=== PATIENT | female | born 1955 | race Caucasian/White ===

== ENCOUNTER 2024-09-22 12:35 | Inpatient (IN) | payer OTHER, SELFPAY ==
[2024-09-22] VITALS (44 sets, daily range): BP systolic 67–107; BP diastolic 46–70; BMI 19.7; BMI 19.0
--- NOTE | 2024-09-22 10:20 | ED.GENMED ---
History of Present Illness
<Demetra Robbins PA-C - Last Filed: 09/22/24 15:35>
General
Chief Complaint: Cough
Source: patient
Exam Limitations: none
Time Seen by Provider: 09/22/24 10:10
Nursing documentation reviewed up to this point in time: agreed with
History of Present Illness
History of Present Illness:
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
here from home with
here with 6 days of uri sxs, sore throat, fever, cough, congestion, loss of appetite
a few days ago she stoppe deating
is still drinking some but very weak
isn' really getting out of bed
has felt a little shortn of breath
not having chest pain, diarrhea
took motrin this morning
doesnt usually go to the doctor
Past History
<Demetra Robbins PA-C - Last Filed: 09/22/24 15:35>
Past History
ED Past Medical History: Other (leg abnormality, trouble walking baseline)
Social History
Tobacco: Non-smoker
Review of Systems
<MIRLANDE Haley Last Filed: 09/22/24 15:35>
Review of Systems
Allergies reviewed?: Yes
All Other Systems: Not applicable
Phy Exam
<MIRLANDE Haley Last Filed: 09/22/24 15:35>
Physical Exam
Physical Exam:
GENERAL: Alert , frail, generally weak
EYE: pupils equal and reactive
NECK: Supple
ENT: o/p clr, dry mouth
CARDIAC: Regular rate and rhythm .
LUNGS: Crackles right side anterior and posterior mild tachypnea
ABDOMEN: Soft, without focal tenderness, no r/g, no cvat, normal bowel sounds
NEUROLOGICAL: Alert and oriented, no focal neuro deficits
SKIN: Warm and dry, skin intact.
MUSCULOSKELETAL: No edema, well perfused. neg kiran's sign
PSYCH: Normal and appropriate interaction.
Sepsis
<Demetra Robbins PA-C - Last Filed: 09/22/24 15:35>
Sepsis Screening
Sepsis Assessment: Septic Shock
Sepsis Screening: Lactate >2mmol/L and Hypotension
Sepsis Screen
Sepsis Screen: Septic Shock
Date: 09/22/24
Time: 10:40
<Daron Jones MD - Last Filed: 09/22/24 12:42>
Sepsis Screen
Sepsis Screen: Sepsis
Date: 09/22/24
Time: 12:41
Course
<Demetra Robbins PA-C - Last Filed: 09/22/24 15:35>
Orders/Labs/Results
Orders:
Orders
09/22/24 Breakfast
Regular
At Your Request: Full Participation
09/22/24 10:19
0.9% Sodium Chloride 1000 ml [Nss] 1,000 ml IV BOLUS
09/22/24 10:20
Electrocardiogram (*1) Urgent
Reason for Study: Fatigue / Weakness
09/22/24 10:25
CR Chest Portable - 1 View Urgent
Comment:
Reason For Exam: hypotensive, hypoxic
Reason Study Needs to be Portable: Patient Unstable
09/22/24 10:33
COVID-19 Antigen Urgent
Source: Nasal Swab
Complete Blood Count/With Diff Urgent
Comprehensive Metabolic Panel Urgent
Lactic Acid Urgent
Magnesium Urgent
Manual Differential Urgent
Blood Culture Urgent
SHINE Source: Blood/Venous
Specimen Description:
Influenza A+B Rapid Molecular Urgent
SHINE Source: Nasal Swab
Specimen Description:
09/22/24 10:43
Azithromycin 500 mg/250 ml [Zithromax Infusion] 500 mg in 250 ml IV NOW
CefTRIAXone [Rocephin] 1,000 mg IV NOW STA
09/22/24 11:22
Oseltamivir Phosphate [Tamiflu] 75 mg PO NOW STA
09/22/24 11:43
0.9% Sodium Chloride 500 ml [Nss] 500 ml IV BOLUS
09/22/24 12:21
Admit/Transfer Patient As Directed
Co-Sign Provider:
Level of Care: Inpatient admission
Assign to:: IMU- Intermediate Care
Physician / Group: joanie
Diagnosis: pneumonia
Reason for Hospitalization: Acute hypoxic respiratory failure
2/2 pneumonia/flu
Expected length of stay greater than two midnights?: Yes
ELOS- Estimated Length of Stay in days: 3
I certify the patient meets the requirements for IP care: Yes
09/22/24 12:22
PRN Pain Medication Management As Directed
May give lesser potent ordered pain med per pt: Yes
preference::
Protocol:: Medication orders for pain may be administered in a
manner that supports deferring to patient preference
when the pt is:
- Requesting an ordered lesser potent pain medication.
Least to most potent pain medications are defined
as: acetaminophen < NSAID < tramadol < opioids
(morphine, oxycodone, hydromorphone).
- Requesting a lesser dose of the same medication IF
ORDERED.
- Requesting a less intrusive route of administration
if both routes are prescribed by the provider (PO <
IV).
09/22/24 12:23
Code Status As Directed
Resuscitation Status: Full Code
09/22/24 12:35
Acetaminophen [Tylenol] 650 mg PO NOW STA
09/22/24 12:38
Blood Culture Stat
SHINE Source: Blood/Venous
Specimen Description:
09/22/24 12:45
NORepinephrine 4 MG/250 ML [Levophed] 4 mg in 250 ml IV PER PROTOCOL
Initial dose in mcg/min, then titrate:: 2
Titrate to keep:: SBP > 90 mmHg
Titrate by mcg/min:: 1-2 mcg/min
Frequency of titrations (minutes):: 5
Maximum dose in ICU in mcg/min:: 30
Maximum dose in IMU in mcg/min:: 8
Maximum dose in IVU in mcg/min:: 4
Begin to taper infusion when:: Remained at goal for 4hrs
Taper by mcg/min:: 1-2 mcg/min
Frequency of taper (minutes) if patient maintains goal:: 30
Taper to off?: Yes
If infusion off & no longer maintaining goal:: Contact Provider
09/22/24 14:31
0.9% Sodium Chloride 1000 ml [Nss] 1,000 ml IV 100 mls/hr
Acetaminophen [Tylenol] 650 mg PO Q4HPRN PRN
Guaifenesin [Mucinex] 600 mg PO Q12
09/22/24 14:31
Legionella Urinary Antigen Routine
SHINE Source: Urine
Specimen Description:
Respiratory Culture/Gram Stain Urgent
SHINE Source: Sputum
Specimen Description:
Strep pneumoniae Antigen Routine
SHINE Source: Urine
Specimen Description:
Activity As Directed
Activity Level: Out of Bed-Early Mobility
Intake/ Output As Directed
Frequency: Per unit guidelines
Vital Signs As Directed
Frequency: Per unit guidelines
Weight As Directed
Frequency: Once
Comment: on admission
O2 Therapy [RESP] Routine
Titrate/Wean O2 to maintain O2 sat greater than (%): 95
Special Instructions: Wean as tolerated
Pt Eval And Treat Routine
Activity Level: As Tolerated
DX Deep Vein Thrombosis Video Routine
09/22/24 15:17
Lactic Acid Q4H
09/22/24 18:31
Lactic Acid Q4H
09/22/24 20:00
Doxycycline [Vibramycin] 100 mg PO BID
Heparin 5,000 units SC Q12
09/22/24 22:31
Lactic Acid Q4H
09/23/24 06:00
Comprehensive Metabolic Panel IN AM
09/23/24 08:00
Oseltamivir Phosphate [Tamiflu] 30 mg PO DAILY
09/23/24 10:00
CefTRIAXone [Rocephin] 1,000 mg IV Q24H
09/24/24 06:00
Comprehensive Metabolic Panel IN AM
09/25/24 06:00
Comprehensive Metabolic Panel IN AM
09/26/24 06:00
Comprehensive Metabolic Panel IN AM
Abnormal Lab Results
09/22/24
10:33
WBC 4.2 L 10^3/uL
(4.8-10.8)
MPV 10.6 H fL
(7.4-10.4)
Band Neutrophils 16 H %
(0-3)
Lymphocytes (Manual) 13 L %
(20-51)
Sodium 133 L mmol/L
(135-145)
Chloride 96 L mmol/L
(98-107)
Carbon Dioxide 19 L mmol/L
(22-30)
BUN 95 H mg/dl
(7-17)
Creatinine 2.3 H mg/dL
(0.6-1.0)
Glucose 101 H mg/dl
(70-99)
Lactic Acid 2.8 H mmol/L
(0.7-2.0)
Magnesium 2.6 H mg/dl
(1.6-2.3)
Total Bilirubin 1.5 H mg/dl
(0.2-1.3)
AST 65 H U/L
(14-36)
Albumin 3.3 L g/dl
(3.5-5.0)
09/22/24 10:33
09/22/24 10:33
Vital Signs
Temp: 36.5 C
Initial and Last Documented VS:
Initial Vital Signs
Pulse Resp BP Pulse Ox
107 18 70/51 86
09/22/24 10:07 09/22/24 10:07 09/22/24 10:07 09/22/24 10:07
Last Documented Vital Signs
Temp Pulse Resp BP Pulse Ox
36.5 C 92 27 100/61 96
09/22/24 10:20 09/22/24 14:00 09/22/24 14:00 09/22/24 14:00 09/22/24 14:00
<Daron Jones MD - Last Filed: 09/22/24 12:42>
Orders/Labs/Results
Orders:
Orders
09/22/24 Breakfast
Regular
At Your Request: Full Participation
09/22/24 10:19
0.9% Sodium Chloride 1000 ml [Nss] 1,000 ml IV BOLUS
09/22/24 10:20
Electrocardiogram (*1) Urgent
Reason for Study: Fatigue / Weakness
09/22/24 10:25
CR Chest Portable - 1 View Urgent
Comment:
Reason For Exam: hypotensive, hypoxic
Reason Study Needs to be Portable: Patient Unstable
09/22/24 10:33
COVID-19 Antigen Urgent
Source: Nasal Swab
Complete Blood Count/With Diff Urgent
Comprehensive Metabolic Panel Urgent
Lactic Acid Urgent
Magnesium Urgent
Manual Differential Urgent
Blood Culture Urgent
SHINE Source: Blood/Venous
Specimen Description:
Influenza A+B Rapid Molecular Urgent
SHINE Source: Nasal Swab
Specimen Description:
09/22/24 10:43
Azithromycin 500 mg/250 ml [Zithromax Infusion] 500 mg in 250 ml IV NOW
CefTRIAXone [Rocephin] 1,000 mg IV NOW STA
09/22/24 11:22
Oseltamivir Phosphate [Tamiflu] 75 mg PO NOW STA
09/22/24 11:43
0.9% Sodium Chloride 500 ml [Nss] 500 ml IV BOLUS
09/22/24 12:21
Admit/Transfer Patient As Directed
Co-Sign Provider:
Level of Care: Inpatient admission
Assign to:: IMU- Intermediate Care
Physician / Group: joanie
Diagnosis: pneumonia
Reason for Hospitalization: Acute hypoxic respiratory failure
2/2 pneumonia/flu
Expected length of stay greater than two midnights?: Yes
ELOS- Estimated Length of Stay in days: 3
I certify the patient meets the requirements for IP care: Yes
09/22/24 12:22
PRN Pain Medication Management As Directed
May give lesser potent ordered pain med per pt: Yes
preference::
Protocol:: Medication orders for pain may be administered in a
manner that supports deferring to patient preference
when the pt is:
- Requesting an ordered lesser potent pain medication.
Least to most potent pain medications are defined
as: acetaminophen < NSAID < tramadol < opioids
(morphine, oxycodone, hydromorphone).
- Requesting a lesser dose of the same medication IF
ORDERED.
- Requesting a less intrusive route of administration
if both routes are prescribed by the provider (PO <
IV).
09/22/24 12:23
Code Status As Directed
Resuscitation Status: Full Code
09/22/24 12:35
Acetaminophen [Tylenol] 650 mg PO NOW STA
09/22/24 12:38
Blood Culture Stat
SHINE Source: Blood/Venous
Specimen Description:
09/22/24 12:45
NORepinephrine 4 MG/250 ML [Levophed] 4 mg in 250 ml IV PER PROTOCOL
Initial dose in mcg/min, then titrate:: 2
Titrate to keep:: SBP > 90 mmHg
Titrate by mcg/min:: 1-2 mcg/min
Frequency of titrations (minutes):: 5
Maximum dose in ICU in mcg/min:: 30
Maximum dose in IMU in mcg/min:: 8
Maximum dose in IVU in mcg/min:: 4
Begin to taper infusion when:: Remained at goal for 4hrs
Taper by mcg/min:: 1-2 mcg/min
Frequency of taper (minutes) if patient maintains goal:: 30
Taper to off?: Yes
If infusion off & no longer maintaining goal:: Contact Provider
09/22/24 14:31
0.9% Sodium Chloride 1000 ml [Nss] 1,000 ml IV 100 mls/hr
Acetaminophen [Tylenol] 650 mg PO Q4HPRN PRN
Guaifenesin [Mucinex] 600 mg PO Q12
09/22/24 14:31
Legionella Urinary Antigen Routine
SHINE Source: Urine
Specimen Description:
Respiratory Culture/Gram Stain Urgent
SHINE Source: Sputum
Specimen Description:
Strep pneumoniae Antigen Routine
SHINE Source: Urine
Specimen Description:
Activity As Directed
Activity Level: Out of Bed-Early Mobility
Intake/ Output As Directed
Frequency: Per unit guidelines
Vital Signs As Directed
Frequency: Per unit guidelines
Weight As Directed
Frequency: Once
Comment: on admission
O2 Therapy [RESP] Routine
Titrate/Wean O2 to maintain O2 sat greater than (%): 95
Special Instructions: Wean as tolerated
Pt Eval And Treat Routine
Activity Level: As Tolerated
DX Deep Vein Thrombosis Video Routine
09/22/24 15:17
Lactic Acid Q4H
09/22/24 18:31
Lactic Acid Q4H
09/22/24 20:00
Doxycycline [Vibramycin] 100 mg PO BID
Heparin 5,000 units SC Q12
09/22/24 22:31
Lactic Acid Q4H
09/23/24 06:00
Comprehensive Metabolic Panel IN AM
09/23/24 08:00
Oseltamivir Phosphate [Tamiflu] 30 mg PO DAILY
09/23/24 10:00
CefTRIAXone [Rocephin] 1,000 mg IV Q24H
09/24/24 06:00
Comprehensive Metabolic Panel IN AM
09/25/24 06:00
Comprehensive Metabolic Panel IN AM
09/26/24 06:00
Comprehensive Metabolic Panel IN AM
Abnormal Lab Results
09/22/24
10:33
WBC 4.2 L 10^3/uL
(4.8-10.8)
MPV 10.6 H fL
(7.4-10.4)
Band Neutrophils 16 H %
(0-3)
Lymphocytes (Manual) 13 L %
(20-51)
Sodium 133 L mmol/L
(135-145)
Chloride 96 L mmol/L
(98-107)
Carbon Dioxide 19 L mmol/L
(22-30)
BUN 95 H mg/dl
(7-17)
Creatinine 2.3 H mg/dL
(0.6-1.0)
Glucose 101 H mg/dl
(70-99)
Lactic Acid 2.8 H mmol/L
(0.7-2.0)
Magnesium 2.6 H mg/dl
(1.6-2.3)
Total Bilirubin 1.5 H mg/dl
(0.2-1.3)
AST 65 H U/L
(14-36)
Albumin 3.3 L g/dl
(3.5-5.0)
09/22/24 10:33
09/22/24 10:33
Vital Signs
Initial and Last Documented VS:
Initial Vital Signs
Pulse Resp BP Pulse Ox
107 18 70/51 86
09/22/24 10:07 09/22/24 10:07 09/22/24 10:07 09/22/24 10:07
Last Documented Vital Signs
Temp Pulse Resp BP Pulse Ox
36.5 C 92 27 100/61 96
09/22/24 10:20 09/22/24 14:00 09/22/24 14:00 09/22/24 14:00 09/22/24 14:00
<Demetra Robbins PA-C - Last Filed: 09/22/24 15:35>
MDM/Problems Addressed
Differential Diagnosis Includes:
STETPIC SHOCK, PNEUMONIA, FLU
MDM/Problems Addressed:
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
ICU
69 y/o F flu pneumonia
no chronic problems (doesn't go to doctor); other than R leg deformity congenital
6 days URI sxs, fever, cough, weak, anorexia
hypoxic 80s on RA, 93% on 2L
afebrile
bp 80/50s
cxr multilobar pna
flu A+
LORRAINE
lactate 2.8
bp probably always runs a little low, she's frail
but getting 1st liter now, 30/kg ordered; MAP 74 now
if she still is hypotensive, will start levophed
ICU
<Demetra Robbins PA-C - Last Filed: 09/22/24 15:35>
*Critical Care Note
Total Time (30-74mins, 75-104mins- exclusive of procedures): Not Applicable
ED Attending Note
<Demetra Robbins PA-C - Last Filed: 09/22/24 15:35>
-
Portions of this chart may have been created with voice recognition software.� Occasional wrong word or��sound alike� substitutions may have occurred due to the inherent limitations of voice recognition software.
<Daron Jones MD - Last Filed: 09/22/24 12:42>
ED Attending Note
Patient seen and examined by attending physician: Yes
I performed the substantive portion of visit, reviewed & personally made and approve the management plan that is documented in note by myself or RICARDO.: Yes
ED Attending Note:
69-year-old female complaining of cough congestion shortness of breath loss of appetite. Progressive over 1 week. Patient does not see physicians. She takes no regular medication.
On exam patient is significantly ill. Hypotensive. Hypoxic. Thin and cachectic.
Mild tachypnea. Lungs with some rhonchi in the bases. Poor airflow generally. Heart regular rate and rhythm. Abdomen soft and nontender. She is thin and cachectic. She is grossly nonfocal.
Influenza positive. Significant dehydration and renal insufficiency multilobar pneumonia. Antiviral therapy. Patient is significantly ill. Close monitoring.
Discharge Plan
Departure
Patient Disposition: Admit
Date of Disposition: 09/22/24
Time of Disposition: 11:44
Admit to: ICU
Presentation/result/management discussed w/ accepting MD/DO: Hospitalist
Condition: Critical
Covid-19: Negative COVID-19
Discharge Problem:
Influenza A, Pneumonia, Septic shock
Interventions
Interventions:
*Risk Screen - Suicide Last Done: 09/22/24 10:07
*General Assessment Last Done: 09/22/24 10:07
*Neglect/Abuse Screening Last Done: 09/22/24 10:07
*ED COVID-19 Vaccine History Last Done: 09/22/24 10:07
*Nursing Disposition Last Done: 09/22/24 14:42
ED- Pulmonary Assessment Last Done: 09/22/24 10:58
Discharge Date and Time
Discharge Date/Time: 09/22/24 14:43
[2024-09-22] MEDS: NSS 1000 IV ×2 (10:42→15:00)
[2024-09-22] MEDS: ZITHROMAX INFUSION 250 IV (10:53)
[2024-09-22] MEDS: ROCEPHIN 1000 MG IV (10:53)
[2024-09-22 11:04] LABS: Hematocrit 41.3 % (37.0-47.0); Hemoglobin 14.8 g/dL (12.0-16.0); Mean Corp Hgb Conc. 35.8 g/dL (33.0-37.0); Mean Corpuscular Volume 83.6 fL (81.0-99.0); Mean Platelet Volume 10.6 fL (7.4-10.4); Platelet Count 188 10^3/uL (130-400); Red Blood Cell Count 4.94 10^6/uL (4.20-5.40); Red Cell Dist. Width 12.7 % (11.5-14.5); White Blood Cell Count 4.2 10^3/uL (4.8-10.8)
[2024-09-22 11:07] LABS: Lactic Acid 2.8 mmol/L (0.7-2.0)
[2024-09-22 11:09] LABS: ALT (SGPT) 34 U/L (0-35); AST (SGOT) 65 U/L (14-36); Albumin 3.3 g/dl (3.5-5.0); Alkaline Phosphatase 100 U/L (38-126); Blood Urea Nitrogen 95 mg/dl (7-17); Carbon Dioxide 19 mmol/L (22-30); Chloride 96 mmol/L (98-107); Estimated Creatinine Clearance 19 ml/min; Glucose 101 mg/dl (70-99); Magnesium 2.6 mg/dl (1.6-2.3); Potassium 3.8 mmol/L (3.5-5.1); Sodium 133 mmol/L (135-145); Total Bilirubin 1.5 mg/dl (0.2-1.3); Total Protein 6.6 g/dl (6.3-8.2); eGFR 22.59
[2024-09-22 11:19] LABS: COVID-19 Antigen Negative (Negative)
[2024-09-22] MEDS: TAMIFLU 75 MG PO (11:34)
[2024-09-22] MEDS: NSS 500 IV (11:49)
[2024-09-22 12:02] LABS: Absolute Neutrophils -Man Diff 3.5 10^3/uL (1.4-6.5); Band Neutrophils 16 % (0-3); Lymphocytes 13 % (20-51); Monocytes 3 % (2-9); Normal RBC Morphology No; Platelets Checked Yes; Segmented Neutrophils 68 % (42-75)
[2024-09-22 12:03] LABS: Acanthocytes 1+; Anisocytosis Slight; Ovalocytes Slight; Poikilocytosis Slight; Total Cells Counted 100
--- NOTE | 2024-09-22 12:03 | HPS.HSE ---
Family Physician
-
Family Physician: * NONE
Chief Complaint
-
cough
History of Present Illness
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 patient stated hemoptysis with cough now. she is not eating at all for past six days.
patient complained of sob.denied WELCH, dizzy or syncope.she is complaining of chills. denied fever. stated some right sided ribs pain. denied abdominal pain,n. she had diarrhea yesterday.denied dysuria or hematuria. patient was taking Advil with some
relief in her achiness.
Chest x-ray concern for pneumonia. Patient received azithromycin and ceftriaxone normal saline, Tamiflu in ER. Blood culture sent from ER. Patient also receiving 6 L of oxygen.. Admitting for further management
Medical History
Past Medical History
Past Medical History: Reports None
Past Surgical History: Reports None
Social History
Tobacco: Non-smoker
Alcohol: None
Drug: None
Personal:
Living: With Family
Family History
Family History: Not pertinent
Allergies / Home Medications
Allergies reflects when Allergies were last updated in [facility].
Home Medications with original date entered in [facility]
Allergy/Medication List:
Allergies
Allergy/AdvReac Type Severity Reaction Status Date / Time
No Known Allergies Allergy Verified 07/11/23 19:14
Home Medications
ibuprofen 200 mg tablet (Advil) 200 mg PO BID mild pain 09/22/24
Review of Systems
-
Constitutional: Reports Fatigue and Chills
EENT: Reports No Symptoms
Respiratory: Reports Cough, Hemoptysis and Trouble Breathing
Cardiac: Reports Chest Pain
Abdomen/GI: Reports Diarrhea
: Reports No Symptoms
Musculoskeletal: Reports No Symptoms and Muscle Pain
Skin: Reports No Symptoms
Neurological: Reports Weakness
Endocrine: Reports No Symptoms
Hematologic/Lymphatic: Reports No Symptoms
Psych: Reports No Symptoms
Physical Exam
Vital Signs
Vital Signs
Temp Pulse Resp BP Pulse Ox
97.7 F 90 32 90/59 94
09/22/24 10:20 09/22/24 11:37 09/22/24 10:45 09/22/24 11:36 09/22/24 11:37
Physical Exam
General: Well Developed, Well Nourished and No Apparent Distress
HEENT: NormoCephalic, Moist mucous membranes and Atraumatic
Respiratory: Rhonchi and Crackles
Cardiac: S1/S2 and Regular Rhythm; No Murmur or Rub
GI: Soft, Non Tender, Non Distended and Normal Bowel Sounds; No Organomegaly
Rectal: Deferred by Provider
Musculoskeletal: No Clubbing, No Cyanosis and No Edema
Skin: No Rash
Neuro: AO x 3 and Nonfocal/grossly intact
Psych: Calm
Laboratory Results
-
09/22/24 10:33
09/22/24 10:33
Laboratory Results
Lactic Acid 2.8 mmol/L (0.7-2.0) H 09/22/24 10:33
Total Bilirubin 1.5 mg/dl (0.2-1.3) H 09/22/24 10:33
AST 65 U/L (14-36) H 09/22/24 10:33
ALT 34 U/L (0-35) 09/22/24 10:33
Alkaline Phosphatase 100 U/L (38-126) 09/22/24 10:33
Data Reviewed
-
Lab Data: Labs Reviewed by me
Impression/Plan
-
# Fever cough/generalized weakness likely from flu/pneumonia
# Acute hypoxic respiratory failure
# Sepsis as evident by hypotension, elevated lactate
-Patient is requiring 2 L of oxygen
-Fluids continued
-continue supplemental oxygen to keep sat greater than 95
-Wean as tolerated
-Ceftriaxone and doxy continued
-Tamiflu continued
-Tylenol as needed for fever
-Mucinex as needed for cough
-Blood culture sent from ER
-initiated on Levophed to manage BP
# Hyponatremia/metabolic acidosis /acute kidney injury likely hypovolemic
-Sodium 133, CO2 19, creatinine 2.3
-Fluids continued BMP in a.m.
# DVT prophylaxis
-Heparin subcu
# CODE STATUS
-Full code
--- NOTE | 2024-09-22 12:19 | W.PN.UPDATE ---
Update Note
Progress Note Update
This is an addendum to the H&P written by Saundra Osorio in 09/22/2024. Patient seen and examined independently with DRONE PILOT.
69-year-old female past medical history of chronic gait instability, congenital leg defect presenting with 6 days of sore throat, fever, cough, shortness of breath, congestion and loss of appetite. She has some slight hemoptysis starting today. Had
diarrhea few days ago now resolved.
Patient hypotensive blood pressure 70 systolic. Patient requiring 5 to 6 L of oxygen.
Labs show creatinine of 2.3. Lactic acid 2.8. White cell count of 4.2.
Chest x-ray appears to show right-sided infiltrate.
Patient positive for influenza.
Patient with sepsis secondary to influenza infection/likely postviral bacterial infection involving the right lung.
IV fluids. Check blood cultures. Check sputum culture. Tamiflu started. Ceftriaxone/doxycycline.
[2024-09-22] MEDS: TYLENOL 650 MG PO ×2 (13:34→20:35)
[2024-09-22 15:46] LABS: Lactic Acid 1.5 mmol/L (0.7-2.0)
[2024-09-22] MEDS: MUCINEX 600 MG PO ×2 (17:39→20:27)
[2024-09-22] MEDS: LEVOPHED 250 IV (18:52)
--- NOTE | 2024-09-22 19:21 | PTCARENOTE ---
pt arrived from ED this afternoon. see nursing assessment. o2 currently at 12 liters with sat of 94. levophed started at 1845 for systolic blood pressure of 86. iv fluids infusing.
[2024-09-22] MEDS: VIBRAMYCIN 100 MG PO (20:27)
[2024-09-22] MEDS: HEPARIN 5000 UNITS SC (20:31)
[2024-09-22] MEDS: ZOFRAN 4 MG IV (22:18)
[2024-09-23] VITALS (78 sets, daily range): BP systolic 80–119; BP diastolic 53–86; PULSE 91–95; O2SAT 95–97
[2024-09-23] MEDS: NSS 250 IV (00:13)
[2024-09-23] MEDS: NSS 1000 IV ×3 (01:04→21:23)
--- NOTE | 2024-09-23 01:42 | PTCARENOTE ---
Pt started on levo at beginning of shift for SBP < 90. Titrated up to 8 mcg/min without meeting goal - provider notified and order for saline bolus received. BP goal achieved following bolus - maintained Pt on 8mcg of Levo. To start tapering by
0515 if Pt remains at goal. Pt asymptomatic. Will continue to monitor and assess
[2024-09-23] MEDS: LEVOPHED 250 IV (04:29)
--- NOTE | 2024-09-23 06:23 | W.PN.HOSP.TC ---
Today's Communication/Plan
-
ID eval
cont abx
IVF
PT/OT
wean pressor, O2 as tolerated
low dose midodrine
Assessment / Plan
Assessment / Plan
Physical Exam
General: no acute distress, comfortable at this time
HEENT: NormoCephalic, Moist mucous membranes and Atraumatic
Respiratory: Rhonchi and Crackles, stable respiratory status on 2L
Cardiac: S1/S2 and Regular Rhythm; No Murmur or Rub
GI: Soft, Non Tender, Non Distended and Normal Bowel Sounds; No Organomegaly
Musculoskeletal: No Clubbing, No Cyanosis and No Edema
Skin: No Rash
Neuro: AO x 3
Psych: Calm
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
#Septic Shock
# Fever cough/generalized weakness likely from flu/Strep pneumonia
# Acute hypoxic respiratory failure
# Sepsis as evident by hypotension, elevated lactate
-Patient is requiring 2 L of oxygen
-Fluids continued
-continue supplemental oxygen to keep sat greater than 95
-Wean as tolerated
-Ceftriaxone continued, doxy discontinued
-Tamiflu continued
-Tylenol as needed for fever
-Mucinex as needed for cough
-Blood cultures positive for Strep pneumonia, follow up repeat
-wean Levophed as tolerated
-low dose midodrine with holding parameters
-ID eval
# Hyponatremia/metabolic acidosis /acute kidney injury likely hypovolemic
-cont IVF
# DVT prophylaxis
-Heparin subcu
# CODE STATUS
-Full code
I spent a total of 50 minutes with the patient or on the floor. More than 50% of this time involved counseling and coordination of care.
Anticipated Discharge: Today
Subjective/Interval History
-
Date of Service: September 23, 2024
No acute distress. On 2L NC stable respiratory status. Weaning down on pressor. Overall improvement in symptoms noted
Objective Data
-
Labs:
Laboratory Results
09/23/24
05:29
Sodium Pending
Potassium Pending
Chloride Pending
Carbon Dioxide Pending
BUN Pending
Creatinine Pending
Glucose Pending
Calcium Pending
Total Bilirubin Pending
AST Pending
ALT Pending
Alkaline Phosphatase Pending
Vital Signs:
Vital Signs
Temp Pulse Resp BP Pulse Ox
98.1 F 78 20 97/63 100
09/23/24 04:18 09/23/24 06:00 09/23/24 06:00 09/23/24 06:00 09/23/24 06:00
I&O
09/21/24 09/22/24 09/23/24
06:59 06:59 06:59
Intake Total 1750 / 1750
Output Total 550 / 550
Balance 1200 / 1200
[2024-09-23 06:29] LABS: ALT (SGPT) 23 U/L (0-35); AST (SGOT) 36 U/L (14-36); Albumin 2.2 g/dl (3.5-5.0); Alkaline Phosphatase 84 U/L (38-126); Blood Urea Nitrogen 67 mg/dl (7-17); Calcium 7.8 mg/dl (8.4-10.2); Carbon Dioxide 19 mmol/L (22-30); Chloride 106 mmol/L (98-107); Estimated Creatinine Clearance 36 ml/min; Glucose 97 mg/dl (70-99); Potassium 2.8 mmol/L (3.5-5.1); Sodium 137 mmol/L (135-145); Total Protein 4.8 g/dl (6.3-8.2); eGFR 49.31
[2024-09-23] MEDS: KCL 270 MEQ IV (08:23)
[2024-09-23] MEDS: KCL 40 MEQ PO (08:37)
[2024-09-23] MEDS: TAMIFLU 30 MG PO ×2 (08:38→19:24)
[2024-09-23] MEDS: MUCINEX 600 MG PO ×2 (08:38→19:23)
[2024-09-23] MEDS: HEPARIN 5000 UNITS SC ×2 (08:38→19:24)
[2024-09-23] MEDS: VIBRAMYCIN 100 MG PO (08:38)
[2024-09-23 08:44] LABS: Magnesium 2.2 mg/dl (1.6-2.3); Phosphorus 3.6 mg/dl (2.5-4.5)
[2024-09-23] MEDS: ROCEPHIN 1000 MG IV ×2 (09:50→14:29)
[2024-09-23] MEDS: STERILE WATER FOR INJECTION 10 ML IV ×2 (09:51→14:29)
--- NOTE | 2024-09-23 12:40 | PTCARENOTE ---
Addendum entered by Key Grier RN 09/23/24 12:47:
Currently at 6L midflow; POx 97%.
Original Note:
Assumed care of patient at beginning of this shift from previous RN with levophed infusing at 5mcg/min; cannot verify accuracy of vital signs prior to 0700. Able to wean levophed to current dose of 2mcg/min; patient to start midodrine. K+ 2.9; K+
rider ordered and currently infusing. VAT RN up to place a second IV site. Midflow @10L in use at start of shift; weaned to 8L by RT. Worked with PT and assisted OOB to chair; tolerating well. at bedside. See worklist for full assessment and
vital signs; see MAR for med administration.
[2024-09-23] MEDS: ProAmatine 2.5 MG PO ×2 (13:06→17:36)
--- NOTE | 2024-09-23 13:52 | CON.ID ---
Addendum entered and electronically signed by Nichole Lee MD 09/23/24 15:11:
no recent exposures to chickens, cattle or birds, doesnt drink raw milk.
Original Note:
Consultation
-
Date/Time Consultation Requested: 09/23/24 13:01
Date/Time Consultation Performed: 09/23/24 14:00
Requesting Provider: Dr Randolph
Performing Provider: Dr Lee
Reason for Consultation: Flu severe sepsis strep pna
Chief Complaint / Past History
Chief Complaint
cough
History of Present Illness
Ms Yeboah is a 69 year old female without significant past medical history (but doesnt regularly see an MD) who presented here 09/22 for a 6 day course of fevers, chills, cough, congestion, myalgias and malaise. Took advil at home for myalgias.
She progressed to hemoptysis and shortness of breath, diarrhea which prompted her to present to the ER. Denied: abdominal pain, nausea.
Since arrival here she has been afebrile, bp persistently borderline hypotensive, HR in the 90s, currently on 10L NC down from 15, wbc 4.2, hgb 14.8, plt 188, L shift noted, K on arrival 3.8 today 2.8, cr initially 2.3 now 1.2 - unknown baseline,
lactic acid 2.8 initially then 1.5, t bili 1.0, ast 36, alt 23, alk pohs 84, covid ag negative, CXR: moderate R lung pneumonia, initially blood cultures x2 GPCs in pairs, strep pneumo urine antigen positive, influenza A positive
Past History
Additional Past Medical History:
gait instability, congenital leg defect
Past Surgical History: None
Allergy History:
No Known Allergies Allergy (Verified 07/11/23 19:14)
Medications Reviewed: Yes
Social History
Tobacco: Non-Smoker
Alcohol: None
Drug: None
Family History
Family History: Not Pertinent
Review of Systems
Review of Systems
General: Fever and Chills
All systems: All other systems were reviewed and were negative (except as listed in HPI)
Vital Signs
Temp Pulse Resp BP Pulse Ox
97.7 F 93 33 91/67 97
09/23/24 11:11 09/23/24 13:00 09/23/24 13:00 09/23/24 13:06 09/23/24 13:00
Physical Exam
Physical Exam
Constitutional: No Acute Distress
Cardiovascular: Regular Rate and S1/S2; Negative Murmur or Rub
Pulmonary: Clear, Wheezes, Coarse and Non Labored; Negative Symmetric, Rales or Rhonchi
Gastrointestinal: Soft, Non Tender, Non Distended and Normal Bowel Sounds
Skin: Warm and Dry; Negative Rash or Jaundice
Lab / Diagnostic Study Results
09/22/24 10:33
09/23/24 05:29
Total Counted 100 09/22/24 10:33
Abs Neuts (Manual) 3.5 10^3/uL (1.4-6.5) 09/22/24 10:33
Segmented Neutrophils 68 % (42-75) 09/22/24 10:33
Band Neutrophils 16 % (0-3) H 09/22/24 10:33
Lymphocytes (Manual) 13 % (20-51) L 09/22/24 10:33
Lactic Acid Cancelled 09/22/24 22:31
Microbiology Results
Micro:
09/22/24 12:38 Blood Culture - Preliminary
Blood/Venous Positive culture in progress
Gram Stain - Final
09/22/24 10:33 Blood Culture - Preliminary
Blood/Venous Positive culture in progress
Gram Stain - Preliminary
09/22/24 22:22 Legionella Urinary Antigen - Final
Urine Negative for Legionella pneumophila Serogroup 1 antigen.
A negative result does not rule out the possiblity of
Legionella infection due to other serogroups or species of
Legionella. Clinical correlation is recommended.
Streptococcus pneumoniae Antigen (M - Final
Positive for Strep pneumo Ag
09/22/24 10:33 Influenza Types A & B (EUN) - Final
Nasal Swab Influenza A Positive, NAAT
Assessment / Plan
Influenza A
Strep Pneumoniae Pneumonia
Bacteremia due to GPCs likely Strep Pneumoniae
- repeat blood cultures x2 tomorrow
- follow for ID of the GPCs from 09/23 - expect S Pneumoniae
- increased dose of ceftriaxone to 2 gm IV q24 hours
- stopped doxycycline - cause of pneumonia is known, not an atypical infection
- continue tamiflu - 10 day course given severity of illness, need for hospitalization
- needs to establish care with a PCP moving forward, discussed withe patient.
--- NOTE | 2024-09-23 14:32 | PTOTSP ---
Speech Therapy Evaluation:
Pt demonstrated slow but functional oral phase of swallowing. 1x coughing episode following 3oz swallow screen, however pt attributed this to an isolated incident. Pt's reported pt never takes consecutive sips of water. No s/sx of aspiration
observed with small single sips of liquids, puree, or regular solids. Pt with no predisposing risk factors of dysphagia, though remains at increased risk of aspiration given increased respiratory demand in the setting of flu/pna.
Recommend:
1. Continue regular solids and thin liquids via small single sips
2. Medications as tolerated
3. General aspiration precautions
4. CLOTHES SHAKER to follow to monitor tolerance of currnet diet and determine if instrumental assessment warranted
--- NOTE | 2024-09-23 15:11 | PTCARENOTE ---
BC resulted: gram stain of anaerobic reveals gram positive cocci in pairs. Legionella urine negative; however positive for strep pneumoniae antigen. Dr Joseph notified via TT and he ordered ID consult. Dr Lee in to see patient; she ordered
rocephin which was given.
--- NOTE | 2024-09-23 15:25 | PTCARENOTE ---
Addendum entered and electronically signed by Haris Randolph MD 09/23/24 17:21:
MD aware. Cont monitoring for now
Original Note:
Patient had short burst of ST, lasting approximately 6 secs, while sitting in chair. Asymptomatic. BP 90/66. HR currently 96-97 while getting cleaned up/changed. TT sent to Dr Randolph.
--- NOTE | 2024-09-23 17:13 | CM ---
Addendum entered by Angella Ramirez RN 09/23/24 17:22:
Patient was offered SNF as well as VN and declined both.
Original Note:
Patient with Dx PNA, Influenza A. O2 10L charted this am. PT/OT recommend skilled rehab.
Spoke with patient who resides with her in a 2 story house.
The patient was independent in ADLs and ambulation without using an assistive device.
She shares that she has balance issues and knows she should be using her cane.
Patient denies any falls.
Patient was active and working.
DME - [facility]
No prior VN or SNF.
The patient does not have a PCP - she agrees to receiving the Physician List.
Offered VN and patient declined saying she will be ok with her first floor home setup.
Plan follow patient's mobility and possible home O2 needs.
Plan provide PCP List.
Plan home.
--- NOTE | 2024-09-23 22:35 | PTCARENOTE ---
Pt AAOx3, pleasant and cooperative. Pt reports 'my sons helped me to the bathroom and I had a BM earlier today.' Previously pt had not had BM x5 days. Refused HS dose of senokot. VSS at this time. Will continue to wean O2 as tolerated, currently 96%
on 3L MF cannula. Pt denies concerns at this time. Call hale within reach. Pt able to produce small amount of hunt sputum, sent to lab per MD orders. Care ongoing.
[2024-09-23 22:40] LABS: Potassium 3.4 mmol/L (3.5-5.1)
[2024-09-24] VITALS (27 sets, daily range): BP systolic 89–130; BP diastolic 58–86
[2024-09-24 03:56] LABS: Hematocrit 35.4 % (37.0-47.0); Hemoglobin 12.6 g/dL (12.0-16.0); Mean Corp Hgb Conc. 35.6 g/dL (33.0-37.0); Mean Corpuscular Hgb 29.5 pg (27.0-31.0); Mean Corpuscular Volume 82.9 fL (81.0-99.0); Mean Platelet Volume 10.1 fL (7.4-10.4); Platelet Count 150 10^3/uL (130-400); Red Blood Cell Count 4.27 10^6/uL (4.20-5.40); Red Cell Dist. Width 13.4 % (11.5-14.5); White Blood Cell Count 8.6 10^3/uL (4.8-10.8)
[2024-09-24] MEDS: TYLENOL 650 MG PO ×3 (04:00→20:02)
[2024-09-24 04:17] LABS: Blood Urea Nitrogen 40 mg/dl (7-17); Calcium 8.2 mg/dl (8.4-10.2); Carbon Dioxide 21 mmol/L (22-30); Chloride 111 mmol/L (98-107); Estimated Creatinine Clearance 53 ml/min; Glucose 80 mg/dl (70-99); Magnesium 1.9 mg/dl (1.6-2.3); Phosphorus 2.2 mg/dl (2.5-4.5); Potassium 2.9 mmol/L (3.5-5.1); Sodium 141 mmol/L (135-145); eGFR > 60.00
[2024-09-24] MEDS: KCL 40 MEQ PO (04:47)
[2024-09-24] MEDS: ROCEPHIN 2000 MG IV (05:47)
[2024-09-24] MEDS: STERILE WATER FOR INJECTION 20 ML IV (05:47)
[2024-09-24] MEDS: KCL 270 MEQ IV (05:48)
--- NOTE | 2024-09-24 07:12 | W.PN.HOSP.TC ---
Today's Communication/Plan
-
wean O2 as tolerated
cont abx Tamiflu as per ID
PT/OT
Duoneb R QID and prn
VEST
Replete Potassium
Start scheduled potassium and neutraphos
Assessment / Plan
Assessment / Plan
Physical Exam
General: no acute distress, comfortable at this time
HEENT: NormoCephalic, Moist mucous membranes and Atraumatic
Respiratory: Rhonchi and Crackles, stable respiratory status on 2L
Cardiac: S1/S2 and Regular Rhythm; No Murmur or Rub
GI: Soft, Non Tender, Non Distended and Normal Bowel Sounds; No Organomegaly
Musculoskeletal: No Clubbing, No Cyanosis and No Edema
Skin: No Rash
Neuro: AO x 3
Psych: Calm
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
#Septic Shock elevated (tachycardia, tachypnea) lactate, hypotension initially requiring pressor support
# Fever cough/generalized weakness likely from flu/Strep pneumonia
# Acute hypoxic respiratory failure
-Requiring 3 L of oxygen, wean as tolerated
-IVF completed
-Ceftriaxone continued, doxy discontinued
-Tamiflu continued
-Tylenol as needed for fever
-Mucinex as needed for cough
-Blood cultures positive for Strep pneumonia, follow up repeat blood cx's NGTD
-weaned off Levophed
-low dose midodrine with holding parameters
-ID eval appreciated
-Duoneb R QID and PRN
-VEST therapy, Incentive Spirometry
# Hyponatremia/metabolic acidosis /acute kidney injury likely hypovolemic
-resolved
-IVF completed
#Hypokalemia
#Mild Hypophosphatemia
monitor and replete as necessary
scheduled Potassium 20 MeQ BID
Neutraphos ACHS
# DVT prophylaxis
-Heparin subcu
# CODE STATUS
-Full code
Discussed with patient and patient's [id number] Bertha
I spent a total of 50 minutes with the patient or on the floor. More than 50% of this time involved counseling and coordination of care.
Anticipated Discharge: 24 - 48 hours
Subjective/Interval History
-
Date of Service: September 24, 2024
Seen and examined at bedside in no acute distress sitting up comfortably in bed. Stable respiratory status on 3L. Off pressor. reports overall feeling better.
Objective Data
-
Labs:
Laboratory Results
09/23/24 09/24/24
22:22 03:30
WBC 8.6
Hgb 12.6
Hct 35.4 L
Plt Count 150 D
Sodium 141
Potassium 3.4 L 2.9 L
Chloride 111 H
Carbon Dioxide 21 L
BUN 40 H
Creatinine 0.8
Glucose 80
Calcium 8.2 L
Vital Signs:
Vital Signs
Temp Pulse Resp BP Pulse Ox
98.1 F 86 23 91/60 96
09/24/24 02:58 09/24/24 06:00 09/24/24 06:00 09/24/24 06:00 09/24/24 06:00
I&O
09/23/24 09/24/24 09/25/24
06:59 06:59 06:59
Intake Total 1750 / 1750 1200 / 1200
Output Total 550 / 550 750 / 750
Balance 1200 / 1200 450 / 450
[2024-09-24] MEDS: NSS 1000 IV ×2 (09:19→16:49)
[2024-09-24] MEDS: TAMIFLU 30 MG PO ×2 (09:22→19:55)
[2024-09-24] MEDS: ProAmatine PO ×3 (09:22→16:50)
[2024-09-24] MEDS: MUCINEX 600 MG PO (09:23)
[2024-09-24] MEDS: NEUTRA-PHOS POWDER PACKET 250 MG PO ×4 (09:23→20:04)
[2024-09-24] MEDS: HEPARIN 5000 UNITS SC ×2 (09:24→19:56)
--- NOTE | 2024-09-24 10:29 | W.PN.ID1 ---
Date of Service
Date of Service: September 24, 2024
Today's Communication
- c/w ceftriaxone to 2 gm IV q24 hours
- continue tamiflu - 10 day course given severity of illness, need for hospitalization
Assessment / Plan
Influenza A
Strep Pneumoniae Pneumonia
Bacteremia due to GPCs likely Strep Pneumoniae
- repeat blood cultures 09/23 and 09/24 in progress no growth to date
- 09/23 blood cultures S Pneumoniae
- c/w ceftriaxone to 2 gm IV q24 hours
- continue tamiflu - 10 day course given severity of illness, need for hospitalization
- needs to establish care with a PCP moving forward, discussed withe patient earlier this admission
Chief Complaint
-: Other (Flu A, S pneumo pneumonia)
Subjective / Review of Systems
afebrile
bp stable
now on 3L NC - much improved
had a small BM last night
Vital Signs / Physical Exam
Vital Signs
Vital Signs
Temp Pulse Resp BP Pulse Ox
98.1 F 99 27 108/62 94
09/24/24 07:13 09/24/24 09:22 09/24/24 09:21 09/24/24 09:22 09/24/24 09:21
Physical Exam
Constitutional: No Acute Distress
Cardiovascular: Regular Rate and S1/S2; Negative Murmur or Rub
Pulmonary: Clear, Symmetric and Non Labored; Negative Wheezes or Rales
Gastrointestinal: Soft, Non Tender, Non Distended and Normal Bowel Sounds
Skin: Warm and Dry; Negative Rash or Jaundice
Objective Data
Lab Data
Lab Results
09/24/24 03:30
09/24/24 03:30
Estimated Creat Clear 53 ml/min 09/24/24 03:30
Lactic Acid Cancelled 09/22/24 22:31
Total Bilirubin 1.0 mg/dl (0.2-1.3) 09/23/24 05:29
AST 36 U/L (14-36) 09/23/24 05:29
ALT 23 U/L (0-35) 09/23/24 05:29
Alkaline Phosphatase 84 U/L (38-126) 09/23/24 05:29
Most recent labs reviewed.
Micro Results:
09/22/24 10:33 Blood Culture - Preliminary
Blood/Venous Streptococcus pneumoniae
Gram Stain - Preliminary
09/22/24 12:38 Blood Culture - Preliminary
Blood/Venous Streptococcus pneumoniae
Gram Stain - Final
09/24/24 03:40 Blood Culture - Pending
Blood/Venous
09/24/24 03:30 Blood Culture - Pending
Blood/Venous
09/23/24 22:22 Respiratory Culture - Pending
Sputum Gram Stain - Pending
09/23/24 16:43 Blood Culture - Pending
Blood/Venous
09/23/24 13:35 Blood Culture - Pending
Blood/Venous
09/22/24 22:22 Legionella Urinary Antigen - Final
Urine Negative for Legionella pneumophila Serogroup 1 antigen.
A negative result does not rule out the possiblity of
Legionella infection due to other serogroups or species of
Legionella. Clinical correlation is recommended.
Streptococcus pneumoniae Antigen (M - Final
Positive for Strep pneumo Ag
09/22/24 10:33 Influenza Types A & B (EUN) - Final
Nasal Swab Influenza A Positive, NAAT
[2024-09-24] MEDS: DUONEB 3 ML INH ×3 (11:29→19:02)
--- NOTE | 2024-09-24 13:57 | CM ---
PT recommends SNF when stable for discharge; per , patient still prefers to go home with home health
Offered [facility] if patient is unable to get an appointment with a PCP from the list provided
CM will follow up closer to discharge
--- NOTE | 2024-09-24 14:23 | PTCARENOTE ---
Patient is out of bed to chair with family. This morning patient was tachypneic and had dyspnea with exertion and wheezing. Discussed with De. Randolph. Neb treatments and vest therapy ordered. Patient given Tylenol 650mg for mild rib pain with relief.
Vitals signs are now 99/69, MAP 78, resp rate 28, pulse ox 95% on 3 liters mid flow pulse is 95 Normal Sinus. Patient objectively more comfortable. Poor appetite, family ordered food for patient. Oral intake/ nutrition discussed with patient.
Patient is compliant with plan of care.
[2024-09-24] MEDS: KCL 20 MEQ PO (19:55)
[2024-09-24] MEDS: MUCINEX PO (19:57)
--- NOTE | 2024-09-24 23:51 | PTCARENOTE ---
POC continues. Pt does c/o mild difficulty swallowing with pills. Applesauce provided with pills to assist swallow. Pt tachycardic, tachypneic at times. 93% on 4L. C/o non-productive frequent moist cough. Mucinex refused HS. PW in place for
incontinence. Hygiene care performed. Pt denies additional complaints at this time. Diet encouraged. Pt states she is afraid to eat d/t IBS, afraid she is going to have diarrhea, requesting imodium. Educated pt that imodium is unlikely to be ordered
without current diarrhea and since pt had not had a BM for 5d prior to yesterday. Call hale within reach. Care ongoing.
[2024-09-25] VITALS (25 sets, daily range): BP systolic 94–151; BP diastolic 52–99
[2024-09-25 04:06] LABS: Hemoglobin 11.9 g/dL (12.0-16.0); Mean Corpuscular Hgb 29.2 pg (27.0-31.0); Mean Corpuscular Volume 83.3 fL (81.0-99.0); Mean Platelet Volume 10.2 fL (7.4-10.4); Platelet Count 178 10^3/uL (130-400); Red Blood Cell Count 4.08 10^6/uL (4.20-5.40); Red Cell Dist. Width 13.8 % (11.5-14.5); White Blood Cell Count 13.6 10^3/uL (4.8-10.8)
--- NOTE | 2024-09-25 04:17 | PTCARENOTE ---
Pt with increased tachycardia, tachypnea, elevated BP 151/81, O2 increased to 5L to maintain goal of >91%. Pt c/o anxiety, SOB. LOPEZ Rosales notified via TT, provided order for morphine. This RN will administer once verified by pharmacy. Pt encouraged
to cough and practice deep breathing as able. Pt coughing often, but having difficulty expectorating mucus. Care ongoing.
[2024-09-25 04:35] LABS: Blood Urea Nitrogen 27 mg/dl (7-17); Carbon Dioxide 19 mmol/L (22-30); Chloride 112 mmol/L (98-107); Estimated Creatinine Clearance 71 ml/min; Glucose 71 mg/dl (70-99); Magnesium 1.6 mg/dl (1.6-2.3); Phosphorus 2.8 mg/dl (2.5-4.5); Sodium 140 mmol/L (135-145); eGFR > 60.00
[2024-09-25] MEDS: MORPHINE SULFATE 1 MG IV (04:40)
[2024-09-25] MEDS: ROCEPHIN 2000 MG IV (06:03)
[2024-09-25] MEDS: STERILE WATER FOR INJECTION 20 ML IV (06:03)
[2024-09-25] MEDS: ProAmatine PO ×3 (07:20→17:05)
--- NOTE | 2024-09-25 07:21 | W.PN.HOSP.TC ---
Today's Communication/Plan
-
wean O2 as tolerated
cont abx Tamiflu as per ID
PT/OT
Duoneb R QID and prn switched to Xopenex
IV Lopressor prn persistent HR>120
VEST incentive spirometer
Assessment / Plan
Assessment / Plan
Physical Exam
General: no acute distress, comfortable at this time
HEENT: NormoCephalic, Moist mucous membranes and Atraumatic
Respiratory: Rhonchi and Crackles, stable respiratory status on 2L
Cardiac: S1/S2 and Regular Rhythm; No Murmur or Rub
GI: Soft, Non Tender, Non Distended and Normal Bowel Sounds; No Organomegaly
Musculoskeletal: No Clubbing, No Cyanosis and No Edema
Skin: No Rash
Neuro: AO x 3
Psych: Calm
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
#Septic Shock elevated (tachycardia, tachypnea) lactate, hypotension initially requiring pressor support
# Fever cough/generalized weakness likely from flu/Strep pneumonia
# Acute hypoxic respiratory failure
#Sinus tachycardia likely 2/2 severe sepsis PNA
-Requiring 3 L of oxygen, wean as tolerated
-IVF completed
-Ceftriaxone continued, doxy discontinued
-Tamiflu continued
-Tylenol as needed for fever
-Mucinex as needed for cough
-Blood cultures positive for Strep pneumonia, follow up repeat blood cx's NGTD
-Sputum Cx pos for Gram neg bacili and josy albicans
-weaned off Levophed
-low dose midodrine with holding parameters, eventually no longer required, since discontinued
-Lopressor 5mg Q4HPRN persistent HR>120
-ID eval appreciated ceftriaxone discontinued in favor of Zosyn for coverage GNR in sputum, cont Tamiflu 10 day course, repeat Speech eval requested
-Duoneb R QID and PRN switched to Xopenex d/t tachycardia
-VEST therapy, Incentive Spirometry
EKG noted S1Q3T3 with persistent tachycardia and hypoxia, CT ordered for eval possible PE ruled out
CT chest appreciated multilobar pna severe in RLL underlying mass not excluded (follow up CT after treatment recommended)
# Hyponatremia/metabolic acidosis /acute kidney injury likely hypovolemic
-resolved
-IVF completed
#Hypokalemia
#Mild Hypophosphatemia
monitor and replete as necessary
# DVT prophylaxis
-Heparin subcu
# CODE STATUS
-Full code
Discussed with patient and patient's Quinn
I spent a total of 50 minutes with the patient or on the floor. More than 50% of this time involved counseling and coordination of care.
Anticipated Discharge: 24 - 48 hours
Subjective/Interval History
-
Date of Service: September 25, 2024
No acute distress sitting up comfortably in chair. Remains oxygen dependent 3L. Sinus tachy. Otherwise reports feeling well.
Objective Data
-
Labs:
Laboratory Results
09/25/24
03:55
WBC 13.6 H
Hgb 11.9 L
Hct 34.0 L
Plt Count 178
Sodium 140
Potassium 4.0 D
Chloride 112 H
Carbon Dioxide 19 L
BUN 27 H
Creatinine 0.6
Glucose 71
Calcium 8.0 L
Vital Signs:
Vital Signs
Temp Pulse Resp BP Pulse Ox
98.5 F 111 28 129/70 93
09/25/24 03:00 09/25/24 07:20 09/25/24 07:00 09/25/24 07:20 09/25/24 07:00
I&O
09/24/24 09/25/24 09/26/24
06:59 06:59 06:59
Intake Total 1200 / 1200 1999 / 1999
Output Total 750 / 750 500 / 500
Balance 450 / 450 1500 / 1500
[2024-09-25] MEDS: HEPARIN 5000 UNITS SC ×2 (07:28→19:48)
[2024-09-25] MEDS: KCL 20 MEQ PO (07:28)
[2024-09-25] MEDS: TAMIFLU 30 MG PO (07:28)
[2024-09-25] MEDS: MUCINEX PO ×2 (07:28→20:46)
[2024-09-25] MEDS: MAGNESIUM SULFATE 50 IV (08:08)
[2024-09-25] MEDS: DUONEB 3 ML INH (08:20)
--- NOTE | 2024-09-25 09:13 | PTCARENOTE ---
Dr. Randolph made aware that patients HR was 186 bpm. Patient resting comfortably in bed and asymptomatic. Patient's HR in 110-120's throughout shift. EKG completed per MD order. Care ongoing.
--- NOTE | 2024-09-25 10:28 | W.PN.ID1 ---
Date of Service
Date of Service: September 25, 2024
Today's Communication
- recommend swallow evaluation
- start zosyn for pending sensi on the GNR, stop ceftriaxone
- continue tamiflu - 10 day course given severity of illness, need for hospitalization
Assessment / Plan
Influenza A
Strep Pneumoniae Pneumonia
Bacteremia due to GPCs likely Strep Pneumoniae
- repeat blood cultures 09/23 and 09/24 in progress no growth to date
- 09/23 blood cultures S Pneumoniae
- sputum culture with few GNR - suspect aspiration; binta are normal paresh
- follow up CT chest
- recommend swallow evaluation
- start zosyn for pending sensi on the GNR, stop ceftriaxone
- continue tamiflu - 10 day course given severity of illness, need for hospitalization
- needs to establish care with a PCP moving forward, discussed withe patient earlier this admission
Chief Complaint
-: Pneumonia and Other (Flu A, S pneumo pneumonia)
Subjective / Review of Systems
afebrile
bp stable
sinus tachycardia to the 180s today
frequent cough - nonproductive
Vital Signs / Physical Exam
Vital Signs
Vital Signs
Temp Pulse Resp BP Pulse Ox
99.5 F 108 28 123/64 94
09/25/24 07:40 09/25/24 10:00 09/25/24 10:00 09/25/24 10:00 09/25/24 10:00
Physical Exam
Constitutional: No Acute Distress
Cardiovascular: Regular Rate and S1/S2; Negative Murmur or Rub
Pulmonary: Clear and Symmetric; Negative Wheezes or Rales
Gastrointestinal: Soft, Non Tender, Non Distended and Normal Bowel Sounds
Skin: Warm and Dry; Negative Rash or Jaundice
Objective Data
Lab Data
Lab Results
09/25/24 03:55
09/25/24 03:55
Estimated Creat Clear 71 ml/min 09/25/24 03:55
Lactic Acid Cancelled 09/22/24 22:31
Total Bilirubin 1.0 mg/dl (0.2-1.3) 09/23/24 05:29
AST 36 U/L (14-36) 09/23/24 05:29
ALT 23 U/L (0-35) 09/23/24 05:29
Alkaline Phosphatase 84 U/L (38-126) 09/23/24 05:29
Most recent labs reviewed.
Micro Results:
09/22/24 12:38 Blood Culture - Preliminary
Blood/Venous Streptococcus pneumoniae
Gram Stain - Final
09/22/24 10:33 Blood Culture - Preliminary
Blood/Venous Streptococcus pneumoniae
Gram Stain - Preliminary
09/23/24 22:22 Respiratory Culture - Preliminary
Sputum Gram negative bacilli
Binta albicans
Gram Stain - Preliminary
09/24/24 03:40 Blood Culture - Preliminary
Blood/Venous No Growth in 24 hours- Final report to follow
09/24/24 03:30 Blood Culture - Preliminary
Blood/Venous No Growth in 24 hours- Final report to follow
09/23/24 16:43 Blood Culture - Preliminary
Blood/Venous No Growth in 24 hours- Final report to follow
09/23/24 13:35 Blood Culture - Preliminary
Blood/Venous No Growth in 24 hours- Final report to follow
09/22/24 22:22 Legionella Urinary Antigen - Final
Urine Negative for Legionella pneumophila Serogroup 1 antigen.
A negative result does not rule out the possiblity of
Legionella infection due to other serogroups or species of
Legionella. Clinical correlation is recommended.
Streptococcus pneumoniae Antigen (M - Final
Positive for Strep pneumo Ag
09/22/24 10:33 Influenza Types A & B (EUN) - Final
Nasal Swab Influenza A Positive, NAAT
[2024-09-25] MEDS: LOPRESSOR 5 MG IV (10:35)
[2024-09-25] MEDS: TYLENOL 650 MG PO ×2 (10:35→20:46)
[2024-09-25] MEDS: ZOSYN 100 IV ×2 (11:03→17:16)
[2024-09-25] MEDS: XOPENEX 0.63 MG INHALANT SOLUTION INH ×2 (13:35→19:14)
--- NOTE | 2024-09-25 16:35 | PTCARENOTE ---
Patient AOx3. Weak, occasional, hunt productive cough. Frequent IS and acapella encouragement. Rhonchi and wheezes heard. PAYNE and shallow breathing. Patient on 3L NC during rest and 5L NC during ambulation. Sinus tachy on monitor. PRN lopressor
given for HR >120 bpm. Patients HR in low 100's after PRN lopressor given. Incontinent to bowel and bladder. Patient has poor appetite. Ensure ordered. Assist x2 with RW OOB to chair. Patient has chronic R foot drop. Patient c/o rib pain. PRN
tylenol given per OCT. Patients at bedside throughout shift. Call hale within reach, bed in lowest position, and bed of wheels locked.
[2024-09-25] MEDS: TAMIFLU 75 MG PO (19:47)
[2024-09-25] MEDS: MELATONIN 5 MG PO (20:46)
--- NOTE | 2024-09-25 23:00 | PTCARENOTE ---
Pt received from previous RN. Pt is AAOx3. Expresses tiredness. Pt inc of urine, bed saturated, completed linen change provided. Pt now in use of PW at this time. no redness assessed in [place] area. Pt c/o inability to sleep, POLICY CANCELLATION CLERK made aware of Pt
complaint. order received for melatonin. medication administered. pt on 4l 02. satting 93-95% while resting, pt does desat to 88% with coughing and activity. Pt quickly recovers back to baseline 02 sat of 95%. IS encouraged. Cough is occasionally
productive, pt refused Mucinex HS. HS oral care provided. Assessment as documented. Call light in reach.
[2024-09-26] VITALS (53 sets, daily range): BP systolic 83–133; BP diastolic 56–106
[2024-09-26] MEDS: ZOSYN 100 IV ×5 (00:52→23:18)
[2024-09-26] MEDS: MORPHINE SULFATE 1 MG IV (06:06)
[2024-09-26 06:34] LABS: Hematocrit 30.3 % (37.0-47.0); Hemoglobin 11.2 g/dL (12.0-16.0); Mean Corpuscular Hgb 30.2 pg (27.0-31.0); Mean Corpuscular Volume 81.7 fL (81.0-99.0); Mean Platelet Volume 10.3 fL (7.4-10.4); Platelet Count 197 10^3/uL (130-400); Red Blood Cell Count 3.71 10^6/uL (4.20-5.40); Red Cell Dist. Width 13.6 % (11.5-14.5); White Blood Cell Count 13.6 10^3/uL (4.8-10.8)
[2024-09-26 06:45] LABS: Blood Urea Nitrogen 19 mg/dl (7-17); Calcium 7.5 mg/dl (8.4-10.2); Carbon Dioxide 23 mmol/L (22-30); Chloride 107 mmol/L (98-107); Estimated Creatinine Clearance 71 ml/min; Glucose 72 mg/dl (70-99); Magnesium 1.7 mg/dl (1.6-2.3); Phosphorus 3.4 mg/dl (2.5-4.5); Potassium 3.4 mmol/L (3.5-5.1); Sodium 136 mmol/L (135-145); eGFR > 60.00
[2024-09-26] MEDS: ROBITUSSIN DM 5 ML PO ×2 (06:48→12:20)
[2024-09-26] MEDS: XOPENEX 0.63 MG INHALANT SOLUTION INH ×3 (07:08→19:21)
--- NOTE | 2024-09-26 07:10 | PTCARENOTE ---
Pt having increased coughing spells this am. cough is nonproductive, harsh, and dry. lungs auscultated with increased breath sounds throughout. Pt RR increased at 30-35. pt mouth breathing. encouraged to breath via her nose with slow deep breaths.
pt c/o feeling her heart race, denies chest pain, or dizziness. Pt hr increasing to 130-150s following coughing episodes, not sustaining, then returns to baseline of 100's quickly. [employer] TEAM LEAD, made aware of assessment findings. ordered morphine for SOB,
administered. RT contacted to administer breathing TX. order received for prn robitussin 5ml po. medication administered. RT at bedside.
[2024-09-26] MEDS: LOPRESSOR 5 MG IV (07:43)
[2024-09-26] MEDS: TAMIFLU 75 MG PO ×2 (07:47→20:19)
[2024-09-26] MEDS: HEPARIN 5000 UNITS SC (07:47)
[2024-09-26] MEDS: MUCINEX 600 MG PO ×2 (07:47→19:48)
--- NOTE | 2024-09-26 07:56 | PTCARENOTE ---
Telemetry strip completed this AM showing sinus tachy with HR in the 110's. Monitor alarming with HR in 170's-180's. RN to bedside. Patient asymptomatic. BP initially 94/84. BP reran and BP 110/87. EKG completed. IV lopressor given. Dr. Madrid made
aware. Care ongoing.
--- NOTE | 2024-09-26 09:18 | W.PN.HOSP.TC ---
Addendum entered and electronically signed by Stefan Madrid MD 09/26/24 15:35:
Patient reevaluated and on high flow nasal cannula. Heart rate mildly improved on IV amiodarone howeverr remains tachycardic in 150s from 170s earlier. Able to speak in complete sentences. Not tachypneic. Will continue to monitor oxygenation
status closely.
Low threshold to transfer to ICU which was relayed to the patient and at bedside both verbalized understanding.
Original Note:
Today's Communication/Plan
-
Start amiodarone
Start midodrine
Pressors if needed
IV fluids
Eliquis
Continue with broad-spectrum antibiotics
Wean oxygen as tolerated
Pulmonary eval
Assessment / Plan
Assessment / Plan
Physical Exam
General: no acute distress, chronically ill-appearing
HEENT: NormoCephalic, Moist mucous membranes and Atraumatic
Respiratory: Rhonchi and Crackles, mid flow
Cardiac: S1/S2, irregularly irregular tachycardic
GI: Soft, Non Tender, Non Distended and Normal Bowel Sounds; No Organomegaly
Musculoskeletal: No Clubbing, No Cyanosis and No Edema
Skin: No Rash
Neuro: AO x 3
Psych: Calm
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
#Septic Shock elevated (tachycardia, tachypnea) lactate, hypotension initially requiring pressor support
# Fever cough/generalized weakness likely from flu/polymicrobial pneumonia with strep and Pseudomonas
# Acute hypoxic respiratory failure
#Sinus tachycardia likely 2/2 severe sepsis PNA
-IVF completed
-Tamiflu continued
-Tylenol as needed for fever
-Mucinex as needed for cough
-Blood cultures positive for Strep pneumonia, follow up repeat blood cx's NGTD
-Sputum Cx pos for Pseudomonas and josy albicans-on Zosyn
-ID eval appreciated ceftriaxone discontinued in favor of Zosyn for coverage GNR in sputum, cont Tamiflu 10 day course, repeat Speech eval requested
-Duoneb R QID and PRN switched to Xopenex d/t tachycardia
-VEST therapy, Incentive Spirometry
-Patient with increasing oxygen requirement to 15 L of mid flow with nonrebreather. Can transition to high flow nasal cannula if needed
-CT chest appreciated multilobar pna severe in RLL underlying mass not excluded (follow up CT after treatment recommended relayed to patient and patient spouse)
-Will ask pulm to evaluate
# Atrial fibrillation rapid ventricular response
Started on Cardizem infusion.
Blood pressure soft and thus unable to tolerate Cardizem and thus plan to switch to amiodarone gtt
Anticoagulation with Eliquis
Echocardiogram once heart rate stable
TSH wnl
Cardiology has been consulted
# Mild hypotension likely combination of Cardizem versus severe tachycardia due to A-fib
Start patient on midodrine
Pressors if needed
#Hypokalemia
replete/monitor
# Hyponatremia/metabolic acidosis /acute kidney injury likely hypovolemic
-resolved
-IVF completed
#Hypokalemia
#Mild Hypophosphatemia
monitor and replete as necessary
# DVT prophylaxis
-Heparin subcu
# CODE STATUS
-Full code
Discussed with patient's spouse over the phone in detail about acuity of patient with severe illness with tachycardia, atrial fibrillation, worsening hypoxemia etc
Discussed with cardiology
Anticipated Discharge: > 48 hours
Subjective/Interval History
-
Date of Service: September 26, 2024
Patient went into atrial fibrillation rapid ventricular response
Heart rate elevated to 160s to 180s
Patient states of decreased appetite
States of yellow productive cough
Objective Data
-
Labs:
Laboratory Results
09/26/24
05:37
WBC 13.6 H
Hgb 11.2 L
Hct 30.3 L
Plt Count 197
Sodium 136
Potassium 3.4 L
Chloride 107
Carbon Dioxide 23
BUN 19 H
Creatinine 0.6
Glucose 72
Calcium 7.5 L
Vital Signs:
Vital Signs
Temp Pulse Resp BP Pulse Ox
97.3 F 162 29 109/79 95
09/26/24 07:13 09/26/24 09:00 09/26/24 09:00 09/26/24 09:00 09/26/24 09:00
I&O
09/25/24 09/26/24 09/27/24
06:59 06:59 06:59
Intake Total 1999 / 1999 2119 / 2119
Output Total 500 / 500 300 / 300
Balance 1500 / 1500 1820 / 1820
Data Reviewed
-
Total Time Spent with Patient (in minutes): 65
--- NOTE | 2024-09-26 09:30 | CON.CAR ---
Addendum entered and electronically signed by Rodolfo Moffett MD 09/26/24 12:01:
I saw and examined the patient.
The NAMED ACCOUNT EXECUTIVE's note was reviewed and I agree with the note.
Comment:
69-year-old female with no significant cardiac history who presents with hypoxic respiratory failure found to have influenza A, pneumonia, and strep bacteremia requiring high flow nasal cannula. Cardiology is consulted for atrial fibrillation with
RVR which started early this morning. She was initially started on a diltiazem drip but her heart rates were persistently elevated in the 180s�200s, so she was bolused with IV amiodarone and IV diltiazem was switched to IV amiodarone infusion.
Heart rates remain elevated in the 170s. On exam she appears older than stated age, heart is fast and irregularly irregular with no obvious murmurs, lungs have crackles at the left base and decreased breath sounds on the right, there is no lower
extremity edema. For her atrial fibrillation with RVR, she is on an IV amiodarone infusion. RVR is likely secondary to her respiratory infection with sepsis. We will aim for a heart rate of less than 130. If she is not meeting this goal with IV
amiodarone, we can consider digoxin. Her BPs are borderline so I would not add a BB or CCB at this time. She will get an echocardiogram tomorrow once her rates have improved. She has been started on Eliquis for anticoagulation given her
[id number] 2. We will continue to follow along.
Original Note:
Consultation
Consultation Request
Date/Time Consultation Requested: 09/26/24925
Date/Time Consultation Performed: 09/26/24929
Requesting Provider: Dr. Madrid
Performing Provider: Ciara MARROQUIN for Dr. Moffett
Reason for Consultation: AFIB with RVR
Medical History
-
Chief Complaint: cough, congestion, chills
History of Present Illness:
69 y/o female with hx congenital leg defect with gait instability per chart, but no falls and no other known medical history (does not routinely see medical providers) who is here for evaluation of sore throat, SOB, congestion, and cough, fever and
chills, achiness. She has required O2 by [place]. She is seen to have flu A, PNA, and strep pneumoniae bacteremia. She is on tamiflu and antibiotics. She received fluids and briefly required pressors, but BP has normalized. She had LORRAINE on arrival, but
that has also normalized. We are consulted for AFIB with RVR noted on the monitor this AM. She denies any symptoms from this.
Past Medical History
Past Medical History: None
Social History
Tobacco: Non-Smoker
Alcohol: None
Family History
Family History: Reviewed & Not Pertinent
Allergies / Home Medications
Allergy/AdvReac Type Severity Reaction Status Date / Time
No Known Allergies Allergy Verified 07/11/23 19:14
�Medication �Instructions �Recorded �Confirmed �Type
ibuprofen 200 mg tablet (Advil) 200 mg PO BID mild pain 09/22/24 09/22/24 History
Review of Systems
-
History Source: Patient
All other systems: Negative unless noted
Constitutional: Fever and Chills
Respiratory: Cough and Trouble Breathing
Physical Exam
Vital Signs
Temp Pulse Resp BP Pulse Ox
97.3 F 162 29 109/79 95
09/26/24 07:13 09/26/24 09:00 09/26/24 09:00 09/26/24 09:00 09/26/24 09:00
Lab Results
09/26/24 05:37
09/26/24 05:37
Physical Exam
General: Well Developed
HEENT: Normocephalic and Anicteric
Respiratory: Wheezes, Rhonchi and Other (on O2 by [place])
Cardiac: Irregular Rhythm
Skin: Warm and Dry
Neuro: AO x 3
Psych: Calm
Impression / Plan
-
Flu A:
-on Tamiflu
PNA:
-on abx
Strep Pneumoniae Bacteremia:
-on ABX and ID following
AFIB with RVR:
-in setting of acute illness
-agree with IV diltiazem, which requires intensive monitoring- I will give her a bolus as HR is quite fast, BP stable
-echo once HR better. Added on thyroid test.
-[id number] score is 2 for age and female. Denies bleeding issues or falls. Can start Eliquis for OAC, will consult CM for pricing.
Hypokalemia:
-being replaced
-monitor closely
Data Reviewed
-
EKG: Tracing Personally Visualized and interpreted (AFIB with RVR, non-specific ST/T abnormality 167 BPM)
Radiology: Report Reviewed by me (CXR: Moderate right lung pneumonia)
Labs: Labs Reviewed by me
[2024-09-26] MEDS: CARDIZEM 125 IV (09:44)
[2024-09-26] MEDS: KCL 1010 MEQ IV ×2 (09:55→21:50)
--- NOTE | 2024-09-26 09:57 | W.PN.ID1 ---
Date of Service
Date of Service: September 26, 2024
Today's Communication
- c/w zosyn given new need for high flow
- yeast from sputum is normal paresh
- continue tamiflu - 10 day course given severity of illness, need for hospitalization; 09/22-10/01
Assessment / Plan
Influenza A
Strep Pneumoniae Pneumonia with suspected component of aspiration pneumonia
Bacteremia due to Strep Pneumoniae
- repeat blood cultures 09/23 and 09/24 in progress no growth to date
- 09/23 blood cultures S Pneumoniae - intermediate to levofloxacin; sensitive to penicillin
- sputum culture with few GNR - suspect aspiration; josy are normal paresh
- CT chest no PE, reactive LNs and multilobar pneumonia
- GATEMAN to continue to follow
- c/w zosyn given new need for high flow
- yeast from sputum is normal paresh
- continue tamiflu - 10 day course given severity of illness, need for hospitalization; 09/22-10/01
- needs to establish care with a PCP moving forward, discussed withe patient earlier this admission
- Recommend PCV20 vaccine at local pharmacy when fully recovered
- patient is critcally ill
Chief Complaint
-: Pneumonia and Other (Flu A, S pneumo pneumonia)
Subjective / Review of Systems
afebrile
bp stable
now on high flow nc 60L and 100%
tachycardia ongoing - now afib from sinus tachycardia
GATEMAN following patient
Vital Signs / Physical Exam
Vital Signs
Vital Signs
Temp Pulse Resp BP Pulse Ox
97.3 F 148 36 133/80 92
09/26/24 07:13 09/26/24 09:39 09/26/24 09:39 09/26/24 09:39 09/26/24 09:39
Physical Exam
Constitutional: Non-toxic
Cardiovascular: Regular Rate and S1/S2; Negative Murmur or Rub
Pulmonary: Clear and Symmetric; Negative Wheezes or Rales
Gastrointestinal: Soft, Non Tender, Non Distended and Normal Bowel Sounds
Skin: Warm and Dry; Negative Rash or Jaundice
Objective Data
Lab Data
Lab Results
09/26/24 05:37
09/26/24 05:37
Estimated Creat Clear 71 ml/min 09/26/24 05:37
Lactic Acid Cancelled 09/22/24 22:31
Total Bilirubin 1.0 mg/dl (0.2-1.3) 09/23/24 05:29
AST 36 U/L (14-36) 09/23/24 05:29
ALT 23 U/L (0-35) 09/23/24 05:29
Alkaline Phosphatase 84 U/L (38-126) 09/23/24 05:29
Most recent labs reviewed.
Respiratory Culture Final 09/26/24
Few Pseudomonas aeruginosa
Few Presumptive Josy albicans
Rare Usual Respiratory Paresh
Organism 1 Pseudomonas aeruginosa
1. Pseudomonas aeruginosa
M.I.C. RX
--------- ---
Aztreonam <=4 S
Cefepime <=2 S
Ceftazidime <=1 S
Ciprofloxacin 0.5 S
Meropenem <=1 S
Piperacillin/Tazobactam <=8 S
Tobramycin <=2 S
Organism 1 Streptococcus pneumoniae
1. Streptococcus pneumoniae
M.I.C. RX
--------- ---
Ceftriaxone <=0.25 S
Meningitis:
<=0.5 Susceptible
1 Intermediate
>=2 Resistant
Non-meningitis:
<=1 Susceptible
2 Intermediate
>=4 Resistant
Clindamycin <=0.06 S
Levofloxacin 1 I
Penicillin G <=0.03 S
Meningitis:
<=0.06 Susceptible
>=0.12 Resistant
Non-meningitis:
<=2 Susceptible
4 Intermediate
>=8 Resistant
Tetracycline <=0.5 S
Trimethoprim/Sulfamethoxazole <=.25/4.7 S
[address]comycin 0[address] Scan: Image Reviewed and Report Reviewed
Micro Results:
09/23/24 22:22 Respiratory Culture - Preliminary
Sputum Gram negative bacilli
Josy albicans
Gram Stain - Preliminary
09/24/24 03:40 Blood Culture - Preliminary
Blood/Venous No Growth in 48 hours- Final report to follow
09/24/24 03:30 Blood Culture - Preliminary
Blood/Venous No Growth in 48 hours- Final report to follow
09/23/24 16:43 Blood Culture - Preliminary
Blood/Venous No Growth in 48 hours- Final report to follow
09/23/24 13:35 Blood Culture - Preliminary
Blood/Venous No Growth in 48 hours- Final report to follow
09/22/24 10:33 Blood Culture - Preliminary
Blood/Venous Streptococcus pneumoniae
Gram Stain - Preliminary
09/22/24 12:38 Blood Culture - Final
Blood/Venous Streptococcus pneumoniae
Gram Stain - Final
09/22/24 22:22 Legionella Urinary Antigen - Final
Urine Negative for Legionella pneumophila Serogroup 1 antigen.
A negative result does not rule out the possiblity of
Legionella infection due to other serogroups or species of
Legionella. Clinical correlation is recommended.
Streptococcus pneumoniae Antigen (M - Final
Positive for Strep pneumo Ag
09/22/24 10:33 Influenza Types A & B (EUN) - Final
Nasal Swab Influenza A Positive, NAAT
[2024-09-26] MEDS: CARDIZEM 13 MG IV (10:26)
--- NOTE | 2024-09-26 10:28 | PTCARENOTE ---
Cardizem gtt started at 5 mg/hr per hospitalist order with HR in 170's. Cardiology at bedside and ordered cardizem bolus. Cardizem bolus given and then cardizem gtt resumed at 5 mg/hr. Will continue to follow order. Care ongoing.
[2024-09-26 10:49] LABS: TSH Reflex To Free T4 3.21 uIU/ml (0.47-4.68)
--- NOTE | 2024-09-26 11:20 | CON.PUL ---
Consultation
Consultation Request
Date/Time Consultation Requested: 09/26/2024
Date/Time Consultation Performed: 09/26/2024
Requesting Provider: Dr. Madrid
Performing Provider: Dr. Rik Ramirez
Reason for Consultation: Acute hypoxemic respiratory failure-Viral pneumonia
Medical History
-
History of Present Illness:
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 Mild hemoptysis on presentation. Chest
x-ray was consistent with possible pneumonia. Initially started on antibiotics, patient was positive for influenza A and was started also on Tamiflu.
On admission require 6 L of supplemental oxygen. Patient was found to be in sepsis with increased lactic acid, LORRAINE likely due to dehydration.
Infectious disease was consulted-blood cultures were positive for Streptococcus pneumonia.
Patient became hypotensive requiring low-dose Levophed.
Eventually started on nebulizer therapy for secretion clearance.
Requiring secretion clearance interventions as well.
Sputum culture also grew gram-negative sammy-aspiration was suspected. Antibiotics transition to Zosyn on 09/25/2024. A CT of the chest was ordered.
Developed rapid atrial fibrillation-cardiology evaluated the patient. Has been on Cardizem drip. Has been transition to amiodarone at this morning 09/26/2024.
To my evaluation patient has mild increased work of breathing. Reports dyspnea sensation at rest
Not producing significant amount of sputum
Denies hemoptysis
Denies chest pain
Denies lightheadedness
Past Medical History
Past Medical History: None and Other (See assessment and plan)
Social History
Tobacco: Non-smoker
Alcohol: None
Drug: None
Personal:
Living: With Family
Employment: Employed
Occupational Exposures: Denies
Environmental Exposures: Denies
Family History
Family History: Reviewed & Not Pertinent
Allergies / Home Medications
Allergies
Allergy/AdvReac Type Severity Reaction Status Date / Time
No Known Allergies Allergy Verified 07/11/23 19:14
Home Medications
�Medication �Instructions �Recorded �Confirmed �Last Taken �Type
ibuprofen 200 mg tablet (Advil) 200 mg PO BID mild pain 09/22/24 09/22/24 09/22/24 History
400 mg
Review of Systems
Vitals / Labs / Diagnostic Testing
Vital Signs
Temp Pulse Resp BP Pulse Ox
97.3 F 154 33 98/74 96
09/26/24 07:13 09/26/24 10:40 09/26/24 10:40 09/26/24 10:40 09/26/24 10:40
Lab Data
09/26/24 05:37
09/26/24 05:37
Microbiology
09/23/24 22:22 Sputum Respiratory Culture - Final
Pseudomonas aeruginosa
Binta albicans
09/23/24 22:22 Sputum Gram Stain - Final
09/24/24 03:40 Blood/Venous Blood Culture - Preliminary
No Growth in 48 hours- Final report to follow
09/24/24 03:30 Blood/Venous Blood Culture - Preliminary
No Growth in 48 hours- Final report to follow
09/23/24 16:43 Blood/Venous Blood Culture - Preliminary
No Growth in 48 hours- Final report to follow
09/23/24 13:35 Blood/Venous Blood Culture - Preliminary
No Growth in 48 hours- Final report to follow
09/22/24 10:33 Blood/Venous Blood Culture - Preliminary
Streptococcus pneumoniae
09/22/24 10:33 Blood/Venous Gram Stain - Preliminary
09/22/24 12:38 Blood/Venous Blood Culture - Final
Streptococcus pneumoniae
09/22/24 12:38 Blood/Venous Gram Stain - Final
09/22/24 22:22 Urine Legionella Urinary Antigen - Final
Negative for Legionella pneumophila Serogroup 1 antigen.
A negative result does not rule out the possiblity of
Legionella infection due to other serogroups or species of
Legionella. Clinical correlation is recommended.
09/22/24 22:22 Urine Streptococcus pneumoniae Antigen (M - Final
Positive for Strep pneumo Ag
Diagnostic Testing:
Physical Exam
-
HEENT: Normocephalic
Cardiovascular: Irregular Rhythm and JVD (n)
Respiratory: Rales (bilaterally)
GI: Non Distended
Neurology: Awake, Alert and No Motor Deficits
Skin: Warm and Dry
General: Respiratory Distress (Mild at rest)
Assessment
-
69-year-old woman without significant past medical history admitted to the hospital with flulike symptoms, shortness of breath. Found to be hypoxemic, septic with bilateral infiltrates on x-ray. Requiring up to 6 L supplemental oxygen. Found to
be flu positive, treated With pneumonia bacteremia, Pseudomonas in the sputum with Binta in the sputum. We were consulted on 09/26/2024 due to worsening oxygenation and possible pulmonary mass.
Acute hypoxemic respiratory failure due to bilateral pneumonia-influenza A+/bacterial superinfection-Streptococcus pneumonia bacteremia.
Sputum culture positive with Pseudomonas/Binta's-possibly aspiration.
Positive for Streptococcus pneumonia bacteremia and positive for Streptococcus pneumonia antibody
Influenza A+
Right small parapneumonic effusion
Reactive mediastinal lymph nodes
Septic shock resolved
Acute kidney injury resolved post IV fluid
Hypokalemia
Atrial fibrillation with rapid ventricular response in the setting of acute illness 09/26/2024
Conditions present prior admission:
None
Does not follow-up with primary care
Does not take any medications
Non-smoker
Assessment and plan:
Clinical picture consistent with viral pneumonia due to influenza A with bacterial superinfection and possible aspiration event.
-
Worsening oxygenation last 24 hours currently on a nonrebreather mask with a mid flow oxygen
No increased work of breathing or hypoxemia-I transitioned her to high flow oxygen. Will maintain through keep pulse ox above 90%.
Patient does have increased work of breathing at rest-heart rate in the 180s in atrial fibrillation.
-
Cardiology at the bedside-amiodarone has been started. Cardizem has been discontinued
-
If there is no improvement on heart rate and there is increased work of breathing necessitating noninvasive mechanical ventilation patient will be transferred to critical care unit.
-
Okay to continue with nebulizers to aid with secretion clearance-patient does not have any pulmonary disease.
Levalbuterol 3 times a day
She is a non-smoker
-
Significantly abnormal CAT scan with bilateral infiltrates right greater than left. Small loculated pleural effusion.
Continue antibiotics per infectious disease
Follow-up final sputum culture-Pseudomonas/Binta-sensitivities pending
Follow blood cultures-previously positive with Streptococcus pneumonia.
Currently on Zosyn
Tamiflu
Follow fever curve and leukocytosis.
-
Repeat chest x-ray on as-needed basis in the next 48 hours and on as-needed basis
Pleural effusion will need to be followed.
-
With significantly abnormal CAT scan she will need outpatient pulmonary follow-up. She also will need to establish follow-up with her primary care doctor-she regularly does not see doctors.
There is a right upper lobe rounded opacity that could be inflammatory or malignant. There is mediastinal lymph nodes that could be reactive.
Cannot rule out malignancy but less likely.
-
Anticoagulation started per cardiology for atrial fibrillation- apixaban
-
Will follow
-
High risk situation

Data reviewed:
CT chest 09/25/2024: Reviewed showed no evidence for pulmonary embolism.
No pneumothorax.
There is severe consolidation on the right lower lobe. Moderate consolidation on the right upper lobe. There is also consolidation in the right middle lobe. There is minimal consolidation in the left upper lobe and moderate on the left lower
lobe. Also the lingula is involved.
Small loculated right pleural effusion.
Reactive mediastinal lymph nodes suspected.
Data Reviewed
-
Radiology: Image personally visualized and interpreted
CT Scan: Image personally visualized and interpreted and Report reviewed by me
Labs: Labs reviewed by me
[2024-09-26] MEDS: CORDARONE 103 MG IV ×2 (11:30→23:18)
[2024-09-26] MEDS: CORDARONE 518 MG IV (11:42)
[2024-09-26] MEDS: ProAmatine 5 MG PO ×2 (11:51→18:00)
[2024-09-26] MEDS: ELIQUIS 5 MG PO ×2 (11:51→19:48)
[2024-09-26] MEDS: ProAmatine PO (11:54)
--- NOTE | 2024-09-26 11:58 | PTCARENOTE ---
FRANCESCO >150, Mg 1.7, potassium 3.4. Amiodarone drip cont. as ordered. Requested Magnesium & Potassium replacement via TT with Dr. Madrid. Pt now on [facility]. Awaiting orders. Primary RN notified of the plan of care.
--- NOTE | 2024-09-26 12:00 | PTCARENOTE ---
HR in the 170's and BP 94/69 and then BP reran and was 105/89 on 10 mg/hr of cardizem. Dr. Moffett (Cardiology) and Dr. Madrid (Hospitalist) made aware. Cardizem gtt titrated to 15 mg/hr until amio bolus could be started per Dr. Moffett. Amio
bolus then started and cardizem gtt stopped. Patient's oxygen saturation 86-88% on 15L HF with NRB with increased work of breathing. RT to bedside and placed patient on 55L 100% of HF. Dr. Moffett and Dr. Ramirez (Pulmonary) at bedside. Amio gtt
started after bolus finished. HR in 160's and BP stable.
[2024-09-26] MEDS: MAGNESIUM SULFATE 100 IV (12:18)
--- NOTE | 2024-09-26 12:26 | CM ---
Addendum entered by Angella Ramirez RN 09/26/24 13:36:
Request by Ciara Vasquez for betancourt check Xarelto 20mg daily: informed Ciara morel same betancourt &143.51/month [facility], per [facility] Ambulatory Orders.
Original Note:
Patient with Dx PNA, Influenza A, rapid Afib. High flow O2. Receiving IVF, Amiodarone gtt, IV Abx, Tamiflu. PT/OT recommend skilled rehab.
CM Consult: Eliquis Betancourt check
Per [facility] Ambulatory Orders: cost Eliquis is $145.48 for 30 day supply at [facility], $405.43 for 90 day supply [facility].
Met with patient and .
Patient says cost is too much even with Eliquis Free Month card that was provided. asking how long she will be on Eliquis---> Ciara Vasquez informed.
Plan follow patient's clinical status including O2 needs and mobility.
Plan TBD.
[2024-09-26] MEDS: KCL 20 MEQ PO (12:35)
[2024-09-26] MEDS: TYLENOL 650 MG PO (12:36)
--- NOTE | 2024-09-26 15:37 | W.PN.UPDATE ---
Update Note
Progress Note Update
Regarding Eliquis, CM let me know earlier today that it is unaffordable for patient. Xarelto pricing is similar. We will plan to get her the 30 day free card at d/c, and reassess options as OP. Earlier, I went to discuss with her, but she was
asleep, so our team can review further tomorrow.
--- NOTE | 2024-09-26 16:53 | PTCARENOTE ---
Patient AOx3. Patient can be anxious at times. Patient on HFNC and RT is weaning patient down with SpO2 greater than 92%. A fib on monitor with HR in 150's. Amio gtt running per order. MAP >65. Dry harsh non-productive cough. Purewick in place due
to patient being incontinent. Poor appetite. Assist x2 in bed. IVF running per order. Family at bedside. Call hale within reach, bed in lowest position, and bed of wheels locked.
--- NOTE | 2024-09-26 16:55 | PTCARENOTE ---
Verbal report given to Gisselle Sevilla RN in ICU. Patient transferred via bed and patient belongings transferred with patient.
--- NOTE | 2024-09-26 17:05 | PTCARENOTE ---
1700-Received verbal report from IMU RN.Pt transferred from IMU to room 3362 via bed.Pt is awake and alert.Speech is appropriate.+HENDRICKSON.Denies pain.ST with HR 150.BP 98/67.Amiodarone and IVF infusing.Coarse rhonchi throughout.+ tachypnea.Occasional
cough noted.No sputum noted at this time.IS-500 ml.POX 97% on High Flow O2.Purewick intact.Pt's family at bedside.Plan of care discussed with pt.
--- NOTE | 2024-09-26 18:31 | PTCARENOTE ---
Heart rate 150.ST BP 100/70.POX 97%Pt c/o anxiety,requesting anti anxiety medication for this evening.Dr Aviles made aware of above.
--- NOTE | 2024-09-26 20:00 | PTCARENOTE ---
Rec'd pt resting in bed, oriented, cooperative, R foot drop, present,Aflutter, amiodarone gtt at 0.5mg, + pulses, no edema, skin warm/dry, O2 via hi flow 60 liters/ 60% o2, sat 98, lungs coarse rhonchi, enc to use IS- reaches 100, + cough for hunt
secretions, + PAYNE, + bowel sounds,,no bm, abd soft, purewick in place, voiding michelle urine
--- NOTE | 2024-09-26 21:30 | PTCARENOTE ---
Hi flow decr to 55 liters/ 50 % by resp therapist
[2024-09-26] MEDS: ATIVAN 0.5 MG PO (21:50)
--- NOTE | 2024-09-26 22:00 | PTCARENOTE ---
ativan 0.5 mg po given for anx, Mayra ELECTRONICS RESEARCH ENGINEER notified of HR still in 150's, awaiting orders
--- NOTE | 2024-09-26 22:57 | W.PN.UPDATE ---
Update Note
Progress Note Update
RN reported HR aflutter continuos to be in 150's. BP 100's/70's. Patient asymptomatic. Dr. Soto made aware. Verbal order for Amiodarone 150 mg bolus x 1 over 20 minutes and to keep Amiodarone drip at 1mg per minute at present was given to this
SUPERVISOR PICKING CREW. Addressed to RN. Order in place.
RN reported again HR continuos to be in Aflutter 150's. Advised EKG. mild rales b/l no wheezes, tachypneic 30, asymptomatic BP 115/78 96% high flow.
Hydrotreater Operator made aware. advised to give metoprolol 2.5mg IV x1 with cautions if no wheezes.
orders placed, labs pending, RN made aware.
--- NOTE | 2024-09-26 23:15 | PTCARENOTE ---
Addendum entered by Kelin Chase RN 09/27/24 00:43:
amiodarone 1mg /min (not mg/hr)
Original Note:
amidarone 150mg iv bolus given, amiodarone incr to 1mg/hr per order
[2024-09-27] VITALS (49 sets, daily range): BP systolic 80–134; BP diastolic 55–90; PULSE 114–153; O2SAT 93; BMI 21.0
--- NOTE | 2024-09-27 | PTCARENOTE ---
sys reviewed, changes noted, CHG bath done, linens changed
--- NOTE | 2024-09-27 00:49 | PTCARENOTE ---
Natalie Cho, MAINSPRING BARREL ASSEMBLY CLEANER aware that HR is still 150, pt asymptomatic
--- NOTE | 2024-09-27 04:00 | PTCARENOTE ---
Steve Kennedy, ZIPPER IRONER up to see pt for persistent HR 150's, labs sent, ekg done, ZIPPER IRONER texted Dr Soto about AFlut 150's, lopressor 2.5 mg iv given at 0430 per order
[2024-09-27 04:28] LABS: Blood Urea Nitrogen 19 mg/dl (7-17); Calcium 7.2 mg/dl (8.4-10.2); Carbon Dioxide 24 mmol/L (22-30); Chloride 103 mmol/L (98-107); Estimated Creatinine Clearance 71 ml/min; Glucose 85 mg/dl (70-99); Magnesium 1.7 mg/dl (1.6-2.3); Potassium 3.7 mmol/L (3.5-5.1); Sodium 133 mmol/L (135-145); eGFR > 60.00
[2024-09-27] MEDS: LOPRESSOR 2.5 MG IV (04:31)
[2024-09-27] MEDS: ZOSYN 100 IV ×4 (05:00→23:02)
[2024-09-27] MEDS: CORDARONE 518 MG IV ×2 (05:01→19:33)
--- NOTE | 2024-09-27 05:02 | PTCARENOTE ---
Steve Cho NP aware of no change in HR, no orders rec'd, will cont to monitor
[2024-09-27 05:05] LABS: Hematocrit 30.4 % (37.0-47.0); Hemoglobin 10.9 g/dL (12.0-16.0); Mean Corp Hgb Conc. 35.9 g/dL (33.0-37.0); Mean Corpuscular Hgb 29.7 pg (27.0-31.0); Mean Corpuscular Volume 82.8 fL (81.0-99.0); Mean Platelet Volume 10.3 fL (7.4-10.4); Platelet Count 261 10^3/uL (130-400); Red Blood Cell Count 3.67 10^6/uL (4.20-5.40); Red Cell Dist. Width 13.6 % (11.5-14.5); White Blood Cell Count 16.1 10^3/uL (4.8-10.8)
[2024-09-27] MEDS: ATIVAN 0.5 MG PO ×2 (05:52→16:45)
--- NOTE | 2024-09-27 05:53 | PTCARENOTE ---
ativan 0.5 mg po given for anx
[2024-09-27] MEDS: XOPENEX 0.63 MG INHALANT SOLUTION INH ×3 (07:54→20:09)
--- NOTE | 2024-09-27 08:00 | PTCARENOTE ---
Received pt sleeping.Awakens to voice.Speech is appropriate.+HENDRICKSON.Pt assists with repositioning.Denies pain at this time.A Flutter with rate 153 noted.Amiodarone gtt and IVF infusing.High Flow O2 50l 50%.Coarse rhonchi noted throughout.+
tachypnea,dyspnea at rest noted.Occasional cough.Expectorating moderate amount hunt sputum.POX 95-97%Appetite is poor.Pt refusing to eat anything except drink shawn wendy.Pt encouraged to eat.Incontinent of large soft BM.Incontinent of large amount
michelle urine.Skin integrity as documented.Plan of care discussed with pt.
[2024-09-27] MEDS: TAMIFLU 75 MG PO ×2 (08:03→19:32)
[2024-09-27] MEDS: MUCINEX 600 MG PO ×2 (08:03→19:32)
[2024-09-27] MEDS: ProAmatine 5 MG PO ×3 (08:03→17:55)
[2024-09-27] MEDS: ELIQUIS 5 MG PO ×2 (08:03→19:32)
--- NOTE | 2024-09-27 08:25 | W.PN.CD ---
Today's Communication / Plan
-
-Remains in atrial flutter at 150s, but denies palpitations or any significant dyspnea.
-Continue amiodarone drip.
-Will start digoxin.
-Will hold off on echocardiogram until heart rate improves.
Impression / Plan
-
+Flu A/PNA:
-on Tamiflu and antibiotics
-Continue management and supportive care as per primary team.
Strep Pneumoniae Bacteremia:
-on ABX and ID following
AFIB/Aflutter with RVR:
-Second to underlying infectious processes.
-Remains in atrial flutter at 150s, but denies palpitations or any significant dyspnea.
-Continue amiodarone drip.
-Will start digoxin.
-Will hold off on echocardiogram until heart rate improves.
-[id number] score is 2 for age and female. Denies bleeding issues or falls.
-Continue Eliquis.
Hypokalemia:
-being replaced
-monitor closely
Physical Exam
Vital Signs/Labs
Vital Signs
Temp Pulse Resp BP Pulse Ox
98.9 F 151 22 117/79 92
09/27/24 08:13 09/27/24 08:00 09/27/24 08:00 09/27/24 06:00 09/27/24 08:00
09/26/24 09/27/24 09/28/24
06:59 06:59 06:59
Actual Weight 55.4 kg
09/27/24 03:46
09/27/24 03:46
Magnesium 1.7 mg/dl (1.6-2.3) 09/27/24 03:46
Physical Exam
Constitutional: No acute distress and Comfortable
EENT: Anicteric
Cardiovascular: Rhythm & rate is regular (Tachycardic), Pedal edema present (Trace), Systolic murmur present (Soft 2/6) and S1S2 is normal
Respiratory: Respiratory effort normal, Wheeze Absent and Crackles Present
GI: Soft
Neuro/Psych: AO x 3
Other: Skin (Warm, dry, intact)
Data Reviewed
-
Date of Service: September 27, 2024
EKG: Tracing Personally Visualized and interpreted (Telemetry: Atrial flutter 150s)
Labs: Labs Reviewed by me
Critical Care Time (in minutes): 33
[2024-09-27 09:01] LABS: % Basophils 0.4 % (0-2); % Eosinophils 0.1 % (0-6); % Immature Granulocytes 2.7 % (0-0.5); % Monocytes 6.6 % (1.7-9.3); % Neutrophils 85.2 % (42.2-75.2); Absolute Basophils 0.1 10^3/uL (0-0.2); Absolute Immature Granulocytes 0.4 10^3/uL (0-0.05); Absolute Lymphocytes 0.8 10^3/uL (1.2-3.4); Absolute Monocytes 1.1 10^3/uL (0.1-0.6); Absolute Neutrophils 13.7 10^3/uL (1.4-6.5); Nucleated Red Blood Cells % 0 %
[2024-09-27] MEDS: MAGNESIUM SULFATE 50 IV (09:13)
[2024-09-27] MEDS: LANOXIN 500 MCG IV (09:13)
--- NOTE | 2024-09-27 09:25 | PTCARENOTE ---
Digoxin IV given as ordered.Magnesium rider infusing as ordered.IVF discontinued as ordered.
--- NOTE | 2024-09-27 09:27 | W.PN.PUL3 ---
Today's Communication / Plan
-
Antibiotics per ID
Heart rate control as per cardiology with goal HR <110
Continue amiodarone drip and starting digoxin
Aspiration precautions
High flow nasal cannula while titrating FiO2 to keep SpO2 >90%
Mucolytics
prn Xopenex
Ultimately will need repeat imaging in 4 to 6 weeks to follow-up pneumonia + right-sided pleural effusion to resolution
Pulmonary service will continue to follow along
Assessment
-
69-year-old woman without significant past medical history admitted to the hospital with flulike symptoms, shortness of breath. Found to be hypoxemic, septic with bilateral infiltrates on x-ray. Requiring up to 6 L supplemental oxygen. Found to
be flu positive, treated With pneumonia bacteremia, Pseudomonas in the sputum with Binta in the sputum. We were consulted on 09/26/2024 due to worsening oxygenation and possible pulmonary mass.
Acute hypoxemic respiratory failure due to bilateral pneumonia-influenza A+/bacterial superinfection with Pseudomonas aeruginosa + strep pneumonia c/b Streptococcus pneumonia bacteremia.
Sputum culture positive with Pseudomonas/Binta's-possibly aspiration.
Positive for Streptococcus pneumonia bacteremia and positive for Streptococcus pneumonia antibody
Influenza A+
Right small parapneumonic effusion
Reactive mediastinal lymph nodes
Septic shock resolved
Acute kidney injury resolved post IV fluid
Hypokalemia
Atrial fibrillation/flutter with rapid ventricular response in the setting of acute illness 09/26/2024
Conditions present prior admission:
None
Does not follow-up with primary care
Does not take any medications
Non-smoker
Assessment and plan:
Clinical picture consistent with viral pneumonia due to influenza A with bacterial superinfection and possible aspiration event with rapid A-flutter
-
Now on high flow nasal cannula at 50% FiO2, 50 L/min --> wean down FiO2 as tolerated while keeping SpO2 >90-94%
Continue aspiration precaution
prn xopenex
Mucolytics with mucinex
Chest PT if she develops inability to expectorate - currently she can bring up her phlegm without issue
-
Cardiology on board - continue amiodarone gtt and digoxin being started. Cardizem has been discontinued
-
Significantly abnormal CT Chest with bilateral infiltrates right greater than left. Small rght sided loculated pleural effusion.
Continue antibiotics per infectious disease � currently on Zosyn s/p ceftriaxone x 5 doses + Doxy x 2 doses + Zithromax x 1 dose
Follow up surveillance blood cultures collected 09/24/2024 (shows NGTD) - previously positive with Streptococcus pneumonia.
Continue Tamiflu
Follow fever curve and leukocytosis.
-
Repeat chest x-ray on as-needed basis in the next 48 hours and on as-needed basis
Pleural effusion and PNA will need to be followed to resolution - ultimately will need repeat imaging in 4-6 weeks
-
With significantly abnormal CAT scan she will need outpatient pulmonary follow-up. She also will need to establish follow-up with her primary care doctor-she regularly does not see doctors.
There is a right upper lobe rounded opacity that could be inflammatory or malignant. There is mediastinal lymph nodes that could be reactive.
Cannot rule out malignancy but less likely.
-
Anticoagulation started per cardiology for atrial fibrillation- apixaban
-
Will follow
-

Data reviewed:
CT chest 09/25/2024: Reviewed showed no evidence for pulmonary embolism.
No pneumothorax.
There is severe consolidation on the right lower lobe. Moderate consolidation on the right upper lobe. There is also consolidation in the right middle lobe. There is minimal consolidation in the left upper lobe and moderate on the left lower
lobe. Also the lingula is involved.
Small loculated right pleural effusion.
Reactive mediastinal lymph nodes suspected.
Total time spent today was 53 minutes for this encounter. Time includes reviewing laboratory test/imaging results, reviewing pertinent medical records, obtaining and reviewing medical history, performing an appropriate exam, ordering medications,
tests and procedures. Time also includes documentation of this encounter, coordinating patient care and communicating with other healthcare professionals. Total time does not include separately billed tests performed on this date of service.
Subjective Data
-
Date of Service:
Date of Service: September 27, 2024
Chief Complaint: Pulmonary Follow Up
Subjective:
Patient seen and evaluated today at bedside. Currently on high flow nasal cannula at 50%, 50 L/min. Currently saturating 92% with heart rate 152 and BP 114/79. She feels very anxious. Patient's , Quinn, at bedside and all questions were
answered. She denies chest pain, nausea, fevers or chills.
Review of Systems
General: Other (Negative unless mentioned above)
Objective Data
Data Reviewed
Vital Signs / I&O / Oxygen:
Vital Signs
Temp Pulse Resp BP Pulse Ox
98.9 F 151 22 117/79 92
09/27/24 08:13 09/27/24 08:00 09/27/24 08:00 09/27/24 06:00 09/27/24 08:00
Intake and Output
09/26/24 09/27/24 09/28/24
06:59 06:59 06:59
Intake Total 2120 / 2120 2036.6 / 2036.6
Output Total 300 / 300 900 / 900
Balance 1820 / 1820 1136.6 / 1136.6
SaO2 92
Nasal Cannula flow liters per 55
minute
Physical Exam
General: Respiratory Distress (negative), Comfortable, Chills (negative) and Sweats (negative)
HEENT: Normocephalic and Anicteric
Cardiovascular: Peripheral Edema (negative) and Other (Tachycardic)
Respiratory: Wheeze (negative), Crackles (R >L) and Rhonchi (R >L)
GI: Soft, Non Distended, Non Tender and Normal Bowel Sounds
Neurology: AO x 3 and Tremors (negative)
Skin: Warm, Dry, Cyanosis (negative) and Jaundice (negative)
Labs/Micro/Reports
Lab Data
09/27/24 03:46
09/27/24 03:46
Microbiology
09/24/24 03:40 Blood/Venous Blood Culture - Preliminary
No Growth in 72 hours- Final report to follow
09/24/24 03:30 Blood/Venous Blood Culture - Preliminary
No Growth in 72 hours- Final report to follow
09/23/24 16:43 Blood/Venous Blood Culture - Preliminary
No Growth in 72 hours- Final report to follow
09/23/24 13:35 Blood/Venous Blood Culture - Preliminary
No Growth in 72 hours- Final report to follow
09/23/24 22:22 Sputum Respiratory Culture - Final
Pseudomonas aeruginosa
Binta albicans
09/23/24 22:22 Sputum Gram Stain - Final
09/22/24 10:33 Blood/Venous Blood Culture - Preliminary
Streptococcus pneumoniae
09/22/24 10:33 Blood/Venous Gram Stain - Preliminary
09/22/24 12:38 Blood/Venous Blood Culture - Final
Streptococcus pneumoniae
09/22/24 12:38 Blood/Venous Gram Stain - Final
--- NOTE | 2024-09-27 09:28 | W.PN.ID1 ---
Date of Service
Date of Service: September 27, 2024
Today's Communication
c/w zosyn and tamiflu
Assessment / Plan
Influenza A
Strep Pneumoniae Pneumonia
Secondary health care acquired pneumonia due to Pseudomonas
Bacteremia due to Strep Pneumoniae
- repeat blood cultures 09/23 and 09/24 in progress no growth to date
- 09/23 blood cultures S Pneumoniae - intermediate to levofloxacin; sensitive to penicillin
- sputum culture with few Pseudomonas
- CT chest no PE, reactive LNs and multilobar pneumonia
- c/w zosyn at this time, eventual transition to oral therapy anticipated (levofloxacin and amoxicillin 1 gm TID), plan 14 day course 09/22-10/05
- yeast from sputum is normal paresh
- continue tamiflu - 10 day course given severity of illness, need for hospitalization; 09/22-10/01
- needs to establish care with a PCP moving forward, discussed withe patient earlier this admission
- Recommend PCV20 vaccine at local pharmacy when fully recovered
- patient is critically ill on high flow NC
Chief Complaint
-: Pneumonia and Other (Flu A, S pneumo pneumonia)
Subjective / Review of Systems
afebrile
bp stable on midodrine 5 mg PO TID
remains on high flow NC at 55L and 50% - was transferred to the ICU
management of anxiety and afib overnight
tired today
Vital Signs / Physical Exam
Vital Signs
Vital Signs
Temp Pulse Resp BP Pulse Ox
98.9 F 151 22 117/79 92
09/27/24 08:13 09/27/24 08:00 09/27/24 08:00 09/27/24 06:00 09/27/24 08:00
Physical Exam
Constitutional: Acutely Ill
Cardiovascular: Regular Rate and S1/S2; Negative Murmur or Rub
Pulmonary: Symmetric, Coarse and Non Labored; Negative Wheezes or Rales
Gastrointestinal: Soft, Non Tender, Non Distended and Normal Bowel Sounds
Skin: Warm and Dry; Negative Rash or Jaundice
Objective Data
Lab Data
Lab Results
09/27/24 03:46
09/27/24 03:46
Estimated Creat Clear 71 ml/min 09/27/24 03:46
Lactic Acid Cancelled 09/22/24 22:31
Total Bilirubin 1.0 mg/dl (0.2-1.3) 09/23/24 05:29
AST 36 U/L (14-36) 09/23/24 05:29
ALT 23 U/L (0-35) 09/23/24 05:29
Alkaline Phosphatase 84 U/L (38-126) 09/23/24 05:29
Most recent labs reviewed.
Micro Results:
09/24/24 03:40 Blood Culture - Preliminary
Blood/Venous No Growth in 72 hours- Final report to follow
09/24/24 03:30 Blood Culture - Preliminary
Blood/Venous No Growth in 72 hours- Final report to follow
09/23/24 16:43 Blood Culture - Preliminary
Blood/Venous No Growth in 72 hours- Final report to follow
09/23/24 13:35 Blood Culture - Preliminary
Blood/Venous No Growth in 72 hours- Final report to follow
09/23/24 22:22 Respiratory Culture - Final
Sputum Pseudomonas aeruginosa
Binta albicans
Gram Stain - Final
09/22/24 10:33 Blood Culture - Preliminary
Blood/Venous Streptococcus pneumoniae
Gram Stain - Preliminary
09/22/24 12:38 Blood Culture - Final
Blood/Venous Streptococcus pneumoniae
Gram Stain - Final
09/22/24 22:22 Legionella Urinary Antigen - Final
Urine Negative for Legionella pneumophila Serogroup 1 antigen.
A negative result does not rule out the possiblity of
Legionella infection due to other serogroups or species of
Legionella. Clinical correlation is recommended.
Streptococcus pneumoniae Antigen (M - Final
Positive for Strep pneumo Ag
09/22/24 10:33 Influenza Types A & B (EUN) - Final
Nasal Swab Influenza A Positive, NAAT
--- NOTE | 2024-09-27 12:05 | PTCARENOTE ---
Pt assessed.No change in assessment noted.Right DL PICC inserted as ordered.Pt's at bedside.Plan of care discussed.
[2024-09-27] MEDS: ZOFRAN 4 MG IV (12:10)
--- NOTE | 2024-09-27 12:41 | W.PN.HOSP.TC ---
Today's Communication/Plan
-
Continue with amiodarone and digoxin
Wean oxygen as tolerated
Continue with antibiotics and Tamiflu
Encourage increase p.o. intake
Assessment / Plan
Assessment / Plan
Physical Exam
General: no acute distress, chronically ill-appearing
HEENT: NormoCephalic, Moist mucous membranes and Atraumatic
Respiratory: Rhonchi and Crackles, high flow nasal cannula
Cardiac: S1/S2, irregularly irregular tachycardic
GI: Soft, Non Tender, Non Distended and Normal Bowel Sounds; No Organomegaly
Musculoskeletal: No Clubbing, No Cyanosis and No Edema
Skin: No Rash
Neuro: AO x 3
Psych: Anxious
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
#Septic Shock elevated (tachycardia, tachypnea) lactate, hypotension initially requiring pressor support
# Fever cough/generalized weakness likely from flu/polymicrobial pneumonia with strep and Pseudomonas
# Acute hypoxic respiratory failure
#Sinus tachycardia likely 2/2 severe sepsis PNA
-IVF completed
-Tamiflu continued
-Tylenol as needed for fever
-Mucinex as needed for cough
-Blood cultures positive for Strep pneumonia, follow up repeat blood cx's NGTD
-Sputum Cx pos for Pseudomonas and josy albicans-on Zosyn
-ID eval appreciated ceftriaxone discontinued in favor of Zosyn for coverage GNR in sputum, cont Tamiflu 10 day course, repeat Speech eval requested
-Duoneb R QID and PRN switched to Xopenex d/t tachycardia
-VEST therapy, Incentive Spirometry
-Currently on high flow nasal cannula 50 L at 50% FiO2
-CT chest appreciated multilobar pna severe in RLL underlying mass not excluded (follow up CT after treatment recommended relayed to patient and patient spouse)
-Pulmonary and ID following
# Atrial fibrillation rapid ventricular response
Started on Cardizem infusion.
Blood pressure soft and thus unable to tolerate Cardizem and thus plan to switch to amiodarone gtt
Anticoagulation with Eliquis
Echocardiogram once heart rate stable
TSH wnl
Persistent tachycardia status post repeat amiodarone bolus and now started on digoxin
Cardiology has been consulted
# Mild hypotension likely combination of Cardizem versus severe tachycardia due to A-fib
Start patient on midodrine
Pressors if needed
# Anxiety could be situational
Ativan as needed
#Hypokalemia
replete/monitor
# Hyponatremia/metabolic acidosis /acute kidney injury likely hypovolemic
-resolved
-IVF completed
#Hypokalemia
#Mild Hypophosphatemia
monitor and replete as necessary
# DVT prophylaxis
-Eliquis
# CODE STATUS
-Full code
Anticipated Discharge: > 48 hours
Subjective/Interval History
-
Date of Service: September 27, 2024
Remains on high flow nasal cannula
Decrease in FiO2 requirement
Remains tachycardic
Objective Data
-
Labs:
Laboratory Results
09/27/24
03:46
WBC 16.1 H
Hgb 10.9 L
Hct 30.4 L
Plt Count 261 D
Sodium 133 L
Potassium 3.7
Chloride 103
Carbon Dioxide 24
BUN 19 H
Creatinine 0.5 L
Glucose 85
Calcium 7.2 L
Vital Signs:
Vital Signs
Temp Pulse Resp BP Pulse Ox
98.3 F 151 22 117/79 92
09/27/24 11:30 09/27/24 08:00 09/27/24 08:00 09/27/24 06:00 09/27/24 08:00
I&O
02/24/25 02/25/25 02/26/25
06:59 06:59 06:59
Intake Total 2119 / 2119 2035. / 2035.
Output Total 300 / 300 900 / 900
Balance 1819 / 18196. / 1135.
Data Reviewed
-
Total Time Spent with Patient (in minutes): 55
--- NOTE | 2024-09-27 16:28 | PTCARENOTE ---
Pt assessed.No change in assessment noted.
[2024-09-27] MEDS: TYLENOL 650 MG PO (16:45)
--- NOTE | 2024-09-27 19:00 | PTCARENOTE ---
Dr Patel notified of lower bp, prn fitz ordered
--- NOTE | 2024-09-27 20:00 | PTCARENOTE ---
Rec'd pt resting in bed, denies pain, flat affect, needs a lot of enc to participate in care, huang weakly, aflutter, see flow sheet for bp, + pulses, skin warm/dry, O2 via hi flow 55 liters/ 50% o2, lungs coarse rhonchi, decr in bases, prod cough for
hunt secretions, sat 92, omnly able to reach 100 on IS, tachypneic, PYANE, + bowel sounds, no bm, abd round, soft,nontender, no n/v, no appetite, purewick in place - voiding michelle urine
[2024-09-28] VITALS (36 sets, daily range): BP systolic 80–156; BP diastolic 57–138; BMI 21.2
--- NOTE | 2024-09-28 | PTCARENOTE ---
Sys reviewed, lungs unch, still remains in aflutter, CHG bath done, linens changed
[2024-09-28] MEDS: ATIVAN 0.5 MG PO ×2 (01:44→22:47)
--- NOTE | 2024-09-28 01:44 | PTCARENOTE ---
ativan 0.5 mg pom given for anx
[2024-09-28 03:57] LABS: % Basophils 0.2 % (0-2); % Eosinophils 0.1 % (0-6); % Immature Granulocytes 1.7 % (0-0.5); % Monocytes 8.5 % (1.7-9.3); % Neutrophils 84.5 % (42.2-75.2); Absolute Immature Granulocytes 0.3 10^3/uL (0-0.05); Absolute Lymphocytes 0.9 10^3/uL (1.2-3.4); Absolute Monocytes 1.5 10^3/uL (0.1-0.6); Absolute Neutrophils 14.6 10^3/uL (1.4-6.5); Hematocrit 28.7 % (37.0-47.0); Mean Corp Hgb Conc. 34.8 g/dL (33.0-37.0); Mean Corpuscular Hgb 29.2 pg (27.0-31.0); Mean Corpuscular Volume 83.9 fL (81.0-99.0); Mean Platelet Volume 10.1 fL (7.4-10.4); Nucleated Red Blood Cells % 0 %; Platelet Count 330 10^3/uL (130-400); Red Blood Cell Count 3.42 10^6/uL (4.20-5.40); Red Cell Dist. Width 13.6 % (11.5-14.5); White Blood Cell Count 17.2 10^3/uL (4.8-10.8)
--- NOTE | 2024-09-28 04:00 | PTCARENOTE ---
sys reviewed, changes noted
[2024-09-28 04:18] LABS: Blood Urea Nitrogen 19 mg/dl (7-17); Carbon Dioxide 27 mmol/L (22-30); Chloride 99 mmol/L (98-107); Estimated Creatinine Clearance 77 ml/min; Glucose 94 mg/dl (70-99); Magnesium 1.9 mg/dl (1.6-2.3); Potassium 3.6 mmol/L (3.5-5.1); Sodium 131 mmol/L (135-145); eGFR > 60.00
[2024-09-28] MEDS: ZOSYN 100 IV ×4 (05:13→23:08)
[2024-09-28] MEDS: XOPENEX 0.63 MG INHALANT SOLUTION INH ×2 (07:27→12:39)
[2024-09-28] MEDS: ProAmatine 5 MG PO ×3 (07:49→18:36)
[2024-09-28] MEDS: MUCINEX 600 MG PO (07:50)
[2024-09-28] MEDS: ELIQUIS 5 MG PO ×2 (07:50→20:32)
[2024-09-28] MEDS: TAMIFLU 75 MG PO ×2 (07:51→20:32)
--- NOTE | 2024-09-28 08:17 | PTCARENOTE ---
Assumed care of pt. 0700.
Resting in bed, maintaining own airway, on HHF 55/50. SP02 92-94.
Remains in Aflutter rate 150-160s, MAP>65.
Poor diet, encouraging more PO intake.
Plan of care explained, all questions answered.
--- NOTE | 2024-09-28 08:37 | W.PN.ID1 ---
Date of Service
Date of Service: September 28, 2024
Today's Communication
- c/w zosyn at this time, eventual transition to oral therapy anticipated (levofloxacin and amoxicillin 1 gm TID), plan 14 day course 09/22-10/05
- continue tamiflu - 10 day course given severity of illness, need for hospitalization; 09/22-10/01
Assessment / Plan
Influenza A
Strep Pneumoniae Pneumonia
Secondary health care acquired pneumonia due to Pseudomonas
Bacteremia due to Strep Pneumoniae
- repeat blood cultures 09/23 and 09/24 in progress no growth to date
- 09/23 blood cultures S Pneumoniae - intermediate to levofloxacin; sensitive to penicillin
- sputum culture with few Pseudomonas - yeast from sputum is normal paresh
- trending differentials on CBC not needed from ID perspective
- c/w zosyn at this time, eventual transition to oral therapy anticipated (levofloxacin and amoxicillin 1 gm TID), plan 14 day course 09/22-10/05
- continue tamiflu - 10 day course given severity of illness, need for hospitalization; 09/22-10/01
- needs to establish care with a PCP moving forward, discussed withe patient earlier this admission
- Recommend PCV20 vaccine at local pharmacy when fully recovered
- patient is remains critically ill on high flow NC - overall slow clinical improvement noted
Chief Complaint
-: Pneumonia and Other (Flu A, S pneumo pneumonia, Pseudomonas pneumonia)
Subjective / Review of Systems
afebrile
bp overall stable on midodrine 5 mg TID
remains on high flow NC at 55L and 50%
Vital Signs / Physical Exam
Vital Signs
Vital Signs
Temp Pulse Resp BP Pulse Ox
98.3 F 155 31 102/65 92
09/28/24 04:00 09/28/24 07:49 09/28/24 07:33 09/28/24 07:49 09/28/24 08:22
Physical Exam
Constitutional: No Acute Distress
Cardiovascular: Regular Rate and S1/S2; Negative Murmur or Rub
Pulmonary: Symmetric, Coarse and Non Labored; Negative Wheezes or Rales
Gastrointestinal: Soft, Non Tender, Non Distended and Normal Bowel Sounds
Skin: Warm and Dry; Negative Rash or Jaundice
Objective Data
Lab Data
Lab Results
09/28/24 03:39
09/28/24 03:39
Estimated Creat Clear 77 ml/min 09/28/24 03:39
Lactic Acid Cancelled 09/22/24 22:31
Total Bilirubin 1.0 mg/dl (0.2-1.3) 09/23/24 05:29
AST 36 U/L (14-36) 09/23/24 05:29
ALT 23 U/L (0-35) 09/23/24 05:29
Alkaline Phosphatase 84 U/L (38-126) 09/23/24 05:29
Most recent labs reviewed.
Micro Results:
09/24/24 03:40 Blood Culture - Preliminary
Blood/Venous No Growth in 4 days- Final report to follow
09/24/24 03:30 Blood Culture - Preliminary
Blood/Venous No Growth in 4 days- Final report to follow
09/23/24 16:43 Blood Culture - Preliminary
Blood/Venous No Growth in 4 days- Final report to follow
09/23/24 13:35 Blood Culture - Preliminary
Blood/Venous No Growth in 4 days- Final report to follow
09/23/24 22:22 Respiratory Culture - Final
Sputum Pseudomonas aeruginosa
Binta albicans
Gram Stain - Final
09/22/24 10:33 Blood Culture - Preliminary
Blood/Venous Streptococcus pneumoniae
Gram Stain - Preliminary
09/22/24 12:38 Blood Culture - Final
Blood/Venous Streptococcus pneumoniae
Gram Stain - Final
09/22/24 22:22 Legionella Urinary Antigen - Final
Urine Negative for Legionella pneumophila Serogroup 1 antigen.
A negative result does not rule out the possiblity of
Legionella infection due to other serogroups or species of
Legionella. Clinical correlation is recommended.
Streptococcus pneumoniae Antigen (M - Final
Positive for Strep pneumo Ag
09/22/24 10:33 Influenza Types A & B (EUN) - Final
Nasal Swab Influenza A Positive, NAAT
--- NOTE | 2024-09-28 09:02 | W.PN.CD ---
Today's Communication / Plan
-
continue IV amiodarone, and eliquis
may need MARILEE/DCCV prior to d/c if unable to control HR
Impression / Plan
-
+Flu A/PNA: severe, requiring high flow O2
-on Tamiflu and antibiotics
-Continue management and supportive care as per primary team and ID
Strep Pneumoniae Bacteremia:
-on ABX and ID following
Aflutter with RVR: new
-typical
-Secondary to underlying infectious processes.
-Remains in atrial flutter at 140-150s, but denies palpitations or any significant dyspnea.
-Continue amiodarone drip.
-using for rate control in setting of hypotension
-requires monitoring of tele
-continue digoxin
-Will hold off on echocardiogram until heart rate improves.
-[id number] score is 2 for age and female. Denies bleeding issues or falls.
-Continue Eliquis 5mg bid
-may need MARILEE/DCCV prior to d/c if unable to control HR
Physical Exam
Vital Signs/Labs
Vital Signs
Temp Pulse Resp BP Pulse Ox
98.3 F 155 31 102/65 92
09/28/24 04:00 09/28/24 07:49 09/28/24 07:33 09/28/24 07:49 09/28/24 08:22
09/27/24 09/28/24 09/29/24
06:59 06:59 06:59
Actual Weight 55.4 kg 56.1 kg
09/28/24 03:39
09/28/24 03:39
Magnesium 1.9 mg/dl (1.6-2.3) 09/28/24 03:39
Physical Exam
Constitutional: Other (on high flow O2)
Cardiovascular: Pedal edema is absent, JVD pressure is normal, Systolic murmur absent and Rhythm/rate is irregular
Respiratory: Labored respirations
Neuro/Psych: AO x 3
Data Reviewed
-
Date of Service: September 28, 2024
EKG: Other (Tele: atrial flutter 140s-150s)
Labs: Labs Reviewed by me
--- NOTE | 2024-09-28 09:50 | W.PN.PUL3 ---
Today's Communication / Plan
-
Continue antibiotics
Continue secretion clearance intervention
Continue high flow oxygen, wean as able
Chest x-ray on as-needed basis
Rate control per cardiology. May need MARILEE and cardioversion.
Will follow
Assessment
-
69-year-old woman without significant past medical history admitted to the hospital with flulike symptoms, shortness of breath. Found to be hypoxemic, septic with bilateral infiltrates on x-ray. Requiring up to 6 L supplemental oxygen. Found to
be flu positive, treated With pneumonia bacteremia, Pseudomonas in the sputum with Binta in the sputum. We were consulted on 09/26/2024 due to worsening oxygenation and possible pulmonary mass.
Acute hypoxemic respiratory failure due to bilateral pneumonia-influenza A+/bacterial superinfection with Pseudomonas aeruginosa + strep pneumonia c/b Streptococcus pneumonia bacteremia.
Sputum culture positive with Pseudomonas/Binta's-possibly aspiration.
Positive for Streptococcus pneumonia bacteremia and positive for Streptococcus pneumonia antibody
Influenza A+
Right small parapneumonic effusion
Reactive mediastinal lymph nodes
Septic shock resolved
Acute kidney injury resolved post IV fluid
Hypokalemia
Atrial fibrillation/flutter with rapid ventricular response in the setting of acute illness 09/26/2024
Conditions present prior admission:
None
Does not follow-up with primary care
Does not take any medications
Non-smoker
Assessment and plan:
Clinical picture consistent with viral pneumonia due to influenza A with bacterial superinfection and possible aspiration event with rapid A-flutter
-
Now on high flow nasal cannula at 50% FiO2, 50 L/min --> wean down FiO2 as tolerated while keeping SpO2 >90-94%
Continue aspiration precaution
prn xopenex
Mucolytics with mucinex
Chest PT if she develops inability to expectorate - currently she can bring up her phlegm without issue
-
Cardiology on board - continue amiodarone gtt and digoxin started. Cardizem has been discontinued; okay to use beta-kenzie cautiously, although she does not have any history of primary lung disorder
-
Significantly abnormal CT Chest with bilateral infiltrates right greater than left. Small rght sided loculated pleural effusion.
Continue antibiotics per infectious disease � currently on Zosyn s/p ceftriaxone x 5 doses + Doxy x 2 doses + Zithromax x 1 dose
Follow up surveillance blood cultures collected 09/24/2024 (shows NGTD) - previously positive with Streptococcus pneumonia.
Continue Tamiflu
Follow fever curve and leukocytosis.
-
Repeat chest x-ray on as-needed basis
Pleural effusion and PNA will need to be followed to resolution - ultimately will need repeat imaging in 4-6 weeks
-
With significantly abnormal CAT scan she will need outpatient pulmonary follow-up. She also will need to establish follow-up with her primary care doctor-she regularly does not see doctors.
There is a right upper lobe rounded opacity that could be inflammatory or malignant. There is mediastinal lymph nodes that could be reactive.
Cannot rule out malignancy but less likely.
-
Anticoagulation started per cardiology for atrial fibrillation- apixaban
-
Pulmonary service will continue to follow along
-

Data reviewed:
CT chest 09/25/2024: Reviewed showed no evidence for pulmonary embolism.
No pneumothorax.
There is severe consolidation on the right lower lobe. Moderate consolidation on the right upper lobe. There is also consolidation in the right middle lobe. There is minimal consolidation in the left upper lobe and moderate on the left lower
lobe. Also the lingula is involved.
Small loculated right pleural effusion.
Reactive mediastinal lymph nodes suspected.
Total time spent today was 57 minutes for this encounter. Time includes reviewing laboratory test/imaging results, reviewing pertinent medical records, obtaining and reviewing medical history, performing an appropriate exam, ordering medications,
tests and procedures. Time also includes documentation of this encounter, coordinating patient care and communicating with other healthcare professionals. Total time does not include separately billed tests performed on this date of service.
Subjective Data
-
Date of Service:
Date of Service: September 28, 2024
Chief Complaint: Pulmonary Follow Up
Subjective:
Patient was seen and evaluated today at bedside. She has been having diarrhea. Currently on amiodarone at 1 with heart rate 157, saturating 94% on high flow nasal cannula FiO2 60%, 50 L/min. Patient's , Quinn, at bedside and all questions
were answered. Patient denies chest pain, WELCH, nausea, fevers or chills.
Review of Systems
General: Other (Negative unless mentioned above)
Objective Data
Data Reviewed
Vital Signs / I&O / Oxygen:
Vital Signs
Temp Pulse Resp BP Pulse Ox
98.4 F 155 36 98/69 92
09/28/24 11:20 09/28/24 09:30 09/28/24 09:30 09/28/24 09:30 09/28/24 11:29
Intake and Output
09/27/24 09/28/24 09/29/24
06:59 06:59 06:59
Intake Total 2036.6 / 2149.9 1629.2 / 1662.5 166.5 / 166.5
Output Total 900 / 900 1275 / 1275 170 / 170
Balance 1136.6 / 1249.9 354.2 / 387.5 -3.5 / -3.5
SaO2 92
Nasal Cannula flow liters per 50
minute
Physical Exam
General: Respiratory Distress (negative), Comfortable, Chills (negative) and Sweats (negative)
HEENT: Normocephalic and Anicteric
Cardiovascular: Irregular Rhythm, Peripheral Edema (negative) and Other (Tachycardic)
Respiratory: Wheeze (Cassia upon expiration bilaterally), Crackles (Bilaterally), Rhonchi (R >L) and Accessory Resp Muscle Use (Occasionally during exertion)
GI: Soft, Non Distended, Non Tender and Normal Bowel Sounds
Neurology: AO x 3 and Tremors (negative)
Skin: Warm, Dry, Cyanosis (negative) and Jaundice (negative)
Labs/Micro/Reports
Lab Data
09/28/24 03:39
09/28/24 03:39
Microbiology
09/24/24 03:40 Blood/Venous Blood Culture - Preliminary
No Growth in 4 days- Final report to follow
09/24/24 03:30 Blood/Venous Blood Culture - Preliminary
No Growth in 4 days- Final report to follow
09/23/24 16:43 Blood/Venous Blood Culture - Preliminary
No Growth in 4 days- Final report to follow
09/23/24 13:35 Blood/Venous Blood Culture - Preliminary
No Growth in 4 days- Final report to follow
09/23/24 22:22 Sputum Respiratory Culture - Final
Pseudomonas aeruginosa
Binta albicans
09/23/24 22:22 Sputum Gram Stain - Final
09/22/24 10:33 Blood/Venous Blood Culture - Preliminary
Streptococcus pneumoniae
09/22/24 10:33 Blood/Venous Gram Stain - Preliminary
09/22/24 12:38 Blood/Venous Blood Culture - Final
Streptococcus pneumoniae
09/22/24 12:38 Blood/Venous Gram Stain - Final
[2024-09-28] MEDS: LANOXIN 250 MCG IV (12:25)
--- NOTE | 2024-09-28 12:57 | CM ---
CM following re: discharge planning.
Reviewed pt's chart, met with pt.
Pt requires 50 L HFNC of O2 with FIO2 70%, continue supportive care.
PT and OT have been recommending SNF level of care. Pt is aware and she stated she will never go to a SNF and pt made a strong request she will return back home at discharge with family support and pt agrees to have VN services. CM will confirm
pt's discharge plan closer to discharge. Pt has no home Oxygen.
Pt reports she lives with 2SH, has 3 supportive children and pt stated she has a walker at home.
D/C plan: home with VN services and family support. Pt declined SNF level of care.
CM will follow with discharge plan updates as hospitalization progresses
--- NOTE | 2024-09-28 13:05 | PTCARENOTE ---
Rec'd pt from ICU. remains on HF NC. O2 sat 92%. HR remains 150s. no complaints of pain.
--- NOTE | 2024-09-28 13:44 | W.PN.HOSP.TC ---
Today's Communication/Plan
-
Wean o2 as tolerated
cont IV abx
Cont with IV amiodarone/digoxin
Assessment / Plan
Assessment / Plan
Physical Exam
General: no acute distress, chronically ill-appearing
HEENT: NormoCephalic, Moist mucous membranes and Atraumatic
Respiratory: Rhonchi and Crackles, high flow nasal cannula
Cardiac: S1/S2, irregularly irregular tachycardic
GI: Soft, Non Tender, Non Distended and Normal Bowel Sounds; No Organomegaly
Musculoskeletal: No Clubbing, No Cyanosis and No Edema
Skin: No Rash
Neuro: AO x 3
Psych: Anxious
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
#Septic Shock elevated (tachycardia, tachypnea) lactate, hypotension initially requiring pressor support
# Fever cough/generalized weakness likely from flu/polymicrobial pneumonia with strep and Pseudomonas
# Acute hypoxic respiratory failure
#Sinus tachycardia likely 2/2 severe sepsis PNA
-IVF completed
-Tamiflu continued
-Tylenol as needed for fever
-Mucinex as needed for cough
-Blood cultures positive for Strep pneumonia, follow up repeat blood cx's NGTD
-Sputum Cx pos for Pseudomonas and josy albicans-on Zosyn
-ID eval appreciated ceftriaxone discontinued in favor of Zosyn for coverage GNR in sputum, cont Tamiflu 10 day course, repeat Speech eval requested
-Duoneb R QID and PRN switched to Xopenex d/t tachycardia and cont with PRN for now.
-VEST therapy, Incentive Spirometry
-Currently on high flow nasal cannula 50 L at 70% FiO2
-CT chest appreciated multilobar pna severe in RLL underlying mass not excluded (follow up CT after treatment recommended relayed to patient and patient spouse)
-repeat CXR in am
-Pulmonary and ID following
# Atrial fibrillation/atrial flutter rapid ventricular response
Started on Cardizem infusion.
Blood pressure soft and thus unable to tolerate Cardizem and thus plan to switch to amiodarone gtt
Anticoagulation with Eliquis
Echocardiogram once heart rate stable
TSH wnl
Persistent tachycardia status post repeat amiodarone bolus and now started on digoxin
May require cardioversion if no improvement in heart rate
Cardiology has been consulted
# Mild hypotension likely combination of Cardizem versus severe tachycardia due to A-fib
Start patient on midodrine
Pressors if needed
# Anxiety could be situational
Ativan as needed
#Hypokalemia
replete/monitor
# Hyponatremia/metabolic acidosis /acute kidney injury likely hypovolemic
-resolved
-IVF completed
#Hypokalemia
#Mild Hypophosphatemia
monitor and replete as necessary
# DVT prophylaxis
-Eliquis
# CODE STATUS
-Full code
Anticipated Discharge: > 48 hours
Subjective/Interval History
-
Date of Service: September 28, 2024
Remains on HFNC
Remains tachycardiac
states of cough but decrease in frequency
Objective Data
-
Labs:
Laboratory Results
09/28/24
03:39
WBC 17.2 H
Hgb 10.0 L
Hct 28.7 L
Plt Count 330 D
Sodium 131 L
Potassium 3.6
Chloride 99
Carbon Dioxide 27
BUN 19 H
Creatinine 0.5 L
Glucose 94
Calcium 7.0 L
Vital Signs:
Vital Signs
Temp Pulse Resp BP Pulse Ox
98.4 F 158 36 113/81 96
09/28/24 11:20 09/28/24 12:39 09/28/24 12:39 09/28/24 12:25 09/28/24 12:39
I&O
09/27/24 09/28/24 09/29/24
06:59 06:59 06:59
Intake Total 2036.6 / 2149.9 1629.2 / 1662.5 366.5 / 366.5
Output Total 900 / 900 1275 / 1275 170 / 170
Balance 1136.6 / 1249.9 354.2 / 387.5 196.5 / 196.5
Data Reviewed
-
Total Time Spent with Patient (in minutes): 55
--- NOTE | 2024-09-28 15:50 | W.PN.PUL3 ---
Today's Communication / Plan
-
Continue antibiotics
Continue secretion clearance intervention
Continue high flow oxygen, wean as able
Chest x-ray on as-needed basis
Rate control per cardiology. May need MARILEE and cardioversion.
Will follow
Assessment
-
69-year-old woman without significant past medical history admitted to the hospital with flulike symptoms, shortness of breath. Found to be hypoxemic, septic with bilateral infiltrates on x-ray. Requiring up to 6 L supplemental oxygen. Found to
be flu positive, treated With pneumonia bacteremia, Pseudomonas in the sputum with Binta in the sputum. We were consulted on 09/26/2024 due to worsening oxygenation and possible pulmonary mass.
Acute hypoxemic respiratory failure due to bilateral pneumonia-influenza A+/bacterial superinfection with Pseudomonas aeruginosa + strep pneumonia c/b Streptococcus pneumonia bacteremia.
Sputum culture positive with Pseudomonas/Binta's-possibly aspiration.
Positive for Streptococcus pneumonia bacteremia and positive for Streptococcus pneumonia antibody
Influenza A+
Right small parapneumonic effusion
Reactive mediastinal lymph nodes
Septic shock resolved
Acute kidney injury resolved post IV fluid
Hypokalemia
Atrial fibrillation/flutter with rapid ventricular response in the setting of acute illness 09/26/2024
Conditions present prior admission:
None
Does not follow-up with primary care
Does not take any medications
Non-smoker
Assessment and plan:
Clinical picture consistent with viral pneumonia due to influenza A with bacterial superinfection and possible aspiration event with rapid A-flutter.
-
Respiratory status remained tenuous. 09/28/2024
Now on high flow nasal cannula at70% FiO2, 50 L/min --> wean down FiO2 as tolerated while keeping SpO2 >90-94%
-
prn xopenex
Mucolytics with mucinex
Chest PT if she develops inability to expectorate - currently she can bring up her phlegm without issue
-
Cardiology on board - continue amiodarone gtt and digoxin being started. Cardizem has been discontinued
-
Significantly abnormal CT Chest with bilateral infiltrates right greater than left. Small rght sided loculated pleural effusion.
Chest x-ray 09/27/2024: Multifocal pneumonia with opacification of the right and lower lung and left basilar opacity.
-
Viral pneumonia with bacterial superinfection-strep pneumococcus/Pseudomonas aeruginosa's.
Continue antibiotics per infectious disease � currently on Zosyn s/p ceftriaxone x 5 doses + Doxy x 2 doses + Zithromax x 1 dose
Follow up surveillance blood cultures collected 09/24/2024 (shows NGTD) - previously positive with Streptococcus pneumonia.
Continue Tamiflu X 10 days
Follow fever curve and leukocytosis.
-
Repeat chest x-ray on as-needed basis in the next 48 hours and on as-needed basis
Pleural effusion and PNA will need to be followed to resolution - ultimately will need repeat imaging in 4-6 weeks
-
With significantly abnormal CAT scan she will need outpatient pulmonary follow-up. She also will need to establish follow-up with her primary care doctor-she regularly does not see doctors.
There is a right upper lobe rounded opacity that could be inflammatory or malignant. There is mediastinal lymph nodes that could be reactive.
Cannot rule out malignancy but less likely.
-
Atrial fibrillation with rapid ventricular response: Continue with rate control efforts per cardiology.
Anticoagulation started per cardiology for atrial fibrillation- apixaban
-
Recovery likely will take some time given significantly abnormal chest x-ray.
-
Will follow
-

Data reviewed:
CT chest 09/25/2024: Reviewed showed no evidence for pulmonary embolism.
No pneumothorax.
There is severe consolidation on the right lower lobe. Moderate consolidation on the right upper lobe. There is also consolidation in the right middle lobe. There is minimal consolidation in the left upper lobe and moderate on the left lower
lobe. Also the lingula is involved.
Small loculated right pleural effusion.
Reactive mediastinal lymph nodes suspected.
Subjective Data
-
Date of Service:
Date of Service: September 28, 2024
Chief Complaint: Pulmonary Follow Up (Hypoxemic respiratory failure-influenza/bacterial superinfection)
Subjective:
No new complaints
Denies hemoptysis
Denies any chest pain
Still short of breath with activity next
Review of Systems
Cardiopulmonary: Dyspnea, Dyspnea on Exertion and Cough
Objective Data
Data Reviewed
Vital Signs / I&O / Oxygen:
Vital Signs
Temp Pulse Resp BP Pulse Ox
98.4 F 158 36 113/81 94
09/28/24 11:20 09/28/24 12:39 09/28/24 12:39 09/28/24 12:25 09/28/24 15:16
Intake and Output
09/27/24 09/28/24 09/29/24
06:59 06:59 06:59
Intake Total 2036.6 / 2149.9 1629.2 / 1662.5 366.5 / 366.5
Output Total 900 / 900 1275 / 1275 170 / 170
Balance 1136.6 / 1249.9 354.2 / 387.5 196.5 / 196.5
SaO2 94
Nasal Cannula flow liters per 50
minute
Physical Exam
General: Respiratory Distress (negative), Comfortable, Chills (negative) and Sweats (negative)
HEENT: Normocephalic and Anicteric
Cardiovascular: Peripheral Edema (negative) and Other (Tachycardic)
Respiratory: Wheeze (negative), Crackles (R >L) and Rhonchi (R >L)
GI: Soft, Non Distended, Non Tender and Normal Bowel Sounds
Neurology: AO x 3 and Tremors (negative)
Skin: Warm, Dry, Cyanosis (negative) and Jaundice (negative)
Labs/Micro/Reports
Lab Data
09/28/24 03:39
09/28/24 03:39
Microbiology
09/24/24 03:40 Blood/Venous Blood Culture - Preliminary
No Growth in 4 days- Final report to follow
09/24/24 03:30 Blood/Venous Blood Culture - Preliminary
No Growth in 4 days- Final report to follow
09/23/24 16:43 Blood/Venous Blood Culture - Preliminary
No Growth in 4 days- Final report to follow
09/23/24 13:35 Blood/Venous Blood Culture - Preliminary
No Growth in 4 days- Final report to follow
09/23/24 22:22 Sputum Respiratory Culture - Final
Pseudomonas aeruginosa
Binta albicans
09/23/24 22:22 Sputum Gram Stain - Final
09/22/24 10:33 Blood/Venous Blood Culture - Preliminary
Streptococcus pneumoniae
09/22/24 10:33 Blood/Venous Gram Stain - Preliminary
09/22/24 12:38 Blood/Venous Blood Culture - Final
Streptococcus pneumoniae
09/22/24 12:38 Blood/Venous Gram Stain - Final
[2024-09-28] MEDS: LOPRESSOR 2.5 MG IV ×2 (18:32→23:08)
[2024-09-28] MEDS: ROBITUSSIN DM 5 ML PO (20:32)
[2024-09-28] MEDS: MUCINEX PO (20:32)
[2024-09-28] MEDS: CORDARONE 518 MG IV (22:47)
[2024-09-29] VITALS (28 sets, daily range): BP systolic 90–140; BP diastolic 64–91
--- NOTE | 2024-09-29 01:33 | PTCARENOTE ---
assumed care of patient. pt is AAOx3, anxious at times. able to make needs known. inc of bowel, pending c-diff, a-fib/ST on the monitor rates 130s-140s. no c/o pain. on HFNC 50L 70%, 96%. SOB on exertion. amio gtt infusing through right PICC at
1mcg/min. pt is asymptomatic. q2t, pt did refuse to take PO mucinex tonight, stating it makes her stomach hurt, PRN robitussin given. care ongoing.
[2024-09-29] MEDS: LOPRESSOR 2.5 MG IV ×3 (05:40→23:08)
[2024-09-29] MEDS: ZOSYN 100 IV ×4 (05:40→23:08)
[2024-09-29 06:56] LABS: Hematocrit 29.3 % (37.0-47.0); Hemoglobin 10.3 g/dL (12.0-16.0); Mean Corp Hgb Conc. 35.2 g/dL (33.0-37.0); Mean Corpuscular Hgb 29.9 pg (27.0-31.0); Mean Corpuscular Volume 84.9 fL (81.0-99.0); Platelet Count 469 10^3/uL (130-400); Red Blood Cell Count 3.45 10^6/uL (4.20-5.40); White Blood Cell Count 18.7 10^3/uL (4.8-10.8)
[2024-09-29 07:03] LABS: Blood Urea Nitrogen 12 mg/dl (7-17); Carbon Dioxide 28 mmol/L (22-30); Chloride 95 mmol/L (98-107); Estimated Creatinine Clearance 77 ml/min; Glucose 91 mg/dl (70-99); Magnesium 1.8 mg/dl (1.6-2.3); Potassium 3.5 mmol/L (3.5-5.1); Sodium 130 mmol/L (135-145); eGFR > 60.00
--- NOTE | 2024-09-29 08:24 | W.PN.CD ---
Today's Communication / Plan
-
-Remains in atrial flutter at 140-150s, but denies palpitations or any significant dyspnea.
-Continue amiodarone drip.
-Continue IV digoxin.
-Will obtain echocardiogram today.
-Too high risk for MARILEE/DCCV at this time; continue with current medical management for now.
Impression / Plan
-
+Flu A/PNA: severe, requiring high flow O2
-Treated with Tamiflu and antibiotics
-Continue management and supportive care as per primary team and ID
Strep Pneumoniae Bacteremia:
-on ABX and ID following
Aflutter with RVR: new
-typical
-Secondary to underlying infectious processes.
-Remains in atrial flutter at 140-150s, but denies palpitations or any significant dyspnea.
-Continue amiodarone drip.
-Continue IV digoxin.
-Will obtain echocardiogram today.
-[id number] score is 2 for age and female. Denies bleeding issues or falls.
-Continue Eliquis 5mg bid
-Too high risk for MARILEE/DCCV at this time; continue with current medical management for now.
Physical Exam
Vital Signs/Labs
Vital Signs
Temp Pulse Resp BP Pulse Ox
97.1 F 143 35 104/71 92
09/29/24 07:16 09/29/24 06:00 09/29/24 06:00 09/29/24 06:00 09/29/24 07:52
09/28/24 09/29/24 09/30/24
06:59 06:59 06:59
Actual Weight 56.1 kg
09/29/24 05:47
09/29/24 05:47
Magnesium 1.8 mg/dl (1.6-2.3) 09/29/24 05:47
Physical Exam
Constitutional: No acute distress and Comfortable
EENT: Anicteric
Cardiovascular: Pedal edema is absent, Systolic murmur absent, Rhythm/rate is irregular (Tachycardic) and S1S2 is normal
Respiratory: Respiratory effort normal, Wheeze Absent, Crackles Absent and Other (Decreased bibasilar breath sounds)
GI: Soft
Neuro/Psych: AO x 3
Other: Skin (Warm, dry)
Data Reviewed
-
Date of Service: September 29, 2024
EKG: Tracing Personally Visualized and interpreted (Telemetry: A flutter)
Medical Tests (PFT, Pathology etc): Discussed with Nurse and Discussed with Patient
Labs: Labs Reviewed by me
--- NOTE | 2024-09-29 09:06 | W.PN.ID1 ---
Date of Service
Date of Service: September 29, 2024
Today's Communication
- pneumothorax management per pulmonary
- c/w zosyn at this time, eventual transition to oral therapy anticipated (levofloxacin and amoxicillin 1 gm TID), plan 14 day course 09/22-10/05
- continue tamiflu - 10 day course given severity of illness, need for hospitalization; 09/22-10/01
Assessment / Plan
Influenza A
Strep Pneumoniae Pneumonia
Secondary health care acquired pneumonia due to Pseudomonas
Bacteremia due to Strep Pneumoniae - transient
- repeat blood cultures 09/23 and 09/24 in progress no growth to date
- 09/23 blood cultures S Pneumoniae - intermediate to levofloxacin; sensitive to penicillin
- sputum culture with few Pseudomonas - yeast from sputum is normal paresh
- pneumothorax management per pulmonary
- c/w zosyn at this time, eventual transition to oral therapy anticipated (levofloxacin and amoxicillin 1 gm TID), plan 14 day course 09/22-10/05
- continue tamiflu - 10 day course given severity of illness, need for hospitalization; 09/22-10/01
- needs to establish care with a PCP moving forward, discussed withe patient earlier this admission
- Recommend PCV20 vaccine at local pharmacy when fully recovered
- patient is remains critically ill on high flow NC - overall slow clinical improvement noted
Chief Complaint
-: Pneumonia and Other (Flu A, S pneumo pneumonia, Pseudomonas pneumonia)
Subjective / Review of Systems
afebrile
bp stable on midodrine
remains in a flutter
now at 50L and 70% FiO2
Vital Signs / Physical Exam
Vital Signs
Vital Signs
Temp Pulse Resp BP Pulse Ox
97.1 F 143 35 104/71 92
09/29/24 07:16 09/29/24 06:00 09/29/24 06:00 09/29/24 06:00 09/29/24 07:52
Physical Exam
Constitutional: Non-toxic
Cardiovascular: Regular Rate and S1/S2; Negative Murmur or Rub
Pulmonary: Clear and Symmetric; Negative Wheezes or Rales
Gastrointestinal: Soft, Non Tender, Non Distended, Normal Bowel Sounds and Other (cough ongoing - sounds productive)
Skin: Warm and Dry; Negative Rash or Jaundice
Objective Data
Lab Data
Lab Results
09/29/24 05:47
09/29/24 05:47
Estimated Creat Clear 77 ml/min 09/29/24 05:47
Lactic Acid Cancelled 09/22/24 22:31
Total Bilirubin 1.0 mg/dl (0.2-1.3) 09/23/24 05:29
AST 36 U/L (14-36) 09/23/24 05:29
ALT 23 U/L (0-35) 09/23/24 05:29
Alkaline Phosphatase 84 U/L (38-126) 09/23/24 05:29
Most recent labs reviewed.
Chest X-Ray: Image Reviewed and Report Reviewed (new L sided pneumothorax)
Micro Results:
09/28/24 18:31 C. difficile GDH Antigen & Toxins - Final
Feces/Stool Negative for toxigenic C.difficile
09/24/24 03:40 Blood Culture - Final
Blood/Venous No Growth - Final Report
09/24/24 03:30 Blood Culture - Final
Blood/Venous No Growth - Final Report
09/23/24 16:43 Blood Culture - Final
Blood/Venous No Growth - Final Report
09/23/24 13:35 Blood Culture - Final
Blood/Venous No Growth - Final Report
09/23/24 22:22 Respiratory Culture - Final
Sputum Pseudomonas aeruginosa
Binta albicans
Gram Stain - Final
09/22/24 10:33 Blood Culture - Preliminary
Blood/Venous Streptococcus pneumoniae
Gram Stain - Preliminary
09/22/24 12:38 Blood Culture - Final
Blood/Venous Streptococcus pneumoniae
Gram Stain - Final
09/22/24 22:22 Legionella Urinary Antigen - Final
Urine Negative for Legionella pneumophila Serogroup 1 antigen.
A negative result does not rule out the possiblity of
Legionella infection due to other serogroups or species of
Legionella. Clinical correlation is recommended.
Streptococcus pneumoniae Antigen (M - Final
Positive for Strep pneumo Ag
09/22/24 10:33 Influenza Types A & B (EUN) - Final
Nasal Swab Influenza A Positive, NAAT
[2024-09-29] MEDS: MUCINEX 600 MG PO (09:26)
[2024-09-29] MEDS: ProAmatine 5 MG PO ×3 (09:26→17:10)
[2024-09-29] MEDS: ELIQUIS 5 MG PO ×2 (09:26→20:17)
[2024-09-29] MEDS: TAMIFLU 75 MG PO ×2 (09:27→20:17)
[2024-09-29] MEDS: VISBIOME 2 CAP PO (09:28)
[2024-09-29] MEDS: IMODIUM 2 MG PO (09:28)
--- NOTE | 2024-09-29 09:40 | W.PN.PUL3 ---
Today's Communication / Plan
-
Consult IR for left chest tube placement-Case has been discussed with IR via phone.
Continue antibiotic
Continue high flow oxygen
Continue heart rate control measurements. Cardiology
Respiratory status tenuous
High risk situation
Assessment
-
69-year-old woman without significant past medical history admitted to the hospital with flulike symptoms, shortness of breath. Found to be hypoxemic, septic with bilateral infiltrates on x-ray. Requiring up to 6 L supplemental oxygen. Found to
be flu positive, treated With pneumonia bacteremia, Pseudomonas in the sputum with Binta in the sputum. We were consulted on 09/26/2024 due to worsening oxygenation and possible pulmonary mass.
Acute hypoxemic respiratory failure due to bilateral pneumonia-influenza A+/bacterial superinfection with Pseudomonas aeruginosa + strep pneumonia c/b Streptococcus pneumonia bacteremia.
Sputum culture positive with Pseudomonas/Binta's-possibly aspiration.
Positive for Streptococcus pneumonia bacteremia and positive for Streptococcus pneumonia antibody
Spontaneous left secondary pneumothorax 09/29/2024
Influenza A+
Right small parapneumonic effusion
Reactive mediastinal lymph nodes
Septic shock resolved
Acute kidney injury resolved post IV fluid
Hypokalemia
Atrial fibrillation/flutter with rapid ventricular response in the setting of acute illness 09/26/2024
Conditions present prior admission:
None
Does not follow-up with primary care
Does not take any medications
Non-smoker
Assessment and plan:
Clinical picture consistent with viral pneumonia due to influenza A with bacterial superinfection and possible aspiration event with rapid A-flutter
-
X-ray 09/29/2024: Incidental left sided pneumothorax
Spontaneous secondary to pneumonia.
No procedure being performed
Not hypotensive. Has remained tachycardic due to atrial fibrillation unchanged from yesterday
FiO2 75% which is essentially unchanged from yesterday.
Patient is short of breath unchanged since yesterday.
Interventional radiology was consulted. Chest tube should be placed.
Close monitoring, if there is decompensation will place decompressive needle and emergent chest tube at the bedside.
Discussed with patient, discussed with primary team, discussed with nursing.
-
Continue high flow nasal cannula at 75 hold % FiO2, 50 L/min --> wean down FiO2 as tolerated while keeping SpO2 >90-94%
Continue aspiration precaution
prn xopenex
Mucolytics with mucinex
Hold-Chest PT with new pneumothorax 09/29/2024.
-
Remains tachycardic:
Cardiology on board - continue amiodarone gtt and digoxin started. Cardizem has been discontinued; okay to use beta-kenzie cautiously, although she does not have any history of primary lung disorder
-
Significantly abnormal CT Chest with bilateral infiltrates right greater than left. Small rght sided loculated pleural effusion.
Continue antibiotics per infectious disease � currently on Zosyn s/p ceftriaxone x 5 doses + Doxy x 2 doses + Zithromax x 1 dose
Follow up surveillance blood cultures collected 09/24/2024 (shows NGTD) - previously positive with Streptococcus pneumonia.
Continue Tamiflu
Follow fever curve and leukocytosis.
-
Repeat chest x-ray on as-needed basis
Pleural effusion and PNA will need to be followed to resolution - ultimately will need repeat imaging in 4-6 weeks
-
With significantly abnormal CAT scan she will need outpatient pulmonary follow-up. She also will need to establish follow-up with her primary care doctor-she regularly does not see doctors.
There is a right upper lobe rounded opacity that could be inflammatory or malignant. There is mediastinal lymph nodes that could be reactive.
Cannot rule out malignancy but less likely.
-
Anticoagulation started per cardiology for atrial fibrillation- apixaban
-
Pulmonary service will continue to follow along
-
If there is decompensation may need to transfer back to critical care. I will reevaluate later today.

Data reviewed:
CT chest 09/25/2024: Reviewed showed no evidence for pulmonary embolism.
No pneumothorax.
There is severe consolidation on the right lower lobe. Moderate consolidation on the right upper lobe. There is also consolidation in the right middle lobe. There is minimal consolidation in the left upper lobe and moderate on the left lower
lobe. Also the lingula is involved.
Small loculated right pleural effusion.
Reactive mediastinal lymph nodes suspected.
Total time spent today was 54 minutes for this encounter. Time includes reviewing laboratory test/imaging results, reviewing pertinent medical records, obtaining and reviewing medical history, performing an appropriate exam, ordering medications,
tests and procedures. Time also includes documentation of this encounter, coordinating patient care and communicating with other healthcare professionals. Total time does not include separately billed tests performed on this date of service.
Subjective Data
-
Date of Service:
Date of Service: September 29, 2024
Chief Complaint: Pulmonary Follow Up (Hypoxemic respiratory failure-influenza/bacterial superinfection)
Subjective:
Remained stable overnight on high flow oxygen
Short of breath with any activity
No increased chest pain
Denies increased phlegm production or hemoptysis
Has remained tachycardic
Review of Systems
Cardiopulmonary: Dyspnea, Dyspnea on Exertion and Cough
Objective Data
Data Reviewed
Vital Signs / I&O / Oxygen:
Vital Signs
Temp Pulse Resp BP Pulse Ox
97.1 F 148 35 117/83 92
09/29/24 07:16 09/29/24 09:26 09/29/24 06:00 09/29/24 09:26 09/29/24 07:52
Intake and Output
09/28/24 09/29/24 09/30/24
06:59 06:59 06:59
Intake Total 1629.2 / 1662.5 566.5 / 566.5
Output Total 1275 / 1275 170 / 170
Balance 354.2 / 387.5 396.5 / 396.5
SaO2 92
Nasal Cannula flow liters per 50
minute
Physical Exam
General: Respiratory Distress (negative), Comfortable, Chills (negative) and Sweats (negative)
HEENT: Normocephalic and Anicteric
Cardiovascular: Irregular Rhythm, Peripheral Edema (negative) and Other (Tachycardic)
Respiratory: Wheeze ([place] upon expiration bilaterally), Crackles (Bilaterally), Rhonchi (R >L), Accessory Resp Muscle Use (Occasionally during exertion) and Crepitus (n)
GI: Soft, Non Distended, Non Tender and Normal Bowel Sounds
Neurology: AO x 3 and Tremors (negative)
Skin: Warm, Dry, Cyanosis (negative) and Jaundice (negative)
Labs/Micro/Reports
Lab Data
09/29/24 05:47
09/29/24 05:47
Microbiology
09/28/24 18:31 Feces/Stool C. difficile GDH Antigen & Toxins - Final
Negative for toxigenic C.difficile
09/24/24 03:40 Blood/Venous Blood Culture - Final
No Growth - Final Report
09/24/24 03:30 Blood/Venous Blood Culture - Final
No Growth - Final Report
09/23/24 16:43 Blood/Venous Blood Culture - Final
No Growth - Final Report
09/23/24 13:35 Blood/Venous Blood Culture - Final
No Growth - Final Report
09/23/24 22:22 Sputum Respiratory Culture - Final
Pseudomonas aeruginosa
Binta albicans
09/23/24 22:22 Sputum Gram Stain - Final
--- NOTE | 2024-09-29 09:49 | W.PN.HOSP.TC ---
Today's Communication/Plan
-
s/p chest tube to suction
IV lopressor/amio/digoxin
IV abx
probiotics
imodium if needed
critically ill
Assessment / Plan
Assessment / Plan
Physical Exam
General: no acute distress, chronically ill-appearing
HEENT: NormoCephalic, Moist mucous membranes and Atraumatic
Respiratory: Rhonchi and Crackles, high flow nasal cannula
Cardiac: S1/S2, irregularly irregular tachycardic to 140s
GI: Soft, Non Tender, Non Distended and Normal Bowel Sounds; No Organomegaly
Musculoskeletal: No Clubbing, No Cyanosis and No Edema
Skin: No Rash
Neuro: AO x 3
Psych: Anxious
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
#Septic Shock elevated (tachycardia, tachypnea) lactate, hypotension initially requiring pressor support
# Fever cough/generalized weakness likely from flu/polymicrobial pneumonia with strep and Pseudomonas
# Acute hypoxic respiratory failure
#Sinus tachycardia likely 2/2 severe sepsis PNA
-IVF completed
-Tamiflu continued
-Tylenol as needed for fever
-Mucinex as needed for cough
-Blood cultures positive for Strep pneumonia, follow up repeat blood cx's NGTD
-Sputum Cx pos for Pseudomonas and josy albicans-on Zosyn
-ID eval appreciated ceftriaxone discontinued in favor of Zosyn for coverage GNR in sputum, cont Tamiflu 10 day course, repeat Speech eval requested
-Duoneb R QID and PRN switched to Xopenex d/t tachycardia and cont with PRN for now.
-VEST therapy DC, Incentive Spirometry
-Currently on high flow nasal cannula 50 L at 70% FiO2
-CT chest appreciated multilobar pna severe in RLL underlying mass not excluded (follow up CT after treatment recommended relayed to patient and patient spouse)
-repeat CXR in am
-Pulmonary and ID following
# Left-sided pneumothorax
Noted on chest x-ray on 09/29/2024
Status post emergent chest tube placement by [facility]
Daily chest x-ray
Pulmonary following
# Atrial fibrillation/atrial flutter rapid ventricular response
Started on Cardizem infusion.
Blood pressure soft and thus unable to tolerate Cardizem and thus plan to switch to amiodarone gtt
Anticoagulation with Eliquis
Echocardiogram once heart rate stable
TSH wnl
Persistent tachycardia status post repeat amiodarone bolus and now started on digoxin
Started on IV Lopressor seems to be helping
May require cardioversion if no improvement in heart rate
Cardiology has been consulted
# Mild hypotension likely combination of Cardizem versus severe tachycardia due to A-fib
Start patient on midodrine
Pressors if needed
#Loose bowel movements
Likely due to antibiotic associated
C. difficile negative
Start probiotic
Imodium if needed
# Anxiety could be situational
Ativan as needed
#Hypokalemia
replete/monitor
# Hyponatremia/metabolic acidosis /acute kidney injury likely hypovolemic
-resolved
-IVF completed
#Hypokalemia
#Mild Hypophosphatemia
monitor and replete as necessary
# DVT prophylaxis
-Eliquis
# CODE STATUS
-Full code
Updated patient spouse over the phone in detail
Discussed with pulmonary
Anticipated Discharge: > 48 hours
Subjective/Interval History
-
Date of Service: September 29, 2024
Chest x-ray this morning with pneumothorax
Discussed with radiology and discussed with pulmonary
Patient remains on high flow nasal cannula
Heart rate with mild improvement
Having loose bowel movements
Objective Data
-
Labs:
Laboratory Results
09/29/24
05:47
WBC 18.7 H
Hgb 10.3 L
Hct 29.3 L
Plt Count 469 H D
Sodium 130 L
Potassium 3.5
Chloride 95 L
Carbon Dioxide 28
BUN 12
Creatinine 0.4 L
Glucose 91
Calcium 7.0 L
Vital Signs:
Vital Signs
Temp Pulse Resp BP Pulse Ox
97.1 F 148 35 117/83 92
09/29/24 07:16 09/29/24 09:26 09/29/24 06:00 09/29/24 09:26 09/29/24 07:52
I&O
09/28/24 09/29/24 09/30/24
06:59 06:59 06:59
Intake Total 1629.2 / 1662.5 566.5 / 566.5
Output Total 1275 / 1275 170 / 170
Balance 354.2 / 387.5 396.5 / 396.5
Data Reviewed
-
Total Time Spent with Patient (in minutes): 55
[2024-09-29] MEDS: LOPRESSOR 5 MG IV (11:12)
--- NOTE | 2024-09-29 11:54 | W.PN.UPDATE ---
Update Note
Progress Note Update
- Post fluoro guided anterior left chest tube placement
- 8.5F pigtail catheter placed into the apex.
- Orders placed. Suction to -20.
[2024-09-29] MEDS: LOPRESSOR IV (12:00)
[2024-09-29] MEDS: LANOXIN 250 MCG IV (12:45)
[2024-09-29] MEDS: CORDARONE 518 MG IV (14:03)
--- NOTE | 2024-09-29 14:25 | PN.CDI ---
CDI
- -
CDI:
Physician Documentation Request
Admit Date: 09/22/24 12:35
Dear Doctor Julius,
Patient admitted with sepsis.
Please review the following and provide your response in the progress notes.
Clinical Indicators: 09/22/24
Height: 5 4'
Weight: 110 lb 10 oz
BMI: 19.0
Please provide an associated diagnosis related to the abnormal BMI, such as:
Underweight
Cachectic
Anorexia
BMI is not significant
Other
BMI < or = to 19
Underweight
Weight Loss
Cachectic
Anorexia
Use of terms such as suspected, likely, concern for, or probable (associated with a specific diagnosis that is being evaluated, monitored, or treated as if it exists) are acceptable and can be coded in the inpatient setting, when documented at the
time of discharge.
Thank you,
Hillary ALLISON,RN,CCDS
CDI Specialist
Available via tiger text
Please use your independent medical judgment in providing your response.
[2024-09-29] MEDS: KCL ELIXIR 40 MEQ PO (15:21)
[2024-09-29] MEDS: MAGNESIUM SULFATE 100 IV (15:21)
--- NOTE | 2024-09-29 16:47 | PTCARENOTE ---
Rec'd pt this AM. pt with left pneumothorax present on x ray this AM. left chest tube placed by [facility]. draining yellow draininage, connected to wall suction. tolerating chest tube. remains on HF.
--- NOTE | 2024-09-29 18:20 | CM ---
Patient with Dx PNA, Influenza A, rapid Afib. High flow O2. Chest tube. Receiving Amiodarone gtt, IV Abx, Tamiflu. PT/OT recommend skilled rehab.
As per prior CM notes 09/28, patient declined SNF for rehab and agreed to home with VN services.
Plan watch for home O2 needs.
Plan provide [facility] PCP List.
Plan offer VN services when closer to d/c.
[2024-09-29] MEDS: MUCINEX PO (20:23)
[2024-09-29] MEDS: ZOFRAN 4 MG IV (20:51)
[2024-09-29] MEDS: ATIVAN 0.5 MG PO (23:08)
[2024-09-30] VITALS (29 sets, daily range): BP systolic 82–119; BP diastolic 50–76; PULSE 74; O2SAT 95
[2024-09-30] MEDS: CORDARONE 518 MG IV (03:20)
[2024-09-30] MEDS: ZOSYN 100 IV ×4 (05:12→23:51)
[2024-09-30] MEDS: LOPRESSOR 2.5 MG IV ×2 (05:12→12:34)
--- NOTE | 2024-09-30 05:54 | PTCARENOTE ---
Caring for pt overnight. aaox3, flat affect. Denies pain. SOB noticed at rest & exertion. L CT in place draining straw liquid, tidaling, no crepitus, site CDI. Crackles heard on left side. Amio gtt continues to run at 1mg. Pt was running 130-140bpm
ST and converted to NSR around 0100, strip in chart. Now HR running 80bpm. BP running low overnight (maps all >65) but stabilizing this morning. Continues on HFNC now 60L 70%. Desating on exertion to 85% when turning in bed. Q2T. Incontinent. Ivabx.
Call hale in reach. Will monitor.
[2024-09-30 05:55] LABS: Hematocrit 26.7 % (37.0-47.0); Hemoglobin 8.9 g/dL (12.0-16.0); Mean Corp Hgb Conc. 33.3 g/dL (33.0-37.0); Mean Corpuscular Hgb 29.3 pg (27.0-31.0); Mean Corpuscular Volume 87.8 fL (81.0-99.0); Mean Platelet Volume 9.7 fL (7.4-10.4); Platelet Count 492 10^3/uL (130-400); Red Blood Cell Count 3.04 10^6/uL (4.20-5.40); Red Cell Dist. Width 13.9 % (11.5-14.5); White Blood Cell Count 18.9 10^3/uL (4.8-10.8)
[2024-09-30 06:17] LABS: Blood Urea Nitrogen 11 mg/dl (7-17); Carbon Dioxide 31 mmol/L (22-30); Chloride 96 mmol/L (98-107); Estimated Creatinine Clearance 77 ml/min; Glucose 88 mg/dl (70-99); Magnesium 1.9 mg/dl (1.6-2.3); Sodium 131 mmol/L (135-145); eGFR > 60.00
[2024-09-30] MEDS: XOPENEX 0.63 MG INHALANT SOLUTION INH (08:05)
[2024-09-30] MEDS: ELIQUIS 5 MG PO ×2 (09:26→19:51)
[2024-09-30] MEDS: MUCINEX 600 MG PO (09:26)
[2024-09-30] MEDS: ProAmatine 5 MG PO ×3 (09:26→17:08)
[2024-09-30] MEDS: VISBIOME 2 CAP PO (09:27)
[2024-09-30] MEDS: TAMIFLU 75 MG PO ×2 (09:27→19:52)
--- NOTE | 2024-09-30 09:45 | PTCARENOTE ---
Patient left sided chest tube to suction as per doctors orders. Tidaling and bubbling observed at this time. Notified Dr. Madrid and IR to come evaluate.
--- NOTE | 2024-09-30 10:35 | PTCARENOTE ---
EKG completed at start of shift to confirm patients cardiac rhythm. EKG is Normal Sinus, notified cardiology and Dr Madrid.
--- NOTE | 2024-09-30 10:43 | W.PN.PUL3 ---
Today's Communication / Plan
-
Continue chest tube to suction-May need to upgrade size if persistent pneumothorax. Repeat chest x-ray later.
Daily chest x-ray
Obtain ABG-May need intubation if there is increased work of breathing.
Continue antibiotics
Heart rate control on Lopressor/Amio/digoxin.
Follow hemoglobin
Will consider a course of steroids for anti-inflammatory properties given worsening hypoxemia and ARDS picture.
Assessment
-
69-year-old woman without significant past medical history admitted to the hospital with flulike symptoms, shortness of breath. Found to be hypoxemic, septic with bilateral infiltrates on x-ray. Requiring up to 6 L supplemental oxygen. Found to
be flu positive, treated With pneumonia bacteremia, Pseudomonas in the sputum with Binta in the sputum. We were consulted on 09/26/2024 due to worsening oxygenation and possible pulmonary mass.
Acute hypoxemic respiratory failure due to bilateral pneumonia-influenza A+/bacterial superinfection with Pseudomonas aeruginosa + strep pneumonia c/b Streptococcus pneumonia bacteremia.
Sputum culture positive with Pseudomonas/Binta's-possibly aspiration.
Positive for Streptococcus pneumonia bacteremia and positive for Streptococcus pneumonia antibody
Spontaneous left secondary pneumothorax 09/29/2024
Influenza A+
Right small parapneumonic effusion
Reactive mediastinal lymph nodes
Septic shock resolved
Acute kidney injury resolved post IV fluid
Hypokalemia
Atrial fibrillation/flutter with rapid ventricular response in the setting of acute illness 09/26/2024
Conditions present prior admission:
None
Does not follow-up with primary care
Does not take any medications
Non-smoker
Assessment and plan:
Clinical picture consistent with viral pneumonia due to influenza A with bacterial superinfection and possible aspiration event with rapid A-flutter.
Day 8 of antibiotics
Unfortunately, hypoxemic respiratory failure worsening-now 85% % FiO2. ARDS picture from pneumonia. Easy desaturation with activity.
-
X-ray 09/29/2024: Incidental left sided pneumothorax
Spontaneous secondary to pneumonia.
Status post chest tube placement 09/29/2024.
Chest x-ray 09/30/2024: Reviewed, shows severe bilateral infiltrate-Improved but persistent left pneumothorax.
Continue chest tube to suction air leak present during my visit with respiratory cycle. keep to suction
Repeat chest x-ray later in the afternoon.
Daily chest x-ray
I am wondering whether there is trapped lung physiology/lungs are very stiff due to severe pneumonia.
Repeat chest x-ray later, if there is enlarging pneumothorax will need to discuss with IR - upsizing chest tube.
-
Acute hypoxemic respiratory failure:
Respiratory status remained tenuous: Tachypneic, accessory muscle usage with any activity. Unfortunately not improved for the last 7 days.
Continue high flow nasal cannula at 85 % FiO2, 60 L/min(09/30/2024)--> wean down FiO2 as tolerated while keeping SpO2 >90-94%
Continue aspiration precaution
prn xopenex
Mucolytics with mucinex
Hold-Chest PT with new pneumothorax 09/29/2024.
Obtain ABG now, if hypercapnic will electively intubate.
Discussed with [id number] who is a respiratory therapist here at [facility] on 09/30/2024. She understands. She will communicate with the rest of the family.
Given ongoing hypoxemia, ARDS picture-to start a course of a steroid for anti-inflammatory properties. Reasons 09/30/2024.
-
Remains tachycardic: Atrial fibrillation/atrial flutter. Likely driven by underlying severe pneumonia with ARDS picture.
Cardiology on board - continue amiodarone gtt and digoxin started.
Cardizem has been discontinued; okay to use beta-kenzie cautiously, although she does not have any history of primary lung disorder
-
Pneumonia severe bilateral. Persistent leukocytosis
Afebrile
Significantly abnormal CT Chest with bilateral infiltrates right greater than left. Small rght sided loculated pleural effusion.
Follow up surveillance blood cultures collected 09/24/2024 (shows NGTD) - previously positive with Streptococcus pneumonia.
Sputum with Pseudomonas aeruginosa/Binta 09/23/2024.
Continue antibiotics per infectious disease �on Zosyn,
10-day course of Tamiflu.
Continue Tamiflu.
-
Daily chest x-ray.
Pleural effusion not enlarged to 2024.
Pleural effusion and PNA will need to be followed to resolution - ultimately will need repeat imaging in 4-6 weeks
-
With significantly abnormal CAT scan she will need outpatient pulmonary follow-up. She also will need to establish follow-up with her primary care doctor-she regularly does not see doctors.
There is a right upper lobe rounded opacity that could be inflammatory or malignant. There is mediastinal lymph nodes that could be reactive.
Cannot rule out malignancy but less likely.
-
Anticoagulation started per cardiology for atrial fibrillation- apixaban
Rate control amiodarone/digoxin/metoprolol
-
Nutritional support-tolerating diet.
Aspiration precautions
-
May need to be moved back to critical care if situation decompensates. Low threshold.
-
[id number] updated by Dr. Ramirez 09/30/2024 over the phone.

Data reviewed:
CT chest 09/25/2024: Reviewed showed no evidence for pulmonary embolism.
No pneumothorax.
There is severe consolidation on the right lower lobe. Moderate consolidation on the right upper lobe. There is also consolidation in the right middle lobe. There is minimal consolidation in the left upper lobe and moderate on the left lower
lobe. Also the lingula is involved.
Small loculated right pleural effusion.
Reactive mediastinal lymph nodes suspected.
Critical care statement: A total of 40 minutes of critical care time was provided for this patient today. This includes management of unstable vital signs, evaluation of the patient at bedside, reviewing the patient's pertinent medical records
including ventilator settings, arterial blood gases, radiographs, microbiology, laboratory evaluations and discussion with primary team, critical care nursing, and respiratory therapy.
Subjective Data
-
Date of Service:
Date of Service: September 30, 2024
Chief Complaint: Pulmonary Follow Up (Hypoxemic respiratory failure-influenza/bacterial superinfection)
Subjective:
Continues to have respiratory distress with any activity
Remains tachycardic
Chest tube was placed 09/29/2024
Review of Systems
Cardiopulmonary: Dyspnea, Dyspnea on Exertion, Cough and Chest Pain (n)
GI: Abdominal Pain (n) and Nausea (n)
Neuro: Headache (n)
Objective Data
Data Reviewed
Vital Signs / I&O / Oxygen:
Vital Signs
Temp Pulse Resp BP Pulse Ox
98.3 F 84 28 109/71 94
09/30/24 07:56 09/30/24 09:26 09/30/24 09:00 09/30/24 10:00 09/30/24 10:29
Intake and Output
09/29/24 09/30/24 10/01/24
06:59 06:59 06:59
Intake Total 566.5 / 566.5
Output Total 170 / 170 695 / 695
Balance 396.5 / 396.5 -695 / -695
SaO2 94
Nasal Cannula flow liters per 60
minute
Physical Exam
General: Respiratory Distress (negative), Comfortable, Chills (negative) and Sweats (negative)
HEENT: Normocephalic and Anicteric
Cardiovascular: Irregular Rhythm, Peripheral Edema (negative) and Other (Tachycardic)
Respiratory: Wheeze (Nance upon expiration bilaterally), Crackles (Bilaterally), Rhonchi (R >L), Accessory Resp Muscle Use (Occasionally during exertion), Crepitus (n) and Chest Tube
GI: Soft, Non Distended, Non Tender and Normal Bowel Sounds
Neurology: AO x 3 and Tremors (negative)
Skin: Warm, Dry, Cyanosis (negative) and Jaundice (negative)
Labs/Micro/Reports
Lab Data
09/30/24 05:11
09/30/24 05:11
Microbiology
09/22/24 10:33 Blood/Venous Blood Culture - Final
Streptococcus pneumoniae
09/22/24 10:33 Blood/Venous Gram Stain - Final
09/28/24 18:31 Feces/Stool C. difficile GDH Antigen & Toxins - Final
Negative for toxigenic C.difficile
09/24/24 03:40 Blood/Venous Blood Culture - Final
No Growth - Final Report
09/24/24 03:30 Blood/Venous Blood Culture - Final
No Growth - Final Report
09/23/24 16:43 Blood/Venous Blood Culture - Final
No Growth - Final Report
09/23/24 13:35 Blood/Venous Blood Culture - Final
No Growth - Final Report
--- NOTE | 2024-09-30 10:49 | W.PN.ID1 ---
Date of Service
Date of Service: September 30, 2024
Today's Communication
Continue Zosyn and oseltamivir.
Assessment / Plan
Influenza A
Strep Pneumoniae Pneumonia
Secondary health care acquired pneumonia due to Pseudomonas
Bacteremia due to Strep Pneumoniae - transient
Acute hypoxemic respiratory failure - increase in oxygen requirement
Leukocytosis trending up
- repeat blood cultures 09/23 and 09/24 in progress no growth to date
- 09/23 blood cultures S Pneumoniae - intermediate to levofloxacin; sensitive to penicillin
- sputum culture with few Pseudomonas - yeast from sputum is normal paresh
- pneumothorax; chest tube management per pulmonary
- c/w zosyn at this time, eventual transition to oral therapy anticipated (levofloxacin and amoxicillin 1 gm TID), plan 14 day course 09/22-10/05
- continue tamiflu - 10 day course given severity of illness, need for hospitalization; 09/22-10/01
- needs to establish care with a PCP moving forward
- Recommend PCV20 vaccine at local pharmacy when fully recovered
- patient is remains critically ill. Imminent intubation per Pulm.
Chief Complaint
-: Pneumonia and Other (Flu A, S pneumo pneumonia, Pseudomonas pneumonia)
Subjective / Review of Systems
+SOB
Vital Signs / Physical Exam
Vital Signs
Vital Signs
Temp Pulse Resp BP Pulse Ox
98.3 F 84 28 109/71 94
09/30/24 07:56 09/30/24 09:26 09/30/24 09:00 09/30/24 10:00 09/30/24 10:29
Physical Exam
Constitutional: Acutely Ill
Cardiovascular: Regular Rate and S1/S2; Negative Murmur or Rub
Pulmonary: Rales (crackles right base) and Other (labored breathing. Left base decreased breathe sound; left chest tube in place.)
Gastrointestinal: Soft, Non Tender, Non Distended, Normal Bowel Sounds and Other (cough ongoing - sounds productive)
Genito-Urinary: Negative CVA Tenderness
Extremities: Negative Edema
Neurological: AO x 3
Lines: PICC (RUE: no erythema)
Objective Data
Lab Data
Lab Results
09/30/24 05:11
09/30/24 05:11
Estimated Creat Clear 77 ml/min 09/30/24 05:11
Lactic Acid Cancelled 09/22/24 22:31
Total Bilirubin 1.0 mg/dl (0.2-1.3) 09/23/24 05:29
AST 36 U/L (14-36) 09/23/24 05:29
ALT 23 U/L (0-35) 09/23/24 05:29
Alkaline Phosphatase 84 U/L (38-126) 09/23/24 05:29
Most recent labs reviewed.
Micro Results:
09/22/24 10:33 Blood Culture - Final
Blood/Venous Streptococcus pneumoniae
Gram Stain - Final
09/28/24 18:31 C. difficile GDH Antigen & Toxins - Final
Feces/Stool Negative for toxigenic C.difficile
09/24/24 03:40 Blood Culture - Final
Blood/Venous No Growth - Final Report
09/24/24 03:30 Blood Culture - Final
Blood/Venous No Growth - Final Report
09/23/24 16:43 Blood Culture - Final
Blood/Venous No Growth - Final Report
09/23/24 13:35 Blood Culture - Final
Blood/Venous No Growth - Final Report
09/23/24 22:22 Respiratory Culture - Final
Sputum Pseudomonas aeruginosa
Binta albicans
Gram Stain - Final
09/22/24 12:38 Blood Culture - Final
Blood/Venous Streptococcus pneumoniae
Gram Stain - Final
09/22/24 22:22 Legionella Urinary Antigen - Final
Urine Negative for Legionella pneumophila Serogroup 1 antigen.
A negative result does not rule out the possiblity of
Legionella infection due to other serogroups or species of
Legionella. Clinical correlation is recommended.
Streptococcus pneumoniae Antigen (M - Final
Positive for Strep pneumo Ag
09/22/24 10:33 Influenza Types A & B (EUN) - Final
Nasal Swab Influenza A Positive, NAAT
[2024-09-30 11:36] LABS: B.E. 6.4 mmol/L; HCO3 30.5 mmol/L (21-28); O2 Saturation % 96.9 % (94-98); PCO2 41 mmHg (32-35); PO2 69 mmHg (83-108); pH 7.48 (7.35-7.45)
--- NOTE | 2024-09-30 12:05 | W.PN.CD ---
Today's Communication / Plan
-
Patient is back in normal sinus rhythm
Switch amiodarone to p.o. 400 mg twice daily to finish load
Start metoprolol 25 mg twice daily
Stop digoxin
Impression / Plan
-
+Flu A/PNA: severe, requiring high flow O2
-Treated with Tamiflu and antibiotics
-Continue management and supportive care as per primary team and ID
Strep Pneumoniae Bacteremia:
-on ABX and ID following
Aflutter with RVR: new, now back in NSR
-typical. Converted to NSR 09/30 AM on Amiodarone drip
-Secondary to underlying infectious processes
-Switch Amio to PO 400mg BID to finish load
-Stop digoxin
-Start metoprolol 25mg BID
-[id number] score is 2 for age and female. Denies bleeding issues or falls.
-Continue Eliquis 5mg bid
Subjective: Patient is symptomatically improved. ECG this morning showed normal sinus rhythm. She had a left sided chest tube placed yesterday. Has pneumothorax.
Physical Exam
Vital Signs/Labs
Vital Signs
Temp Pulse Resp BP Pulse Ox
97.5 F 84 28 109/71 94
09/30/24 11:05 09/30/24 09:26 09/30/24 09:00 09/30/24 10:00 09/30/24 10:29
09/30/24 05:11
09/30/24 05:11
Magnesium 1.9 mg/dl (1.6-2.3) 09/30/24 05:11
Physical Exam
Constitutional: No acute distress and Comfortable
Cardiovascular: Rhythm & rate is regular, Pedal edema is absent, S1S2 is normal and Murmur/rub/gallop absent
Respiratory: Rhonchi Present
Data Reviewed
-
Date of Service: September 30, 2024
Medical Decision Making: Reviewed Test Results, Independent Historian Assessment, Test Interpretation and Review of Case with other Provider
EKG: Tracing Personally Visualized and interpreted
Echo: Report Reviewed by me
X-Ray/CT/US/MRI/NUC/PET: Image Personally Visualized and interpreted
[2024-09-30] MEDS: DECADRON 4 MG IV ×2 (12:26→19:50)
[2024-09-30] MEDS: LANOXIN 250 MCG IV (12:41)
--- NOTE | 2024-09-30 14:32 | W.PN.HOSP.TC ---
Today's Communication/Plan
-
Transfer to ICU
Continue Zosyn
IV steroids
P.o. rate control agents
Assessment / Plan
Assessment / Plan
Physical Exam
General: no acute distress, chronically ill-appearing
HEENT: NormoCephalic, Moist mucous membranes and Atraumatic
Respiratory: Rhonchi and Crackles, high flow nasal cannula, tachypnea mild
Cardiac: S1/S2, regularly regular,
GI: Soft, Non Tender, Non Distended and Normal Bowel Sounds; No Organomegaly
Musculoskeletal: No Clubbing, No Cyanosis and No Edema
Skin: No Rash
Neuro: AO x 3
Psych: Anxious
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
# Acute hypoxic respiratory failure likely secondary to severe bilateral pneumonia
-Duoneb R QID and PRN switched to Xopenex d/t tachycardia and cont with PRN for now.
-VEST therapy DC, Incentive Spirometry
-Currently on high flow nasal cannula 50 L at 90% FiO2
-CT chest appreciated multilobar pna severe in RLL underlying mass not excluded (follow up CT after treatment recommended relayed to patient and patient spouse)
-Repeat chest x-ray earlier today with VERY SEVERE BILATERAL PNEUMONIA (greatest in the right middle and lower lobes) which is not definitively changed. Probable intrapulmonary abscesses in the right middle and lower lobes.Small left pneumothorax
involving less than 10% of the lung volume which appears unchanged.
-Will transfer patient to ICU. Area Director Of Home [employer] updated.
-Also started on IV steroids
-Concern for ARDS.
#Septic Shock elevated (tachycardia, tachypnea) lactate, hypotension initially requiring pressor support
# Fever cough/generalized weakness likely from flu/polymicrobial pneumonia with strep and Pseudomonas
#Sinus tachycardia likely 2/2 severe sepsis PNA
-IVF completed
-Tamiflu continued
-Tylenol as needed for fever
-Mucinex as needed for cough
-Blood cultures positive for Strep pneumonia, follow up repeat blood cx's NGTD
-Sputum Cx pos for Pseudomonas and josy albicans-on Zosyn
-ID eval appreciated ceftriaxone discontinued in favor of Zosyn for coverage GNR in sputum, \\
-cont Tamiflu 10 day course,
# Left-sided pneumothorax
Noted on chest x-ray on 09/29/2024
Status post emergent chest tube placement by [facility]
Daily chest x-ray
May need upsizing of chest tube. Will defer to critical care.
# Atrial fibrillation/atrial flutter rapid ventricular response
Started on Cardizem infusion.
Blood pressure soft and thus unable to tolerate Cardizem and thus plan to switch to amiodarone gtt
Anticoagulation with Eliquis
Echocardiogram with EF of 60 to 65%. Mild to moderate mitral regurgitation. Mildly elevated PASP with PASP of 38 mmHg.
TSH wnl
Status post conversion to normal sinus rhythm.
Plan to discontinue amiodarone drip and stop digoxin
Patient is on p.o. amiodarone 400 mg twice daily and Toprol 25 mg twice daily
Cardiology has been consulted
# Mild hypotension likely combination of Cardizem versus severe tachycardia due to A-fib
Start patient on midodrine
Pressors if needed
#Loose bowel movements
Likely due to antibiotic associated
C. difficile negative
Start probiotic
Imodium if needed
Resolved.
# Anxiety could be situational
Ativan as needed
#Hypokalemia
replete/monitor
# Hyponatremia/metabolic acidosis /acute kidney injury likely hypovolemic
-resolved
-IVF completed
#Hypokalemia
#Mild Hypophosphatemia
monitor and replete as necessary
# DVT prophylaxis
-Eliquis
# CODE STATUS
-Full code
Discussed with patient spouse at bedside in detail. Discussed that patient will need to be transferred to ICU and high risk of intubation and mechanical ventilation.
Discussed with accounts administrator
Discussed with infectious disease
Anticipated Discharge: > 48 hours
Subjective/Interval History
-
Date of Service: September 30, 2024
Patient sitting in chair eating lunch
Mild tachypneic
O2 sat 90%
States improvement in loose bowel movements
Converted to normal sinus rhythm
Objective Data
-
Labs:
Laboratory Results
09/30/24 09/30/24
05:11 11:21
WBC 18.9 H
Hgb 8.9 L
Hct 26.7 L
Plt Count 492 H
HCO3 30.5 H
Sodium 131 L
Potassium 4.0
Chloride 96 L
Carbon Dioxide 31 H
BUN 11
Creatinine 0.5 L
Glucose 88
Calcium 7.0 L
Vital Signs:
Vital Signs
Temp Pulse Resp BP Pulse Ox
97.5 F 76 37 119/76 93
09/30/24 11:05 09/30/24 14:00 09/30/24 14:00 09/30/24 14:00 09/30/24 14:00
I&O
09/29/24 09/30/24 10/01/24
06:59 06:59 06:59
Intake Total 566.5 / 566.5
Output Total 170 / 170 695 / 695
Balance 396.5 / 396.5 -695 / -695
Data Reviewed
-
Total Time Spent with Patient (in minutes): 60
--- NOTE | 2024-09-30 17:48 | PTCARENOTE ---
Report given to Gisselle DUNN for transfer to room 3361 ICU due to concern for decline, ARDS.
--- NOTE | 2024-09-30 18:36 | PTCARENOTE ---
Pt received via reclining chair into Rm 3361 at 1825. 100% NRB mask in place at time of arrival w/ POx 95%, RR mid 30's. Per RT in attendance, pt taking a break from [place] at present due to some slight bloody drainage from nares. No respiratory
distress noted. Pt denies SOB. Lt lateral CT in place and 20cm wall suction w/ jese inflated, +2 air leak and tidaling noted. No crepitus palpated. No running IVF, Pt in NSR, HR 70's. Call hale w/in pt reach. Pt's and sons in room. Safe
environment maintained.
[2024-09-30] MEDS: PACERONE 400 MG PO (19:51)
[2024-09-30] MEDS: TOPROL XL 25 MG PO (19:52)
[2024-09-30] MEDS: MUCINEX PO (19:54)
[2024-09-30] MEDS: IMODIUM 2 MG PO (20:33)
[2024-09-30] MEDS: ATIVAN 0.5 MG PO (23:58)
[2024-10-01] VITALS (24 sets, daily range): BP systolic 91–114; BP diastolic 51–78; BMI 21.1
--- NOTE | 2024-10-01 00:25 | PTCARENOTE ---
Patient aao x3 at start of shift, sitting in recliner chair at bedside with NRB mask, 15L 02, sat's high 90's. NSR on the monitor, trace edema to b/l le's. Collaborated care with RT, plan to return to high flow at HS. Patient currently on Hi-flow
50L, 100%. Tachypnea noted since SOC. Patent has left lateral chest tube at 20cm to wall suction w/ jese inflated, +2 air leak and tidaling noted. No crepitus palpated. Bowel sounds active x4, patient has small BM this evening, loose, brown. PRN
Immodium administered. Patient incontinent of bowel and bladder. Patient has right DL PICC, no fluids running continuously, does have IV ABT Zosyn q6hr. Patient currently resting in bed without c/o. Will continue to monitor.
[2024-10-01] MEDS: XOPENEX 0.63 MG INHALANT SOLUTION INH ×2 (01:05→08:57)
[2024-10-01] MEDS: DECADRON 4 MG IV ×3 (03:16→20:20)
[2024-10-01 03:34] LABS: Hematocrit 23.2 % (37.0-47.0); Hemoglobin 7.9 g/dL (12.0-16.0); Mean Corp Hgb Conc. 34.1 g/dL (33.0-37.0); Mean Corpuscular Hgb 29.9 pg (27.0-31.0); Mean Corpuscular Volume 87.9 fL (81.0-99.0); Mean Platelet Volume 9.8 fL (7.4-10.4); Platelet Count 505 10^3/uL (130-400); Red Blood Cell Count 2.64 10^6/uL (4.20-5.40); Red Cell Dist. Width 14.1 % (11.5-14.5); White Blood Cell Count 11.9 10^3/uL (4.8-10.8)
[2024-10-01 03:45] LABS: INR 2.19; PT 24.5 Sec (11.4-14.6)
[2024-10-01 03:50] LABS: APTT 35.3 Sec (23.4-35.0)
[2024-10-01 03:54] LABS: Blood Urea Nitrogen 13 mg/dl (7-17); Calcium 7.2 mg/dl (8.4-10.2); Carbon Dioxide 34 mmol/L (22-30); Chloride 96 mmol/L (98-107); Estimated Creatinine Clearance 77 ml/min; Glucose 133 mg/dl (70-99); Potassium 3.6 mmol/L (3.5-5.1); Sodium 133 mmol/L (135-145); eGFR > 60.00
[2024-10-01] MEDS: ZOSYN 100 IV ×4 (05:18→23:14)
--- NOTE | 2024-10-01 06:20 | PTCARENOTE ---
Patient repositioned for pressure relief and comfort. Denies pain at this time. Pox 96% on high flow 50L, 100%. Cxray completed this am.
--- NOTE | 2024-10-01 08:10 | W.PN.INTV ---
Today's Communication / Plan
Recommendations
Serial CXR to monitor left-sided pneumothorax
Keep chest tube to low continuous wall suction and monitor her airleak
If sudden worsening of chest tube airleak then would need stat CXR as the chest tube would need to be upsized versus place a new chest tube in that situation
Low threshold to intubate
Aspiration precautions
Systemic steroids
Start Xopenex + Atrovent QID with budesonide BID
Continue ICU level care for this critically ill patient
Assessment
-
69-year-old woman without significant past medical history admitted to the hospital with flulike symptoms, shortness of breath. Found to be hypoxemic, septic with bilateral infiltrates on x-ray. Requiring up to 6 L supplemental oxygen. Found to
be flu positive, treated With pneumonia bacteremia, Pseudomonas in the sputum with Binta in the sputum. We were consulted on 09/26/2024 due to worsening oxygenation and possible pulmonary mass.
Acute hypoxemic respiratory failure due to bilateral pneumonia-influenza A+/bacterial superinfection with Pseudomonas aeruginosa + strep pneumonia c/b Streptococcus pneumonia bacteremia.
Sputum culture positive with Pseudomonas/Binta's-possibly aspiration.
Streptococcus pneumonia bacteremia and positive for Streptococcus pneumonia urine antigen
Spontaneous left secondary pneumothorax 09/29/2024 now s/p left sided chest tube
Influenza A+
Right small parapneumonic effusion
Reactive mediastinal lymph nodes
Septic shock - resolved
Acute kidney injury - resolved post IV fluid
Hypokalemia
Atrial fibrillation/flutter with rapid ventricular response in the setting of acute illness 09/26/2024 --> now in NSR
Conditions present prior admission:
None
Does not follow-up with primary care
Does not take any medications
Non-smoker
Assessment and plan:
Clinical picture consistent with viral pneumonia due to influenza A with bacterial superinfection and possible aspiration event with rapid A-flutter.
Unfortunately, hypoxemic respiratory failure worsening-now on 100%% FiO2 on high flow NC. ARDS picture from pneumonia. Easy desaturation with activity.
Patient was transferred to the ICU on 09/30/2024 for closer monitoring
-
X-ray 09/29/2024: Incidental left sided pneumothorax
Spontaneous secondary to pneumonia.
Status post chest tube placement 09/29/2024.
Chest x-ray 09/30/2024: Reviewed, shows severe bilateral infiltrate- her L-sided PTX has improved but was persistent
CXR this AM shows worsening L-sided PTX --> repeat CXR this afternoon to assure it is stable otherwise she will need an upsize
Continue chest tube to suction
Daily chest x-ray
I am wondering whether there is trapped lung physiology/lungs are very stiff due to severe pneumonia.
-
Acute hypoxemic respiratory failure:
Respiratory status remained tenuous: Tachypneic, accessory muscle usage with any activity. Unfortunately not improved for the last 7-8 days.
Continue high flow nasal cannula at 85 % FiO2, 60 L/min(09/30/2024)--> wean down FiO2 as tolerated while keeping SpO2 >90-94%
Continue aspiration precautions
prn xopenex
Mucolytics with mucinex
Hold-Chest PT with new pneumothorax 09/29/2024.
Discussed with [id number] who is a respiratory therapist here at [facility] on 09/30/2024. She understands. She will communicate with the rest of the family.
Given ongoing hypoxemia, ARDS picture- started Decadron 4mg IV q8hr on 09/30/2024 for anti-inflammatory properties
-
Hx of Atrial fibrillation/atrial flutter, now in NSR and HR controlled in mid-70s -arrhythmia was likely driven by underlying severe pneumonia with ARDS picture.
Cardiology on board - continue PO amiodarone s/p drip and s/p digoxin from 09/27-09/30/2024 - now off
Cardizem has been discontinued; okay to use beta-kenzie cautiously, although she does not have any history of primary lung disorder
-
Pneumonia severe bilateral. Persistent leukocytosis although is improved as of 10/01/2024
Afebrile
Significantly abnormal CT Chest with bilateral infiltrates right greater than left. Small right sided loculated pleural effusion.
Follow up surveillance blood cultures collected 09/24/2024 (shows NGTD) - previously positive with Streptococcus pneumonia.
Sputum with Pseudomonas aeruginosa/Binta 09/23/2024.
Continue antibiotics per infectious disease �on Zosyn,
10-day course of Tamiflu.
-
Daily chest x-ray.
Pleural effusion on r-lung is stable
Pleural effusion and PNA will need to be followed to resolution - ultimately will need repeat chest imaging in 4-6 weeks
-
With significantly abnormal CAT scan she will need outpatient pulmonary follow-up. She also will need to establish follow-up with her primary care doctor-she regularly does not see doctors.
There is a right upper lobe rounded opacity that could be inflammatory or malignant. There is mediastinal lymph nodes that could be reactive.
Cannot rule out malignancy but less likely.
-
Anticoagulation started per cardiology for atrial fibrillation- apixaban
Rate control amiodarone/metoprolol
-
Nutritional support-tolerating diet.
Aspiration precautions
-
Low threshold to intubate
-
[id number] updated by Dr. Alfredo on 10/01/2024 over the phone, and I answered all the patient and her 's questions while in the room.

Data reviewed:
CT chest 09/25/2024: Reviewed showed no evidence for pulmonary embolism.
No pneumothorax.
There is severe consolidation on the right lower lobe. Moderate consolidation on the right upper lobe. There is also consolidation in the right middle lobe. There is minimal consolidation in the left upper lobe and moderate on the left lower
lobe. Also the lingula is involved.
Small loculated right pleural effusion.
Reactive mediastinal lymph nodes suspected.
CXR 10/01/2024: Stable tiny left apical pneumothorax with a left chest tube in place.
Pulmonary parenchymal opacities are demonstrated throughout both lungs again most suggestive of severe pneumonia. Small right pleural fluid with adjacent dense right basilar lobar consolidation. Right PICC with the catheter tip at the cavoatrial
junction. The cardiomediastinal silhouette is stable.
Critical care statement: A total of 44 minutes of critical care time was provided for this patient today. This includes management of unstable vital signs, evaluation of the patient at bedside, reviewing the patient's pertinent medical records
including ventilator settings, arterial blood gases, radiographs, microbiology, laboratory evaluations and discussion with primary team, critical care nursing, and respiratory therapy.
Subjective Dataa
Subjective Data
Date of Service:
Date of Service: October 01, 2024
Chief Complaint: [employer] Follow Up
Subjective:
Patient was seen and evaluated today at bedside. Patient's is at bedside and additional family/friend. Patient has a wet sounding cough but it is not bothersome to the patient. She denies chest pain, shoulder pain, back pain currently.
CXR this morning shows a left-sided small pneumothorax. Current heart rate 77, BP 114/63 and saturating 93% on 100% FiO2 via high flow nasal cannula. Left-sided chest tube is in place with a continuous level 1 airleak.
Review of Systems
General: Other (Negative unless mentioned above)
Objective Data
Data Reviewed
Vital Signs / I&O / Oxygen:
Vital Signs
Temp Pulse Resp BP Pulse Ox
98.5 F 70 30 103/55 92
10/01/24 07:36 10/01/24 09:02 10/01/24 09:02 10/01/24 09:00 10/01/24 09:02
Intake and Output
09/30/24 10/01/24 10/02/24
06:59 06:59 06:59
Intake Total 440 / 440
Output Total 695 / 695 410 / 410
Balance -695 / -695 30 / 30
SaO2 92
Nasal Cannula flow liters per 50
minute
Physical Exam
General: Respiratory Distress (negative), Comfortable, Chills (negative), Sweats (negative) and Other (Anxious appearing)
HEENT: Normocephalic and Anicteric
Cardiovascular: S1-S2, Regular Rhythm, Rub (negative) and Peripheral Edema (+2 lower extremity pitting edema (L >R))
Respiratory: Wheeze (negative), Crackles (Bilaterally), Rhonchi (Bilaterally), Accessory Resp Muscle Use (Mild, especially with exertion), Stridor (negative), Chest Tube (Left hemithorax with continuous level 1 airleak) and Other (Grossly diminished
breath sounds bilaterally)
GI: Soft, Non Distended, Non Tender and Normal Bowel Sounds
Neurology: AO x 3 and Tremors (negative)
Skin: Warm, Dry, Cyanosis (negative) and Jaundice (negative)
Labs/Micro/Reports
Lab Data
10/01/24 03:25
10/01/24 03:25
Laboratory Results
09/30/24 10/01/24
11:21 03:25
PT 24.5 H
INR 2.19
APTT 35.3 H
pH 7.48 H
pCO2 41 H
pO2 69 L
HCO3 30.5 H
O2 Delivery Level
Microbiology
09/22/24 10:33 Blood/Venous Blood Culture - Final
Streptococcus pneumoniae
09/22/24 10:33 Blood/Venous Gram Stain - Final
09/28/24 18:31 Feces/Stool C. difficile GDH Antigen & Toxins - Final
Negative for toxigenic C.difficile
09/24/24 03:40 Blood/Venous Blood Culture - Final
No Growth - Final Report
09/24/24 03:30 Blood/Venous Blood Culture - Final
No Growth - Final Report
09/23/24 16:43 Blood/Venous Blood Culture - Final
No Growth - Final Report
09/23/24 13:35 Blood/Venous Blood Culture - Final
No Growth - Final Report
--- NOTE | 2024-10-01 08:18 | W.PN.ID1 ---
Date of Service
Date of Service: October 01, 2024
Today's Communication
Continue antibiotics. Wean O2 as possible.
Assessment / Plan
Influenza A
Strep Pneumoniae Pneumonia
Secondary health care acquired pneumonia due to Pseudomonas
Bacteremia due to Strep Pneumoniae - transient
Acute hypoxemic respiratory failure - increase in oxygen requirement
Leukocytosis-improved today
- repeat blood cultures 09/23 and 09/24 in progress no growth to date
- 09/23 blood cultures S Pneumoniae - intermediate to levofloxacin; sensitive to penicillin
- sputum culture with few Pseudomonas - yeast from sputum is normal paresh
- pneumothorax; chest tube management per pulmonary
- c/w zosyn at this time, with eventual transition to oral therapy anticipated (levofloxacin and amoxicillin 1 gm TID), plan 14 day course 09/22-10/05
- continue tamiflu - 10 day course given severity of illness, need for hospitalization; 09/22-10/01
- Patient will need to establish care with a PCP moving forward
- Recommend PCV20 vaccine at local pharmacy when fully recovered
- patient is remains critically ill with respiratory failure, on high flow O2.
Chief Complaint
-: Pneumonia and Other (Flu A, S pneumo pneumonia, Pseudomonas pneumonia)
Subjective / Review of Systems
Patient seen and examined. Remains on high flow O2 at this time. Reports breathing is comfortable.
Review of Systems: No Fever, Cough and No Sputum Production
Vital Signs / Physical Exam
Vital Signs
Vital Signs
Temp Pulse Resp BP Pulse Ox
98.5 F 67 27 101/63 92
10/01/24 07:36 10/01/24 06:00 10/01/24 06:00 10/01/24 06:00 10/01/24 06:00
Physical Exam
Constitutional: Comfortable, Acutely Ill and Non-toxic
Eyes: Sclera Anicteric
Cardiovascular: Regular Rate and S1/S2; Negative S3/S4
Pulmonary: Rales (crackles right base) and Other (Left base decreased breathe sound; left chest tube in place.)
Gastrointestinal: Soft, Non Tender, Non Distended, Normal Bowel Sounds and Other (cough ongoing - sounds productive)
Genito-Urinary: Negative CVA Tenderness
Extremities: Negative Edema
Neurological: AO x 3
Lines: PICC (RUE: no erythema)
Objective Data
Lab Data
Lab Results
10/01/24 03:25
10/01/24 03:25
PT 24.5 Sec (11.4-14.6) H 10/01/24 03:25
INR 2.19 10/01/24 03:25
APTT 35.3 Sec (23.4-35.0) H 10/01/24 03:25
Estimated Creat Clear 77 ml/min 10/01/24 03:25
Lactic Acid Cancelled 09/22/24 22:31
Total Bilirubin 1.0 mg/dl (0.2-1.3) 09/23/24 05:29
AST 36 U/L (14-36) 09/23/24 05:29
ALT 23 U/L (0-35) 09/23/24 05:29
Alkaline Phosphatase 84 U/L (38-126) 09/23/24 05:29
Most recent labs reviewed.
Micro Results:
09/22/24 10:33 Blood Culture - Final
Blood/Venous Streptococcus pneumoniae
Gram Stain - Final
09/28/24 18:31 C. difficile GDH Antigen & Toxins - Final
Feces/Stool Negative for toxigenic C.difficile
09/24/24 03:40 Blood Culture - Final
Blood/Venous No Growth - Final Report
09/24/24 03:30 Blood Culture - Final
Blood/Venous No Growth - Final Report
09/23/24 16:43 Blood Culture - Final
Blood/Venous No Growth - Final Report
09/23/24 13:35 Blood Culture - Final
Blood/Venous No Growth - Final Report
09/23/24 22:22 Respiratory Culture - Final
Sputum Pseudomonas aeruginosa
Binta albicans
Gram Stain - Final
09/22/24 12:38 Blood Culture - Final
Blood/Venous Streptococcus pneumoniae
Gram Stain - Final
09/22/24 22:22 Legionella Urinary Antigen - Final
Urine Negative for Legionella pneumophila Serogroup 1 antigen.
A negative result does not rule out the possiblity of
Legionella infection due to other serogroups or species of
Legionella. Clinical correlation is recommended.
Streptococcus pneumoniae Antigen (M - Final
Positive for Strep pneumo Ag
09/22/24 10:33 Influenza Types A & B (EUN) - Final
Nasal Swab Influenza A Positive, NAAT
[2024-10-01] MEDS: ELIQUIS 5 MG PO ×2 (08:35→20:20)
[2024-10-01] MEDS: MUCINEX PO ×3 (08:36→20:19)
[2024-10-01] MEDS: PACERONE 400 MG PO ×2 (08:36→20:20)
[2024-10-01] MEDS: ProAmatine 5 MG PO ×3 (08:36→17:40)
[2024-10-01] MEDS: TAMIFLU 75 MG PO ×2 (08:37→20:19)
[2024-10-01] MEDS: VISBIOME 2 CAP PO (08:37)
[2024-10-01] MEDS: TOPROL XL 25 MG PO ×2 (08:37→20:20)
--- NOTE | 2024-10-01 11:14 | W.PN.CD ---
Today's Communication / Plan
-
Lasix 40 mg IV x 1
Continue amiodarone, Eliquis and metoprolol for atrial flutter
Impression / Plan
-
Hypoxic respiratory failure +Flu A/PNA: severe, requiring high flow O2
-Treated with Tamiflu and antibiotics
-Continue management and supportive care as per primary team and ID
-I wonder if she is developing some mild heart failure (lower extremity edema)
-Give 40 mg IV Lasix x 1
Strep Pneumoniae Bacteremia:
-on ABX and ID following
Aflutter with RVR: new, now back in NSR
-typical. Converted to NSR 09/30 AM on Amiodarone drip. Was on digoxin (stopped 09/30/2024).
-Secondary to underlying infectious processes
-Continue p.o. Amio 400mg BID to . Switch to 200 mg daily on Thursday.
-Continue metoprolol 25mg BID
-[id number] score is 2 for age and female. Denies bleeding issues or falls.
-Continue Eliquis 5mg bid
Subjective: Breathing feels stable. No CV complaints. Developing mild lower extremity edema on exam. Telemetry unremarkable.
Physical Exam
Vital Signs/Labs
Vital Signs
Temp Pulse Resp BP Pulse Ox
98.5 F 70 24 107/63 92
10/01/24 07:36 10/01/24 11:00 10/01/24 11:00 10/01/24 11:00 10/01/24 11:00
09/30/24 10/01/24 10/02/24
06:59 06:59 06:59
Actual Weight 55.7 kg
10/01/24 03:25
10/01/24 03:25
PT 24.5 Sec (11.4-14.6) H 10/01/24 03:25
INR 2.19 10/01/24 03:25
APTT 35.3 Sec (23.4-35.0) H 10/01/24 03:25
Magnesium 1.9 mg/dl (1.6-2.3) 09/30/24 05:11
Physical Exam
Constitutional: No acute distress
Cardiovascular: Rhythm & rate is regular, Pedal edema present, S1S2 is normal and Murmur/rub/gallop absent
Respiratory: Rhonchi Present
Neuro/Psych: AO x 3
Data Reviewed
-
Date of Service: October 01, 2024
Medical Decision Making: Reviewed Test Results, Independent Historian Assessment, Test Interpretation and Review of Case with other Provider
EKG: Tracing Personally Visualized and interpreted
Echo: Report Reviewed by me
X-Ray/CT/US/MRI/NUC/PET: Image Personally Visualized and interpreted
Labs: Labs Reviewed by me
--- NOTE | 2024-10-01 11:17 | W.PN.HOSP.TC ---
Today's Communication/Plan
-
IV lasix
IV steroids
IV abx
po amio
anemia panel
wean o2 as tolerated
Assessment / Plan
Assessment / Plan
Physical Exam
General: no acute distress, chronically ill-appearing
HEENT: NormoCephalic, Moist mucous membranes and Atraumatic
Respiratory: Rhonchi and Crackles, high flow nasal cannula,
Cardiac: S1/S2, regularly regular,
GI: Soft, Non Tender, Non Distended and Normal Bowel Sounds; No Organomegaly
Musculoskeletal: No Clubbing, No Cyanosis and No Edema
Skin: No Rash
Neuro: AO x 3
Psych: Anxious
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
# Acute hypoxic respiratory failure likely secondary to severe bilateral pneumonia
-Duoneb R QID and PRN switched to Xopenex d/t tachycardia and cont with PRN for now.
-VEST therapy DC, Incentive Spirometry
-Currently on high flow nasal cannula on 100% FiO2
-CT chest appreciated multilobar pna severe in RLL underlying mass not excluded (follow up CT after treatment recommended relayed to patient and patient spouse)
-Repeat chest x-ray earlier today Stable tiny left apical pneumothorax with a left chest tube in place. Pulmonary parenchymal opacities are demonstrated throughout both lungs again most suggestive of severe pneumonia. Small right pleural fluid with
adjacent dense right basilar lobar consolidation. Right PICC with the catheter tip at the cavoatrial junction. The cardiomediastinal silhouette is stable.
-Also started on IV steroids Decadron 4 mg every 8.
-Concern for ARDS.
-Will try to avoid positive balance and try to keep it on the drier feeder side. Agree with IV Lasix today. Monitor response to diuresis.
#Septic Shock elevated (tachycardia, tachypnea) lactate, hypotension initially requiring pressor support
# Fever cough/generalized weakness likely from flu/polymicrobial pneumonia with strep and Pseudomonas
#Sinus tachycardia likely 2/2 severe sepsis PNA
-IVF completed
-Tamiflu continued
-Tylenol as needed for fever
-Mucinex as needed for cough
-Blood cultures positive for Strep pneumonia, follow up repeat blood cx's NGTD
-Sputum Cx pos for Pseudomonas and josy albicans-on Zosyn
-ID eval appreciated ceftriaxone discontinued in favor of Zosyn for coverage GNR in sputum, \\
-cont Tamiflu 10 day course,
# Left-sided pneumothorax
Noted on chest x-ray on 09/29/2024
Status post emergent chest tube placement by [facility]
Daily chest x-ray
May need upsizing of chest tube. Will defer to critical care.
# Atrial fibrillation/atrial flutter rapid ventricular response
Started on Cardizem infusion.
Blood pressure soft and thus unable to tolerate Cardizem and thus plan to switch to amiodarone gtt
Anticoagulation with Eliquis
Echocardiogram with EF of 60 to 65%. Mild to moderate mitral regurgitation. Mildly elevated PASP with PASP of 38 mmHg.
TSH wnl
Status post conversion to normal sinus rhythm.
Plan to discontinue amiodarone drip and stop digoxin
Patient is on p.o. amiodarone 400 mg twice daily and Toprol 25 mg twice daily
Cardiology has been consulted
# Mild hypotension likely combination of Cardizem versus severe tachycardia due to A-fib
Start patient on midodrine
Pressors if needed
#Anemia
likely of chronic disease
no active luminal bleeding noted
check anemia panel
Hgb at 7.9.
#Loose bowel movements
Likely due to antibiotic associated
C. difficile negative
Start probiotic
Imodium if needed
Resolved.
# Anxiety could be situational
Ativan as needed
#Hypokalemia
replete/monitor
# Hyponatremia/metabolic acidosis /acute kidney injury likely hypovolemic
-resolved
-IVF completed
#Hypokalemia
#Mild Hypophosphatemia
monitor and replete as necessary
# DVT prophylaxis
-Eliquis
# CODE STATUS
-Full code
Discussed with patient spouse at bedside in detail on 09/30
dw with cardiology
Anticipated Discharge: > 48 hours
Subjective/Interval History
-
Date of Service: October 01, 2024
now on 100%fio2 HFNC
less tachypneic
remains in NSR
Objective Data
-
Labs:
Laboratory Results
10/01/24
03:25
WBC 11.9 H
Hgb 7.9 L
Hct 23.2 L
Plt Count 505 H
PT 24.5 H
INR 2.19
APTT 35.3 H
Sodium 133 L
Potassium 3.6
Chloride 96 L
Carbon Dioxide 34 H
BUN 13
Creatinine 0.5 L
Glucose 133 H
Calcium 7.2 L
Vital Signs:
Vital Signs
Temp Pulse Resp BP Pulse Ox
98.5 F 70 24 107/63 92
10/01/24 07:36 10/01/24 11:00 10/01/24 11:00 10/01/24 11:00 10/01/24 11:00
I&O
09/30/24 10/01/24 10/02/24
06:59 06:59 06:59
Intake Total 440 / 440
Output Total 695 / 695 410 / 410
Balance -695 / -695 / 30
Data Reviewed
-
Total Time Spent with Patient (in minutes): 55
--- NOTE | 2024-10-01 12:00 | PTCARENOTE ---
Patient assisted OOB to chair with assist x 2. Complete cares given, CHG cloth bath, perineal care, incontinent of urine. Patient noted with sacral edema during cares. Clean Adult diaper donned. Continues to deny pain. Sats improved when sitting up.
Deep breathing and coughing, trying to use IS but breaths are shallow and tachypneic so poor volume. Refusing to order lunch. Quinn at bedside. Patient encouraged po intake. Took in Ensure Enlive supplement and cheese/snacks provided by
. Tolerating OOB to chair well. Sats excellent OOB to chair at 95%. Noted iron levels and order for IV iron. Discussed with patient and family reasoning for IV iron. Verbalized understanding. BBS and CT assessment essentially unchanged except
aeration slightly improved right lung when sitting up.
[2024-10-01 12:05] LABS: Iron 26 ug/dl (37-170)
[2024-10-01 12:14] LABS: Percent Saturation 13 % (20-50); Total Iron Binding Capacity 189 ug/dl (265-497)
[2024-10-01] MEDS: LASIX 40 MG IV (12:27)
--- NOTE | 2024-10-01 13:06 | PTCARENOTE ---
Addendum entered by Jessica Yoo RN 10/01/24 13:48:
This note intended for 0815 assessment.
Original Note:
Patient received sitting up in bed with eyes closed, lying still, respirations tachypneic but appear non labored. She rouses easily to name called. A&O x3. She is on 50L/100% FiO2 high flow oxygen, sats 85-91%. She tends to mouth breathe. Treatment
requested from respiratory therapist and patient instructed to deep breathe and cough. Sats improved. Left sided CT in place to -20cm wall suction. Positive air leak, no crepitus at site. CT dressing CDI. She has a loose NPC. RUL clear, RML and RLL
very diminished, poor aeration. GLENN with expiratory wheezes and scattered crackles, Left base with audible pleural rub, wheezes and crackles. Bilateral pedal pulses palpable, BLE edema 1-2+. Bilateral hand edema 1+, R>L. Patient is pale and
cachectic in appearance. S1S2 regular, SR on CM with 1st degree AVB. Denies pain when asked. Bed in low and locked position. Call hale within reach.
[2024-10-01 13:24] LABS: Folate 6.5 ng/ml (2.76-20); Vitamin B12 > 1000 pg/ml (239-931)
[2024-10-01] MEDS: FERRLECIT 110 MG IV (13:56)
--- NOTE | 2024-10-01 16:00 | PTCARENOTE ---
Physical assessment is essentially unchanged. Patient is anxious at times, emotional support and encouragement given as needed. Right lung with better aeration, RML and RLL are still diminished but better air movement. RUL with scattered crackles.
Left lung with pleural rub audible t/o,GLENN with crackles and bronchial sounds, Left base with crackles and wheezes. Deep breathing and coughing. VSS. Tolerating being up in the chair. Quinn has been at the bedside.
[2024-10-01] MEDS: IMODIUM 2 MG PO (17:41)
--- NOTE | 2024-10-01 18:00 | PTCARENOTE ---
Patient incontinent of a large amount of urine due to Lasix given previously. Pad and diaper saturated. Assisted back to bed. Skin care provided. Patient has evidence of MASD, 'diaper rash.' Skin cleansed and zinc oxide donned. Purewick placed when
back in bed. Patient unable to keep her oxygen saturation up after transferred back to bed. Sats 85% on 100% FiO2; 100% NRB mask donned. Respiratory contacted for treatment. Dinner ordered.
[2024-10-01] MEDS: ATROVENT NEBULES 0.5 MG INH (18:17)
[2024-10-01] MEDS: XOPENEX 1.25 MG INHALANT SOLUTION INH (18:17)
[2024-10-01] MEDS: PULMICORT 0.5 MG INH (18:17)
--- NOTE | 2024-10-01 18:57 | PTCARENOTE ---
Report given verbally to oncoming shift, Hermila DUNN. Questions answered.
--- NOTE | 2024-10-01 21:04 | PTCARENOTE ---
Assumed care of pt at 1900. Pt is A/O x4, pleasant and cooperative with care. No c/o pain at this time. Pt on HFNC 100%/50LPM with SpO2 in mid 90s at rest, will desat to high 80s on exertion. SR 70s on monitor. Left anterior chest wall chest tube in
place to -20cm suction, no crepitus noted, +1 air leak noted. See nursing shift assessment flowsheet for full physical assessment details. Call hale and personal items within reach.
[2024-10-01] MEDS: ATIVAN 0.5 MG PO (23:14)
[2024-10-02] VITALS (25 sets, daily range): BP systolic 87–123; BP diastolic 52–99; BMI 20.8
--- NOTE | 2024-10-02 00:34 | PTCARENOTE ---
Midnight assessment unchanged. Pt continues on same HFNC settings. Maintaining SpO2 in high 90s. CHG cloth bath done at around 2330, linens and gown changed, new Purewick in place. Pt tolerated well and did not desat. Lorazepam given for anxiety/to
help pt sleep per her request.
[2024-10-02] MEDS: DECADRON 4 MG IV ×3 (03:35→20:20)
[2024-10-02 04:18] LABS: Blood Urea Nitrogen 21 mg/dl (7-17); Calcium 7.6 mg/dl (8.4-10.2); Carbon Dioxide 38 mmol/L (22-30); Chloride 95 mmol/L (98-107); Estimated Creatinine Clearance 77 ml/min; Glucose 116 mg/dl (70-99); Potassium 3.6 mmol/L (3.5-5.1); Sodium 134 mmol/L (135-145); eGFR > 60.00
[2024-10-02 04:32] LABS: Hematocrit 22.6 % (37.0-47.0); Hemoglobin 7.5 g/dL (12.0-16.0); Mean Corp Hgb Conc. 33.2 g/dL (33.0-37.0); Mean Corpuscular Hgb 29.3 pg (27.0-31.0); Mean Corpuscular Volume 88.3 fL (81.0-99.0); Mean Platelet Volume 9.7 fL (7.4-10.4); Platelet Count 617 10^3/uL (130-400); Red Blood Cell Count 2.56 10^6/uL (4.20-5.40); Red Cell Dist. Width 14.2 % (11.5-14.5); White Blood Cell Count 10.7 10^3/uL (4.8-10.8)
[2024-10-02] MEDS: ZOSYN 100 IV ×4 (05:54→23:29)
[2024-10-02] MEDS: TAMIFLU 75 MG PO (07:18)
[2024-10-02] MEDS: PACERONE 400 MG PO ×2 (07:18→20:20)
[2024-10-02] MEDS: MUCINEX PO ×2 (07:18→08:22)
[2024-10-02] MEDS: ProAmatine 5 MG PO ×3 (07:18→18:04)
[2024-10-02] MEDS: TOPROL XL 25 MG PO ×2 (07:18→20:19)
[2024-10-02] MEDS: ELIQUIS 5 MG PO ×2 (07:18→20:20)
[2024-10-02] MEDS: VISBIOME 2 CAP PO (07:19)
[2024-10-02] MEDS: PULMICORT 0.5 MG INH (07:32)
[2024-10-02] MEDS: XOPENEX 1.25 MG INHALANT SOLUTION INH ×4 (07:32→20:23)
[2024-10-02] MEDS: ATROVENT NEBULES 0.5 MG INH ×3 (07:32→15:34)
--- NOTE | 2024-10-02 08:10 | W.PN.INTV ---
Addendum entered and electronically signed by Chris Alfredo MD 10/02/24 16:16:
Check right sided chest ultrasound to assess if it is amenable for a thoracentesis, as I believe that would improve her respiratory mechanics.
Original Note:
Today's Communication / Plan
Recommendations
Serial CXR to monitor left-sided pneumothorax
Keep chest tube to low continuous wall suction and monitor her airleak (currently present only during expiration + coughing)
If sudden worsening of chest tube airleak then would need stat CXR as the chest tube would need to be upsized vs place a new chest tube in that situation
Low threshold to intubate
Aspiration precautions
Systemic steroids
Continue Xopenex + Atrovent QID with budesonide BID
Continue ICU level care for this critically ill patient
Assessment
-
69-year-old woman without significant past medical history admitted to the hospital with flulike symptoms, shortness of breath. Found to be hypoxemic, septic with bilateral infiltrates on x-ray. Requiring up to 6 L supplemental oxygen. Found to
be flu positive, treated With pneumonia bacteremia, Pseudomonas in the sputum with Binta in the sputum. We were consulted on 09/26/2024 due to worsening oxygenation and possible pulmonary mass.
Acute hypoxemic respiratory failure due to bilateral pneumonia-influenza A+/bacterial superinfection with Pseudomonas aeruginosa + strep pneumonia c/b Streptococcus pneumonia bacteremia.
Sputum culture positive with Pseudomonas/Binta's-possibly aspiration.
Streptococcus pneumonia bacteremia and positive for Streptococcus pneumonia urine antigen
Spontaneous left secondary pneumothorax 09/29/2024 now s/p left sided chest tube
Influenza A+
Right sided parapneumonic effusion
Reactive mediastinal lymph nodes
Septic shock - resolved
Acute kidney injury - resolved post IV fluid
Hypokalemia
Atrial fibrillation/flutter with rapid ventricular response in the setting of acute illness 09/26/2024 --> now in NSR
Conditions present prior admission:
None
Does not follow-up with primary care
Does not take any medications
Non-smoker
Assessment and plan:
Clinical picture consistent with viral pneumonia due to influenza A with bacterial superinfection and possible aspiration event with rapid A-flutter.
Unfortunately, hypoxemic respiratory failure worsened and she was transferred to the ICU on 09/30/2024 for closer monitoring due to requiring 100%% FiO2 on high flow NC. Possible ARDS picture from pneumonia (doubtful she has ARDS). Significant
desaturation with minimal activity.
-
X-ray 09/29/2024: Incidental left sided pneumothorax
Spontaneous secondary to pneumonia in setting of high flow nasal cannula
Status post chest tube placement 09/29/2024.
Chest x-ray 09/30/2024: Reviewed, shows severe bilateral infiltrate- her L-sided PTX has improved but was persistent
CXR on AM of 10/01 showed worsening L-sided PTX --> repeat CXR on 10/01 showed stable L-sided PTX
CXR on a.m. of 10/02/2024 shows slight worsening of left-sided pneumothorax, albeit still small as it is <2 cm from cupula
Continue chest tube to suction
Daily chest x-ray
I am wondering whether there is trapped lung physiology/lungs have low compliance due to severe pneumonia
-
Acute hypoxemic respiratory failure:
Respiratory status remained tenuous: Tachypneic, accessory muscle usage with any activity. Unfortunately not improved for >1 week
Continue high flow nasal cannula and keep FiO2 at 100% to help resorb PTX while trying to low flow rate while keeping SpO2 >90-94%
Continue aspiration precautions
Continue Xopenex + Atrovent QID + budesonide (this was all started 10/01/2024 and she feels better on 10/02/2024, either coincidentally or as a result of the nebulizers - she was previously on Xopenex TID from 09/25 - 09/28/2024)
Mucolytics with prn mucinex
Hold chest PT given L-sided pneumothorax 09/29/2024.
Discussed with [id number] who is a respiratory therapist here at [facility] on 09/30/2024 + 10/01/2024. She understands. She will communicate with the rest of the family.
Given severe CAP with ongoing/worsening hypoxemia, started Decadron 4mg IV q8hr on 09/30/2024 for anti-inflammatory properties --> continue this dose for now/no changes
-
Hx of Atrial fibrillation/atrial flutter, now in NSR and HR controlled in mid-70-80s -arrhythmia was likely driven by underlying severe pneumonia/CAP
Cardiology on board - continue PO amiodarone s/p drip and s/p digoxin from 09/27-09/30/2024 - now off dig
Cardizem has been discontinued; okay to use beta-kenzie cautiously, although she does not have any known history of primary lung disorder
-
Pneumonia severe bilateral. Persistent leukocytosis although is improved as of 10/01/2024
Afebrile
Significantly abnormal CT Chest with bilateral infiltrates right greater than left. Small right sided loculated pleural effusion.
Follow up surveillance blood cultures collected 09/24/2024 (shows NGTD) - previously positive with Streptococcus pneumonia on blood cultures x2 drawn 09/22/2024
Sputum with Pseudomonas aeruginosa/Binta 09/23/2024 (Binta likely a contaminant)
Continue antibiotics per infectious disease �on Zosyn
10-day course of Tamiflu (started 09/22/2024 - last day today)
-
Daily chest x-ray
Pleural effusion on r-lung is stable, improved as of 10/02/2024 CXR
Pleural effusion and PNA will need to be followed to resolution - ultimately will need repeat chest imaging in 4-6 weeks
-
With significantly abnormal CAT scan she will need outpatient pulmonary follow-up. She also will need to establish follow-up with her primary care doctor-she regularly does not see doctors.
There is a right upper lobe rounded opacity that could be inflammatory or malignant. There is mediastinal lymph nodes that could be reactive.
Cannot rule out malignancy but less likely.
-
Anticoagulation started per cardiology for atrial fibrillation- apixaban
Rate control amiodarone/metoprolol
-
Nutritional support-tolerating diet.
Aspiration precautions
-
Low threshold to intubate
-
[id number] updated by Dr. Alfredo on 10/01/2024 over the phone, and I answered all the patient and her 's questions while in the room.

Data reviewed:
CT chest 09/25/2024: Reviewed showed no evidence for pulmonary embolism.
No pneumothorax.
There is severe consolidation on the right lower lobe. Moderate consolidation on the right upper lobe. There is also consolidation in the right middle lobe. There is minimal consolidation in the left upper lobe and moderate on the left lower
lobe. Also the lingula is involved.
Small loculated right pleural effusion.
Reactive mediastinal lymph nodes suspected.
CXR 10/01/2024: Stable tiny left apical pneumothorax with a left chest tube in place.
Pulmonary parenchymal opacities are demonstrated throughout both lungs again most suggestive of severe pneumonia. Small right pleural fluid with adjacent dense right basilar lobar consolidation. Right PICC with the catheter tip at the cavoatrial
junction. The cardiomediastinal silhouette is stable.
CXR 10/02/2024:
Mildly enlarged left apical pneumothorax.
Moderate loculated right pleural effusion. Slightly improved.
Bilateral pneumonia. Improved.
Critical care statement: A total of 41 minutes of critical care time was provided for this patient today. This includes management of unstable vital signs, evaluation of the patient at bedside, reviewing the patient's pertinent medical records
including ventilator settings, arterial blood gases, radiographs, microbiology, laboratory evaluations and discussion with primary team, critical care nursing, and respiratory therapy.
Subjective Dataa
Subjective Data
Date of Service:
Date of Service: October 02, 2024
Chief Complaint: Cath Laboratory Technician Follow Up
Subjective:
Patient was seen and evaluated this morning. CXR this morning shows slight worsening of left apical pneumothorax, with improvement in aeration of right lung. She feels better today. Currently saturating 92% on high flow nasal cannula FiO2 90%, 50
L/min. Heart rate 80 and BP 102/83. Multiple family members at bedside including patient's and son-in-law and two additional family members/friends. Level 1 airleak seen in Pleur-evac during expiration only. She currently denies chest
pain, shoulder pain, WELCH, nausea, fevers or chills.
Review of Systems
General: Other (Negative unless mentioned above)
Objective Data
Data Reviewed
Vital Signs / I&O / Oxygen:
Vital Signs
Temp Pulse Resp BP Pulse Ox
97.4 F 72 29 116/64 96
10/02/24 07:25 10/02/24 09:00 10/02/24 09:00 10/02/24 09:00 10/02/24 09:00
Intake and Output
10/01/24 10/02/24 10/03/24
06:59 06:59 06:59
Intake Total 440 / 440 1210 / 1210
Output Total 410 / 410 420 / 420
Balance 30 / 30 790 / 790
SaO2 96
Nasal Cannula flow liters per 50
minute
Physical Exam
General: Respiratory Distress (negative), Comfortable, Chills (negative), Sweats (negative) and Other (Anxious appearing)
HEENT: Normocephalic and Anicteric
Cardiovascular: S1-S2, Regular Rhythm, Rub (negative) and Peripheral Edema (Trace lower extremity edema bilaterally)
Respiratory: Wheeze (negative), Crackles (Bilaterally), Rhonchi (Bilaterally), Accessory Resp Muscle Use (Mild, especially with exertion), Stridor (negative), Chest Tube (Left hemithorax with continuous level 1 airleak seen during expiration) and
Other (Grossly diminished breath sounds mainly on right lung)
GI: Soft, Non Distended, Non Tender and Normal Bowel Sounds
Neurology: AO x 3 and Tremors (negative)
Skin: Warm, Dry, Cyanosis (negative) and Jaundice (negative)
Labs/Micro/Reports
Lab Data
10/02/24 03:35
10/02/24 03:35
Microbiology
09/22/24 10:33 Blood/Venous Blood Culture - Final
Streptococcus pneumoniae
09/22/24 10:33 Blood/Venous Gram Stain - Final
09/28/24 18:31 Feces/Stool C. difficile GDH Antigen & Toxins - Final
Negative for toxigenic C.difficile
--- NOTE | 2024-10-02 08:24 | PTCARENOTE ---
pt received on max high flow with l chest tube to -20cm wall suction with 1+ air leak noted. Pt assisted oob to chair with mod assist of 2, sats as low as 88% but recovered quickly. Otherwise please see worklist
--- NOTE | 2024-10-02 09:16 | PTCARENOTE ---
spoke with Dr Charles regarding droplet precautions, Pt has been on isolation since 09/22 and fever free for more then 24 hours. Finished 14 doses of tamiflu. Droplet Isolation removed.
--- NOTE | 2024-10-02 09:17 | W.PN.ID1 ---
Date of Service
Date of Service: October 02, 2024
Today's Communication
Continue antibiotics
Assessment / Plan
Influenza A
Strep Pneumoniae Pneumonia
Secondary health care acquired pneumonia due to Pseudomonas
Bacteremia due to Strep Pneumoniae - transient
Acute hypoxemic respiratory failure - increase in oxygen requirement
Leukocytosis-improved today
- repeat blood cultures 09/23 and 09/24 - no growth
- 09/23 blood cultures S Pneumoniae - intermediate to levofloxacin; sensitive to penicillin
- sputum culture with few Pseudomonas - yeast from sputum is normal paresh
- pneumothorax; chest tube management per pulmonary
- c/w zosyn at this time, with eventual transition to oral therapy anticipated (levofloxacin and amoxicillin 1 gm TID), plan 14 day course 09/22-10/05
- Patient has completed a 10-day course of Tamiflu
- Patient will need to establish care with a PCP moving forward
- Recommend PCV20 vaccine at local pharmacy when fully recovered
- patient is remains critically ill with respiratory failure, on high flow O2.
Chief Complaint
-: Pneumonia and Other (Flu A, S pneumo pneumonia, Pseudomonas pneumonia)
Subjective / Review of Systems
Review of Systems: No Fever
Vital Signs / Physical Exam
Vital Signs
Vital Signs
Temp Pulse Resp BP Pulse Ox
97.4 F 72 29 116/64 96
10/02/24 07:25 10/02/24 09:00 10/02/24 09:00 10/02/24 09:00 10/02/24 09:00
Physical Exam
Constitutional: Comfortable, Acutely Ill and Non-toxic
Eyes: Sclera Anicteric
Pulmonary: Non Labored and Other (Left base decreased breathe sound; left chest tube in place.)
Gastrointestinal: Soft, Non Tender, Non Distended and Other (cough ongoing - sounds productive)
Extremities: Negative Edema
Neurological: AO x 3
Lines: PICC (RUE: no erythema)
Objective Data
Lab Data
Lab Results
10/02/24 03:35
10/02/24 03:35
PT 24.5 Sec (11.4-14.6) H 10/01/24 03:25
INR 2.19 10/01/24 03:25
APTT 35.3 Sec (23.4-35.0) H 10/01/24 03:25
Estimated Creat Clear 77 ml/min 10/02/24 03:35
Lactic Acid Cancelled 09/22/24 22:31
Total Bilirubin 1.0 mg/dl (0.2-1.3) 09/23/24 05:29
AST 36 U/L (14-36) 09/23/24 05:29
ALT 23 U/L (0-35) 09/23/24 05:29
Alkaline Phosphatase 84 U/L (38-126) 09/23/24 05:29
Most recent labs reviewed.
Micro Results:
09/22/24 10:33 Blood Culture - Final
Blood/Venous Streptococcus pneumoniae
Gram Stain - Final
09/28/24 18:31 C. difficile GDH Antigen & Toxins - Final
Feces/Stool Negative for toxigenic C.difficile
09/24/24 03:40 Blood Culture - Final
Blood/Venous No Growth - Final Report
09/24/24 03:30 Blood Culture - Final
Blood/Venous No Growth - Final Report
09/23/24 16:43 Blood Culture - Final
Blood/Venous No Growth - Final Report
09/23/24 13:35 Blood Culture - Final
Blood/Venous No Growth - Final Report
09/23/24 22:22 Respiratory Culture - Final
Sputum Pseudomonas aeruginosa
Binta albicans
Gram Stain - Final
09/22/24 12:38 Blood Culture - Final
Blood/Venous Streptococcus pneumoniae
Gram Stain - Final
09/22/24 22:22 Legionella Urinary Antigen - Final
Urine Negative for Legionella pneumophila Serogroup 1 antigen.
A negative result does not rule out the possiblity of
Legionella infection due to other serogroups or species of
Legionella. Clinical correlation is recommended.
Streptococcus pneumoniae Antigen (M - Final
Positive for Strep pneumo Ag
09/22/24 10:33 Influenza Types A & B (EUN) - Final
Nasal Swab Influenza A Positive, NAAT
[2024-10-02] MEDS: FLUSH (NSS) 2 FLUSH IV (11:32)
--- NOTE | 2024-10-02 12:13 | W.PN.HOSP.TC ---
Addendum entered and electronically signed by Stefan Madrid MD 10/02/24 13:04:
underweight
Original Note:
Today's Communication/Plan
-
Wean O2 as tolerated
Continue with broad-spectrum antibiotic
Chest ultrasound
Monitor chest tube output
Daily chest x-ray
Assessment / Plan
Assessment / Plan
Physical Exam
General: no acute distress, chronically ill-appearing
HEENT: NormoCephalic, Moist mucous membranes and Atraumatic
Respiratory: Rhonchi and Crackles, high flow nasal cannula,
Cardiac: S1/S2, regularly regular,
GI: Soft, Non Tender, Non Distended and Normal Bowel Sounds; No Organomegaly
Musculoskeletal: No Clubbing, No Cyanosis and No Edema
Skin: No Rash
Neuro: AO x 3
Psych: Anxious
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
# Acute hypoxic respiratory failure likely secondary to severe bilateral pneumonia secondary to Pseudomonas plus strep pneumo
# Spontaneous left-sided pneumothorax
-Duoneb R QID and PRN switched to Xopenex d/t tachycardia and cont with PRN for now.
-VEST therapy DC, Incentive Spirometry
-Currently on high flow nasal cannula on 90% FiO2
-CT chest appreciated multilobar pna severe in RLL underlying mass not excluded (follow up CT after treatment recommended relayed to patient and patient spouse)
-Repeat chest x-ray earlier today Mildly enlarged left apical pneumothorax.
-Also started on IV steroids Decadron 4 mg every 8.
-Concern for ARDS as with persistent severe hypoxemia. Not much improvement in the last 7 to 8 days
-Will try to avoid positive balance and try to keep it on the linter drier operator side.
#Septic Shock elevated (tachycardia, tachypnea) lactate, hypotension initially requiring pressor support
#Fever cough/generalized weakness likely from flu/polymicrobial pneumonia with strep and Pseudomonas
#Sinus tachycardia likely 2/2 severe sepsis PNA
-IVF completed
-Tamiflu continued
-Tylenol as needed for fever
-Mucinex as needed for cough
-Blood cultures positive for Strep pneumonia, follow up repeat blood cx's NGTD
-Sputum Cx pos for Pseudomonas and josy albicans-on Zosyn
-ID eval appreciated ceftriaxone discontinued in favor of Zosyn for coverage GNR in sputum, \\
-cont Tamiflu 10 day course,
# Spontaneous left-sided pneumothorax
Noted on chest x-ray on 09/29/2024
Status post emergent chest tube placement by [facility]
Daily chest x-ray. Discussed with collar turner apical pneumothorax small in size. Will monitor for now.
May need upsizing of chest tube. Will defer to critical care.
# Right-sided loculated pleural effusion
Chest ultrasound to assess. May require drainage.
# Atrial fibrillation/atrial flutter rapid ventricular response
Started on Cardizem infusion.
Blood pressure soft and thus unable to tolerate Cardizem and thus plan to switch to amiodarone gtt
Anticoagulation with Eliquis
Echocardiogram with EF of 60 to 65%. Mild to moderate mitral regurgitation. Mildly elevated PASP with PASP of 38 mmHg.
TSH wnl
Status post conversion to normal sinus rhythm.
Plan to discontinue amiodarone drip and stop digoxin
Patient is on p.o. amiodarone 400 mg twice daily and Toprol 25 mg twice daily
Cardiology has been consulted
# Mild hypotension likely combination of Cardizem versus severe tachycardia due to A-fib
Start patient on midodrine
Pressors if needed
#Anemia
likely of chronic disease
no active luminal bleeding noted
Start patient on IV Venofer. B12 folate normal
Heme test stools
Transfuse for hemoglobin less than 7.
#Loose bowel movements
Likely due to antibiotic associated
C. difficile negative
Start probiotic
Imodium if needed
Resolved.
# Anxiety could be situational
Ativan as needed
#Hypokalemia
replete/monitor
# Hyponatremia/metabolic acidosis /acute kidney injury likely hypovolemic
-resolved
-IVF completed
#Hypokalemia
#Mild Hypophosphatemia
monitor and replete as necessary
# DVT prophylaxis
-Eliquis
# CODE STATUS
-Full code
Discussed with collar turner y
Anticipated Discharge: > 48 hours
Subjective/Interval History
-
Date of Service: October 02, 2024
FiO2 decreased to 90%
No roxi luminal bleeding
Sitting in chair
Objective Data
-
Labs:
Laboratory Results
10/02/24
03:35
WBC 10.7
Hgb 7.5 L
Hct 22.6 L
Plt Count 617 H D
Sodium 134 L
Potassium 3.6
Chloride 95 L
Carbon Dioxide 38 H
BUN 21 H
Creatinine 0.5 L
Glucose 116 H
Calcium 7.6 L
Vital Signs:
Vital Signs
Temp Pulse Resp BP Pulse Ox
97.4 F 68 29 116/64 95
10/02/24 11:51 10/02/24 10:55 10/02/24 10:55 10/02/24 09:00 10/02/24 10:55
I&O
10/01/24 10/02/24 10/03/24
06:59 06:59 06:59
Intake Total 440 / 440 1210 / 1210
Output Total 410 / 410 420 / 420
Balance 30 / 30 790 / 790
Data Reviewed
-
Total Time Spent with Patient (in minutes): 55
--- NOTE | 2024-10-02 12:29 | PTCARENOTE ---
Systems reviewed. No new changes. Pt has been oob since am without complaint.
[2024-10-02] MEDS: FERRLECIT 110 MG IV (14:09)
[2024-10-02] MEDS: TYLENOL 650 MG PO (16:13)
[2024-10-02] MEDS: ATIVAN 0.5 MG PO ×2 (16:19→23:29)
--- NOTE | 2024-10-02 16:38 | PTCARENOTE ---
Systems reviewed. After breathing tx, pt c/o headache/anxiety and 'eyes burning'. Pt given tylenol and ativan with good results. Obtained order for refresh eye drops. Otherwise no changes.
[2024-10-02] MEDS: REFRESH EYE DROPS (PF) 1 DROPS OPHTH (17:00)
--- NOTE | 2024-10-02 17:24 | PTCARENOTE ---
IV team at bedside and removed HD catheter.
--- NOTE | 2024-10-02 18:23 | PTCARENOTE ---
Pt has been oob all day, did not want to get back to bed when offered. Pt encouraged to eat protein t/o day, did not want protein shake because it irritates 'my IBS'. Otherwise no changes.
--- NOTE | 2024-10-02 19:57 | PTCARENOTE ---
Assumed care of pt at 1900. Pt OOB to chair at start of shift, had been OOB for the entirety of dayshift. Myself and dayshift RN assisted pt back to bed, heavy x2 assist. Pt had been incontinent of large amount of liquid stool. Pt cleaned up while
standing up, then continued to go once in bed. Pt cleaned up with bathing cloths and given CHG cloth bath, entire bed changed/gown changed/monitor electrode patches changed. Purewick removed and not replaced due to loose stool. Chest tube dressing
dtb changed, old dressing removed, sutures intact and insertion site is C/D/I with no s/s infection. New dressing applied (see wound care documentation). Physical assessment completed, see nursing shift assessment flowsheet for full details. SR 70s
on monitor, SpO2 95% on HFNC 100% 40LPM. Call hale and personal items within reach.
[2024-10-02] MEDS: ATROVENT NEBULES INH (20:22)
[2024-10-02] MEDS: PULMICORT INH (20:22)
[2024-10-03] VITALS (37 sets, daily range): BP systolic 97–134; BP diastolic 57–89; BMI 21.0
--- NOTE | 2024-10-03 00:02 | PTCARENOTE ---
Assessment unchanged. Pt requesting Purewick to be put back in place--she has not had another loose BM since the beginning of the shift, new Purewick now in place. Lorazepam given per pt request for anxiety/sleep. Remains on same HFNC settings. SpO2
currently 92%, SR 60s on monitor.
[2024-10-03] MEDS: DECADRON 4 MG IV (04:22)
[2024-10-03 04:49] LABS: % Basophils 0.1 % (0-2); % Immature Granulocytes 1.1 % (0-0.5); % Lymphocytes 5.1 % (20.5-51.1); % Monocytes 10.2 % (1.7-9.3); % Neutrophils 83.5 % (42.2-75.2); Absolute Immature Granulocytes 0.1 10^3/uL (0-0.05); Absolute Lymphocytes 0.4 10^3/uL (1.2-3.4); Absolute Monocytes 0.8 10^3/uL (0.1-0.6); Absolute Neutrophils 6.6 10^3/uL (1.4-6.5); Hematocrit 23.3 % (37.0-47.0); Hemoglobin 7.7 g/dL (12.0-16.0); Mean Corpuscular Hgb 29.2 pg (27.0-31.0); Mean Corpuscular Volume 88.3 fL (81.0-99.0); Mean Platelet Volume 9.3 fL (7.4-10.4); Nucleated Red Blood Cells % 0 %; Platelet Count 694 10^3/uL (130-400); Red Blood Cell Count 2.64 10^6/uL (4.20-5.40); Red Cell Dist. Width 14.5 % (11.5-14.5); White Blood Cell Count 7.9 10^3/uL (4.8-10.8)
[2024-10-03 05:09] LABS: Blood Urea Nitrogen 26 mg/dl (7-17); Calcium 7.6 mg/dl (8.4-10.2); Carbon Dioxide 36 mmol/L (22-30); Chloride 96 mmol/L (98-107); Estimated Creatinine Clearance 77 ml/min; Glucose 111 mg/dl (70-99); Potassium 3.3 mmol/L (3.5-5.1); Sodium 136 mmol/L (135-145); eGFR > 60.00
[2024-10-03] MEDS: ZOSYN 100 IV ×3 (06:31→18:09)
[2024-10-03] MEDS: KCL 270 MEQ IV (06:45)
[2024-10-03] MEDS: VISBIOME 2 CAP PO (07:27)
[2024-10-03] MEDS: ELIQUIS 5 MG PO ×2 (07:27→19:57)
[2024-10-03] MEDS: PACERONE 200 MG PO (07:28)
[2024-10-03] MEDS: TOPROL XL 25 MG PO ×2 (07:28→19:57)
[2024-10-03] MEDS: ROBITUSSIN DM 5 ML PO (07:29)
[2024-10-03] MEDS: XOPENEX 1.25 MG INHALANT SOLUTION INH ×4 (07:30→19:22)
[2024-10-03] MEDS: PULMICORT 0.5 MG INH (07:30)
[2024-10-03] MEDS: ATROVENT NEBULES INH ×4 (07:31→19:22)
[2024-10-03] MEDS: ProAmatine 5 MG PO ×3 (07:31→18:10)
--- NOTE | 2024-10-03 07:45 | W.PN.INTV ---
Today's Communication / Plan
Recommendations
- CT with contrast to evaluate for parapneumonic effusion versus empyema. Might need right-sided drainage versus chest tube
-Strict n.p.o. in view of tenuous respiratory status, at risk of needing intubation and mechanical ventilation
-Discontinue steroids considering concomitant influenza A infection
Assessment
-
69-year-old woman without significant past medical history was admitted to the hospital with flulike symptoms, shortness of breath. Found to be hypoxemic, septic with bilateral infiltrates on x-ray. Requiring up to 6 L supplemental oxygen. Found
to be flu positive, complicated by strep pneumo bacteremia, along with Pseudomonas in the sputum with Binta. We were consulted on 09/26/2024 due to worsening oxygenation and possible pulmonary mass.
Patient had positive blood cultures with strep pneumo on 09/22. Bacteremia has since cleared. Patient continues to be on Zosyn. Stay was further complicated by a spontaneous left-sided pneumothorax requiring chest tube placement 09/29.
Unfortunately, hypoxemic respiratory failure worsened and she was transferred to the ICU on 09/30/2024 for closer monitoring due to requiring 100%% FiO2 on high flow NC. Possible ARDS picture from pneumonia (doubtful she has ARDS). Significant
desaturation with minimal activity.
Assessment and plan
#1. Acute hypoxemic respiratory failure due to bilateral pneumonia-influenza A+/bacterial superinfection with Pseudomonas aeruginosa + strep pneumonia c/b Streptococcus pneumonia bacteremia.
-Respiratory status remained tenuous: Tachypneic, accessory muscle usage with any activity. Unfortunately not improved for >1 week
-Currently on high flow nasal cannula with 100% FiO2 and also requiring nonrebreather intermittently in view of hypoxia
-Make her n.p.o. as she is at significant risk of requiring intubation and mechanical ventilation
-Continue aspiration precautions
-Continue Xopenex + Atrovent QID
-Hold off inhaled and systemic steroids in view of influenza A
-Mucolytics with prn mucinex
-Completed Tamiflu
-Discussed with [id number] who is a respiratory therapist here at [facility]. She understands. She will communicate with the rest of the family. Also updated patient's spouse at bedside/
#2. Spontaneous left secondary pneumothorax 09/29/2024 now s/p left sided chest tube
-Airleak noted with expiration overall chest x-ray shows gradual improvement, continue chest tube to suction and 100% FiO2
-Patient might have a component of trapped lung considering concomitant pneumonia
#3. Loculated Right sided parapneumonic effusion, concern for empyema
-Continue IV antibiotics, Zosyn. ID service on case
-Plan for CT chest with contrast to evaluate further as patient might need thoracentesis versus chest tube placement if empyema or complicated parapneumonic effusion suspected
-With her tenuous respiratory status, patient might need intubation and mechanical ventilation for additional interventions
(addendum: CT suggested pyo=pneumothorax. In view of bilateral pneumothorax and tenous respiratory status, emergent bed-side chest tube was placed)
#4. Septic shock - resolved
#5. Acute kidney injury - resolved post IV fluid
#6. Atrial fibrillation/flutter with rapid ventricular response in the setting of acute illness 09/26/2024 --> now in NSR
-Suspect this is in the setting of acute illness, normal sinus rhythm now
-Cardiology service on case, currently on Eliquis 5 mg twice daily and metoprolol
Conditions present prior admission:
None
Does not follow-up with primary care
Does not take any medications
Non-smoker
Nutritional support-hold tube feeding in view of tenuous respiratory status and risk of intubation
Aspiration precautions
-
Low threshold to intubate

Data reviewed:
CT chest 09/25/2024: Reviewed showed no evidence for pulmonary embolism.
No pneumothorax.
There is severe consolidation on the right lower lobe. Moderate consolidation on the right upper lobe. There is also consolidation in the right middle lobe. There is minimal consolidation in the left upper lobe and moderate on the left lower
lobe. Also the lingula is involved.
Small loculated right pleural effusion.
Reactive mediastinal lymph nodes suspected.
CXR 10/01/2024: Stable tiny left apical pneumothorax with a left chest tube in place.
Pulmonary parenchymal opacities are demonstrated throughout both lungs again most suggestive of severe pneumonia. Small right pleural fluid with adjacent dense right basilar lobar consolidation. Right PICC with the catheter tip at the cavoatrial
junction. The cardiomediastinal silhouette is stable.
CXR 10/02/2024:
Mildly enlarged left apical pneumothorax.
Moderate loculated right pleural effusion. Slightly improved.
Bilateral pneumonia. Improved.
Critical care statement: A total of 90 minutes of critical care time was provided for this patient today. This includes management of unstable vital signs, evaluation of the patient at bedside, reviewing the patient's pertinent medical records
including ventilator settings, arterial blood gases, radiographs, microbiology, laboratory evaluations and discussion with primary team, critical care nursing, and respiratory therapy. Time also includes discussion with family about plan of care
and time spent during bedside chest tube placement.
Subjective Dataa
Subjective Data
Date of Service:
Date of Service: October 03, 2024
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
Subjective:
Patient sitting in bed and gets dyspneic with little activity
Objective Data
Data Reviewed
Vital Signs / I&O / Oxygen:
Vital Signs
Temp Pulse Resp BP Pulse Ox
97.4 F 65 24 127/76 93
10/03/24 03:30 10/03/24 07:33 10/03/24 07:33 10/03/24 07:28 10/03/24 07:34
Intake and Output
10/02/24 10/03/24 10/04/24
06:59 06:59 06:59
Intake Total 1210 / 1210 890 / 890
Output Total 420 / 420 295 / 295
Balance 790 / 790 595 / 595
SaO2 93
Nasal Cannula flow liters per 40
minute
Physical Exam
General: Respiratory Distress (Developed distress with minimal activity), Comfortable, Chills (negative), Sweats (negative) and Other (Anxious appearing)
HEENT: Normocephalic and Anicteric
Cardiovascular: S1-S2, Regular Rhythm, Rub (negative) and Peripheral Edema (Trace lower extremity edema bilaterally)
Respiratory: Wheeze (negative), Crackles (Bilaterally), Rhonchi (Bilaterally), Accessory Resp Muscle Use (Mild, especially with exertion), Stridor (negative), Chest Tube (Left hemithorax with continuous level 1 airleak seen during expiration) and
Other (Grossly diminished breath sounds mainly on right lung)
GI: Soft, Non Distended, Non Tender and Normal Bowel Sounds
Neurology: AO x 3 and Tremors (negative)
Skin: Warm, Dry, Cyanosis (negative) and Jaundice (negative)
Labs/Micro/Reports
Lab Data
10/03/24 04:27
10/03/24 04:27
--- NOTE | 2024-10-03 08:18 | PTCARENOTE ---
Patient's pulse ox 83-86% on HFNC 40L 100%. NRB placed on top. Pulse ox down to 86% with exertion. Slow to recover. Currently up to 94%. Patient denies dyspnea. Moist cough present. Non-productive. Robitussin administered. Lung sounds diminished
posteriorly. Coarse/crackles anteriorly. [employer] at bedside for right chest ultrasound. RT at bedside to increase HFNC to 55L. Patient anxious. Emotional support provided. PRN Ativan. NSR on tele. +1 edema in b/l LE. Palpable pulses. +BS.
Appetite poor. NPO per Manager [employer]. Incontinent of stool and urine. Shi care provided; calazime. Protective sacral and b/l heel foams applied.
[2024-10-03] MEDS: ATIVAN 0.5 MG PO ×2 (08:40→23:58)
[2024-10-03] MEDS: IMODIUM 2 MG PO (08:40)
--- NOTE | 2024-10-03 09:20 | PTOTSP ---
Reviewed chart and noted pt transferred to ICU over weekend and PT/OT orders were not continued upon transfer. Will need updated PT/OT orders if stable to participate in PT activity.
[2024-10-03 09:32] LABS: B.E. 11.8 mmol/L; HCO3 34.8 mmol/L (21-28); O2 Saturation % 98.5 % (94-98); PCO2 38 mmHg (32-35); PO2 77 mmHg (83-108); pH 7.57 (7.35-7.45)
--- NOTE | 2024-10-03 10:17 | W.PN.CD ---
Today's Communication / Plan
-
- Hold Amiodarone
- Continue Steroids and Toprol.
Impression / Plan
-
Hypoxic respiratory failure +Flu A/PNA: severe, requiring high flow O2
-Treated with Tamiflu and antibiotics
-Continue management and supportive care as per primary team and ID
-PTX and loculated effusion.
-Challenging respiratory status.
-With tenuous respiratory status, will discontinue Amiodarone with risk of amiodarone toxicity.
-Agree with Steroids.
Strep Pneumoniae Bacteremia:
-on ABX and ID following
Aflutter with RVR: new, now back in NSR
-typical. Converted to NSR 09/30 AM on Amiodarone drip. Was on digoxin (stopped 09/30/2024).
-Secondary to underlying infectious processes
-Loaded with Amiodarone. Holding Amiodarone for now given resp status not improving.
-Continue metoprolol 25mg BID
-[id number] score is 2 for age and female. Denies bleeding issues or falls.
-Continue Eliquis 5mg bid
Subjective: On high flow oxygen and facemask with continued hypoxia. Telemetry unremarkable.
Physical Exam
Vital Signs/Labs
Vital Signs
Temp Pulse Resp BP Pulse Ox
97.3 F 69 29 116/85 96
10/03/24 07:00 10/03/24 10:03 10/03/24 10:03 10/03/24 10:03 10/03/24 10:03
10/02/24 10/03/24 10/04/24
06:59 06:59 06:59
Actual Weight 54.9 kg 55.5 kg
10/03/24 04:27
10/03/24 04:27
PT 24.5 Sec (11.4-14.6) H 10/01/24 03:25
INR 2.19 10/01/24 03:25
APTT 35.3 Sec (23.4-35.0) H 10/01/24 03:25
Magnesium 1.9 mg/dl (1.6-2.3) 09/30/24 05:11
Physical Exam
Constitutional: Comfortable and Distress
EENT: Anicteric and Moist mucous membranes
Cardiovascular: Rhythm & rate is regular and JVD present
Respiratory: Labored respirations
Neuro/Psych: Alert and Oriented
Data Reviewed
-
Date of Service: October 03, 2024
Medical Decision Making: Reviewed Test Results, Test Interpretation and Review of Case with other Provider
EKG: Tracing Personally Visualized and interpreted
Echo: Report Reviewed by me
X-Ray/CT/US/MRI/NUC/PET: Image Personally Visualized and interpreted (chest tube in left and pleural effusion on right. )
Labs: Labs Reviewed by me
Old Records: Reviewed
Critical Care Time (in minutes): 35
--- NOTE | 2024-10-03 10:44 | W.PN.ID1 ---
Date of Service
Date of Service: October 03, 2024
Today's Communication
- await chest imaging
- if drainable collection would send for pH, protein, glucose, LDH, cell count, culture; and peripheral LDH around the same time
- flu A subtyping
- c/w zosyn at this time, with eventual transition to oral therapy anticipated (levofloxacin and amoxicillin 1 gm TID)
- Patient has completed a 10-day course of Tamiflu
- steroids per pulmonary, started 10/01
Assessment / Plan
Influenza A
Strep Pneumoniae Pneumonia
Secondary health care acquired pneumonia due to Pseudomonas
Bacteremia due to Strep Pneumoniae - transient
Acute hypoxemic respiratory failure - increase in oxygen requirement
Hypotension - on midodrine
Leukocytosis-improved today
- repeat blood cultures 09/23 and 09/24 - no growth
- 09/23 blood cultures S Pneumoniae - intermediate to levofloxacin; sensitive to penicillin
- await chest imaging
- if drainable collection would send for pH, protein, glucose, LDH, cell count, culture; and peripheral LDH around the same time
- check subtyping for flu A - acknowledge that it may be negative at this point, if still positive would have concern for developing resistance and would add baloxavir, pleural effusion/empyema also be contributing to hypoxemia
- sputum culture with few Pseudomonas - yeast from sputum is normal paresh
- pneumothorax; chest tube management per pulmonary
- c/w zosyn at this time, with eventual transition to oral therapy anticipated (levofloxacin and amoxicillin 1 gm TID)
- Patient has completed a 10-day course of Tamiflu
- steroids per pulmonary, started 10/01
- Patient will need to establish care with a PCP moving forward
- Recommend PCV20 vaccine at local pharmacy when fully recovered
- patient is remains critically ill with respiratory failure, on high flow O2; prognosis guarded
Chief Complaint
-: Pneumonia and Other (Flu A, S pneumo pneumonia, Pseudomonas pneumonia)
Subjective / Review of Systems
afebrile
BP stable
remains on high flow plus nonrebreather - increased L today to 55L and FiO2 increased to 100%
no new complaints
cough ongoing - no sputum production
Vital Signs / Physical Exam
Vital Signs
Vital Signs
Temp Pulse Resp BP Pulse Ox
97.3 F 69 29 116/85 96
10/03/24 07:00 10/03/24 10:03 10/03/24 10:03 10/03/24 10:03 10/03/24 10:03
Physical Exam
Constitutional: Acutely Ill and Chronically Ill
Cardiovascular: Regular Rate and S1/S2; Negative Murmur or Rub
Pulmonary: Clear, Symmetric and Coarse; Negative Wheezes or Rales
Gastrointestinal: Soft, Non Tender, Non Distended and Normal Bowel Sounds
Skin: Warm and Dry; Negative Rash or Jaundice
Neurological: Awake
Objective Data
Lab Data
Lab Results
10/03/24 04:27
10/03/24 04:27
PT 24.5 Sec (11.4-14.6) H 10/01/24 03:25
INR 2.19 10/01/24 03:25
APTT 35.3 Sec (23.4-35.0) H 10/01/24 03:25
Estimated Creat Clear 77 ml/min 10/03/24 04:27
Lactic Acid Cancelled 09/22/24 22:31
Total Bilirubin 1.0 mg/dl (0.2-1.3) 09/23/24 05:29
AST 36 U/L (14-36) 09/23/24 05:29
ALT 23 U/L (0-35) 09/23/24 05:29
Alkaline Phosphatase 84 U/L (38-126) 09/23/24 05:29
Most recent labs reviewed.
Micro Results:
09/22/24 10:33 Blood Culture - Final
Blood/Venous Streptococcus pneumoniae
Gram Stain - Final
09/28/24 18:31 C. difficile GDH Antigen & Toxins - Final
Feces/Stool Negative for toxigenic C.difficile
09/24/24 03:40 Blood Culture - Final
Blood/Venous No Growth - Final Report
09/24/24 03:30 Blood Culture - Final
Blood/Venous No Growth - Final Report
09/23/24 16:43 Blood Culture - Final
Blood/Venous No Growth - Final Report
09/23/24 13:35 Blood Culture - Final
Blood/Venous No Growth - Final Report
09/23/24 22:22 Respiratory Culture - Final
Sputum Pseudomonas aeruginosa
Binta albicans
Gram Stain - Final
09/22/24 12:38 Blood Culture - Final
Blood/Venous Streptococcus pneumoniae
Gram Stain - Final
09/22/24 22:22 Legionella Urinary Antigen - Final
Urine Negative for Legionella pneumophila Serogroup 1 antigen.
A negative result does not rule out the possiblity of
Legionella infection due to other serogroups or species of
Legionella. Clinical correlation is recommended.
Streptococcus pneumoniae Antigen (M - Final
Positive for Strep pneumo Ag
09/22/24 10:33 Influenza Types A & B (EUN) - Final
Nasal Swab Influenza A Positive, NAAT
--- NOTE | 2024-10-03 11:56 | W.PN.HOSP.TC ---
Today's Communication/Plan
-
monitor o2 status closely
CT chest
drainage vs. CT
IV abx
off steroids
Assessment / Plan
Assessment / Plan
Physical Exam
General: no acute distress, chronically ill-appearing
HEENT: NormoCephalic, Moist mucous membranes and Atraumatic
Respiratory: Rhonchi and Crackles, high flow nasal cannula, +NRB
Cardiac: S1/S2, regularly regular,
GI: Soft, Non Tender, Non Distended and Normal Bowel Sounds; No Organomegaly
Musculoskeletal: No Clubbing, No Cyanosis and No Edema
Skin: No Rash
Neuro: AO x 3
Psych: Anxious
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
# Acute hypoxic respiratory failure likely secondary to severe bilateral pneumonia secondary to Pseudomonas plus strep pneumo
# Spontaneous left-sided pneumothorax
-Duoneb R QID and PRN switched to Xopenex d/t tachycardia and cont with PRN for now.
-VEST therapy DCed, Incentive Spirometry
-Currently on high flow nasal cannula on 100% FiO2 +NRB.
-CT chest appreciated multilobar pna severe in RLL underlying mass not excluded (follow up CT after treatment recommended relayed to patient and patient spouse)
-Repeat chest x-ray earlier today There is decreased size of the left-sided pneumothorax, now trace along the apex. There is a moderate, likely loculated right pleural effusion, similar to prior.
-Also started on IV steroids Decadron 4 mg every 8-DCed on 10/03.
-Concern for ARDS as with persistent severe hypoxemia.
-Will try to avoid positive balance and try to keep it on the skein yarn drier side.
-NPO. seems approaching towards intubation
#Septic Shock elevated (tachycardia, tachypnea) lactate, hypotension initially requiring pressor support
#Fever cough/generalized weakness likely from flu/polymicrobial pneumonia with strep and Pseudomonas
#Sinus tachycardia likely 2/2 severe sepsis PNA
-IVF completed
-Tamiflu continued
-Tylenol as needed for fever
-Mucinex as needed for cough
-Blood cultures positive for Strep pneumonia, follow up repeat blood cx's NGTD
-Sputum Cx pos for Pseudomonas and josy albicans-on Zosyn
-ID eval appreciated ceftriaxone discontinued in favor of Zosyn
-completed Tamiflu 10 day course,
-Bennie flu testing pending
-CT chest to asses R sided effusion. May require drainage vs. CT placement
# Spontaneous left-sided pneumothorax
Noted on chest x-ray on 09/29/2024
Status post emergent chest tube placement by [facility]
Daily chest x-ray. Will monitor for now.
# Right-sided loculated pleural effusion
CT chest ordered per ICU
# Atrial fibrillation/atrial flutter rapid ventricular response
Started on Cardizem infusion.
Blood pressure soft and thus unable to tolerate Cardizem and thus plan to switch to amiodarone gtt
Anticoagulation with Eliquis
Echocardiogram with EF of 60 to 65%. Mild to moderate mitral regurgitation. Mildly elevated PASP with PASP of 38 mmHg.
TSH wnl
Status post conversion to normal sinus rhythm.
Plan to discontinue amiodarone drip and stop digoxin
Patient is on p.o. amiodarone 400 mg twice daily and Toprol 25 mg twice daily
now cardiology recs to stop amiodarone.
Cardiology has been consulted
# Mild hypotension likely combination of Cardizem versus severe tachycardia due to A-fib
Start patient on midodrine
Pressors if needed
#Anemia
likely of chronic disease
no active luminal bleeding noted
Start patient on IV Venofer. B12 folate normal
Heme test stools
Transfuse for hemoglobin less than 7.
#Loose bowel movements
Likely due to antibiotic associated
C. difficile negative
Start probiotic
Imodium if needed
Resolved.
# Anxiety could be situational
Ativan as needed
#Hypokalemia
replete/monitor
# Hyponatremia/metabolic acidosis /acute kidney injury likely hypovolemic
-resolved
-IVF completed
#Hypokalemia
#Mild Hypophosphatemia
monitor and replete as necessary
Underweight
nutrition on board
# DVT prophylaxis
-Eliquis
# CODE STATUS
-Full code
Anticipated Discharge: > 48 hours
Subjective/Interval History
-
Date of Service: October 03, 2024
this am with sob.
desaturation and increased fio2
now on 100%FIO2 and NRB
Objective Data
-
Labs:
Laboratory Results
10/03/24 10/03/24
04:27 09:23
WBC 7.9
Hgb 7.7 L
Hct 23.3 L
Plt Count 694 H
HCO3 34.8 H
Sodium 136
Potassium 3.3 L
Chloride 96 L
Carbon Dioxide 36 H
BUN 26 H
Creatinine 0.5 L
Glucose 111 H
Calcium 7.6 L
Vital Signs:
Vital Signs
Temp Pulse Resp BP Pulse Ox
97.5 F 69 22 115/63 94
10/03/24 11:42 10/03/24 11:34 10/03/24 11:34 10/03/24 11:00 10/03/24 11:34
I&O
10/02/24 10/03/24 10/04/24
06:59 06:59 06:59
Intake Total 1210 / 1210 890 / 890 370 / 370
Output Total 420 / 420 295 / 295
Balance 790 / 790 595 / 595 370 / 370
--- NOTE | 2024-10-03 12:21 | PTCARENOTE ---
Patient reassessed. No major changes. Anxiety improved post Ativan. NSR on tele. Rate in the 60-70's. Requiring HFNC + NRB. Attempted to wean off NRB; pulse ox down to low 80's. Lung sound shallow/diminished throughout. Scattered crackles
anteriorly. Cough productive; hunt. No changes to left chest tube. Remains to wall suction. +1 air leak. Minimal output. Awaiting chest ct. Placed in chair position in bed.
[2024-10-03] MEDS: OCEAN, SALINE MIST 2 SPRAYS NASAL (12:57)
--- NOTE | 2024-10-03 14:03 | PTCARENOTE ---
Chest ct completed. VSS.
[2024-10-03] MEDS: FERRLECIT 110 MG IV (14:14)
--- NOTE | 2024-10-03 14:45 | PTCARENOTE ---
Patient coughing up thick, hunt sputum. Oral suctioning provided.
--- NOTE | 2024-10-03 15:24 | CM ---
CM following re: discharge planning.
Discussed in Rounds, reviewed pt's chart, met with pt and pt's at bedside.
Per Rounds meeting, pt requires 55L HFNC with FIO2 100%, continue supportive care.
D/C plan: uncertain at this time and will de[end on pt's progress.
CM will follow with discharge plan updates as hospitalization progresses
--- NOTE | 2024-10-03 15:45 | PTCARENOTE ---
Patient resting comfortably. No major changes in assessment. Vitals stable. Pulse ox 94-95% on HFNC+ NRB. Chest tube remains to suction. NSR.
--- NOTE | 2024-10-03 16:55 | PTCARENOTE ---
Hand Tube Winder at bedside to place right chest tube.
--- NOTE | 2024-10-03 17:50 | W.IMMPOSTOP ---
Surgical Immed Post Op Note
-
Primary Surgeon: Ray Yuan
Pre-op Diagnosis: Philip-pneumothorax
Post-op Diagnosis: Suspected Pyo-pneumothorax
Procedure Performed: Chest tube placement, 8.0 F
Anesthesia Type: Local
Specimen / Cultures: Pleural fluid sent for cultures and fluid analysis
Estimated Blood Loss: Minimal
Complications: None
Operative Findings: Large volume of air bubbles were noted in the atrium along with sero-sanguinous fluid
After review of CT, bedside POCUS was performed, absence of lung sliding was identified in the posterior right chest. Loculated effusion was also identified. Procedure was explained to patient and her spouse at bedside. Consent was obtained after
discussing risks including bleeding. Patient was placed in the sitting position and area was marked. After cleaning area and sterile drape was placed. Local anesthesia was given with lidocaine. Real time US view was obtained and needle advanced
until air was aspirated. Additional lidocaine was injected in the tract. Small incision was then made on the skin and 8.0 F catheter was adavced under suction. Once air was aspirated, needle was help still and catheter was advanced into the chest
cavity. Suture was placed to secure catheter to the skin. Dressing was then applied and tubing connected to atrium at -20 suction. Air bubbles was immediately observed along with sero-sanguinous output. Small volume was collected and sent for
cultures and other studies. Patient tolerated the procedure well. CXR was subsequenlty ordered to confirm tube location.
--- NOTE | 2024-10-03 17:57 | PTCARENOTE ---
Right chest tube placed by [employer]. Chest tube placed to wall suction. Vitals stable. Patient denies pain. CXR ordered.
[2024-10-03 18:08] LABS: LDH 268 U/L (120-246)
[2024-10-03 19:20] LABS: Body Fluid Glucose < 30 mg/dl; Body Fluid Protein 2.7 g/dl
[2024-10-03 19:47] LABS: Body Fluid WBC 87620 /CUMM
[2024-10-03 19:49] LABS: Body Fluid Mononuclear 22.5 %; Body Fluid Polymorphonuclear 77.5 %
[2024-10-03 19:54] LABS: Body Fluid LDH 9519 U/L
[2024-10-03] MEDS: DILAUDID 0.5 MG IV (19:57)
--- NOTE | 2024-10-03 20:00 | PTCARENOTE ---
rec`d pt at 1900 AAOx3. anxious at times. re leg foot drop. SR on monitor. [id number]. + 1 GLADIS. weak but palpable pulses. high flow 55L/100% w/ nonrebreather. left anterior chest tube-wall suction, -30, straw color output. rt posterior chest tube
-20, wall suction, serosang drainage. poor appetite, did not eat dinner. purwick in place. foams on heels, sacrum and MASD of the groin. rt dual luman PICC flushed and patent. pt given pain meds at change of shift due to right sided chest discomfort
due to tube. family at bedside. call hale in reach, safe environment maintained.
[2024-10-03 20:07] LABS: Body Fluid Second Tech EYM
[2024-10-03] MEDS: TYLENOL 650 MG PO (23:58)
[2024-10-04] VITALS (60 sets, daily range): BP systolic 71–229; BP diastolic 47–198; BMI 21.0
[2024-10-04] MEDS: ZOSYN 100 IV ×4 (00:08→17:25)
[2024-10-04 03:50] LABS: % Basophils 0.2 % (0-2); % Immature Granulocytes 1.5 % (0-0.5); % Lymphocytes 5.8 % (20.5-51.1); % Monocytes 12.1 % (1.7-9.3); % Neutrophils 80.4 % (42.2-75.2); Absolute Immature Granulocytes 0.2 10^3/uL (0-0.05); Absolute Lymphocytes 0.6 10^3/uL (1.2-3.4); Absolute Monocytes 1.3 10^3/uL (0.1-0.6); Absolute Neutrophils 8.5 10^3/uL (1.4-6.5); Hematocrit 24.1 % (37.0-47.0); Hemoglobin 7.8 g/dL (12.0-16.0); Mean Corp Hgb Conc. 32.4 g/dL (33.0-37.0); Mean Corpuscular Hgb 29.5 pg (27.0-31.0); Mean Corpuscular Volume 91.3 fL (81.0-99.0); Mean Platelet Volume 9.3 fL (7.4-10.4); Nucleated Red Blood Cells % 0 %; Platelet Count 738 10^3/uL (130-400); Red Blood Cell Count 2.64 10^6/uL (4.20-5.40); Red Cell Dist. Width 14.9 % (11.5-14.5); White Blood Cell Count 10.5 10^3/uL (4.8-10.8)
[2024-10-04 03:53] LABS: Blood Urea Nitrogen 27 mg/dl (7-17); Carbon Dioxide 35 mmol/L (22-30); Chloride 97 mmol/L (98-107); Estimated Creatinine Clearance 77 ml/min; Glucose 98 mg/dl (70-99); Magnesium 2.1 mg/dl (1.6-2.3); Potassium 3.8 mmol/L (3.5-5.1); Sodium 137 mmol/L (135-145); eGFR > 60.00
--- NOTE | 2024-10-04 04:00 | PTCARENOTE ---
pt reassessed. no changes in pt assessment. POX 100% on high flow 55L/100%.
--- NOTE | 2024-10-04 06:01 | W.PN.UPDATE ---
Update Note
Progress Note Update
We were asked to give an opinion on whether decortication was possible in this case. I independently reviewed her chart and recent CT imaging. She has severe bilateral consolidation of her lungs and parenchymal necrosis with possibly intrapulmonary
abscesses requiring significant amounts of supp oxygen. There is a loculated component to both sides, albeit her right side has both a ptx and hydrothorax. With her current pulmonary status, I do not believe she would benefit from surgical
intervention. I would recommend placement of large bore drains bilaterally with attempted TPA/Dornase on the right side with the intention of allowing her lungs to recover. At the current time, she is not a surgical candidate.
--- NOTE | 2024-10-04 07:28 | W.PN.INTV ---
Today's Communication / Plan
Recommendations
-Start tPA dornase intrapleurally on the right side
-Add Micafungin
-Follow-up chest x-ray in a.m
-Follow up ABG and make Ventilator changes accordingly
-Palliative care consult
Assessment
-
69-year-old woman without significant past medical history was admitted to the hospital with flulike symptoms, shortness of breath. Found to be hypoxemic, septic with bilateral infiltrates on x-ray. Requiring up to 6 L supplemental oxygen. Found
to be flu positive, complicated by strep pneumo bacteremia, along with Pseudomonas in the sputum with Binta. We were consulted on 09/26/2024 due to worsening oxygenation and possible pulmonary mass.
Patient had positive blood cultures with strep pneumo on 09/22. Bacteremia has since cleared. Patient continues to be on Zosyn. Stay was further complicated by a spontaneous left-sided pneumothorax requiring chest tube placement 09/29.
Unfortunately, hypoxemic respiratory failure worsened and she was transferred to the ICU on 09/30/2024 for closer monitoring due to requiring 100%% FiO2 on high flow NC. Worsening right lung opacity noted on CT of the x-rays. 10/03, bedside POCUS
confirmed a loculated pleural effusion. A CT scan was performed which was suggestive of prior pneumothorax. A bedside chest tube on the right side was placed with slight improvement in the loculated effusion and fluid suggestive of empyema with
LDH more than 9000.
10/04. Patient noted to have increasing respiratory distress with gradually declining oxygen saturation despite high flow nasal cannula and nonrebreather. Patient was intubated and placed on mechanical ventilation.
Assessment and plan
#1. Acute hypoxemic respiratory failure due to bilateral pneumonia-influenza A+/bacterial superinfection with Pseudomonas aeruginosa + strep pneumonia c/b Streptococcus pneumonia bacteremia.
-Respiratory status worsened requiring intubation on 10/04
-Currently on volume control, low tidal volume setting low tidal volume setting with tidal volume 300, PEEP of 5, respiratory rate 18 and 100% FiO2
-Continue Xopenex. Reported intolerance to Atrovent
-Hold off inhaled and systemic steroids in view of influenza A
-Mucolytics with prn mucinex
-Completed Tamiflu
-Guarded prognosis
#2. Spontaneous left secondary pneumothorax 09/29/2024 now s/p left sided chest tube.
-Rapid expansion of left-sided pneumothorax postintubation. Emergent placement of second 12 Tamazight chest tube on the left side 10/04. Patient already had an anterior 8 Tamaz[address] chest tube in place but was not draining any air.
-Significant improvement of pneumothorax post chest tube placement
#3. Right-sided prior pneumothorax with loculated effusion/empyema.
-Continue IV antibiotics, Zosyn. Await pleural fluid culture sensitivity
-Chest tube placed 10/03 for pyo-pneumothorax. Pleural fluid LDH more than 9000 highly suggestive of empyema
-Patient appears to have trapped lung with significant pleural adhesions. Will start tPA/dornase total of 6 doses today.
-Severe necrotizing pneumonia with guarded prognosis
-Patient not felt to be a surgical candidate per CT surgery evaluation
#4. Septic shock -
-Postintubation blood pressure further dropped requiring initiation of Levophed
-Continue broad-spectrum antibiotics
-Micafungin added per ID service
#5. Acute kidney injury - resolved post IV fluid
-Daily labs
#6. Atrial fibrillation/flutter with rapid ventricular response in the setting of acute illness 09/26/2024 --> now in NSR
-Suspect this is in the setting of acute illness, normal sinus rhythm now
-Cardiology service on case, currently on Eliquis 5 mg twice daily and metoprolol
Conditions present prior admission:
None
Does not follow-up with primary care
Does not take any medications
Non-smoker

Critical care statement: A total of 70 minutes of critical care time was provided for this patient today. This includes management of unstable vital signs, evaluation of the patient at bedside, reviewing the patient's pertinent medical records
including ventilator settings, arterial blood gases, radiographs, microbiology, laboratory evaluations and discussion with primary team, critical care nursing, and respiratory therapy. Time also includes discussion with family about plan of care
and time spent during bedside chest tube placement.
Subjective Dataa
Subjective Data
Date of Service:
Date of Service: October 04, 2024
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
Subjective:
Patient appeared to be in moderate respiratory distress and was not able to complete full sentence.
Objective Data
Data Reviewed
Vital Signs / I&O / Oxygen:
Vital Signs
Temp Pulse Resp BP Pulse Ox
99 F 77 33 165/88 89
10/04/24 04:00 10/04/24 07:00 10/04/24 07:00 10/04/24 07:00 10/04/24 07:00
Intake and Output
10/03/24 10/04/24 10/05/24
06:59 06:59 06:59
Intake Total 890 / 890 580 / 580
Output Total 295 / 295 490 / 490
Balance 595 / 595 90 / 90
SaO2 89
Nasal Cannula flow liters per 55
minute
Physical Exam
General: Respiratory Distress (Moderate distress on exam), Comfortable, Chills (negative), Sweats (negative) and Other (Anxious appearing)
HEENT: Normocephalic and Anicteric
Cardiovascular: S1-S2, Regular Rhythm, Rub (negative) and Peripheral Edema (Trace lower extremity edema bilaterally)
Respiratory: Wheeze (negative), Crackles (Bilaterally), Rhonchi (Bilaterally), Accessory Resp Muscle Use (Mild, especially with exertion), Stridor (negative), Chest Tube (Left hemithorax with continuous level 1 airleak seen during expiration) and
Other (Grossly diminished breath sounds mainly on right lung)
GI: Soft, Non Distended, Non Tender and Normal Bowel Sounds
Neurology: AO x 3 and Tremors (negative)
Skin: Warm, Dry, Cyanosis (negative) and Jaundice (negative)
Labs/Micro/Reports
Lab Data
10/04/24 03:09
10/04/24 03:09
Laboratory Results
10/03/24
09:23
pH 7.57 H
pCO2 38 H
pO2 77 L
HCO3 34.8 H
O2 Delivery Level
[2024-10-04] MEDS: XOPENEX 1.25 MG INHALANT SOLUTION INH ×4 (07:49→19:36)
[2024-10-04] MEDS: ATROVENT NEBULES INH (07:49)
--- NOTE | 2024-10-04 08:00 | PTCARENOTE ---
Assumed care of patient at 0645. Assessed and documented in shift assessment on worklist.
Patient is pleasant, AAOX4. Anxious at times. Currently SR on monitor. + Pulses. RL DL PICC patent, dressing CDI. Requiring 60L 100% HFNC and 100% NRB, SpO2 88%-90%. Using accessory muscles. R Chest Tube -20, no evidence of water leak. R Lung
coarse, rhonchorous. L Chest Tube -30, no evidence of water leak. L Lung diminished throughout. Rounded abdomen, +BM x 2 this AM, loose and watery. Removed external female catheter due to stool incontinence. Maintaining NPO except medications due to
tenuous respiratory status. MASD to groin, perineum, otherwise skin in tact.
Awaiting decision about intubation status.
[2024-10-04] MEDS: ELIQUIS 5 MG PO (08:02)
[2024-10-04] MEDS: VISBIOME 2 CAP PO (08:02)
[2024-10-04] MEDS: TOPROL XL 25 MG PO (08:03)
[2024-10-04] MEDS: ATIVAN 0.5 MG PO (08:03)
[2024-10-04] MEDS: ProAmatine 5 MG PO (08:03)
[2024-10-04] MEDS: IMODIUM 2 MG PO (08:03)
--- NOTE | 2024-10-04 08:55 | W.PN.ID1 ---
Date of Service
Date of Service: October 04, 2024
Today's Communication
added micafungin
continue zosyn
follow cultures
Assessment / Plan
Influenza A
Strep Pneumoniae Pneumonia - necrotizing
Secondary health care acquired pneumonia due to Pseudomonas
Empyema of the right lung
Bacteremia due to Strep Pneumoniae - transient
Acute hypoxemic respiratory failure
Intermittent Hypotension - remains on midodrine
Leukocytosis - resolved
- 09/23 blood cultures S Pneumoniae - intermediate to levofloxacin; sensitive to penicillin
- 09/23 sputum culture with few Pseudomonas
- check subtyping for flu A - suspect it will be negative at this point
- L pneumothorax 09/29; chest tube management per pulmonary
- R pyopneumothorax 10/03; pigtail placed, evaluated by CT surgery Dr Ny 10/04 - not currently a surgical candidate
- will follow 10/03 body fluid culture
- if intubated would send a tracheal aspirate for culture, given O2 needs doubt she would be able to produce a sputum at this point
- c/w zosyn at this time - anticipate a long course of IV therapy
- given concern for necrotizing process, recent steroids, added micafungin
- recheck QTc previously prolonged we may be able to deescalate to fluconazole pending this reassessment
- Patient has previous completed a 10-day course of Tamiflu 10/02
- agree with stopping steroids - (10/03)
- Patient will need to establish care with a PCP moving forward
- Recommend PCV20 vaccine at local pharmacy when fully recovered
- patient is remains critically ill with respiratory failure, on high flow O2; prognosis guarded
Chief Complaint
-: Pneumonia and Other (Flu A, S pneumo pneumonia, Pseudomonas pneumonia)
Subjective / Review of Systems
remains afebrile
bp stable
high flow NC now on 60L and 100%
R pigtail placed yesterday - larve volume of air bubble along with sero-sanguinous fluid
Vital Signs / Physical Exam
Vital Signs
Vital Signs
Temp Pulse Resp BP Pulse Ox
97.7 F 74 27 131/71 91
10/04/24 08:00 10/04/24 08:03 10/04/24 08:01 10/04/24 08:03 10/04/24 08:01
Physical Exam
Constitutional: No Acute Distress
Cardiovascular: Regular Rate and S1/S2; Negative Murmur or Rub
Pulmonary: Clear and Symmetric; Negative Wheezes or Rales
Gastrointestinal: Soft, Non Tender, Non Distended and Normal Bowel Sounds
Skin: Warm and Dry; Negative Rash or Jaundice
Objective Data
Lab Data
Lab Results
10/04/24 03:09
10/04/24 03:09
PT 24.5 Sec (11.4-14.6) H 10/01/24 03:25
INR 2.19 10/01/24 03:25
APTT 35.3 Sec (23.4-35.0) H 10/01/24 03:25
Estimated Creat Clear 77 ml/min 10/04/24 03:09
Estimated Creat Clear Cancelled 10/04/24 03:09
Lactic Acid Cancelled 09/22/24 22:31
Total Bilirubin 1.0 mg/dl (0.2-1.3) 09/23/24 05:29
AST 36 U/L (14-36) 09/23/24 05:29
ALT 23 U/L (0-35) 09/23/24 05:29
Alkaline Phosphatase 84 U/L (38-126) 09/23/24 05:29
10/03/24
18:33
Fluid WBC 35968
Fluid Mononuclear Cell 22.5
Fl Polymorphonucl Cell 77.5
Fluid Other Cells Not Reportable
Fluid Diff Path Review Not Reportable
Fluid Glucose < 30
Fluid Total Protein 2.7
Fluid LDH 9519
10/03/24
11:13
Influenza Type A Source Pending
Influenza A RNA INAAT Pending
Bennie Influenza H5 Pending
10/03/24
04:27
Serum Lactate Dehydrogenase 268 H
Most recent labs reviewed.
CT Scan: Image Reviewed and Report Reviewed (necrotizing pneumonia. There is bronchiectasis within the right lower lobe... possible developing pulmonary abscesses...Left-sided hydropneumothorax, left-sided chest tube. 3. Loculated gas and fluid
within the right - pyopneumothorax)
Micro Results:
10/03/24 18:33 Body Fluid Culture - Pending
Pleural Fluid Gram Stain - Pending
09/22/24 10:33 Blood Culture - Final
Blood/Venous Streptococcus pneumoniae
Gram Stain - Final
09/28/24 18:31 C. difficile GDH Antigen & Toxins - Final
Feces/Stool Negative for toxigenic C.difficile
09/24/24 03:40 Blood Culture - Final
Blood/Venous No Growth - Final Report
09/24/24 03:30 Blood Culture - Final
Blood/Venous No Growth - Final Report
09/23/24 16:43 Blood Culture - Final
Blood/Venous No Growth - Final Report
09/23/24 13:35 Blood Culture - Final
Blood/Venous No Growth - Final Report
09/23/24 22:22 Respiratory Culture - Final
Sputum Pseudomonas aeruginosa
Binta albicans
Gram Stain - Final
09/22/24 12:38 Blood Culture - Final
Blood/Venous Streptococcus pneumoniae
Gram Stain - Final
09/22/24 22:22 Legionella Urinary Antigen - Final
Urine Negative for Legionella pneumophila Serogroup 1 antigen.
A negative result does not rule out the possiblity of
Legionella infection due to other serogroups or species of
Legionella. Clinical correlation is recommended.
Streptococcus pneumoniae Antigen (M - Final
Positive for Strep pneumo Ag
09/22/24 10:33 Influenza Types A & B (EUN) - Final
Nasal Swab Influenza A Positive, NAAT
--- NOTE | 2024-10-04 10:21 | W.PN.CD ---
Today's Communication / Plan
-
- Supportive cardiac care.
- will continue to follow in this critically sick patient.
Impression / Plan
-
Hypoxic respiratory failure +Flu A/PNA: severe, requiring high flow O2
-Treated with Tamiflu and antibiotics
-Continue management and supportive care as per primary team and ID
-PTX and loculated effusion.
-Challenging respiratory status.
-With tenuous respiratory status, will discontinue Amiodarone with risk of amiodarone toxicity.
-Agree with Steroids.
Strep Pneumoniae Bacteremia:
-secondary infection - Pseudomonas.
-on ABX and ID following
-Considering fungal infection and added Micafungin.
Aflutter with RVR: newly recognized, now back in NSR
-typical. Converted to NSR 09/30 AM on Amiodarone drip. Was on digoxin (stopped 09/30/2024).
-Secondary to underlying infectious processes
-Loaded with Amiodarone. Holding Amiodarone for now given resp status not improving.
-Continue metoprolol 25mg BID
-ECHO 09/29/24: LVEF 60%, Moderate MR, PASP around 40 mmHg.
-[id number] score is 2 for age and female. Denies bleeding issues or falls.
-Continue Eliquis 5mg bid
Subjective: On oxygen with continued hypoxia. Telemetry unremarkable.
Physical Exam
Vital Signs/Labs
Vital Signs
Temp Pulse Resp BP Pulse Ox
97.7 F 79 31 155/102 88
10/04/24 08:00 10/04/24 09:02 10/04/24 09:02 10/04/24 09:02 10/04/24 09:02
10/03/24 10/04/24 10/05/24
06:59 06:59 06:59
Actual Weight 55.5 kg 55.5 kg
10/04/24 03:09
10/04/24 03:09
PT 24.5 Sec (11.4-14.6) H 10/01/24 03:25
INR 2.19 10/01/24 03:25
APTT 35.3 Sec (23.4-35.0) H 10/01/24 03:25
Magnesium 2.1 mg/dl (1.6-2.3) 10/04/24 03:09
Physical Exam
Constitutional: Comfortable and Distress
EENT: Anicteric and Moist mucous membranes
Cardiovascular: Rhythm & rate is regular, Pedal edema is absent and JVD pressure is normal
Respiratory: Crackles Present and Rhonchi Present
GI: Soft, Non tender and Normal bowel sounds
Other: Skin
Data Reviewed
-
Date of Service: October 04, 2024
Medical Decision Making: Reviewed Test Results, Test Interpretation and Review of Case with other Provider
EKG: Tracing Personally Visualized and interpreted
--- NOTE | 2024-10-04 10:32 | PTOTSP ---
Reviewed chart and noted pt transferred to ICU over weekend and PT/OT orders were not continued upon transfer. Noted pt now has bilateral chest tubes and is on highflow O2. Will need updated PT/OT orders if stable to participate in PT activity.
--- NOTE | 2024-10-04 10:36 | W.PN.HOSP.TC ---
Today's Communication/Plan
-
Continue with antibiotic
Antifungal added
Wean oxygen as tolerated
Low threshold for intubation
Assessment / Plan
Assessment / Plan
Physical Exam
General: no acute distress, chronically ill-appearing
HEENT: NormoCephalic, Moist mucous membranes and Atraumatic
Respiratory: Rhonchi and Crackles, high flow nasal cannula, +NRB. b/l chest tube noted.
Cardiac: S1/S2, regularly regular,
GI: Soft, Non Tender, Non Distended and Normal Bowel Sounds; No Organomegaly
Musculoskeletal: No Clubbing, No Cyanosis and No Edema
Skin: No Rash
Neuro: AO x 3
Psych: Anxious
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
# Acute hypoxic respiratory failure likely secondary to severe bilateral pneumonia secondary to Pseudomonas plus strep pneumo
# Spontaneous left-sided pneumothorax
-Duoneb R QID and PRN switched to Xopenex d/t tachycardia and cont with PRN for now.
-VEST therapy DCed, Incentive Spirometry
-Currently on high flow nasal cannula on 100% FiO2 +NRB.
-CT chest appreciated multilobar pna severe in RLL underlying mass not excluded (follow up CT after treatment recommended relayed to patient and patient spouse)
-Repeat chest x-ray earlier today There is decreased size of the left-sided pneumothorax, now trace along the apex. There is a moderate, likely loculated right pleural effusion, similar to prior.
-Also started on IV steroids Decadron 4 mg every 8-DCed on 10/03.
-Concern for ARDS as with persistent severe hypoxemia.
-Will try to avoid positive balance and try to keep it on the sizing machine and drier operator side.
-seems approaching towards intubation.
-Palliative care has been consulted
#Septic Shock elevated (tachycardia, tachypnea) lactate, hypotension initially requiring pressor support
#Fever cough/generalized weakness likely from flu/polymicrobial pneumonia with Necrotizing strep pneumonia and Pseudomonas pneumonia
#Empyema
#Strep bacteremia due to pneumonia
#Sinus tachycardia likely 2/2 severe sepsis PNA
-IVF completed
-Tylenol as needed for fever
-Mucinex as needed for cough
-Blood cultures positive for Strep pneumonia, follow up repeat blood cx's NGTD
-Sputum Cx pos for Pseudomonas and josy albicans-on Zosyn
-ID eval appreciated ceftriaxone discontinued in favor of Zosyn
-completed Tamiflu 10 day course,
-Bennie flu testing pending
-Status post CT chest with necrotizing pneumonia patient also started on antifungal with micafungin
-Follow-up on the body fluid culture from the right-sided chest tube placement
-Patient was evaluated by CT surgery Dr. Ny on 10/04 and patient deemed not a surgical candidate
-In the long run patient will require long course of antibiotics of probably 6 weeks
# Spontaneous left-sided pneumothorax
Noted on chest x-ray on 09/29/2024
Status post emergent chest tube placement by [facility]
Daily chest x-ray. Will monitor for now.
# Right-sided Pyopneumothorax
Status post emergent chest tube placed by typing secretary on 10/03/2024
Fluid cultures and other studies sent
Will follow-up on the results
As mentioned above was evaluated by CT surgery and not deemed to be surgical candidate
# Atrial fibrillation/atrial flutter rapid ventricular response
Started on Cardizem infusion.
Blood pressure soft and thus unable to tolerate Cardizem and thus plan to switch to amiodarone gtt
Anticoagulation with Eliquis
Echocardiogram with EF of 60 to 65%. Mild to moderate mitral regurgitation. Mildly elevated PASP with PASP of 38 mmHg.
TSH wnl
Status post conversion to normal sinus rhythm.
Plan to discontinue amiodarone drip and stop digoxin
Patient is on p.o. amiodarone 400 mg twice daily and Toprol 25 mg twice daily
now cardiology recs to stop amiodarone.
Cardiology has been consulted
# Mild hypotension likely combination of Cardizem versus severe tachycardia due to A-fib
Start patient on midodrine
Pressors if needed
#Anemia
likely of chronic disease
no active luminal bleeding noted
Start patient on IV Venofer. B12 folate normal
Heme test stools
Transfuse for hemoglobin less than 7.
#Loose bowel movements
Likely due to antibiotic associated
C. difficile negative
Start probiotic
Imodium if needed
Resolved.
# Anxiety could be situational
Ativan as needed
#Hypokalemia
replete/monitor
# Hyponatremia/metabolic acidosis /acute kidney injury likely hypovolemic
-resolved
-IVF completed
#Hypokalemia
#Mild Hypophosphatemia
monitor and replete as necessary
Underweight
nutrition on board
# DVT prophylaxis
-Eliquis
# CODE STATUS
-Full code
Discussed with patient spouse Quinn at bedside in detail. Prolonged conversation regards for intubation versus next steps. Also recommended to involve other family members if needed.
Discussed with typing secretary
Prognosis guarded
Anticipated Discharge: > 48 hours
Subjective/Interval History
-
Date of Service: October 04, 2024
remains on 100% FIO2 HFNC/NRB
s/p R sided CT 10/03/24
spouse at bedside
remains with cough
Objective Data
-
Labs:
Laboratory Results
10/04/24 10/04/24 10/04/24
03:09 03:09 03:09
WBC 10.5
Hgb 7.8 L
Hct 24.1 L
Plt Count 738 H
Sodium Cancelled 137
Potassium Cancelled 3.8
Chloride Cancelled
Carbon Dioxide
BUN
Creatinine
Glucose
Calcium
10/04/24 10/04/24 10/04/24
03:09 03:09 03:09
WBC
Hgb
Hct
Plt Count
Sodium
Potassium
Chloride 97 L
Carbon Dioxide Cancelled 35 H
BUN Cancelled 27 H
Creatinine Cancelled
Glucose
Calcium
10/04/24 10/04/24 10/04/24
03:09 03:09 03:09
WBC
Hgb
Hct
Plt Count
Sodium
Potassium
Chloride
Carbon Dioxide
BUN
Creatinine 0.5 L
Glucose Cancelled 98
Calcium Cancelled 8.0 L
Vital Signs:
Vital Signs
Temp Pulse Resp BP Pulse Ox
97.7 F 79 31 155/102 88
10/04/24 08:00 10/04/24 09:02 10/04/24 09:02 10/04/24 09:02 10/04/24 09:02
I&O
10/03/24 10/04/24 10/05/24
06:59 06:59 06:59
Intake Total 890 / 890 580 / 580
Output Total 295 / 295 490 / 490
Balance 595 / 595 90 / 90
Data Reviewed
-
Total Time Spent with Patient (in minutes): 58
[2024-10-04] MEDS: SUBLIMAZE 50 MCG IV ×6 (11:41→21:02)
--- NOTE | 2024-10-04 11:45 | PTCARENOTE ---
Patient intubated by Anesthesia, MD at bedside.
[2024-10-04] MEDS: DIPRIVAN 100 IV ×2 (11:55→19:19)
--- NOTE | 2024-10-04 12:17 | W.CON.PAL ---
Consultation
-
Date/Time Consultation Requested: 10/04
Date/Time Consultation Performed: 10/04
Performing Provider: Negra MARROQUIN
Reason for Consult: Goals of Care Discussion
Reason for Admission
Illness Course/HPI
69 year old F admitted with SOB found to have sepsis 2/2 flu, strep/necrotizing PNA. Worsening respiratory status requiring 100% fi02, 60L, L pneumothorax s/p chest tube placement. Continued with worsening respiratory status, concern for needing
intubation and patient not doing well.
Consult for GOC.
Seen at bedside with no family present. Patient had unfortunately just been intubated for worsening respiratory status.
Objective Data
-
Objective Data:
Vital Signs
Temp Pulse Resp BP Pulse Ox
98.3 F 71 18 165/95 94
10/04/24 12:00 10/04/24 11:42 10/04/24 11:42 10/04/24 10:00 10/04/24 11:42
Laboratory Results
10/04/24 03:09
10/04/24 03:09
PT 24.5 Sec (11.4-14.6) H 10/01/24 03:25
INR 2.19 10/01/24 03:25
APTT 35.3 Sec (23.4-35.0) H 10/01/24 03:25
Total Protein 4.8 g/dl (6.3-8.2) L D 09/23/24 05:29
Albumin 2.2 g/dl (3.5-5.0) L 09/23/24 05:29
Palliative Performance Scale
Palliative Performance Scale:
PPS Level Ambulation Activity & Evidence of Disease Self Care Intake Conscious Level
100% Full Normal Activity & Work; Full Intake Full
No Evidence of Disease
90% Full Normal Activity & Work; Full Normal Full
Some Evidence of Disease
80% Full Normal Activity with Effort Full Normal or Full
Some Evidence of Disease Reduced
70% Reduced Unable Normal Job/Work Full Normal or Full
Significant Disease Reduced
60% Reduced Unable Hobby/Housework Occasional Normal or Full or Confusion
Significant Disease Assistance Reduced
50% Mainly Sit/Lie Unable to do Any Work Considerable Normal or Full or Confusion
Extensive Disease Assistance Req'd Reduced
40% Mainly in Bed Unable to do Most Activity Mainly Assistance Normal or Full or Drowsy;
Extensive Disease Reduced +/- Confusion
30% Totally Bed Unable to do Any Activity Total Care Normal or Full or Drowsy;
Bound Extensive Disease Reduced +/- Confusion
20% Totally Bed Bound Unable to do Any Activity Total Care Minimal to Full or Drowsy;
Extensive Disease Sips +/- Confusion
10% Totally Bed Bound Unable to do Any Activity Total Care Mouth Care Drowsy or Coma;
Extensive Disease Only +/- Confusion
0%
PPS Score Level:
Palliative Performance Score Response
Palliative Performance Score Response: 10%
Physical Exam
-
General: Appears Chronically Ill
HEENT: Normocephalic
Respiratory: Chest Tubes
Cardiac: Regular Rhythm
Peripheral Vascular: No Edema
GI: Soft
Neuro: Sedated
Psych: Other (sedated and intubated )
Assessment / Plan
-
Assessment/Plan:
69 year old F with respiratory failure due to b/l necrotizing PNA, now intubated
- consulted for assistance with GOC for possible need for intubation
- seen this PM and patient already intubated
- discussed with vice president marketing & development - will follow along and monitor patients progress and remain available for GOC discussions
Care Reviewed
Data Reviewed
Radiology procedure: Image Reviewed
Medical Tests: I reviewed
Reviewed with: Patient and Physician
[2024-10-04] MEDS: SUBLIMAZE 100 IV (12:23)
[2024-10-04] MEDS: LEVOPHED 250 IV (13:00)
--- NOTE | 2024-10-04 13:06 | W.IMMPOSTOP ---
Surgical Immed Post Op Note
-
Primary Surgeon: Ray Yuan
Assisting Surgeon:
Pre-op Diagnosis:
Post-op Diagnosis:
Procedure Performed: Left sided 14F Chest tube placement, emergent for expanding pneumothorax post intubation
Anesthesia Type: Local Anesthesia
Specimen / Cultures: None
Estimated Blood Loss: Minimal
Complications: None
Operative Findings: Large volume air noted in the atrium along with serous pleural fluid. Immediate improvement noted in the peak pressure (41 to 27) and Saturation improved form 87 to 94%
Left lateral chest tube placement
Patient required intubation and mechanical ventilation followed by rapid expansion of pneumothorax on the left side. Patient had an 8 [address] chest tube in place which was put on suction with no change in pneumothorax. Patient also noted to have
high peak pressure on ventilator and a decision was made to place an emergent chest tube. Consent was obtained from patient's spouse.
Ultrasound was used and absence of lung sliding was confirmed in the left lateral area in the triangle of safety. Area was cleaned and a sterile drape was placed. Local anesthesia was given on the skin followed by the needle was advanced just
above the rib until air bubbles were aspirated. Additional lidocaine was injected on the way out. A small incision was subsequently made and a large bore needle was introduced and once air aspirated syringe was disconnected and guidewire was
inserted. No resistance was noted. Subsequently needle was removed and a dilator was introduced. After dilation chest tube catheter was introduced and guidewire and introducer were subsequently removed. Chest tube was connected to container and
immediately large volume of air bubbles were noted. This was immediately followed by improvement in peak pressure as well as improving oxygen saturation. Sutures were placed and sterile dressing was placed on the chest tube. -20 suction was
started.
--- NOTE | 2024-10-04 13:18 | W.PN.ANESINT ---
Addendum entered and electronically signed by Amador Edward CRNA 10/04/24 13:22:
time: [id number]
Original Note:
Anesthesia Intubation Note
- Intubation Note
Intubation Note:
Diagnosis: acute respiratory failure, hypoxia
Blade: mac 4
Tube Size: 7.5
Depth: 21cm
Side Taped: right
Drugs Used: propofol 80mg ,succ 100mg
Grade View: 1
EtCO2 Present: yes
Atraumatic: yes
Attempts: 1
Insertion Start and Stop Time:
SaO2 Pre: 85
SaO2 Post: 97
Glidescope Used: yes
Other Airway Adjustments:
Pre-Oxygenated: yes
Portable Chest X-Ray: done
RSI:
Suctioned:
Bilateral Breath Sounds Confirmed: yes
Vent Settings:
Settings per _x__Attending Physician
[2024-10-04 13:44] LABS: B.E. 8.6 mmol/L; O2 Saturation % 99.3 % (94-98); PCO2 64 mmHg (32-35); PO2 132 mmHg (83-108); pH 7.37 (7.35-7.45)
[2024-10-04] MEDS: MYCAMINE 105 MG IV (13:53)
[2024-10-04] MEDS: ProAmatine PO ×2 (13:54→17:55)
--- NOTE | 2024-10-04 14:55 | PTCARENOTE ---
After intubation, patient required several boluses of fentanyl (directed by Dr. Yuan at bedside). Failed attempts at placing DHT X2 by secondary RN. IV Propofol and Fentanyl started per order. MD placed L Lateral Chest Tube at bedside with US
guidance (family consented prior to procedure). SpO2 improved drastically after placement of L Chest Tube with immediate output of serosanguineous drainage and air. IV Levophed started to maintain MAP > 65. León placed for accurate I and O's. CHG
bath completed.
Presently on AC 18 300 5 100%.
--- NOTE | 2024-10-04 15:08 | CM ---
CM following re: discharge planning.
Discussed in Rounds, reviewed pt's chart, met with.
Pt intubated today, continue supportive care.
D/C plan: uncertain at this time and will depend on pt's progress.
CM will follow with discharge plan updates as hospitalization progresses
--- NOTE | 2024-10-04 15:30 | PTOTSP ---
Pt is now intubated. Pt not appropriate for PT activity. Will sign off.
[2024-10-04] MEDS: FERRLECIT 110 MG IV (15:44)
--- NOTE | 2024-10-04 16:00 | PTCARENOTE ---
Assessment unchanged from prior unless noted below:
FiO2 dropped to 60% by RT.
[2024-10-04 17:53] LABS: Glucose - Point of Care 83 mg/dl (70-99)
[2024-10-04 18:49] LABS: Triglycerides 152 mg/dl (10-149)
--- NOTE | 2024-10-04 20:00 | PTCARENOTE ---
rec`d pt at 1900 intubated and sedated. chest tubes in place, assessment as documented. prop, fent, and levo gtt running through rt dual luman picc. carr. restraints. family at bedside. safe environment maintained.
[2024-10-04] MEDS: TOPROL XL PO (20:05)
[2024-10-04] MEDS: ELIQUIS PO (20:05)
[2024-10-04] MEDS: VERSED 2 MG IV ×2 (21:33→23:30)
--- NOTE | 2024-10-04 22:12 | PTCARENOTE ---
peep changed by RT to 0 per MD orders
--- NOTE | 2024-10-04 23:00 | PTCARENOTE ---
pt taken to IR for change of rt chest tube.
[2024-10-05] VITALS (7 sets, daily range): BP systolic 84–105; BP diastolic 50–64; BMI 21.1
--- NOTE | 2024-10-05 00:07 | W.PN.IRAD.PR ---
Procedure Note
-
Contacted re: worsening R pneumothorax. Prelim fluoroscopy showed retraction of indwelling small bore right chest tube. Guidewire was advanced through the indwelling tube which confirmed tip outside pleural space. The small bore catheter was
therefore removed. At same point of access new 16 Fr chest tube was placed with tip R apex. Satisfactory reexpansion R lung at fluoro. Draining dark cloudy yellow fluid w debris in pleurevac. No immediate complications.
[2024-10-05] MEDS: SUBLIMAZE 100 IV ×2 (00:49→13:55)
[2024-10-05] MEDS: SUBLIMAZE 50 MCG IV (00:50)
[2024-10-05] MEDS: DIPRIVAN 100 IV ×3 (01:41→18:36)
--- NOTE | 2024-10-05 02:08 | W.PN.UPDATE ---
Update Note
Progress Note Update
10/04/24
2134- Right upper pneumothorax noted repeat chest xray, confirmed by radiologist Dr. Smith and Dr. Yuan opticianry teacher (patient with 3x chest tubes, right and 2x on the left). Interventional radiologist Dr. White consulted for chest tube
placement. Patient was given versed 2mg IV for ventilator dyssynchrony, with propofol and fentanyl gtts and fentanyl bolus. Peep lowered to zero by respiratory therapist until chest tube can be placed, oxygen saturation 92%. Patient transported
to IR for chest tube placement. Peep increased back to 5, patient oxygen saturation 99%.
10/05/24
0130- Right radial arterial line placement for hemodynamic monitoring and frequent blood gas monitoring.
--- NOTE | 2024-10-05 02:11 | PTCARENOTE ---
pt settled back in ICU. rt radial a line placed. pt tolerated. zeroed and transduced. levo gtt titrated.
--- NOTE | 2024-10-05 02:16 | W.PN.UPDATE ---
Update Note
Progress Note Update
10/05/24
0130-
Operation/Procedure: right radial arterial line placement
Consent for operation or procedure: Emergent need due to patient condition - need for invasive monitoring per protocol
Indications: Hemodynamic monitoring
After properly positioning the patient's wrist in the standard fashion, the site was prepped and draped in a sterile fashion. The radial artery was entered, noting bright red, pulsatile flow. A guidewire was easily inserted, the needle removed,
and the catheter was then placed using the Seldinger technique. The guidewire was removed, with good flow present. The catheter was then connected to the transducer with a good waveform noted. The catheter was secured with an occlusive dressing
was placed after properly cleaning and prepping the site.
Complications: The patient tolerated the procedure well and no complications were noted.
Estimated Blood Loss: minimal
Plan: Arterial line to remain in place for hemodynamic monitoring.
[2024-10-05] MEDS: ZOSYN 100 IV ×4 (02:21→18:13)
[2024-10-05] MEDS: LEVOPHED 250 IV ×2 (03:24→11:17)
[2024-10-05 03:38] LABS: B.E. 11.5 mmol/L; HCO3 37.6 mmol/L (21-28); O2 Saturation % 99.6 % (94-98); PCO2 58 mmHg (32-35); PO2 103 mmHg (83-108); pH 7.42 (7.35-7.45)
[2024-10-05 03:39] LABS: O2 Therapy VENT
[2024-10-05 03:43] LABS: % Basophils 0.3 % (0-2); % Eosinophils 0.8 % (0-6); % Immature Granulocytes 2.1 % (0-0.5); % Lymphocytes 3.7 % (20.5-51.1); % Monocytes 4.5 % (1.7-9.3); % Neutrophils 88.6 % (42.2-75.2); Absolute Basophils 0.1 10^3/uL (0-0.2); Absolute Eosinophils 0.2 10^3/uL (0-0.7); Absolute Immature Granulocytes 0.4 10^3/uL (0-0.05); Absolute Lymphocytes 0.7 10^3/uL (1.2-3.4); Absolute Monocytes 0.9 10^3/uL (0.1-0.6); Absolute Neutrophils 17.2 10^3/uL (1.4-6.5); Hematocrit 27.4 % (37.0-47.0); Hemoglobin 8.8 g/dL (12.0-16.0); Mean Corp Hgb Conc. 32.1 g/dL (33.0-37.0); Mean Corpuscular Hgb 29.5 pg (27.0-31.0); Mean Corpuscular Volume 91.9 fL (81.0-99.0); Mean Platelet Volume 9.2 fL (7.4-10.4); Nucleated Red Blood Cells % 0 %; Platelet Count 728 10^3/uL (130-400); Red Blood Cell Count 2.98 10^6/uL (4.20-5.40); Red Cell Dist. Width 15.5 % (11.5-14.5); White Blood Cell Count 19.4 10^3/uL (4.8-10.8)
[2024-10-05 04:01] LABS: Blood Urea Nitrogen 17 mg/dl (7-17); Calcium 7.7 mg/dl (8.4-10.2); Carbon Dioxide 37 mmol/L (22-30); Chloride 98 mmol/L (98-107); Estimated Creatinine Clearance 77 ml/min; Glucose 82 mg/dl (70-99); Potassium 3.3 mmol/L (3.5-5.1); Sodium 138 mmol/L (135-145); eGFR > 60.00
[2024-10-05] MEDS: KCL 100 IV (05:23)
[2024-10-05 06:16] LABS: Glucose - Point of Care 78 mg/dl (70-99)
[2024-10-05] MEDS: XOPENEX 1.25 MG INHALANT SOLUTION INH ×4 (07:14→19:45)
--- NOTE | 2024-10-05 07:22 | W.PN.INTV ---
Addendum entered and electronically signed by aRy Yuan MD 10/05/24 13:35:
- With bilateral chest tube, I think risk of dislodgment is high with movement so will hold off on CT scan considering there is ongoing active air leak on the left side
-Start tPA dornase on the right side
Original Note:
Today's Communication / Plan
Recommendations
-Remove left upper anterior chest tube
-Place OG tube and initiate feeding
-Broaden antibiotic coverage to Vanco, Zosyn and micafungin
-CT chest without contrast for further evaluation of loculations considering right side lung seem to have expanded well post larger bore chest tube placement
-DC Versed
Assessment
-
69-year-old woman without significant past medical history was admitted to the hospital with flulike symptoms, shortness of breath. Found to be hypoxemic, septic with bilateral infiltrates on x-ray. Requiring up to 6 L supplemental oxygen. Found
to be flu positive, complicated by strep pneumo bacteremia, along with Pseudomonas in the sputum with Binta. We were consulted on 09/26/2024 due to worsening oxygenation and possible pulmonary mass.
Patient had positive blood cultures with strep pneumo on 09/22. Bacteremia has since cleared. Patient continues to be on Zosyn. Stay was further complicated by a spontaneous left-sided pneumothorax requiring chest tube placement 09/29.
Unfortunately, hypoxemic respiratory failure worsened and she was transferred to the ICU on 09/30/2024 for closer monitoring due to requiring 100%% FiO2 on high flow NC. Worsening right lung opacity noted on CT of the x-rays. 10/03, bedside POCUS
confirmed a loculated pleural effusion. A CT scan was performed which was suggestive of prior pneumothorax. A bedside chest tube on the right side was placed with slight improvement in the loculated effusion and fluid suggestive of empyema with
LDH more than 9000.
10/04. Patient noted to have increasing respiratory distress with gradually declining oxygen saturation despite high flow nasal cannula and nonrebreather. Patient was intubated and placed on mechanical ventilation.
10/05, patient had expansion of pneumothorax postintubation and a bedside left sided chest tube was placed. Patient required another chest tube on the right side due to expanding pneumothorax later in the day.
Assessment and plan
#1. Acute hypoxemic respiratory failure due to bilateral pneumonia-influenza A+/bacterial superinfection with Pseudomonas aeruginosa + strep pneumonia c/b Streptococcus pneumonia bacteremia.
-Respiratory status worsened requiring intubation on 10/04
-Currently on volume control, low tidal volume setting low tidal volume setting with tidal volume 300, PEEP of 5, respiratory rate 18 and 100% FiO2
-Continue Xopenex. Reported intolerance to Atrovent
-Hold off inhaled and systemic steroids in view of influenza A
-Mucolytics with prn mucinex
-Completed Tamiflu
-Guarded prognosis
#2. Spontaneous left secondary pneumothorax 09/29/2024 now s/p left sided chest tube.
-Rapid expansion of left-sided pneumothorax postintubation. Emergent placement of second 12 Brazilian chest tube on the left side 10/04. Patient already had an anterior [address] in [address] but was not draining any air.
-Significant improvement of pneumothorax post chest tube placement
-With near continuous air leak, there is concern for alveolar pleural or bronchopleural fistula considering underlying necrotizing pneumonia. Continue suction at -20 cm and daily chest x-ray.
#3. Right-sided prior pneumothorax with loculated effusion/empyema.
-Continue IV antibiotics, Zosyn. Await pleural fluid culture sensitivity
-Chest tube placed 10/03 for pyo-pneumothorax. Pleural fluid LDH more than 9000 highly suggestive of empyema
-Recurrence of pneumothorax despite small bore chest tube on 10/04, s/p placement of larger chest tube with resolution of pneumothorax on 303 overnight. (Suspect related to displacement 8 Brazilian chest tube as patient developed desaturation after
changing position)
-Post chest tube chest x-ray seems to have well-expanded lung, we will proceed with CT chest without contrast to evaluate pleural space further before starting tPA/DNase
-Severe necrotizing pneumonia with guarded prognosis
-Patient not felt to be a surgical candidate per CT surgery evaluation
#4. Septic shock -
-Postintubation blood pressure further dropped requiring initiation of Levophed
-Continue broad-spectrum antibiotics
-Micafungin and vancomycin added per ID service
#5. Acute kidney injury - resolved post IV fluid
-Daily labs
#6. Atrial fibrillation/flutter with rapid ventricular response in the setting of acute illness 09/26/2024 --> now in NSR
-Suspect this is in the setting of acute illness, normal sinus rhythm now
-Cardiology service on case, currently on Eliquis 5 mg twice daily and metoprolol
Conditions present prior admission:
None
Does not follow-up with primary care
Does not take any medications
Non-smoker

Critical care statement: A total of 50 minutes of critical care time was provided for this patient today. This includes management of unstable vital signs, evaluation of the patient at bedside, reviewing the patient's pertinent medical records
including ventilator settings, arterial blood gases, radiographs, microbiology, laboratory evaluations and discussion with primary team, critical care nursing, and respiratory therapy. Time also includes discussion with family about plan of care
and time spent during bedside chest tube placement.
Subjective Dataa
Subjective Data
Date of Service:
Date of Service: October 05, 2024
Chief Complaint: Respiratory Assistant Follow Up
Subjective:
Patient currently mechanically ventilated and sedated
Review of Systems
General: Unobtainable - Sedation
Objective Data
Data Reviewed
Vital Signs / I&O / Oxygen:
Vital Signs
Temp Pulse Resp BP Pulse Ox
99.5 F 70 20 99/59 97
10/05/24 03:19 10/05/24 07:18 10/05/24 07:18 10/05/24 01:30 10/05/24 07:19
Intake and Output
10/04/24 10/05/24 10/06/24
06:59 06:59 06:59
Intake Total 580 / 580 908.0 / 908.0
Output Total 490 / 490 1520 / 1520
Balance 90 / 90 -612.0 / -612.0
SaO2 97
Nasal Cannula flow liters per 60
minute
10/04, patient s/p left-sided chest tube post intubation due to enlarging pneumothorax. Overnight patient developed enlarging pneumothorax on the right side and IR guided chest tube was placed.
Physical Exam
General: Respiratory Distress (Moderate distress on exam), Comfortable, Chills (negative), Sweats (negative) and Other (Anxious appearing)
HEENT: Normocephalic and Anicteric
Cardiovascular: S1-S2, Regular Rhythm, Rub (negative) and Peripheral Edema (Trace lower extremity edema bilaterally)
Respiratory: Wheeze (negative), Crackles (Bilaterally), Rhonchi (Bilaterally), Accessory Resp Muscle Use (Mild, especially with exertion), Stridor (negative), Chest Tube (Left hemithorax with continuous level 1 airleak seen during expiration) and
Other (Grossly diminished breath sounds mainly on right lung)
GI: Soft, Non Distended, Non Tender and Normal Bowel Sounds
Neurology: AO x 3 and Tremors (negative)
Skin: Warm, Dry, Cyanosis (negative) and Jaundice (negative)
Labs/Micro/Reports
Lab Data
10/05/24 03:19
10/05/24 03:19
Laboratory Results
10/04/24 10/05/24
13:23 03:19
pH 7.37 7.42
pCO2 64 H 58 H
pO2 132 H 103
HCO3 37.0 H 37.6 H
O2 Delivery Level Vent
Microbiology
10/04/24 13:23 Tracheal Aspirate Gram Stain - Preliminary
10/03/24 18:33 Pleural Fluid Gram Stain - Preliminary
--- NOTE | 2024-10-05 07:47 | W.PN.CD ---
Today's Communication / Plan
-
- supportive care
- Antibiotics / antifungals / steroids.
- Pressors for BP
- Mechanical ventilation
Impression / Plan
-
Hypoxic respiratory failure +Flu A/PNA: severe, requiring high flow O2
-Intubated on 10/04/24
-Bilateral PTX and effusions s/p chest tubes on both sides.
-Treated with Tamiflu and antibiotics
-Continue management and supportive care as per primary team and ID
-s/p Chest tube replaced on 10/04/24 -PTX and loculated effusion.
-Challenging respiratory status.
-With tenuous respiratory status, will discontinue Amiodarone with risk of amiodarone toxicity.
-Agree with Steroids.
-With intubation, cannot get oral meds. Unable to place Dobhoff tube.
-Feeding tube: NG vs dobhoff to be placed today. Can resume oral meds then
Strep Pneumoniae Bacteremia:
-secondary infection - Pseudomonas.
-on ABX and ID following
-Considering fungal infection and added Micafungin.
-On Levophed with sedation.
Aflutter with RVR: newly recognized, now back in NSR
-typical. Converted to NSR 09/30 AM on Amiodarone drip. Was on digoxin (stopped 09/30/2024).
-Secondary to underlying infectious processes
-Loaded with Amiodarone. Holding Amiodarone for now given resp status not improving.
-Continue metoprolol 25mg BID
-ECHO 09/29/24: LVEF 60%, Moderate MR, PASP around 40 mmHg.
-[id number] score is 2 for age and female. Denies bleeding issues or falls.
-Resume Eliquis 5mg bid once dobhoff is in place. Consider sub Q Heparin in the mean time.
Subjective: Severe hypoxic respiratory failure. Telemetry unremarkable.
Physical Exam
Vital Signs/Labs
Vital Signs
Temp Pulse Resp BP Pulse Ox
99.3 F 70 20 99/59 97
10/05/24 07:42 10/05/24 07:18 10/05/24 07:18 10/05/24 01:30 10/05/24 07:19
10/04/24 10/05/24 10/06/24
06:59 06:59 06:59
Actual Weight 55.5 kg 55.7 kg
10/05/24 03:19
10/05/24 03:19
PT 24.5 Sec (11.4-14.6) H 10/01/24 03:25
INR 2.19 10/01/24 03:25
APTT 35.3 Sec (23.4-35.0) H 10/01/24 03:25
Magnesium 2.0 mg/dl (1.6-2.3) 10/05/24 03:19
Triglycerides Cancelled 10/04/24 13:29
Physical Exam
Constitutional: No acute distress, Comfortable and Other (intubated and sedated. )
EENT: Anicteric and Moist mucous membranes
Cardiovascular: Rhythm & rate is regular, Pedal edema is absent and JVD pressure is normal
Respiratory: Respiratory effort normal, Crackles Present and Rhonchi Present
GI: Soft and Normal bowel sounds
Neuro/Psych: Other (sedated)
Data Reviewed
-
Date of Service: October 05, 2024
Medical Decision Making: Reviewed Test Results, Test Interpretation and Review of Case with other Provider
EKG: Tracing Personally Visualized and interpreted
Echo: Report Reviewed by me
Labs: Labs Reviewed by me
Old Records: Reviewed
--- NOTE | 2024-10-05 09:16 | W.PN.ID1 ---
Date of Service
Date of Service: October 05, 2024
Today's Communication
- c/w zosyn at this time - anticipate a long course of IV therapy
- added vancomycin given progressive decompensation and gram stain from tracheal aspirate with few gpcs
- c/w micafungin
- Patient has previous completed a 10-day course of Tamiflu 10/02
- patient is remains critically ill with respiratory failure; prognosis guarded
Assessment / Plan
Strep Pneumoniae Pneumonia - necrotizing
Secondary health care acquired pneumonia due to Pseudomonas
Influenza A - likely resolved
Empyema of the right lung - resolving
Bacteremia due to Strep Pneumoniae - transient
Acute hypoxemic respiratory failure
Hypotension - now on pressors
Leukocytosis - resolved
- 09/23 blood cultures S Pneumoniae - intermediate to levofloxacin; sensitive to penicillin
- 09/23 sputum culture with few Pseudomonas
- check subtyping for flu A - suspect it will be negative at this point
- L pneumothorax 09/29; chest tube management per pulmonary
- R pyopneumothorax 10/03; pigtail placed, evaluated by CT surgery Dr Ny 10/04 - not currently a surgical candidate
- 10/03 body fluid culture - no growth to date
- 10/04 tracheal aspirate - negative
- c/w zosyn at this time - anticipate a long course of IV therapy
- added vancomycin given progressive decompensation and gram stain from tracheal aspirate with few gpcs
- c/w micafungin
- Patient has previous completed a 10-day course of Tamiflu 2
- patient is remains critically ill with respiratory failure; prognosis guarded
Chief Complaint
-: Pneumonia and Other (Flu A, S pneumo pneumonia, Pseudomonas pneumonia)
Subjective / Review of Systems
afebrile
running hypotensive this am - increasing pressor requirements
intubated overnight
had right chest tube placed yesterday, L chest tube upsized
L chest tube with ongoing air leak
Vital Signs / Physical Exam
Vital Signs
Vital Signs
Temp Pulse Resp BP Pulse Ox
99.3 F 71 22 93/52 95
10/05/24 07:42 10/05/24 08:00 10/05/24 08:00 10/05/24 08:00 10/05/24 08:00
Physical Exam
Constitutional: Acutely Ill and Chronically Ill
Cardiovascular: Regular Rate and S1/S2; Negative Murmur or Rub
Pulmonary: Coarse and Non Labored; Negative Clear, Symmetric, Wheezes or Rales
Gastrointestinal: Soft, Non Tender, Non Distended and Normal Bowel Sounds
Skin: Warm and Dry; Negative Rash or Jaundice
Objective Data
Lab Data
Lab Results
10/05/24 03:19
10/05/24 03:19
PT 24.5 Sec (11.4-14.6) H 10/01/24 03:25
INR 2.19 10/01/24 03:25
APTT 35.3 Sec (23.4-35.0) H 10/01/24 03:25
Estimated Creat Clear 77 ml/min 10/05/24 03:19
Lactic Acid Cancelled 09/22/24 22:31
Total Bilirubin 1.0 mg/dl (0.2-1.3) 09/23/24 05:29
AST 36 U/L (14-36) 09/23/24 05:29
ALT 23 U/L (0-35) 09/23/24 05:29
Alkaline Phosphatase 84 U/L (38-126) 09/23/24 05:29
Most recent labs reviewed.
Chest X-Ray: Image Reviewed and Report Reviewed (Decreased right pneumothorax status post right apical chest tube placement compared to the previous chest radiograph from 10/04/2024.)
Micro Results:
10/04/24 13:23 Respiratory Culture - Pending - no growth
Tracheal Aspirate Gram Stain - Preliminary
10/03/24 18:33 Body Fluid Culture - Pending - no growth at 18-24 hours
Pleural Fluid Gram Stain - Preliminary
09/22/24 10:33 Blood Culture - Final
Blood/Venous Streptococcus pneumoniae
Gram Stain - Final
09/28/24 18:31 C. difficile GDH Antigen & Toxins - Final
Feces/Stool Negative for toxigenic C.difficile
09/24/24 03:40 Blood Culture - Final
Blood/Venous No Growth - Final Report
09/24/24 03:30 Blood Culture - Final
Blood/Venous No Growth - Final Report
09/23/24 16:43 Blood Culture - Final
Blood/Venous No Growth - Final Report
09/23/24 13:35 Blood Culture - Final
Blood/Venous No Growth - Final Report
09/23/24 22:22 Respiratory Culture - Final
Sputum Pseudomonas aeruginosa
Binta albicans
Gram Stain - Final
09/22/24 12:38 Blood Culture - Final
Blood/Venous Streptococcus pneumoniae
Gram Stain - Final
09/22/24 22:22 Legionella Urinary Antigen - Final
Urine Negative for Legionella pneumophila Serogroup 1 antigen.
A negative result does not rule out the possiblity of
Legionella infection due to other serogroups or species of
Legionella. Clinical correlation is recommended.
Streptococcus pneumoniae Antigen (M - Final
Positive for Strep pneumo Ag
09/22/24 10:33 Influenza Types A & B (EUN) - Final
Nasal Swab Influenza A Positive, NAAT
--- NOTE | 2024-10-05 09:26 | PHA.VAN.IN ---
Assessment
- Assessment
Renal Function: Appears similar to baseline
Concomitant Antimicrobials: pipearcillin/tazobactam, micafungin
AUC Dosing Plan
- Dosing Variables
Dosing Weight (kg): 56
Dosing CrCl (ml/min): 77
Vd coefficient (L/kg): 0.7
- Empiric Dosing
Initial / Loading Dose: 1000mg - administration pending
Maintenance Regimen: Vanc 750mg Q12H starting at 1800
Estimated AUC (mcg*h/mL): 579
Estimated Peak (mcg*h/mL): 34.2
Estimated Trough (mcg/ml): 16.1
Estimated Half Life (H): 10.1
Patient with borderline vanc clearance - Vanc 500mg Q12H predicts subtherapeutic AUC 386 vs 750mg Q12H predicts AUC at higher end of therapeutic range
Follow renal function
- Monitoring
No levels ordered at this time: consider levels in next few days
Pharmacokinetics Vancomycin I
- -
Patient Age: 69
Patient Sex: Female
Vancomycin Day #: 1
Indication: Pulmonary/Respiratory
Requesting Provider: Dr. Lee
Pertinent Antimicrobial Allergies:
NKDA
Height / Weight:
Height 5 ft 4 in
Actual Weight 55.7 kg
- Vital Signs / Lab Results
Temp Pulse Resp BP Pulse Ox
99.3 F 71 22 93/52 95
10/05/24 07:42 10/05/24 08:00 10/05/24 08:00 10/05/24 08:00 10/05/24 08:00
Lab Results - Hematology
10/03/24 10/04/24 10/05/24
04:27 03:09 03:19
WBC 7.9 10.5 19.4 H
Lab Results - Chemistry
10/03/24 10/04/24 10/04/24
04:27 03:09 03:09
BUN 26 H Cancelled 27 H
Creatinine 0.5 L Cancelled
Estimated Creat Clear 77
10/04/24 10/04/24 10/05/24
03:09 03:09 03:19
BUN 17
Creatinine 0.5 L 0.4 L
Estimated Creat Clear Cancelled 77 77
Microbiology Results
10/04/24 13:23 Gram Stain - Preliminary
Tracheal Aspirate
10/03/24 18:33 Gram Stain - Preliminary
Pleural Fluid
--- NOTE | 2024-10-05 10:09 | W.PN.HOSP.TC ---
Today's Communication/Plan
-
monitor secretions
intubated/sedated
broad spectrum abx/anti-fungal
prognosis guarded
Assessment / Plan
Assessment / Plan
Physical Exam
General: no acute distress, chronically ill-appearing, sedated
HEENT: NormoCephalic, Moist mucous membranes and Atraumatic
Respiratory: Rhonchi and Crackles, ETT noted . b/l chest tube noted.
Cardiac: S1/S2, regularly regular,
GI: Soft, Non Tender, Non Distended and Normal Bowel Sounds; No Organomegaly
Musculoskeletal: trace BL LE edema
Skin: No Rash
Neuro:sedated
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
# Acute hypoxic respiratory failure likely secondary to severe bilateral pneumonia secondary to Pseudomonas plus strep pneumo
# Spontaneous left-sided pneumothorax
-Duoneb R QID and PRN switched to Xopenex d/t tachycardia and cont with PRN for now.
-VEST therapy DCed, Incentive Spirometry
-Currently on high flow nasal cannula on 100% FiO2 +NRB.
-CT chest appreciated multilobar pna severe in RLL underlying mass not excluded (follow up CT after treatment recommended relayed to patient and patient spouse)
-Repeat chest x-ray earlier today There is decreased size of the left-sided pneumothorax, now trace along the apex. There is a moderate, likely loculated right pleural effusion, similar to prior.
-Also started on IV steroids Decadron 4 mg every 8-DCed on 10/03.
-Concern for ARDS as with persistent severe hypoxemia.
-Will try to avoid positive balance and try to keep it on the edge runner side.
-Status post intubation on 10/04/24 and now on mechanical ventilation. Continue with sedation..
-Currently on 60% FiO2. Monitor PEEP closely with pneumothorax seen on chest tubes
#Septic Shock elevated (tachycardia, tachypnea) lactate, hypotension initially requiring pressor support
#Fever cough/generalized weakness likely from flu/polymicrobial pneumonia with Necrotizing strep pneumonia and Pseudomonas pneumonia
#Empyema
#Strep bacteremia due to pneumonia
#Sinus tachycardia likely 2/2 severe sepsis PNA
-IVF completed
-Blood cultures positive for Strep pneumonia, follow up repeat blood cx's NGTD
-Sputum Cx pos for Pseudomonas and josy albicans
-ID eval appreciated ceftriaxone discontinued in favor of Zosyn
-completed Tamiflu 10 day course,
-Bennie flu testing pending
-Status post CT chest with necrotizing pneumonia patient also started on antifungal with micafungin and vancomycin.
-Follow-up on the body fluid culture from the right-sided chest tube placement
-follow up on tracheal aspirate
-Patient was evaluated by CT surgery Dr. Ny on 10/04 and patient deemed not a surgical candidate
-In the long run patient will require long course of antibiotics of probably 6 weeks
# Spontaneous left-sided pneumothorax
Noted on chest x-ray on 09/29/2024
Status post emergent chest tube placement by [facility]
Status post second 14 Danish chest tube placement by cost estimator post intubation for expanding pneumothorax on 10/04/2024
Daily chest x-ray. Will monitor for now.
# Right-sided Pyopneumothorax
Status post emergent chest tube placed by cost estimator on 10/03/2024
Fluid cultures and other studies sent
Will follow-up on the results
Status post emergent upsizing of right-sided chest tube by [facility] on 10/04/24
As mentioned above was evaluated by CT surgery and not deemed to be surgical candidate
#Hypotension post intubation likely 2/2 sedation
on levophed
wean pressors as tolerated
# Atrial fibrillation/atrial flutter rapid ventricular response
Started on Cardizem infusion.
Blood pressure soft and thus unable to tolerate Cardizem and thus plan to switch to amiodarone gtt
Anticoagulation with Eliquis
Echocardiogram with EF of 60 to 65%. Mild to moderate mitral regurgitation. Mildly elevated PASP with PASP of 38 mmHg.
TSH wnl
Status post conversion to normal sinus rhythm.
Plan to discontinue amiodarone drip and stop digoxin
amiodarone 400 mg twice daily and Toprol 25 mg twice daily on HOLD for now
now cardiology recs to stop amiodarone.
Cardiology has been consulted
#Anemia
likely of chronic disease
no active luminal bleeding noted
Start patient on IV Venofer. B12 folate normal
Heme test stools
Transfuse for hemoglobin less than 7.
#Loose bowel movements
Likely due to antibiotic associated
C. difficile negative
Imodium if needed
Resolved.
# Anxiety could be situational
Ativan as needed
# Hyponatremia/metabolic acidosis /acute kidney injury likely hypovolemic
-resolved
-IVF completed
#Hypokalemia
#Mild Hypophosphatemia
monitor and replete as necessary
Underweight
nutrition on board
# DVT prophylaxis
-Eliquis
# CODE STATUS
-Full code
Anticipated Discharge: > 48 hours
Subjective/Interval History
-
Date of Service: October 05, 2024
intubated and sedated
on levophed
overnight events noted-new upsizing of emergent CT by [facility]
with increased secretions from ETT
Objective Data
-
Labs:
Laboratory Results
10/05/24
03:19
WBC 19.4 H
Hgb 8.8 L
Hct 27.4 L
Plt Count 728 H
HCO3 37.6 H
Sodium 138
Potassium 3.3 L
Chloride 98
Carbon Dioxide 37 H
BUN 17
Creatinine 0.4 L
Glucose 82
Calcium 7.7 L
Vital Signs:
Vital Signs
Temp Pulse Resp BP Pulse Ox
99.3 F 72 20 93/52 96
10/05/24 07:42 10/05/24 09:30 10/05/24 09:30 10/05/24 08:00 10/05/24 09:30
I&O
10/04/24 10/05/24 10/06/24
06:59 06:59 06:59
Intake Total 580 / 580 908.0 / 955.5 142.5 / 142.5
Output Total 490 / 490 1520 / 1520 150 / 150
Balance 90 / 90 -612.0 / -564.5 -7.5 / -7.5
[2024-10-05] MEDS: VISBIOME 2 CAP PO (11:09)
[2024-10-05] MEDS: ProAmatine 5 MG PO ×2 (11:09→14:08)
[2024-10-05] MEDS: ELIQUIS 5 MG PO (11:09)
[2024-10-05] MEDS: MIRALAX 17 GRAMS TUBE (11:09)
[2024-10-05] MEDS: VANCOCIN 200 IV (11:10)
[2024-10-05 11:53] LABS: Glucose - Point of Care 98 mg/dl (70-99)
--- NOTE | 2024-10-05 12:41 | PTCARENOTE ---
Pt sedated on Propofol and Fentanyl. No SBT today. FiO2 weaned to 60%. Right and left lateral chest tubes to wall suction. Left anterior chest tube to water seal. BP labile via right radial a-line. Levophed per protocol. Sinus rhythm. +2
pitting lower extremity edema. OG tube placed. Awaiting RD recs for tube feeds. All other assessments unchanged.
[2024-10-05] MEDS: MYCAMINE 105 MG IV (12:59)
--- NOTE | 2024-10-05 14:18 | CM ---
CM following re: discharge planning.
Discussed in Rounds, reviewed pt's chart, met with.
Per Rounds meeting, pt remains , prognosis guarded, continue supportive care.
D/C plan: uncertain at this time and will depend on pt's progress.
CM will follow with discharge plan updates as hospitalization progresses
[2024-10-05] MEDS: FERRLECIT 110 MG IV (15:15)
--- NOTE | 2024-10-05 16:27 | PTCARENOTE ---
Weaning Levophed as able. Tube feeds started. Left anterior chest tube d/c'd by MD. All other assessments unchanged. Family at bedside.
[2024-10-05] MEDS: VANCOCIN 150 IV (18:13)
[2024-10-05] MEDS: ProAmatine 5 MG TUBE (18:14)
--- NOTE | 2024-10-05 20:00 | PTCARENOTE ---
Rec'd pt intubated/sedated, opens eyes to voice, follows simple commands. Goal RASS 0~-2. Restraints bilateral for safety reasons. Temp 99.3, NSR on monitor. Levo for MAP goal, titrating to clinical endpoint. IV lines flushed/patent. Arterial line
zero'd. #7.5 ett / at lip. Vent settings as ordered. Thick brown secretions requiring lavage. CT maintained to -20CM suction. Tube feeds via OGT. Xray obtained to confirm placement as per policy. Abdomen soft/rounded. Normal bowel sounds. [place]
draining clear yellow urine. Will monitor.
[2024-10-05] MEDS: ELIQUIS 5 MG TUBE (20:36)
[2024-10-06] VITALS: BP 133/72
--- NOTE | 2024-10-06 00:05 | PTCARENOTE ---
In an attempt to wean Propofol, pt became restless, stacking breaths and dyssynchronous with the vent. Chest tubes observed/patent. TRACK MACHINE OPERATOR REPAIRER Magdalene at bedside for eval. Repeat Xray obtained. Propofol increased. Pt calm.
[2024-10-06] MEDS: ZOSYN 100 IV ×5 (00:22→23:36)
[2024-10-06] MEDS: FLEXBUMIN 100 IV (00:29)
[2024-10-06] MEDS: SUBLIMAZE 100 IV ×2 (03:33→16:47)
[2024-10-06] MEDS: LEVOPHED 258 MG IV ×2 (03:34→16:48)
[2024-10-06 03:35] LABS: % Basophils 0.1 % (0-2); % Eosinophils 2.7 % (0-6); % Immature Granulocytes 2.4 % (0-0.5); % Lymphocytes 5.6 % (20.5-51.1); % Neutrophils 82.2 % (42.2-75.2); Absolute Eosinophils 0.4 10^3/uL (0-0.7); Absolute Immature Granulocytes 0.4 10^3/uL (0-0.05); Absolute Lymphocytes 0.8 10^3/uL (1.2-3.4); Absolute Monocytes 1.1 10^3/uL (0.1-0.6); Absolute Neutrophils 12.4 10^3/uL (1.4-6.5); Hematocrit 25.9 % (37.0-47.0); Hemoglobin 8.5 g/dL (12.0-16.0); Mean Corp Hgb Conc. 32.8 g/dL (33.0-37.0); Mean Corpuscular Hgb 30.2 pg (27.0-31.0); Mean Corpuscular Volume 92.2 fL (81.0-99.0); Mean Platelet Volume 9.1 fL (7.4-10.4); Nucleated Red Blood Cells % 0 %; Platelet Count 678 10^3/uL (130-400); Red Blood Cell Count 2.81 10^6/uL (4.20-5.40); Red Cell Dist. Width 15.9 % (11.5-14.5); White Blood Cell Count 15.1 10^3/uL (4.8-10.8)
[2024-10-06 03:37] LABS: B.E. 11.2 mmol/L; HCO3 36.3 mmol/L (21-28); O2 Saturation % 99.1 % (94-98); PCO2 51 mmHg (32-35); PO2 78 mmHg (83-108); pH 7.46 (7.35-7.45)
[2024-10-06 03:38] LABS: O2 Therapy VENT
--- NOTE | 2024-10-06 04:00 | PTCARENOTE ---
No change in previous assessment. Labs sent and pending. AM care completed. Will monitor closely.
[2024-10-06 04:02] LABS: ALT (SGPT) 24 U/L (0-35); AST (SGOT) 30 U/L (14-36); Albumin 2.6 g/dl (3.5-5.0); Alkaline Phosphatase 142 U/L (38-126); Blood Urea Nitrogen 16 mg/dl (7-17); Calcium 7.8 mg/dl (8.4-10.2); Carbon Dioxide 35 mmol/L (22-30); Chloride 95 mmol/L (98-107); Direct Bilirubin 0.2 mg/dl (0.0-0.4); Estimated Creatinine Clearance 77 ml/min; Glucose 116 mg/dl (70-99); Magnesium 1.9 mg/dl (1.6-2.3); Potassium 3.5 mmol/L (3.5-5.1); Sodium 136 mmol/L (135-145); Total Bilirubin 0.7 mg/dl (0.2-1.3); Total Protein 5.4 g/dl (6.3-8.2); eGFR > 60.00
[2024-10-06] MEDS: VANCOCIN 150 IV ×2 (05:14→17:43)
[2024-10-06] MEDS: DIPRIVAN 100 IV ×2 (05:15→16:45)
[2024-10-06 05:28] VITALS: BMI 21.1
[2024-10-06] MEDS: KCL 160 MEQ IV (07:05)
[2024-10-06] MEDS: MAGNESIUM SULFATE 102 GRAMS IV (07:06)
[2024-10-06] MEDS: XOPENEX 1.25 MG INHALANT SOLUTION INH ×4 (07:18→19:42)
--- NOTE | 2024-10-06 07:40 | W.PN.HOSP.TC ---
Today's Communication/Plan
-
add prophylactic Protonix
follow labs
Assessment / Plan
Assessment / Plan
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
# Acute hypoxic respiratory failure likely secondary to severe bilateral pneumonia secondary to Pseudomonas plus strep pneumo
# Spontaneous left-sided pneumothorax
-Duoneb R QID and PRN switched to Xopenex d/t tachycardia and cont with PRN for now.
-VEST therapy DCed, Incentive Spirometry
-Intubated FiO2 40%/AC20/TV300/PEEP5
-CT chest appreciated multilobar pna severe in RLL underlying mass not excluded (follow up CT after treatment recommended relayed to patient and patient spouse)
-Repeat chest x-ray earlier 10/06: 1. No new abnormalities appreciated.
2. Lucency at each lung apex suggestive of small biapical pneumothoraces, unchanged or slightly decreased in size compared to prior chest x-ray.
3. Extensive alveolar and interstitial infiltrates bilaterally, which may represent pneumonia, interstitial pneumonitis, and/or underlying interstitial fibrosis. Neoplasm also remains in the differential diagnosis.
4. Small right pleural effusion is suspected, unchanged.
-Was started on IV steroids Decadron 4 mg every 8-since DCed on 10/03.
-Concern for ARDS as with persistent severe hypoxemia.
-Will try to avoid positive balance and try to keep it on the soap drier operator side.
-Status post intubation on 10/04/24 and now on mechanical ventilation. Continue with sedation..
#Septic Shock elevated (tachycardia, tachypnea) lactate, hypotension requiring pressor support
#Fever cough/generalized weakness likely from flu/polymicrobial pneumonia with Necrotizing strep pneumonia and Pseudomonas pneumonia
#Empyema
#Strep bacteremia due to pneumonia
#Sinus tachycardia likely 2/2 severe sepsis PNA
-NG feed nutritional support
-Blood cultures positive for Strep pneumonia, follow up repeat blood cx's NGTD
-Sputum Cx pos for Pseudomonas and binta albicans
-ID eval appreciated ceftriaxone discontinued in favor of Zosyn
-completed Tamiflu 10 day course,
-Status post CT chest with necrotizing pneumonia patient also started on antifungal with micafungin and vancomycin.
-On 09/22 admission blood cx + Strep Pneumonia
Influenza A +
Legionella Urine At neg
On 09/23 Respiratory Cx +Pseudomonas
+Binta albicans
-Patient was evaluated by CT surgery Dr. Ny on 10/04 and patient deemed not a surgical candidate
-In the long run patient will require long course of antibiotics of probably 6 weeks
# Spontaneous left-sided pneumothorax
Noted on chest x-ray on 09/29/2024
Status post emergent chest tube placement by [facility]
Status post second 14 Hungarian chest tube placement by coin machine service repairer post intubation for expanding pneumothorax on 10/04/2024
Daily chest x-ray. Will monitor for now.
# Right-sided Pyopneumothorax
Status post emergent chest tube placed by coin machine service repairer on 10/03/2024
Fluid cultures and other studies sent
Will follow-up on the results
Status post emergent upsizing of right-sided chest tube by [facility] on 10/04/24
As mentioned above was evaluated by CT surgery and not deemed to be surgical candidate
#Hypotension post intubation
on levophed
wean pressors as tolerated
# Atrial fibrillation/atrial flutter rapid ventricular response
Started on Cardizem infusion.
Blood pressure soft and thus unable to tolerate Cardizem and thus plan to switch to amiodarone gtt
Anticoagulation with Eliquis
Echocardiogram with EF of 60 to 65%. Mild to moderate mitral regurgitation. Mildly elevated PASP with PASP of 38 mmHg.
TSH wnl
Status post conversion to normal sinus rhythm.
Stopped amiodarone due to concern for Amio toxicity. As per cardio
Currently on Eliquis
Mag 1.9
#Anemia
likely of chronic disease
no active luminal bleeding noted
Start patient on IV Venofer. B12 folate normal
Heme test stools
Transfuse for hemoglobin less than 7.
Hgb 8.5
will add prophylactic Protonix
#Loose bowel movements
Likely due to antibiotic associated
C. difficile negative
Imodium if needed
Resolved.
# Anxiety could be situational
Ativan as needed
# Hyponatremia/metabolic acidosis /acute kidney injury likely hypovolemic
-resolved
-IVF completed
#Hypokalemia
3/6 3.5
#Mild Hypophosphatemia
monitor and replete as necessary
Underweight/Cachexic
nutrition on board
# DVT prophylaxis
-Eliquis
# CODE STATUS
-Full code
Total Critical Care Time 60 minutes. I was immediately available to the patient and staff. I personally examined, reviewed labs, diagnostic images/reports, interpretations, treatment plans, discussed patient care with other providers and family
or caregivers (if patient is unable to make decisions), entered orders as appropriate and documented the medical record.
Anticipated Discharge: > 48 hours
Subjective/Interval History
-
Date of Service: October 06, 2024
Remains intubated and on Levophed
Objective Data
-
Labs:
Laboratory Results
10/06/24
03:15
WBC 15.1 H
Hgb 8.5 L
Hct 25.9 L
Plt Count 678 H
HCO3 36.3 H
Sodium 136
Potassium 3.5
Chloride 95 L
Carbon Dioxide 35 H
BUN 16
Creatinine 0.5 L
Glucose 116 H
Calcium 7.8 L
Total Bilirubin 0.7
AST 30
ALT 24
Alkaline Phosphatase 142 H
Vital Signs:
Vital Signs
Temp Pulse Resp BP Pulse Ox
98.9 F 70 20 133/72 93
10/06/24 05:00 10/06/24 07:27 10/06/24 07:27 10/06/24 00:00 10/06/24 07:27
I&O
10/05/24 10/06/24 10/07/24
06:59 06:59 06:59
Intake Total 908.0 / 955.5 2486.9 / 2486.9
Output Total 1520 / 1520 1390 / 1390
Balance -612.0 / -564.5 1096.9 / 1096.9
Review of Systems
-
Unable to obtain full review of systems at this time due to: Patient Intubation
History Source: Coordinated Provider (reviewed with SHAUN Horn)
Constitutional: Denies Fever
Respiratory: Reports Other (intubated)
Abdomen/GI: Reports Other (currently on NG feeds at 30 cc/hr, tolerating at goal)
Physical Exam
-
General: Well Developed, No Apparent Distress, Intubated, Appears Chronically Ill and Cachectic (temporal muscle and supraclavicular muscle wasting noted)
HEENT: Normocephalic, Atraumatic and Other (endotracheal tube)
Respiratory: Rhonchi (diffuse scattered rhonchi) and Chest Tubes (bilateral)
Cardiac: Regular Rhythm and S1/S2
GI: Soft, Nontender, Nondistended and Normal Bowel Sounds
Musculoskeletal: No Clubbing and No Cyanosis; Negative No Edema (trace)
Skin: Warm and Dry
Neuro: Sedated; Negative Awake or Alert
--- NOTE | 2024-10-06 07:43 | W.PN.INTV ---
Today's Communication / Plan
Recommendations
-Chest x-ray and ABG in a.m.
-Start tube feeding
-Decrease PEEP to 3
-Supplement potassium with 40 KCl
-Start Precedex overnight, wean propofol with the goal of SAT SBT in a.m.
Assessment
-
69-year-old woman without significant past medical history was admitted to the hospital with flulike symptoms, shortness of breath. Found to be hypoxemic, septic with bilateral infiltrates on x-ray. Requiring up to 6 L supplemental oxygen. Found
to be flu positive, complicated by strep pneumo bacteremia, along with Pseudomonas in the sputum with Binta. We were consulted on 09/26/2024 due to worsening oxygenation and possible pulmonary mass.
Patient had positive blood cultures with strep pneumo on 09/22. Bacteremia has since cleared. Patient continues to be on Zosyn. Stay was further complicated by a spontaneous left-sided pneumothorax requiring chest tube placement 09/29.
Unfortunately, hypoxemic respiratory failure worsened and she was transferred to the ICU on 09/30/2024 for closer monitoring due to requiring 100%% FiO2 on high flow NC. Worsening right lung opacity noted on CT of the x-rays. 10/03, bedside POCUS
confirmed a loculated pleural effusion. A CT scan was performed which was suggestive of prior pneumothorax. A bedside chest tube on the right side was placed with slight improvement in the loculated effusion and fluid suggestive of empyema with
LDH more than 9000.
10/04. Patient noted to have increasing respiratory distress with gradually declining oxygen saturation despite high flow nasal cannula and nonrebreather. Patient was intubated and placed on mechanical ventilation.
10/05, patient had expansion of pneumothorax postintubation and a bedside left sided chest tube was placed. Patient required another chest tube on the right side due to expanding pneumothorax later in the day.
Assessment and plan
#1. Acute hypoxemic respiratory failure due to bilateral pneumonia-influenza A+/bacterial superinfection with Pseudomonas aeruginosa + strep pneumonia c/b Streptococcus pneumonia bacteremia.
-Respiratory status worsened requiring intubation on 10/04
-Currently on volume control, low tidal volume setting low tidal volume setting with tidal volume 300, PEEP further lower down to 3 in view of persistent air leak on the left side, respiratory rate 18 and 40% FiO2. ABG 7.46, 51, 78
-Sedated with propofol 25 and fentanyl 75
-Continue Xopenex. Reported intolerance to Atrovent
-Hold off inhaled and systemic steroids in view of influenza A
-Completed Tamiflu
-Guarded prognosis
#2. 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
-Rapid expansion of left-sided pneumothorax postintubation. Emergent placement of second 12 English chest tube on the left side 10/04. Patient already had an anterior 8 [address] chest tube in place but was not draining any air.
-Significant improvement of pneumothorax post chest tube placement
-With near continuous air leak, there is concern for alveolar pleural or bronchopleural fistula considering underlying necrotizing pneumonia. Continue suction at -20 cm and daily chest x-ray. Lower PEEP to 3, continue low tidal volume of 300 mL
#3. Right-sided prior pneumothorax with loculated effusion/empyema.
-Continue IV antibiotics, pleural fluid culture negative
-Chest tube placed 10/03 for pyo-pneumothorax. Pleural fluid LDH more than 9000 highly suggestive of empyema
-Recurrence of pneumothorax despite small bore chest tube on 10/04, s/p placement of larger chest tube with resolution of pneumothorax on 0304 overnight. (Suspect related to displacement 8 English chest tube as patient developed desaturation after
changing position)
-Post chest tube chest x-ray seems to have well-expanded lung, holding off tPA/DNase
-Severe necrotizing pneumonia with guarded prognosis
-Patient not felt to be a surgical candidate per CT surgery evaluation
-CT in coming days for follow-up
#4. Septic shock -
-Postintubation blood pressure further dropped requiring initiation of Levophed
-Continue broad-spectrum antibiotics
-Micafungin and vancomycin added per ID service
#5. Acute kidney injury - resolved post IV fluid
-Daily labs
#6. Atrial fibrillation/flutter with rapid ventricular response in the setting of acute illness 09/26/2024 --> now in NSR
-Suspect this is in the setting of acute illness, normal sinus rhythm now
-Cardiology service on case, currently on Eliquis 5 mg twice daily and metoprolol
Conditions present prior admission:
None
Does not follow-up with primary care
Does not take any medications
Non-smoker

Critical care statement: A total of 45 minutes of critical care time was provided for this patient today. This includes management of unstable vital signs, evaluation of the patient at bedside, reviewing the patient's pertinent medical records
including ventilator settings, arterial blood gases, radiographs, microbiology, laboratory evaluations and discussion with primary team, critical care nursing, and respiratory therapy. Time also includes discussion with family about plan of care
and time spent during bedside chest tube placement.
Subjective Dataa
Subjective Data
Date of Service:
Date of Service: October 06, 2024
Chief Complaint: Rehabilitation Therapy Aide Follow Up
Subjective:
Patient sedated, on mechanical ventilation. Significant agitation noted with weaning attempt . copious thick secretions
Review of Systems
General: Unobtainable - Sedation
Objective Data
Data Reviewed
Vital Signs / I&O / Oxygen:
Vital Signs
Temp Pulse Resp BP Pulse Ox
98.9 F 70 20 133/72 93
10/06/24 05:00 10/06/24 07:27 10/06/24 07:27 10/06/24 00:00 10/06/24 07:27
Intake and Output
10/05/24 10/06/24 10/07/24
06:59 06:59 06:59
Intake Total 908.0 / 955.5 2486.9 / 2486.9
Output Total 1520 / 1520 1390 / 1390
Balance -612.0 / -564.5 1096.9 / 1096.9
SaO2 [A/C] 96
SaO2 93
Nasal Cannula flow liters per 60
minute
Physical Exam
General: Respiratory Distress (Moderate distress on exam), Comfortable, Chills (negative), Sweats (negative) and Other (Anxious appearing)
HEENT: Normocephalic and Anicteric
Cardiovascular: S1-S2, Regular Rhythm, Rub (negative) and Peripheral Edema (Trace lower extremity edema bilaterally)
Respiratory: Wheeze (negative), Crackles (Bilaterally), Rhonchi (Bilaterally), Accessory Resp Muscle Use (Mild, especially with exertion), Stridor (negative), Chest Tube (Left hemithorax with continuous level 1 airleak seen during expiration) and
Other (Grossly diminished breath sounds mainly on right lung)
GI: Soft, Non Distended, Non Tender and Normal Bowel Sounds
Neurology: AO x 3 and Tremors (negative)
Skin: Warm, Dry, Cyanosis (negative) and Jaundice (negative)
Labs/Micro/Reports
Lab Data
10/06/24 03:15
10/06/24 03:15
Laboratory Results
10/06/24
03:15
pH 7.46 H
pCO2 51 H
pO2 78 L
HCO3 36.3 H
O2 Delivery Level Vent
Microbiology
10/03/24 18:33 Pleural Fluid Body Fluid Culture - Preliminary
No Growth After 18-24 Hours
10/03/24 18:33 Pleural Fluid Gram Stain - Preliminary
10/04/24 13:23 Tracheal Aspirate Respiratory Culture - Preliminary
NO GROWTH
10/04/24 13:23 Tracheal Aspirate Gram Stain - Preliminary
[2024-10-06] MEDS: VISBIOME 2 CAP TUBE (07:48)
[2024-10-06] MEDS: ELIQUIS 5 MG TUBE ×2 (07:48→20:18)
[2024-10-06] MEDS: ProAmatine 5 MG TUBE ×3 (07:48→17:43)
[2024-10-06] MEDS: MIRALAX 17 GRAMS TUBE (07:48)
[2024-10-06 08:00] VITALS: BP 107/58
--- NOTE | 2024-10-06 09:19 | W.PN.ID1 ---
Date of Service
Date of Service: October 06, 2024
Today's Communication
c/w vancomycin, zosyn, micafungin for present
Assessment / Plan
Strep Pneumoniae Pneumonia - necrotizing
Secondary health care acquired pneumonia due to Pseudomonas
Influenza A - likely resolved
Empyema of the right lung - resolving
Bacteremia due to Strep Pneumoniae - transient
Acute hypoxemic respiratory failure
Hypotension - now on pressors
Leukocytosis - resolved
- 09/23 blood cultures S Pneumoniae - intermediate to levofloxacin; sensitive to penicillin
- 09/23 sputum culture with few Pseudomonas
- check subtyping for flu A - suspect it will be negative at this point
- L pneumothorax 09/29; chest tube management per pulmonary
- R pyopneumothorax 10/03; pigtail placed, evaluated by CT surgery Dr Ny 10/04 - not currently a surgical candidate
- 10/03 body fluid culture - no growth to date
- 10/04 tracheal aspirate - negative
- c/w zosyn at this time - anticipate a long course of IV therapy - day 13. From 09/05 likely for 4-6 weeks
- added vancomycin 10/05, day 2, given progressive decompensation and gram stain from tracheal aspirate with few gpcs
- c/w micafungin day 3,
- Patient has previous completed a 10-day course of Tamiflu 10/02
- patient is remains critically ill with respiratory failure; prognosis guarded despite some interval improvement
Chief Complaint
-: Pneumonia and Other (Flu A, S pneumo pneumonia, Pseudomonas pneumonia)
Subjective / Review of Systems
afebrile
remains on pressors slight decline in overall dose
remains on the vent at 40% FiO2
intubated, sedated
thick brown secretions from the ETT
no events overnight
Vital Signs / Physical Exam
Vital Signs
Vital Signs
Temp Pulse Resp BP Pulse Ox
99.0 F 70 20 133/72 93
10/06/24 08:09 10/06/24 07:27 10/06/24 07:27 10/06/24 00:00 10/06/24 07:27
Physical Exam
Constitutional: Acutely Ill and Chronically Ill
Cardiovascular: Regular Rate and S1/S2; Negative Murmur or Rub
Pulmonary: Coarse and Non Labored; Negative Symmetric, Wheezes or Rales
Gastrointestinal: Soft, Non Tender, Non Distended and Normal Bowel Sounds
Skin: Warm and Dry; Negative Rash or Jaundice
Objective Data
Lab Data
Lab Results
10/06/24 03:15
10/06/24 03:15
PT 24.5 Sec (11.4-14.6) H 10/01/24 03:25
INR 2.19 10/01/24 03:25
APTT 35.3 Sec (23.4-35.0) H 10/01/24 03:25
Estimated Creat Clear 77 ml/min 10/06/24 03:15
Lactic Acid Cancelled 09/22/24 22:31
Total Bilirubin 0.7 mg/dl (0.2-1.3) 10/06/24 03:15
AST 30 U/L (14-36) 10/06/24 03:15
ALT 24 U/L (0-35) 10/06/24 03:15
Alkaline Phosphatase 142 U/L (38-126) H 10/06/24 03:15
Most recent labs reviewed.
Note improved leukocytosis, thrombocytosis and L shift
Chest X-Ray: Image Reviewed and Report Reviewed (extensive persistent pneumonia)
Micro Results:
10/03/24 18:33 Body Fluid Culture - Preliminary
Pleural Fluid No Growth After 18-24 Hours
Gram Stain - Preliminary
10/04/24 13:23 Respiratory Culture - Preliminary
Tracheal Aspirate NO GROWTH
Gram Stain - Preliminary
09/22/24 10:33 Blood Culture - Final
Blood/Venous Streptococcus pneumoniae
Gram Stain - Final
09/28/24 18:31 C. difficile GDH Antigen & Toxins - Final
Feces/Stool Negative for toxigenic C.difficile
09/24/24 03:40 Blood Culture - Final
Blood/Venous No Growth - Final Report
09/24/24 03:30 Blood Culture - Final
Blood/Venous No Growth - Final Report
09/23/24 16:43 Blood Culture - Final
Blood/Venous No Growth - Final Report
09/23/24 13:35 Blood Culture - Final
Blood/Venous No Growth - Final Report
09/23/24 22:22 Respiratory Culture - Final
Sputum Pseudomonas aeruginosa
Binta albicans
Gram Stain - Final
09/22/24 12:38 Blood Culture - Final
Blood/Venous Streptococcus pneumoniae
Gram Stain - Final
09/22/24 22:22 Legionella Urinary Antigen - Final
Urine Negative for Legionella pneumophila Serogroup 1 antigen.
A negative result does not rule out the possiblity of
Legionella infection due to other serogroups or species of
Legionella. Clinical correlation is recommended.
Streptococcus pneumoniae Antigen (M - Final
Positive for Strep pneumo Ag
09/22/24 10:33 Influenza Types A & B (EUN) - Final
Nasal Swab Influenza A Positive, NAAT
--- NOTE | 2024-10-06 09:27 | PHA.VAN.FU ---
Vancomycin Assessment / Plan
- Assessment
Renal Function: Stable
WBC's are: Trending Down
In the past 24 hrs, patient has been: Afebrile
Concomitant Antimicrobials: Micafungin, Pip/Tazo 4.5gm Q6H
- Dosing Plan
Continue: 750mg Q12H
- Monitoring Plan
No level(s) ordered at this time: Consider levels in next few days
- Follow Up
Pharmacy will continue to follow.
Vancomycin Follow UP
- -
Patient Age: 69
Patient Sex: Female
Vancomycin Day #: 2
Indication: Pulmonary/Respiratory
Requesting Provider: Dr. Lee
Pertinent Antimicrobial Allergies:
NKDA
Height / Weight:
Height 5 ft 4 in
Actual Weight 55.6 kg
- Vital Signs / Lab Results
Temp Pulse Resp BP Pulse Ox
99.0 F 65 20 107/58 93
10/06/24 08:09 10/06/24 09:00 10/06/24 09:00 10/06/24 08:00 10/06/24 09:00
Lab Results - Hematology
10/04/24 10/05/24 10/06/24
03:09 03:19 03:15
WBC 10.5 19.4 H 15.1 H
Lab Results - Chemistry
10/04/24 10/04/24 10/04/24
03:09 03:09 03:09
BUN Cancelled 27 H
Creatinine Cancelled 0.5 L
Estimated Creat Clear Cancelled
Albumin
10/04/24 10/05/24 10/06/24
03:09 03:19 03:15
BUN 17 16
Creatinine 0.4 L 0.5 L
Estimated Creat Clear 77 77 77
Albumin 2.6 L
Microbiology Results
10/03/24 18:33 Body Fluid Culture - Preliminary
Pleural Fluid No Growth After 18-24 Hours
Gram Stain - Preliminary
10/04/24 13:23 Respiratory Culture - Preliminary
Tracheal Aspirate NO GROWTH
Gram Stain - Preliminary
[2024-10-06] MEDS: NSS (PRESERVATIVE FREE) 10 ML IV (11:38)
[2024-10-06] MEDS: PROTONIX IV 40 MG IV (11:38)
[2024-10-06] MEDS: KCL ELIXIR 40 MEQ TUBE (11:39)
[2024-10-06] MEDS: PRECEDEX 100 IV ×2 (11:39→22:50)
[2024-10-06] MEDS: MYCAMINE 105 MG IV (12:55)
--- NOTE | 2024-10-06 13:25 | RESPNOTE ---
Patient with increased work of breathing with desaturations to 77% during sedation weaning. Patient Fio2 increased to 100% and suctioned for large amount of thick hunt secretions. Ditto Machine Operator notified.
--- NOTE | 2024-10-06 13:27 | PTCARENOTE ---
Attempted awakening trial by weaning Propofol. Pt coughing. Frequent vent alarms, increased thick hunt secretions. SpO2 decreased to 80%. FiO2 now at 100%. Increased Propofol back to 25 mcg/kg/min. Precedex added. MD notified. CXR ordered.
B/L chest tubes intact. Left CT with intermittent air leak. Dressings changed.
Sinus Rhythm. BP via right radial a-line. Increased Levophed requirements. +2 generalized edema.
Tube feeds at goal. Residual 20ml.
Good urine output via carr. No BM.
All other assessments unchanged. updated at bedside.
--- NOTE | 2024-10-06 14:02 | PTCARENOTE ---
Pt's daughter Bertha [phone] called to have the hospitalist give her a call due to her Father confusing information provided at the bedside. Dr. Caal TT's her information.
--- NOTE | 2024-10-06 15:47 | CM ---
CM following re: discharge planning.
Discussed in Rounds, reviewed pt's chart, met with pt and pt's at bedside.
Per Rounds meeting, pt remains intubated, remains critically ill with respiratory failure, prognosis guarded, continue supportive care.
D/C plan: uncertain at this time and will depend on pt's progress.
CM will follow with discharge plan updates as hospitalization progresses
[2024-10-06 16:00] VITALS: BP 120/69
[2024-10-06 16:54] LABS: Influenza A (H5) Spec Source Resp Swab; Influenza A by NAAT Not Detected (Not Detected); Influenza H5 by NAAT Not Detected (Not Detected)
--- NOTE | 2024-10-06 20:00 | PTCARENOTE ---
Received pt intubated and sedated. On propofol 15mcg, precedex 0.6mcg, fentanyl 75mcg. Will attempt to wean propofol as able in hopes to SBT in AM. See worklist. When awoken, pt opening eyes to command, tracking, nodding head. Resting calmly when
undisturbed. SR on tele, HR 60s-70s. On levophed to maintain MAP>65- see worklist. R Radial A line transduced and zeroed. +1 gen anasarca. Afebrile. #7.5 ETT @23cm. Tolerating A/C 20/300/+3/60%. Spo2 95%. Lungs with rhonchi, exp wheezing and
crackles throughout. Suctioned for mod. amt thick hunt via ETT. Blood tinged suctioned orally/oropharyngeal. L chest tube to -20cm suction. + air leak. Serosang output. No creptitus. R chest tube to -20cm suction. No air leak. Serosang output. No
crepitus. Dressings c/d/i. Hypoactive bowel sounds. OG tube with osmo @30ml/hr, 25ml/hr h20 flush. Temp sensing carr draining yellow urine. R DL PICC with prop, dex, fent, double concentrated levo.
Son at bedside - questions answered
[2024-10-07] VITALS: BP 110/63
--- NOTE | 2024-10-07 00:11 | PTCARENOTE ---
Pt. reassessed. Propofol weaned to off. Precedex at 0.7mcg. Pt. flutters eyes open, follows simple commands at times. Continues with mod-large amt thick, hunt secretions via ETT. Suctioned PRN with lavage. Weaning levo to maintain MAP>65. Turning
q2. [place] + mouth care provided
[2024-10-07] MEDS: SUBLIMAZE 50 MCG IV ×4 (00:38→20:25)
[2024-10-07] MEDS: ATIVAN 0.5 MG TUBE ×2 (01:32→20:27)
--- NOTE | 2024-10-07 01:39 | PTCARENOTE ---
Addendum entered by Bren Julian RN 10/07/24 01:53:
Now, pt. tachypneic RR 30, desatting to high 80s, CPOT 5. PRN IVP fentanyl given. fio2 increased to 70%. Monitoring closely.
Original Note:
Pt. more restless, appears anxious, eyes wide open, trying to motion with her hands and talk. Encouragement given. Precedex increased to 1.1mcg. PRN ativan given. Will monitor.
[2024-10-07] MEDS: TYLENOL ORAL SOLUTION 650 MG TUBE ×2 (02:19→18:20)
[2024-10-07 03:28] LABS: B.E. 9.6 mmol/L; HCO3 34.8 mmol/L (21-28); O2 Saturation % 99.3 % (94-98); PCO2 50 mmHg (32-35); PO2 126 mmHg (83-108); pH 7.45 (7.35-7.45)
[2024-10-07 03:29] LABS: O2 Therapy 40%
--- NOTE | 2024-10-07 03:50 | PTCARENOTE ---
Pt. reassessed. Pt. more relaxed/calm over last 1-2 hours. Edema worsening in LEs from feet to groin, +2-3. Sats >95% on 70%fio2. Bathed with CHG.
[2024-10-07 04:12] LABS: Blood Urea Nitrogen 14 mg/dl (7-17); Calcium 7.4 mg/dl (8.4-10.2); Carbon Dioxide 36 mmol/L (22-30); Chloride 100 mmol/L (98-107); Estimated Creatinine Clearance 77 ml/min; Glucose 94 mg/dl (70-99); Potassium 4.4 mmol/L (3.5-5.1); Sodium 137 mmol/L (135-145); Triglycerides 107 mg/dl (10-149); eGFR > 60.00
[2024-10-07 04:14] LABS: % Basophils 0.2 % (0-2); % Eosinophils 1.6 % (0-6); % Immature Granulocytes 1.8 % (0-0.5); % Lymphocytes 2.7 % (20.5-51.1); % Monocytes 7.1 % (1.7-9.3); % Neutrophils 86.6 % (42.2-75.2); Absolute Eosinophils 0.3 10^3/uL (0-0.7); Absolute Immature Granulocytes 0.3 10^3/uL (0-0.05); Absolute Lymphocytes 0.4 10^3/uL (1.2-3.4); Absolute Monocytes 1.1 10^3/uL (0.1-0.6); Absolute Neutrophils 13.5 10^3/uL (1.4-6.5); Hemoglobin 8.6 g/dL (12.0-16.0); Mean Corp Hgb Conc. 31.9 g/dL (33.0-37.0); Mean Corpuscular Hgb 29.6 pg (27.0-31.0); Mean Corpuscular Volume 92.8 fL (81.0-99.0); Mean Platelet Volume 9.2 fL (7.4-10.4); Nucleated Red Blood Cells % 0 %; Platelet Count 629 10^3/uL (130-400); Red Blood Cell Count 2.91 10^6/uL (4.20-5.40); Red Cell Dist. Width 15.8 % (11.5-14.5); White Blood Cell Count 15.5 10^3/uL (4.8-10.8)
[2024-10-07] MEDS: ZOSYN 100 IV ×4 (05:11→23:46)
[2024-10-07] MEDS: VANCOCIN 150 IV ×2 (05:46→18:04)
[2024-10-07 06:00] VITALS: BMI 21.4
[2024-10-07] MEDS: PRECEDEX 100 IV ×4 (06:05→23:46)
[2024-10-07] MEDS: SUBLIMAZE 100 IV ×2 (07:29→23:18)
[2024-10-07] MEDS: XOPENEX 1.25 MG INHALANT SOLUTION INH ×4 (07:35→21:18)
[2024-10-07 08:00] VITALS: BP 116/65
--- NOTE | 2024-10-07 08:00 | PTCARENOTE ---
Received pt intubated and sedated. Precedex at 1.1 mcg, fentanyl 75mcg, levo 3mcg. See worklist. Pt arousable to voice, pt opening eyes to command, tracking, nodding head. Resting calmly when undisturbed. SR on tele, HR 60s-70s. On levophed to
maintain MAP>65- see worklist. R Radial A line transduced and zeroed. +2 LE edema noted. Afebrile. #7.5 ETT @23cm on the right. Tolerating A/C 20/300/+3/70%. Spo2 95%. Lungs with scat coarse rhonchi throughout. Suctioned for mod. amt thick hunt via
ETT, also mod amount blood tinged hunt secretions orally, weak gag noted. L chest tube to -20cm suction. + air leak in 5 column, MDs aware. Serosang output. No creptitus. R chest tube to -20cm suction. No air leak. Serosang output. No crepitus.
Dressings c/d/i, changed yesterday. Hypoactive bowel sounds. OG tube with Osmo @30ml/hr, 25ml/hr wf. Temp sensing carr draining yellow urine. R DL PICC with dex, fent, double concentrated levo. Safe environment maintained. Son at bedside -questions
answered.
--- NOTE | 2024-10-07 08:47 | W.PN.INTV ---
Today's Communication / Plan
Recommendations
-Start 3% saline twice a day with Xopenex
-Lasix 20 mg IV x 1
-Tentative bronchoscopy with lavage, 10/08
-Chest x-ray and ABG in a.m
-Daily SAT, SBT
Assessment
-
69-year-old woman without significant past medical history was admitted to the hospital with flulike symptoms, shortness of breath. Found to be hypoxemic, septic with bilateral infiltrates on x-ray. Requiring up to 6 L supplemental oxygen. Found
to be flu positive, complicated by strep pneumo bacteremia, along with Pseudomonas in the sputum with Binta. We were consulted on 09/26/2024 due to worsening oxygenation and possible pulmonary mass.
Patient had positive blood cultures with strep pneumo on 09/22. Bacteremia has since cleared. Patient continues to be on Zosyn. Stay was further complicated by a spontaneous left-sided pneumothorax requiring chest tube placement 09/29.
Unfortunately, hypoxemic respiratory failure worsened and she was transferred to the ICU on 09/30/2024 for closer monitoring due to requiring 100%% FiO2 on high flow NC. Worsening right lung opacity noted on CT of the x-rays. 10/03, bedside POCUS
confirmed a loculated pleural effusion. A CT scan was performed which was suggestive of prior pneumothorax. A bedside chest tube on the right side was placed with slight improvement in the loculated effusion and fluid suggestive of empyema with
LDH more than 9000.
10/04. Patient noted to have increasing respiratory distress with gradually declining oxygen saturation despite high flow nasal cannula and nonrebreather. Patient was intubated and placed on mechanical ventilation.
10/05, patient had expansion of pneumothorax postintubation and a bedside left sided chest tube was placed. Patient required another chest tube on the right side due to expanding pneumothorax later in the day.
Assessment and plan
#1. Acute hypoxemic respiratory failure due to bilateral pneumonia-influenza A+/bacterial superinfection with Pseudomonas aeruginosa + strep pneumonia c/b Streptococcus pneumonia bacteremia.
-Respiratory status worsened requiring intubation on 10/04
-Currently on volume control, low tidal volume setting low tidal volume setting with tidal volume 300, PEEP further lower down to 3 in view of persistent air leak on the left side, respiratory rate 18 and 40% FiO2. ABG 7.45, 50, 126.
-Currently on Precedex, weaned off propofol, as needed fentanyl pushes
-Continue Xopenex. Reported intolerance to Atrovent
-Hold off inhaled and systemic steroids in view of influenza A
-Completed Tamiflu
-Guarded prognosis
-Start 3% nebulized twice a day for thick tenacious secretions
-Depending on response to 3%, tentative bronchoscopy with lavage, 10/08
#2. 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
-Rapid expansion of left-sided pneumothorax postintubation. Emergent placement of second 12 Tajik chest tube on the left side 10/04. Patient already had an anterior [address] tube in place but was not draining any air.
-Significant improvement of pneumothorax post chest tube placement
-With near continuous air leak, there is concern for alveolar pleural or bronchopleural fistula considering underlying necrotizing pneumonia. Continue suction at -20 cm and daily chest x-ray. Lowered PEEP to 3, continue low tidal volume of 300 mL
-Daily x-rays
#3. Right-sided prior pneumothorax with loculated effusion/empyema.
-Continue IV antibiotics, pleural fluid culture negative
-Chest tube placed 10/03 for pyo-pneumothorax. Pleural fluid LDH more than 9000 highly suggestive of empyema
-Recurrence of pneumothorax despite small bore chest tube on 10/04, s/p placement of larger chest tube with resolution of pneumothorax on 10/04 overnight. (Suspect related to displacement 8 Tajik chest tube as patient developed desaturation after
changing position)
-Post chest tube chest x-ray seems to have well-expanded lung, holding off tPA/DNase
-Severe necrotizing pneumonia with guarded prognosis
-Patient not felt to be a surgical candidate per CT surgery evaluation
-CT in coming days for follow-up
-Tentative bronchoscopy on 03/08
#4. Septic shock -
-Currently on levo 3 mcg
-Continue broad-spectrum antibiotics
-Micafungin and vancomycin added per ID service
#5. Acute kidney injury - resolved post IV fluid
-Daily labs
-Patient is 1 L positive volume balance with increased pedal edema
-Lasix IV 1 dose today
#6. Atrial fibrillation/flutter with rapid ventricular response in the setting of acute illness 09/26/2024 --> now in NSR
-Suspect this is in the setting of acute illness, normal sinus rhythm now
-Cardiology service on case, currently on Eliquis 5 mg twice daily and metoprolol
Conditions present prior admission:
None
Does not follow-up with primary care
Does not take any medications
Non-smoker

Critical care statement: A total of 35 minutes of critical care time was provided for this patient today. This includes management of unstable vital signs, evaluation of the patient at bedside, reviewing the patient's pertinent medical records
including ventilator settings, arterial blood gases, radiographs, microbiology, laboratory evaluations and discussion with primary team, critical care nursing, and respiratory therapy. Time also includes discussion with family about plan of care
and time spent during bedside chest tube placement.
Subjective Dataa
Subjective Data
Date of Service:
Date of Service: October 07, 2024
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
Subjective:
Patient continues to be intubated and sedated, mechanically ventilated. Patient failed SBT, having copious thick secretions through the ET tube
Review of Systems
General: Unobtainable - Pat Unresp
Objective Data
Data Reviewed
Vital Signs / I&O / Oxygen:
Vital Signs
Temp Pulse Resp BP Pulse Ox
99.7 F 72 20 116/65 93
10/07/24 07:51 10/07/24 08:00 10/07/24 08:00 10/07/24 08:00 10/07/24 08:00
Intake and Output
10/06/24 10/07/24 10/08/24
06:59 06:59 06:59
Intake Total 2486.9 / 2566.8 2826.2 / 2854.6 56.8 / 56.8
Output Total 1560 / 1610 1989 / 2069 160 / 160
Balance 926.9 / 956.8 836.2 / 784.6 -103.2 / -103.2
SaO2 [A/C] 93
SaO2 95
Nasal Cannula flow liters per 60
minute
Exam:
HEENT. Cachectic, bitemporal wasting
Chest, severe rhonchi on the right side, better air entry on the left side
Cardiovascular, S1, S2 normal
Abdomen, soft
Extremities, 1-2+ bilateral pitting edema
Physical Exam
Skin: Other
Labs/Micro/Reports
Lab Data
10/07/24 03:22
10/07/24 03:22
Laboratory Results
10/07/24
03:22
pH 7.45
pCO2 50 H
pO2 126 H
HCO3 34.8 H
O2 Delivery Level 40%
Microbiology
10/03/24 18:33 Pleural Fluid Body Fluid Culture - Preliminary
No Growth After 48 Hours
10/03/24 18:33 Pleural Fluid Gram Stain - Preliminary
10/04/24 13:23 Tracheal Aspirate Respiratory Culture - Final
Binta albicans
10/04/24 13:23 Tracheal Aspirate Gram Stain - Final
--- NOTE | 2024-10-07 08:58 | W.PN.ID1 ---
Date of Service
Date of Service: October 07, 2024
Today's Communication
- note that a fever via the core route is defined as over 101.0 - no roxi fevers recorded
continue current antibiotics
Assessment / Plan
Strep Pneumoniae Pneumonia - necrotizing
Secondary health care acquired pneumonia due to Pseudomonas
Influenza A - likely resolved
Empyema of the right lung - resolving
Bacteremia due to Strep Pneumoniae - transient
Acute hypoxemic respiratory failure
Hypotension - now on pressors
Leukocytosis - resolved
- note that a fever via the core route is defined as over 101.0 - no roxi fevers recorded
- 09/23 blood cultures S Pneumoniae - intermediate to levofloxacin; sensitive to penicillin
- 09/23 sputum culture with few Pseudomonas
- subtyping for flu A - negative
- L pneumothorax 09/29; chest tube management per pulmonary
- R pyopneumothorax 10/03; pigtail placed, evaluated by CT surgery Dr Ny 10/04 - not currently a surgical candidate
- 10/03 body fluid culture - no growth to date
- 10/04 tracheal aspirate - negative
- c/w zosyn day 14 - anticipate a long course of IV therapy- From 09/05 likely for 4-6 weeks
- c/w vancomycin, day 3 - note clinical improvement since starting
- c/w micafungin day 4,
- Patient has previous completed a 10-day course of Tamiflu 10/02
- patient is remains critically ill with respiratory failure
Chief Complaint
-: Pneumonia and Other (S pneumo pneumonia, Pseudomonas pneumonia; empyema)
Subjective / Review of Systems
- note that a fever via the core route is defined as over 101.0 - no roxi fevers recorded
- declining pressor requirements
FiO2 down to 50 and PEEP 3
developing edema noted
moderate-large amount thick, hunt secretions via ETT
Vital Signs / Physical Exam
Vital Signs
Vital Signs
Temp Pulse Resp BP Pulse Ox
99.7 F 72 20 116/65 93
10/07/24 07:51 10/07/24 08:00 10/07/24 08:00 10/07/24 08:00 10/07/24 08:00
Physical Exam
Constitutional: Acutely Ill and Chronically Ill
Cardiovascular: Regular Rate and S1/S2; Negative Murmur or Rub
Pulmonary: Symmetric and Non Labored; Negative Wheezes or Rales
Gastrointestinal: Soft, Non Tender, Non Distended and Normal Bowel Sounds
Skin: Warm and Dry; Negative Rash or Jaundice
Neurological: Negative Awake
Objective Data
Lab Data
Lab Results
10/07/24 03:22
10/07/24 03:22
PT 24.5 Sec (11.4-14.6) H 10/01/24 03:25
INR 2.19 10/01/24 03:25
APTT 35.3 Sec (23.4-35.0) H 10/01/24 03:25
Estimated Creat Clear 77 ml/min 10/07/24 03:22
Lactic Acid Cancelled 09/22/24 22:31
Total Bilirubin 0.7 mg/dl (0.2-1.3) 10/06/24 03:15
AST 30 U/L (14-36) 10/06/24 03:15
ALT 24 U/L (0-35) 10/06/24 03:15
Alkaline Phosphatase 142 U/L (38-126) H 10/06/24 03:15
Most recent labs reviewed.
Chest X-Ray: Image Reviewed and Report Reviewed (chest tubes in place - no interval change)
Micro Results:
10/03/24 18:33 Body Fluid Culture - Preliminary
Pleural Fluid No Growth After 48 Hours
Gram Stain - Preliminary
10/04/24 13:23 Respiratory Culture - Final
Tracheal Aspirate Binta albicans
Gram Stain - Final
09/22/24 10:33 Blood Culture - Final
Blood/Venous Streptococcus pneumoniae
Gram Stain - Final
09/28/24 18:31 C. difficile GDH Antigen & Toxins - Final
Feces/Stool Negative for toxigenic C.difficile
09/24/24 03:40 Blood Culture - Final
Blood/Venous No Growth - Final Report
09/24/24 03:30 Blood Culture - Final
Blood/Venous No Growth - Final Report
09/23/24 16:43 Blood Culture - Final
Blood/Venous No Growth - Final Report
09/23/24 13:35 Blood Culture - Final
Blood/Venous No Growth - Final Report
09/23/24 22:22 Respiratory Culture - Final
Sputum Pseudomonas aeruginosa
Binta albicans
Gram Stain - Final
09/22/24 12:38 Blood Culture - Final
Blood/Venous Streptococcus pneumoniae
Gram Stain - Final
09/22/24 22:22 Legionella Urinary Antigen - Final
Urine Negative for Legionella pneumophila Serogroup 1 antigen.
A negative result does not rule out the possiblity of
Legionella infection due to other serogroups or species of
Legionella. Clinical correlation is recommended.
Streptococcus pneumoniae Antigen (M - Final
Positive for Strep pneumo Ag
09/22/24 10:33 Influenza Types A & B (EUN) - Final
Nasal Swab Influenza A Positive, NAAT
[2024-10-07] MEDS: ELIQUIS 5 MG TUBE ×2 (09:36→21:23)
[2024-10-07] MEDS: PROTONIX IV 40 MG IV (09:37)
[2024-10-07] MEDS: ProAmatine 5 MG TUBE ×3 (09:37→17:23)
[2024-10-07] MEDS: VISBIOME 2 CAP TUBE (09:37)
[2024-10-07] MEDS: NSS (PRESERVATIVE FREE) 10 ML IV (09:37)
[2024-10-07] MEDS: MIRALAX 17 GRAMS TUBE (09:37)
--- NOTE | 2024-10-07 09:47 | W.PN.HOSP.TC ---
Today's Communication/Plan
-
continue IV Protonix
ventilator support
Assessment / Plan
Assessment / Plan
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
# Acute hypoxic respiratory failure likely secondary to influenza, complicated by severe bilateral pneumonia secondary to Pseudomonas plus strep pneumo
# Spontaneous left-sided pneumothorax
-Duoneb R QID and PRN switched to Xopenex d/t tachycardia and cont with PRN for now.
-VEST therapy DCed, Incentive Spirometry
-Intubated FiO2 40%/AC20/TV300/PEEP5
-CT chest appreciated multilobar pna severe in RLL underlying mass not excluded (follow up CT after treatment recommended relayed to patient and patient spouse)
-Repeat chest x-ray earlier 10/06: 1. No new abnormalities appreciated.
2. Lucency at each lung apex suggestive of small biapical pneumothoraces, unchanged or slightly decreased in size compared to prior chest x-ray.
3. Extensive alveolar and interstitial infiltrates bilaterally, which may represent pneumonia, interstitial pneumonitis, and/or underlying interstitial fibrosis. Neoplasm also remains in the differential diagnosis.
4. Small right pleural effusion is suspected, unchanged.
-Was started on IV steroids Decadron 4 mg every 8-since DE'ed on 10/03.
-Concern for ARDS as with persistent severe hypoxemia.
-Will try to avoid positive balance and try to keep it on the air drier machine operator side.
-Status post intubation on 10/04/24 and now on mechanical ventilation. Continue with sedation.
CXR 10/07: Stable tiny bilateral apical pneumothoraces with stable position of bilateral chest tubes.
Bilateral parenchymal opacification suspicious for pneumonia without significant change.
#Septic Shock elevated (tachycardia, tachypnea) lactate, hypotension requiring pressor support
remains on Levophed at 3 mcg.kg/min
#Fever cough/generalized weakness likely from flu/polymicrobial pneumonia with Necrotizing strep pneumonia and Pseudomonas pneumonia
#Empyema
#Strep bacteremia due to pneumonia
#Sinus tachycardia likely 2/2 severe sepsis PNA
-NG feed nutritional support
-Blood cultures positive for Strep pneumonia, follow up repeat blood cx's NGTD
-Sputum Cx pos for Pseudomonas and binta albicans
-ID eval appreciated ceftriaxone discontinued in favor of Zosyn
-completed Tamiflu 10 day course,
-Status post CT chest with necrotizing pneumonia patient also started on antifungal with micafungin and vancomycin.
-On 09/22 admission blood cx + Strep Pneumonia
Influenza A +
Legionella Urine At neg
On 09/23 Respiratory Cx +Pseudomonas
+Binta albicans
-Patient was evaluated by CT surgery Dr. Ny on 10/04 and patient deemed not a surgical candidate
-In the long run patient will require long course of antibiotics of probably 6 weeks
# Spontaneous left-sided pneumothorax
Noted on chest x-ray on 09/29/2024
Status post emergent chest tube placement by [facility]
Status post second 14 Albanian chest tube placement by combine operator post intubation for expanding pneumothorax on 10/04/2024
Daily chest x-ray. Will monitor for now.
# Right-sided Pyopneumothorax
Status post emergent chest tube placed by combine operator on 10/03/2024
Fluid cultures and other studies sent
Will follow-up on the results
Status post emergent upsizing of right-sided chest tube by [facility] on 10/04/24
As mentioned above was evaluated by CT surgery and not deemed to be surgical candidate
#Hypotension post intubation
on levophed
wean pressors as tolerated
# Atrial fibrillation/atrial flutter rapid ventricular response
was started on Cardizem infusion, since stopped
Blood pressure soft and thus unable to tolerate Cardizem and thus plan was to switch to amiodarone gtt, which in turn was stopped due to concern for Amio toxicity. As per cardio
Anticoagulation with Eliquis
Echocardiogram with EF of 60 to 65%. Mild to moderate mitral regurgitation. Mildly elevated PASP with PASP of 38 mmHg.
TSH wnl
Status post conversion to normal sinus rhythm.
Currently on Eliquis
Mag 1.9
#Anemia
likely of chronic disease
no active luminal bleeding noted
Start patient on IV Venofer. B12 folate normal
Heme test stools
Transfuse for hemoglobin less than 7.
Hgb 8.5
will add prophylactic Protonix
#Loose bowel movements
Likely due to antibiotic associated
C. difficile negative
Imodium if needed
Resolved.
# Anxiety could be situational
Ativan as needed
# Hyponatremia/metabolic acidosis /acute kidney injury likely hypovolemic
-resolved
-IVF completed
#Hypokalemia
10/07 4.4 resolved
#Mild Hypophosphatemia
monitor and replete as necessary
Underweight/Cachexic
severe temporal muscle wasting
nutrition on board
now on NG feeding with Osmolite at 30 cc/hr
# DVT prophylaxis
-Eliquis
# CODE STATUS
-Full code
Reviewed extensively with sonJonathan at bedside
complex situation
Total Critical Care Time 60 minutes. I was immediately available to the patient and staff. I personally examined, reviewed labs, diagnostic images/reports, interpretations, treatment plans, discussed patient care with other providers and family
or caregivers (if patient is unable to make decisions), entered orders as appropriate and documented the medical record.
Anticipated Discharge: > 48 hours
Subjective/Interval History
-
Date of Service: October 07, 2024
remains VDRF
Objective Data
-
Labs:
Laboratory Results
10/07/24
03:22
WBC 15.5 H
Hgb 8.6 L
Hct 27.0 L
Plt Count 629 H
HCO3 34.8 H
Sodium 137
Potassium 4.4 D
Chloride 100
Carbon Dioxide 36 H
BUN 14
Creatinine 0.4 L
Glucose 94
Calcium 7.4 L
Vital Signs:
Vital Signs
Temp Pulse Resp BP Pulse Ox
99.7 F 68 20 116/65 97
10/07/24 07:51 10/07/24 09:37 10/07/24 09:30 10/07/24 09:37 10/07/24 09:30
I&O
10/06/24 10/07/24 10/08/24
06:59 06:59 06:59
Intake Total 2486.9 / 2566.8 2826.2 / 2854.6 56.8 / 56.8
Output Total 1560 / 1610 1989 / 2069 160 / 160
Balance 926.9 / 956.8 836.2 / 784.6 -103.2 / -103.2
Review of Systems
-
Unable to obtain full review of systems at this time due to: Patient Intubation
History Source: Family (reviewed with sonJonathan at bedside) and Coordinated Provider (SHAUN Graham)
Constitutional: Reports Fever (100.7)
Physical Exam
-
General: Well Developed, Intubated and Cachectic
HEENT: Normocephalic, Atraumatic and Other (NG tube in place)
Respiratory: Wheezes, Rhonchi and Chest Tubes (bilateral chest tubes)
Cardiac: Regular Rhythm and S1/S2
GI: Soft, Nondistended and Normal Bowel Sounds
Musculoskeletal: No Clubbing, No Cyanosis and No Edema
Neuro: Negative Awake
[2024-10-07 09:55] VITALS: BP 116/70
--- NOTE | 2024-10-07 10:27 | PHA.VAN.FU ---
Vancomycin Assessment / Plan
- Assessment
Renal Function: Stable
WBC's are: Stable
Concomitant Antimicrobials: piperacillin/tazobactam, micafungin
- Dosing Plan
Continue: Vanc 750mg Q12H
- Monitoring Plan
Peak Level: 10/07 21:00
Trough Level: 10/08 05:30
Monitoring Comments: levels to be drawn after 5th maintenance dose
- Follow Up
Pharmacy will continue to follow.
Vancomycin Follow UP
- -
Patient Age: 69
Patient Sex: Female
Vancomycin Day #: 3
Indication: Pulmonary/Respiratory
Requesting Provider: Dr. Lee
Pertinent Antimicrobial Allergies:
NKDA
Height / Weight:
Height 5 ft 4 in
Actual Weight 56.6 kg
- Vital Signs / Lab Results
Temp Pulse Resp BP Pulse Ox
99.7 F 68 20 116/65 97
10/07/24 07:51 10/07/24 09:37 10/07/24 09:30 10/07/24 09:37 10/07/24 09:30
Lab Results - Hematology
10/05/24 10/06/24 10/07/24
03:19 03:15 03:22
WBC 19.4 H 15.1 H 15.5 H
Lab Results - Chemistry
10/05/24 10/06/24 10/07/24
03:19 03:15 03:22
BUN 17 16 14
Creatinine 0.4 L 0.5 L 0.4 L
Estimated Creat Clear 77 77 77
Albumin 2.6 L
Microbiology Results
10/03/24 18:33 Body Fluid Culture - Preliminary
Pleural Fluid No Growth After 48 Hours
Gram Stain - Preliminary
10/04/24 13:23 Respiratory Culture - Final
Tracheal Aspirate Binta albicans
Gram Stain - Final
--- NOTE | 2024-10-07 12:00 | PTCARENOTE ---
Per hospice nurse practitioner, pt not appropriate for SBT today d/t large amount secretions. Will reattempt tomorrow if possible. Levo titrated for MAP of 65, see worklist. Safe environment maintained.
[2024-10-07] MEDS: LASIX 20 MG IV (13:33)
[2024-10-07] MEDS: MYCAMINE 105 MG IV (14:18)
--- NOTE | 2024-10-07 14:52 | CM ---
CM following re: discharge planning.
Discussed in Rounds, reviewed pt's chart, met with pt. Pt's and pt's son at bedside. Another son participated in Rounds meeting.
Per Rounds meeting, pt remains intubated, remains critically ill with respiratory failure, prognosis guarded, continue supportive care.
D/C plan: uncertain at this time and will depend on pt's progress.
CM will follow with discharge plan updates as hospitalization progresses
[2024-10-07 16:00] VITALS: BP 123/70
--- NOTE | 2024-10-07 19:13 | PTCARENOTE ---
Per manager latin, tube feeds to be held Sat 3/8 at 0400 for possible bronch in am. Orders for Vanco peak and trough noted -will pass to on coming shift. Sons and taking turns visiting, questions answered.
--- NOTE | 2024-10-07 20:00 | PTCARENOTE ---
rec`d pt at 1900 intubated and sedated. assessment as documented. follows commands. arousable. titrating levo to maintain MAP> 65. rt and left chest to wall suction. 7.5 ETT. vent settings 20/300/40%/peep of 3. tube feed continued @40hr/25 water
flush through OGT @55 kalie. [address]r. rt dual luman picc with levo, fent and precedex gtts. restraints. safe environment maintained.
[2024-10-07] MEDS: SODIUM CHLORIDE 3% FOR INHALATION 1 VIAL INH (21:18)
[2024-10-07] MEDS: ATIVAN 0.5 MG IV (21:23)
[2024-10-07] MEDS: NSS (PRESERVATIVE FREE) 0.25 ML IV (21:23)
[2024-10-07 21:57] LABS: Vancomycin Peak 15.1 ug/ml (18-26)
--- NOTE | 2024-10-08 01:43 | PTCARENOTE ---
pt bumped to 50% FIo2 after turning. pt was 90%. POX now 93% w/ 50% FIo2.
[2024-10-08] MEDS: SUBLIMAZE 50 MCG IV ×3 (04:07→14:15)
[2024-10-08] MEDS: ATIVAN 0.5 MG IV ×2 (04:32→23:01)
[2024-10-08] MEDS: NSS (PRESERVATIVE FREE) 0.25 ML IV (04:36)
[2024-10-08] MEDS: ZOSYN 100 IV ×4 (04:37→22:42)
[2024-10-08] MEDS: TYLENOL ORAL SOLUTION 650 MG TUBE ×3 (04:44→20:43)
[2024-10-08] MEDS: PRECEDEX 100 IV ×5 (04:49→22:42)
[2024-10-08] MEDS: LEVOPHED 258 MG IV (04:51)
--- NOTE | 2024-10-08 04:56 | PTCARENOTE ---
pt did not tolerate turning well. dipped to 82% POX. pt needed 100% FIo2 on vent several times. FIo2 now at 65% and satting 92%. pt actively moving and seemed to be anxious. prn fent given and a stat ativan IV dose.
[2024-10-08 05:00] VITALS: BMI 20.9
[2024-10-08] MEDS: VANCOCIN 150 IV (05:22)
[2024-10-08 05:41] LABS: HCO3 30.6 mmol/L (21-28); PCO2 44 mmHg (32-35); PO2 81 mmHg (83-108); pH 7.45 (7.35-7.45)
[2024-10-08 05:47] LABS: O2 Therapy 40%
[2024-10-08 06:07] LABS: % Basophils 0.2 % (0-2); % Eosinophils 2.3 % (0-6); % Immature Granulocytes 2.5 % (0-0.5); % Monocytes 10.2 % (1.7-9.3); % Neutrophils 79.8 % (42.2-75.2); Absolute Eosinophils 0.4 10^3/uL (0-0.7); Absolute Immature Granulocytes 0.4 10^3/uL (0-0.05); Absolute Lymphocytes 0.8 10^3/uL (1.2-3.4); Absolute Monocytes 1.6 10^3/uL (0.1-0.6); Absolute Neutrophils 12.7 10^3/uL (1.4-6.5); Hematocrit 26.6 % (37.0-47.0); Hemoglobin 8.8 g/dL (12.0-16.0); Mean Corp Hgb Conc. 33.1 g/dL (33.0-37.0); Mean Corpuscular Volume 90.8 fL (81.0-99.0); Mean Platelet Volume 9.3 fL (7.4-10.4); Nucleated Red Blood Cells % 0 %; Platelet Count 602 10^3/uL (130-400); Red Blood Cell Count 2.93 10^6/uL (4.20-5.40); Red Cell Dist. Width 15.8 % (11.5-14.5)
[2024-10-08 06:09] LABS: Blood Urea Nitrogen 12 mg/dl (7-17); Calcium 7.1 mg/dl (8.4-10.2); Carbon Dioxide 30 mmol/L (22-30); Chloride 100 mmol/L (98-107); Estimated Creatinine Clearance 77 ml/min; Glucose 102 mg/dl (70-99); Sodium 134 mmol/L (135-145); eGFR > 60.00
[2024-10-08] MEDS: CALCIUM GLUCONATE 100 IV (06:40)
--- NOTE | 2024-10-08 07:19 | W.PN.INTV ---
Today's Communication / Plan
Recommendations
-Plan for bronchoscopy and BAL today
-Continue 3% saline along with levalbuterol
-Continue goals of care discussion
Assessment
-
69-year-old woman without significant past medical history was admitted to the hospital with flulike symptoms, shortness of breath. Found to be hypoxemic, septic with bilateral infiltrates on x-ray. Requiring up to 6 L supplemental oxygen. Found
to be flu positive, complicated by strep pneumo bacteremia, along with Pseudomonas in the sputum with Binta. We were consulted on 09/26/2024 due to worsening oxygenation and possible pulmonary mass.
Patient had positive blood cultures with strep pneumo on 09/22. Bacteremia has since cleared. Patient continues to be on Zosyn. Stay was further complicated by a spontaneous left-sided pneumothorax requiring chest tube placement 09/29.
Unfortunately, hypoxemic respiratory failure worsened and she was transferred to the ICU on 09/30/2024 for closer monitoring due to requiring 100%% FiO2 on high flow NC. Worsening right lung opacity noted on CT of the x-rays. 10/03, bedside POCUS
confirmed a loculated pleural effusion. A CT scan was performed which was suggestive of prior pneumothorax. A bedside chest tube on the right side was placed with slight improvement in the loculated effusion and fluid suggestive of empyema with
LDH more than 9000.
10/04. Patient noted to have increasing respiratory distress with gradually declining oxygen saturation despite high flow nasal cannula and nonrebreather. Patient was intubated and placed on mechanical ventilation.
10/05, patient had expansion of pneumothorax postintubation and a bedside left sided chest tube was placed. Patient required another chest tube on the right side due to expanding pneumothorax later in the day.
ast 24 hrs:
Patient reportedly had episodes of agitation and desaturation overnight
Fluid balance, -854 mL
Hemoglobin stable at 8.8, WBC count stable at 16,000 and platelet around 602
Electrolytes, potassium 4 sodium mildly low at 134, creatinine normal at 0.4
Chest x-ray extensive bilateral infiltrate and trace pneumothoraces, stable
ABG today, 7.45, 44, 81 on 65% FiO2 and PEEP of 3, volume AC 300, 20, PEEP of 3 at 65%. Patient had repeated desaturations overnight.
Current drips, levo, fentanyl at 100, Precedex at 1.5
Assessment and plan
#1. Acute hypoxemic respiratory failure due to bilateral pneumonia-influenza A+/bacterial superinfection with Pseudomonas aeruginosa + strep pneumonia c/b Streptococcus pneumonia bacteremia.
-Respiratory status worsened requiring intubation on 10/04
-Currently on volume control, low tidal volume setting low tidal volume setting with tidal volume 300, PEEP further lower down to 3 in view of persistent air leak on the left side
-Currently on Precedex, weaned off propofol, as needed fentanyl pushes
-Continue Xopenex. Reported intolerance to Atrovent
-Hold off inhaled and systemic steroids in view of influenza A
-Completed Tamiflu
-Guarded prognosis
-Started 3% nebulized twice a day for thick tenacious secretions, plan for Bronchoscopy and BAL today
#2. 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
-Rapid expansion of left-sided pneumothorax postintubation. Emergent placement of second 12 Icelandic chest tube on the left side 10/04. Patient already had an anterior 8 [place]ic chest tube in place but was not draining any air.
-Significant improvement of pneumothorax post chest tube placement
-Airleak seems to be improved and intermittent this morning 10/08. With earlier continuous air leak for 4 days there is concern for alveolar pleural or bronchopleural fistula considering underlying necrotizing pneumonia. Continue suction at -20 cm
and daily chest x-ray. Lowered PEEP to 3, continue low tidal volume of 300 mL
-Daily x-rays
#3. Right-sided prior pneumothorax with loculated effusion/empyema.
-Continue IV antibiotics, pleural fluid culture negative
-Chest tube placed 10/03 for pyo-pneumothorax. Pleural fluid LDH more than 9000 highly suggestive of empyema
-Recurrence of pneumothorax despite small bore chest tube on 10/04, s/p placement of larger chest tube with resolution of pneumothorax on 10/04 overnight. (Suspect related to displacement 8 Icelandic chest tube as patient developed desaturation after
changing position)
-Post chest tube chest x-ray seems to have well-expanded lung, holding off tPA/DNase
-Severe necrotizing pneumonia with guarded prognosis
-Patient not felt to be a surgical candidate per CT surgery evaluation
-CT in coming days for follow-up
#4. Septic shock -
-Currently on levo 2 mcg
-Currently on vancomycin, Zosyn and micafungin
#5. Acute kidney injury - resolved post IV fluid
-Daily labs
-Tolerated Lasix 1 dose well on 10/07
#6. Atrial fibrillation/flutter with rapid ventricular response in the setting of acute illness 09/26/2024 --> now in NSR
-Suspect this is in the setting of acute illness, normal sinus rhythm now
-Cardiology service on case, currently on Eliquis 5 mg twice daily
Conditions present prior admission:
None
Does not follow-up with primary care
Does not take any medications
Non-smoker

Critical care statement: A total of 55 minutes of critical care time was provided for this patient today. This includes management of unstable vital signs, evaluation of the patient at bedside, reviewing the patient's pertinent medical records
including ventilator settings, arterial blood gases, radiographs, microbiology, laboratory evaluations and discussion with primary team, critical care nursing, and respiratory therapy. Time also includes discussion with family about plan of care
and time spent during bedside chest tube placement. This included procedure time
Subjective Dataa
Subjective Data
Date of Service:
Date of Service: October 08, 2024
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
Subjective:
Patient intubated and sedated currently on mechanical ventilation
Review of Systems
General: Unobtainable - Sedation
Objective Data
Data Reviewed
Vital Signs / I&O / Oxygen:
Vital Signs
Temp Pulse Resp BP Pulse Ox
100.3 F 63 22 134/53 96
10/08/24 03:05 10/08/24 07:00 10/08/24 07:00 10/07/24 17:23 10/08/24 07:00
Intake and Output
10/07/24 10/08/24 10/09/24
06:59 06:59 07:59
Intake Total 2826.2 / 2854.6 2104.2 / 2104.2
Output Total 1989 3010 / 3010
Balance 836.2 / 784.6 -905.8 / -905.8
SaO2 [A/C] 92
SaO2 96
Nasal Cannula flow liters per 60
minute
Physical Exam
General: Respiratory Distress (Moderate distress on exam), Comfortable, Chills (negative), Sweats (negative) and Other (Anxious appearing)
HEENT: Normocephalic and Anicteric
Cardiovascular: S1-S2, Regular Rhythm, Rub (negative) and Peripheral Edema (Trace lower extremity edema bilaterally)
Respiratory: Wheeze (negative), Crackles (Bilaterally), Rhonchi (Bilaterally), Accessory Resp Muscle Use (Mild, especially with exertion), Stridor (negative), Chest Tube (Left hemithorax with continuous level 1 airleak seen during expiration) and
Other (Grossly diminished breath sounds mainly on right lung)
GI: Soft, Non Distended, Non Tender and Normal Bowel Sounds
Neurology: AO x 3 and Tremors (negative)
Skin: Other
Labs/Micro/Reports
Lab Data
10/08/24 05:32
10/08/24 05:32
Laboratory Results
10/08/24
05:32
pH 7.45
pCO2 44 H
pO2 81 L
HCO3 30.6 H
O2 Delivery Level 40%
Microbiology
10/03/24 18:33 Pleural Fluid Body Fluid Culture - Final
No Growth After 72 Hours
10/03/24 18:33 Pleural Fluid Gram Stain - Final
10/04/24 13:23 Tracheal Aspirate Respiratory Culture - Final
Binta albicans
10/04/24 13:23 Tracheal Aspirate Gram Stain - Final
[2024-10-08] MEDS: XOPENEX 1.25 MG INHALANT SOLUTION INH ×4 (07:31→19:31)
[2024-10-08] MEDS: SODIUM CHLORIDE 3% FOR INHALATION 1 VIAL INH ×2 (07:31→19:31)
--- NOTE | 2024-10-08 08:00 | PTCARENOTE ---
Rec`d pt at 07:15 from previous RN, remains intubated and sedated, Dex/fent/levo infusing via R DL PICC-see flowsheet for titration info. Per report, pt required increase in sedation overnight d/t agitation, air hunger, desaturation and copious
secretions. RASS currently -3. arousable to tactile stim. titrating levo to maintain MAP> 65. Rt and left chest tubes remain to wall suction, no air leak noted at this time. 7.5 ETT at 22 cm kalie on the right side. Pt currently tolerating vent
settings 20/300/65%/3. Sa02 93%. tube feed remains on hold since 399 per orders for bronch today. OGT @55 kalie. Leaking yellow liquid intermittently. Hypo BS noted, nafisa swartz. aware, bowel reg administered. Carr in place for crit I+Os . Pt
unable to tolerate significant turns at this time, will reeval respiratory status after bronch. CHG bath, carr and oral care provided. Right Radial Ludy leveled and zeroed, correlating with non invasive. Restraints in place for safety, safe
environment maintained.
[2024-10-08] MEDS: MIRALAX 17 GRAMS TUBE (08:58)
[2024-10-08] MEDS: ELIQUIS 5 MG TUBE ×2 (08:58→20:11)
[2024-10-08] MEDS: NSS (PRESERVATIVE FREE) 10 ML IV (08:58)
[2024-10-08] MEDS: VISBIOME 2 CAP TUBE (08:58)
[2024-10-08] MEDS: ProAmatine 5 MG TUBE ×3 (08:58→17:19)
[2024-10-08] MEDS: PROTONIX IV 40 MG IV (08:59)
[2024-10-08 09:25] VITALS: BP 95/64
--- NOTE | 2024-10-08 09:46 | PHA.VAN.FU ---
Vancomycin Assessment / Plan
- Assessment
Renal Function: Stable (SCr 0.4)
WBC's are: Trending Up (15.5 -> 16.0)
In the past 24 hrs, patient has been: Febrile (101.2, 100.5)
Concomitant Antimicrobials: Piperacillin/Tazobactam
- Assessment - Therapeutic Drug Monitoring
Extrapolated Cmax (mcg/mL): 15.1
Peak level was drawn: More than 3 hours after previous dose (~3.5hr after end of infusion, admin 10/07/24 1804, drawn 10/07/243)
Trough was not drawn by nurse; will assess dosing regimen using given information
- Dosing Plan
Adjust Regimen to: Vanco 1000mg Q12H Starting 10/08/24 1800
Dosing Comments: Adjust dosing due to low peak drawn ~3.5hr after end of infusion
- Monitoring Plan
Trough Level: Trough level 10/09/24 0530
- Follow Up
Pharmacy will continue to follow.
Vancomycin Follow UP
- -
Patient Age: 69
Patient Sex: Female
Vancomycin Day #: 5
Indication: Pulmonary/Respiratory
Requesting Provider: Dr. Lee
Pertinent Antimicrobial Allergies:
NKDA
Height / Weight:
Height 5 ft 4 in
Actual Weight 55.1 kg
- Vital Signs / Lab Results
Temp Pulse Resp BP Pulse Ox
100.5 F H 75 21 107/50 94
10/08/24 07:00 10/08/24 08:58 10/08/24 07:32 10/08/24 08:58 10/08/24 09:13
Lab Results - Hematology
10/06/24 10/07/24 10/08/24
03:15 03:22 05:32
WBC 15.1 H 15.5 H 16.0 H
Lab Results - Chemistry
10/06/24 10/07/24 10/08/24
03:15 03:22 05:32
BUN 16 14 12
Creatinine 0.5 L 0.4 L 0.4 L
Estimated Creat Clear 77 77 77
Albumin 2.6 L
Microbiology Results
10/03/24 18:33 Body Fluid Culture - Final
Pleural Fluid No Growth After 72 Hours
Gram Stain - Final
10/04/24 13:23 Respiratory Culture - Final
Tracheal Aspirate Binta albicans
Gram Stain - Final
Therapeutic Drug Monitoring
Vancomycin Peak 15.1 ug/ml (18-26) L 10/07/24 21:33
--- NOTE | 2024-10-08 10:02 | PTCARENOTE ---
Levophed titrated up for MAP 60...see flowsheet. Plan discussed with compressed air pile driver operator, son arrived at bedside. Safe envrionment maintained.
--- NOTE | 2024-10-08 10:05 | W.PN.ID1 ---
Date of Service
Date of Service: October 08, 2024
Today's Communication
Check COVID.
Continue current broad spectrum abx's.
Assessment / Plan
Strep Pneumoniae Pneumonia - necrotizing
Secondary health care acquired pneumonia due to Pseudomonas
Influenza A - likely resolved
Empyema of the right lung - resolving
Bacteremia due to Strep Pneumoniae - transient
Acute hypoxemic respiratory failure, VDRF
Bilateral PTX -> chest tubes
Shock - weaning 1 pressor
Elevated core temperature
Leukocytosis
- 09/23 blood cultures S Pneumoniae - intermediate to levofloxacin; sensitive to penicillin
- 09/23 sputum culture with few Pseudomonas
- subtyping for flu A - negative amanda flu
- L pneumothorax 09/29; chest tube management per pulmonary
- R pyopneumothorax 10/03; pigtail placed, evaluated by CT surgery Dr Ny 10/04 - not currently a surgical candidate
- 10/03 body fluid culture - no growth to date
- 10/04 tracheal aspirate - negative
- Repeating blood cx's for elevated temps
- Check COVID
- c/w zosyn day 15 - anticipate a long course of IV therapy- From 09/05 likely for 4-6 weeks
- c/w vancomycin, day 4 - note clinical improvement since starting
- c/w micafungin day 5,
- Patient has previous completed a 10-day course of Tamiflu 10/02
- patient is remains critically ill with respiratory failure. Prognosis guarded
Chief Complaint
-: Pneumonia and Other (S pneumo pneumonia, Pseudomonas pneumonia; empyema)
Subjective / Review of Systems
Critically ill on vent.
Vital Signs / Physical Exam
Vital Signs
Vital Signs
Temp Pulse Resp BP Pulse Ox
100.5 F H 75 21 107/50 94
10/08/24 07:00 10/08/24 08:58 10/08/24 07:32 10/08/24 08:58 10/08/24 09:13
Physical Exam
Constitutional: Acutely Ill
Cardiovascular: Regular Rate and S1/S2
Pulmonary: Coarse and Other (bilateral chest tubes present)
Gastrointestinal: Soft, Non Tender, Non Distended and Normal Bowel Sounds
Genito-Urinary: León and Clear Urine
Extremities: Negative Edema
Objective Data
Lab Data
Lab Results
10/08/24 05:32
10/08/24 05:32
PT 24.5 Sec (11.4-14.6) H 10/01/24 03:25
INR 2.19 10/01/24 03:25
APTT 35.3 Sec (23.4-35.0) H 10/01/24 03:25
Estimated Creat Clear 77 ml/min 10/08/24 05:32
Lactic Acid Cancelled 09/22/24 22:31
Total Bilirubin 0.7 mg/dl (0.2-1.3) 10/06/24 03:15
AST 30 U/L (14-36) 10/06/24 03:15
ALT 24 U/L (0-35) 10/06/24 03:15
Alkaline Phosphatase 142 U/L (38-126) H 10/06/24 03:15
Most recent labs reviewed.
Micro Results:
10/08/24 08:20 Blood Culture - Pending
Blood/Venous
10/03/24 18:33 Body Fluid Culture - Final
Pleural Fluid No Growth After 72 Hours
Gram Stain - Final
10/04/24 13:23 Respiratory Culture - Final
Tracheal Aspirate Binta albicans
Gram Stain - Final
09/22/24 10:33 Blood Culture - Final
Blood/Venous Streptococcus pneumoniae
Gram Stain - Final
09/28/24 18:31 C. difficile GDH Antigen & Toxins - Final
Feces/Stool Negative for toxigenic C.difficile
09/24/24 03:40 Blood Culture - Final
Blood/Venous No Growth - Final Report
09/24/24 03:30 Blood Culture - Final
Blood/Venous No Growth - Final Report
09/23/24 16:43 Blood Culture - Final
Blood/Venous No Growth - Final Report
09/23/24 13:35 Blood Culture - Final
Blood/Venous No Growth - Final Report
09/23/24 22:22 Respiratory Culture - Final
Sputum Pseudomonas aeruginosa
Binta albicans
Gram Stain - Final
09/22/24 12:38 Blood Culture - Final
Blood/Venous Streptococcus pneumoniae
Gram Stain - Final
09/22/24 22:22 Legionella Urinary Antigen - Final
Urine Negative for Legionella pneumophila Serogroup 1 antigen.
A negative result does not rule out the possiblity of
Legionella infection due to other serogroups or species of
Legionella. Clinical correlation is recommended.
Streptococcus pneumoniae Antigen (M - Final
Positive for Strep pneumo Ag
09/22/24 10:33 Influenza Types A & B (EUN) - Final
Nasal Swab Influenza A Positive, NAAT
10/08/24 CXR: The small left-sided pneumothorax has slightly increased in size from prior. Stable appearance of the right-sided hydropneumothorax. Extensive bilateral mid and lower lung predominant opacities which are unchanged from prior and
consistent with known multifocal pneumonia.
Care Review
Plan reviewed with: Nurse (Disa)
[2024-10-08 10:57] LABS: COVID-19 Antigen Negative (Negative)
[2024-10-08] MEDS: MYCAMINE 105 MG IV (13:18)
--- NOTE | 2024-10-08 14:30 | PTCARENOTE ---
Bedside bronch completed by Dr. Yuan, pt tolerated. Stat CXR ordered to confirm tube placement s/p bronch.
--- NOTE | 2024-10-08 14:31 | OR.RPT ---
Operative Report
Operative Report
Bronchoscopy with bronchioloalveolar lavage
Indication: Severe pneumonia, nonresolving despite appropriate antibiotic. Copious thick secretions needing lavage and suctioning
Informed consent was obtained from patient's and son at bedside.
Patient was already sedated and intubated with ET tube in place and mechanically ventilated. Patient was on Precedex as well as fentanyl infusion. Additional 50 mcg of fentanyl was given prior to procedure. Patient was saturating 100% on 100%
FiO2 which was increased prior to the procedure before beginning. After timeout was performed, bronchoscope was advanced through the ET tube copious secretions was noted throughout the ET tube which were suctioned neil was visualized and a thick
adherent secretions were noted at the bifurcation of neil. Some saline flushes were used and thick secretions were aspirated. Subsequently scope was advanced to right mainstem bronchus. Right upper lobe bronchi were visualized they were all
patent and purulent looking secretions were noted which were suctioned. Scope was then advanced in right middle lobe which was patent as well. Subsequently lower lobe was examined which had copious secretions which were all suctioned. Scope was
then advanced to left mainstem bronchus with left upper lobe lingular and left lower segments were all examined and noted to be patent. Significant secretions were noted in the left lower lobe as well however they were not as thick and they were
aspirated.
Patient's oxygen saturation dropped down to 89% gradually at which point scope was withdrawn and time was given for oxygenation to recover. Within a minute or 2 saturation reached back up to 97%. Scope was inserted again through the ET tube and
was advanced back in right mainstem and was wedged in right middle lobe. 20 mL of saline was injected and a 15 mL of serosanguineous effluent was aspirated. Fluid was sent for cultures.
Quick inspection was again performed, no active bleeding was noted, residual secretions were also aspirated. As the scope was withdrawn all the secretions from ET tube were also aspirated. Scope was withdrawn and procedure was concluded.
Patient stayed hemodynamically stable throughout the procedure, oxygen saturation at the conclusion of procedure was 94%.
Complications: none
Blood loss: none
Total time spent: 25 mins
--- NOTE | 2024-10-08 15:02 | W.PN.HOSP.TC ---
Today's Communication/Plan
-
continue Ventilator and Pressor support
Assessment / Plan
Assessment / Plan
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
# Acute hypoxic respiratory failure likely secondary to influenza, complicated by severe bilateral pneumonia secondary to Pseudomonas plus strep pneumo
# Spontaneous left-sided pneumothorax
-Duoneb R QID and PRN switched to Xopenex d/t tachycardia and cont with PRN for now.
-VEST therapy DCed, Incentive Spirometry
-Intubated FiO2 65%/AC20/TV300/PEEP3
-CT chest appreciated multilobar pna severe in RLL underlying mass not excluded (follow up CT after treatment recommended relayed to patient and patient spouse)
-Repeat chest x-ray earlier 10/06: 1. No new abnormalities appreciated.
2. Lucency at each lung apex suggestive of small biapical pneumothoraces, unchanged or slightly decreased in size compared to prior chest x-ray.
3. Extensive alveolar and interstitial infiltrates bilaterally, which may represent pneumonia, interstitial pneumonitis, and/or underlying interstitial fibrosis. Neoplasm also remains in the differential diagnosis.
4. Small right pleural effusion is suspected, unchanged.
-Was started on IV steroids Decadron 4 mg every 8-since VT'ed on 10/03.
-Concern for ARDS as with persistent severe hypoxemia.
-Will try to avoid positive balance and try to keep it on the continuous conveyor screen drier side.
-Status post intubation on 10/04/24 and now on mechanical ventilation. Continue with sedation.
CXR 10/08: Stable appearance of the support lines and tubes.
The small left-sided pneumothorax has slightly increased in size from prior. Stable appearance of the right-sided hydropneumothorax
. Extensive bilateral mid and lower lung predominant opacities which are unchanged from prior and consistent with known multifocal pneumonia.
#Septic Shock elevated (tachycardia, tachypnea) lactate, hypotension requiring pressor support
remains on Levophed at 2 mcg.kg/min
#Fever cough/generalized weakness likely from flu/polymicrobial pneumonia with Necrotizing strep pneumonia and Pseudomonas pneumonia
#Empyema
#Strep bacteremia due to pneumonia
#Sinus tachycardia likely 2/2 severe sepsis PNA
-NG feed nutritional support
-Blood cultures positive for Strep pneumonia, follow up repeat blood cx's NGTD
-Sputum Cx pos for Pseudomonas and binta albicans
-ID eval appreciated ceftriaxone discontinued in favor of Zosyn
-completed Tamiflu 10 day course,
-Status post CT chest with necrotizing pneumonia patient also started on antifungal with micafungin and vancomycin.
-On 09/22 admission blood cx + Strep Pneumonia
Influenza A +
Legionella Urine At neg
On 09/23 Respiratory Cx +Pseudomonas
+Binta albicans
-Patient was evaluated by CT surgery Dr. Ny on 10/04 and patient deemed not a surgical candidate
-In the long run patient will require long course of antibiotics of probably 6 weeks
# Spontaneous left-sided pneumothorax
Noted on chest x-ray on 09/29/2024
Status post emergent chest tube placement by [facility]
Status post second 14 Haitian chest tube placement by forklift picker post intubation for expanding pneumothorax on 10/04/2024
Daily chest x-ray. Will monitor for now.
# Right-sided Pyopneumothorax
Status post emergent chest tube placed by forklift picker on 10/03/2024
Fluid cultures and other studies sent
Will follow-up on the results
Status post emergent upsizing of right-sided chest tube by [facility] on 10/04/24
As mentioned above was evaluated by CT surgery and not deemed to be surgical candidate
#Hypotension post intubation
on levophed
wean pressors as tolerated
# Atrial fibrillation/atrial flutter rapid ventricular response
was started on Cardizem infusion, since stopped
Blood pressure soft and thus unable to tolerate Cardizem and thus plan was to switch to amiodarone gtt, which in turn was stopped due to concern for Amio toxicity. As per cardio
Anticoagulation with Eliquis
Echocardiogram with EF of 60 to 65%. Mild to moderate mitral regurgitation. Mildly elevated PASP with PASP of 38 mmHg.
TSH wnl
Status post conversion to normal sinus rhythm.
Currently on Eliquis
Mag 1.9
#Anemia
likely of chronic disease
no active luminal bleeding noted
Start patient on IV Venofer. B12 folate normal
Heme test stools
Transfuse for hemoglobin less than 7.
Hgb 8.5
will add prophylactic Protonix
#Loose bowel movements
Likely due to antibiotic associated
C. difficile negative
Imodium if needed
Resolved.
# Anxiety could be situational
Ativan as needed
# Hyponatremia/metabolic acidosis /acute kidney injury likely hypovolemic
-resolved
-IVF completed
#Hypokalemia
10/07 4.0 resolved
#Mild Hypophosphatemia
monitor and replete as necessary
Underweight/Cachexic
severe temporal muscle wasting
nutrition on board
now on NG feeding with Osmolite at 30 cc/hr
# DVT prophylaxis
-Eliquis
# CODE STATUS
-Full code
Reviewed extensively with sonJonathan at bedside 10/07
complex situation
Anticipated Discharge: > 48 hours
Subjective/Interval History
-
Date of Service: October 08, 2024
remains VDRF
Objective Data
-
Labs:
Laboratory Results
10/08/24
05:32
WBC 16.0 H
Hgb 8.8 L
Hct 26.6 L
Plt Count 602 H
HCO3 30.6 H
Sodium 134 L
Potassium 4.0
Chloride 100
Carbon Dioxide 30
BUN 12
Creatinine 0.4 L
Glucose 102 H
Calcium 7.1 L
Vital Signs:
Vital Signs
Temp Pulse Resp BP Pulse Ox
101.2 F H 81 24 137/60 100
10/08/24 13:50 10/08/24 12:30 10/08/24 12:30 10/08/24 12:28 10/08/24 13:50
I&O
10/07/24 10/08/24 10/09/24
06:59 06:59 07:59
Intake Total 2826.2 / 2854.6 2104.2 / 2238.9 601.1 / 601.1
Output Total 1989 3010 / 3245 800 / 800
Balance 836.2 / 784.6 -905.8 / -1006.1 -198.9 / -198.9
Review of Systems
-
Unable to obtain full review of systems at this time due to: Patient Intubation
History Source: Coordinated Provider
Constitutional: Reports Fever (101.2)
Physical Exam
-
General: Well Developed, Intubated, Appears Chronically Ill and Cachectic
HEENT: Normocephalic and Atraumatic
Respiratory: Wheezes, Rhonchi and Chest Tubes (bilateral chest tubes)
Cardiac: Regular Rhythm and S1/S2
GI: Soft, Nondistended and Normal Bowel Sounds
Musculoskeletal: No Clubbing, No Cyanosis and No Edema
Neuro: Negative Awake
--- NOTE | 2024-10-08 15:46 | PTCARENOTE ---
tube feeds resumed at 15:45. Pt turned and repositioned, hygiene care provided. Plan discussed with employee benefits administrator Dr. Yuan. CT Chest ordered for am. Family updated at bedside by .
[2024-10-08 16:00] VITALS: BP 117/70
[2024-10-08] MEDS: VANCOCIN 200 IV (17:43)
[2024-10-08 17:45] LABS: B.E. 5.9 mmol/L; HCO3 29.7 mmol/L (21-28); O2 Saturation % 95.9 % (94-98); PCO2 39 mmHg (32-35); PO2 67 mmHg (83-108); pH 7.49 (7.35-7.45)
[2024-10-08 17:48] LABS: O2 Therapy %Oxygen/Room Air 40
--- NOTE | 2024-10-08 20:00 | PTCARENOTE ---
On assessment pt intubated and sedated, FEN, DEX and LEVO gtt infusing per orders through [facility]UE PICC, follows some commands, HENDRICKSON, 7.5 ETT 23 at the lip, vent settings changes see orders, lung sounds Rhonchi/course, RR tachy 20s-30s, no BM, on TFs,
carr in place, family at bedside and call hale in reach. planning on going to CT overnight if pt can tolerate.
[2024-10-08] MEDS: SUBLIMAZE 100 IV (20:08)
[2024-10-09] VITALS: BP 107/66
[2024-10-09 00:24] LABS: Glucose - Point of Care 72 mg/dl (70-99)
[2024-10-09] MEDS: SUBLIMAZE 50 MCG IV ×2 (03:59→20:51)
[2024-10-09] MEDS: PRECEDEX 100 IV ×5 (04:00→22:59)
[2024-10-09 04:35] LABS: B.E. 4.2 mmol/L; HCO3 28.4 mmol/L (21-28); PCO2 40 mmHg (32-35); PO2 75 mmHg (83-108); pH 7.46 (7.35-7.45)
[2024-10-09] MEDS: ATIVAN 0.5 MG IV ×2 (04:39→20:20)
[2024-10-09 05:00] LABS: Hematocrit 27.2 % (37.0-47.0); Hemoglobin 9.1 g/dL (12.0-16.0); Mean Corp Hgb Conc. 33.5 g/dL (33.0-37.0); Mean Corpuscular Hgb 29.9 pg (27.0-31.0); Mean Corpuscular Volume 89.5 fL (81.0-99.0); Mean Platelet Volume 9.3 fL (7.4-10.4); Platelet Count 602 10^3/uL (130-400); Red Blood Cell Count 3.04 10^6/uL (4.20-5.40); Red Cell Dist. Width 15.9 % (11.5-14.5)
[2024-10-09 05:07] VITALS: BMI 21.9
[2024-10-09 05:11] LABS: INR 1.56; PT 18.9 Sec (11.4-14.6)
[2024-10-09] MEDS: ZOSYN 100 IV ×4 (05:20→23:01)
[2024-10-09] MEDS: SUBLIMAZE 100 IV ×3 (05:20→20:07)
[2024-10-09 05:23] LABS: Blood Urea Nitrogen 9 mg/dl (7-17); Calcium 7.4 mg/dl (8.4-10.2); Carbon Dioxide 30 mmol/L (22-30); Chloride 98 mmol/L (98-107); Estimated Creatinine Clearance 77 ml/min; Glucose 77 mg/dl (70-99); Magnesium 1.7 mg/dl (1.6-2.3); Potassium 3.9 mmol/L (3.5-5.1); Sodium 133 mmol/L (135-145); eGFR > 60.00
[2024-10-09 05:28] LABS: Vancomycin Trough 10.2 ug/ml (5-20)
[2024-10-09] MEDS: VANCOCIN 200 IV (05:52)
[2024-10-09 06:15] LABS: Glucose - Point of Care 78 mg/dl (70-99)
--- NOTE | 2024-10-09 07:24 | W.PN.INTV ---
Today's Communication / Plan
Recommendations
-Await BAL culture results
-Continue to wean as tolerated
-Goals of care discussion
Assessment
-
69-year-old woman without significant past medical history was admitted to the hospital with flulike symptoms, shortness of breath. Found to be hypoxemic, septic with bilateral infiltrates on x-ray. Requiring up to 6 L supplemental oxygen. Found
to be flu positive, complicated by strep pneumo bacteremia, along with Pseudomonas in the sputum with Binta. We were consulted on 09/26/2024 due to worsening oxygenation and possible pulmonary mass.
Patient had positive blood cultures with strep pneumo on 09/22. Bacteremia has since cleared. Patient continues to be on Zosyn. Stay was further complicated by a spontaneous left-sided pneumothorax requiring chest tube placement 09/29.
Unfortunately, hypoxemic respiratory failure worsened and she was transferred to the ICU on 09/30/2024 for closer monitoring due to requiring 100%% FiO2 on high flow NC. Worsening right lung opacity noted on CT of the x-rays. 10/03, bedside POCUS
confirmed a loculated pleural effusion. A CT scan was performed which was suggestive of prior pneumothorax. A bedside chest tube on the right side was placed with slight improvement in the loculated effusion and fluid suggestive of empyema with
LDH more than 9000.
10/04. Patient noted to have increasing respiratory distress with gradually declining oxygen saturation despite high flow nasal cannula and nonrebreather. Patient was intubated and placed on mechanical ventilation.
10/05, patient had expansion of pneumothorax postintubation and a bedside left sided chest tube was placed. Patient required another chest tube on the right side due to expanding pneumothorax later in the day.
Last 24 hrs:
Patient continues to spike low-grade temperature, WBC count rising
Patient had bronchoscopy to clear thick secretions as well as BAL right middle lobe on 10/08
Fluid balance, -161 mL
Hemoglobin stable at 9.1, white count went up to 25,000 from 16,000 yesterday
Basic metabolic panel unremarkable, potassium 3.9 magnesium 1.7
Currently on APV mode, tidal volume 300, rate 18, PEEP of 3, using low PEEP low tidal volume setting for persistent air leak
ABG, 7.46, 40, 75 at 65% FiO2
Current drips, levo at 4. Sedation with fentanyl and Precedex
Assessment and plan
#1. Acute hypoxemic respiratory failure due to bilateral Necrotizing pneumonia-influenza A+/bacterial superinfection with Pseudomonas aeruginosa + strep pneumonia c/b Streptococcus pneumonia bacteremia.
-Respiratory status worsened requiring intubation on 10/04
-Currently on ASV, low tidal volume 300, Low PEEP @ 3 in view of persistent air leak on the left side
-Currently on Precedex, Fentanyl
-Continue Xopenex. Reported intolerance to Atrovent
-Holding off inhaled and systemic steroids in view of influenza A
-Completed Tamiflu
-Guarded prognosis
-Continue 3% nebulized twice a day for thick tenacious secretions
-s/p BAL 10/08, await c/s
#2. 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
-Rapid expansion of left-sided pneumothorax postintubation. Emergent placement of second 12 Iraqi chest tube on the left side 10/04. Patient already had an anterior [address] in place but was not draining any air.
-Significant improvement of pneumothorax post chest tube placement
-Airleak seems to be marginally better and intermittent this morning. With persistent air leak @day 5 since most recent chest tube placement, there is concern for alveolar pleural or bronchopleural fistula considering underlying necrotizing
pneumonia. Continue suction at -20 cm and daily chest x-ray.
-Daily x-rays
-CT surgery, Dr. Ny, evaluated patient 10/04, not felt to be a surgical candidate. In view of persistent air leak, might need to reconsider CT surgery consult.
#3. Right-sided prior pneumothorax with loculated effusion/empyema.
-Continue IV antibiotics, pleural fluid culture negative
-Chest tube placed 10/03 for pyo-pneumothorax. Pleural fluid LDH more than 9000 highly suggestive of empyema
-Recurrence of pneumothorax despite small bore chest tube on 10/04, s/p placement of larger chest tube with resolution of pneumothorax on 10/04 overnight. (Suspect related to displacement 8 Iraqi chest tube as patient developed desaturation after
changing position)
-Post chest tube chest x-ray seems to have well-expanded lung, holding off tPA/DNase
-Severe necrotizing pneumonia with guarded prognosis
-Patient not felt to be a surgical candidate per CT surgery evaluation (10/04)
#4. Septic shock -
-Currently on levo
-Currently on vancomycin, Zosyn and micafungin
#5. Acute kidney injury - resolved post IV fluid
-Daily labs
-Tolerated Lasix 1 dose well on 10/07
-Monitor i/o
#6. Atrial fibrillation/flutter with rapid ventricular response in the setting of acute illness 09/26/2024 --> now in NSR
-Suspect this is in the setting of acute illness, normal sinus rhythm now
-Cardiology service on case, currently on Eliquis 5 mg twice daily
ECHO 09/2024: Normal biventricular size and systolic function without regional wall motion
abnormality. Estimated LVEF 60-65%.
Mild/moderate mitral regurgitation.
Mild tricuspid regurgitation. Mildly elevated PASP. Estimated pulmonary artery
pressure of 38 mmHg assuming a right atrial pressure of 3 mmHg.
Conditions present prior admission:
None
Does not follow-up with primary care
Does not take any medications
Non-smoker
DVT prophylaxis: Eliquis
GI Prophylaxis: PPI

Critical care statement: A total of 45 minutes of critical care time was provided for this patient today. This includes management of unstable vital signs, evaluation of the patient at bedside, reviewing the patient's pertinent medical records
including ventilator settings, arterial blood gases, radiographs, microbiology, laboratory evaluations and discussion with primary team, critical care nursing, and respiratory therapy. Time also includes discussion with family about plan of care
and time spent during bedside chest tube placement. This included procedure time
Subjective Dataa
Subjective Data
Date of Service:
Date of Service: October 09, 2024
Chief Complaint: Brake Coupler Dinkey Follow Up
Subjective:
Patient currently intubated, mechanically ventilated and sedated.
Review of Systems
General: Unobtainable - Pat Unresp and Unobtainable - Sedation
Objective Data
Data Reviewed
Vital Signs / I&O / Oxygen:
Vital Signs
Temp Pulse Resp BP Pulse Ox
100.7 F H 68 18 107/66 96
10/09/24 03:33 10/09/24 06:00 10/09/24 06:00 10/09/24 00:00 10/09/24 06:00
Intake and Output
10/08/24 10/09/24 10/10/24
05:59 06:59 06:59
Intake Total
Output Total
Balance
SaO2 [APV] 96
SaO2 [A/C] 97
SaO2 96
Nasal Cannula flow liters per 60
minute
Physical Exam
General: Comfortable, Chills (negative), Sweats (negative) and Other (Anxious appearing)
HEENT: Normocephalic and Anicteric
Cardiovascular: S1-S2, Regular Rhythm and Peripheral Edema (Trace lower extremity edema bilaterally)
Respiratory: Crackles (Bilaterally), Rhonchi (Bilaterally) and Chest Tube (Bilateral chest tube in place, no real airleak on the right side, intermittent air leak on the left side.)
GI: Soft, Non Distended, Non Tender and Normal Bowel Sounds
Skin: Warm
Labs/Micro/Reports
Lab Data
10/09/24 04:15
10/09/24 04:15
Laboratory Results
10/08/24 10/09/24
17:35 04:15
PT 18.9 H
INR 1.56
pH 7.49 H 7.46 H
pCO2 39 H 40 H
pO2 67 L 75 L
HCO3 29.7 H 28.4 H
O2 Delivery Level %oxygen/room air 40
Microbiology
10/03/24 18:33 Pleural Fluid Body Fluid Culture - Final
No Growth After 72 Hours
10/03/24 18:33 Pleural Fluid Gram Stain - Final
10/04/24 13:23 Tracheal Aspirate Respiratory Culture - Final
Binta albicans
10/04/24 13:23 Tracheal Aspirate Gram Stain - Final
[2024-10-09] MEDS: XOPENEX 1.25 MG INHALANT SOLUTION INH ×4 (07:32→20:01)
[2024-10-09] MEDS: SODIUM CHLORIDE 3% FOR INHALATION 1 VIAL INH ×2 (07:33→20:01)
--- NOTE | 2024-10-09 07:35 | PHA.VAN.FU ---
Vancomycin Assessment / Plan
- Assessment
Renal Function: Stable (SCr 0.4)
WBC's are: Trending Up (16 -> 25)
In the past 24 hrs, patient has been: Febrile (102.1)
Concomitant Antimicrobials: Piperacillin/Tazobactam
- Assessment - Trough Based Monitoring
Trough Value: 10.4
Level Today was: Subtherapeutic (Drawn ~1.5hr before 0600 dose)
- Dosing Plan
Adjust Regimen to: Vanco 1250mg Q12H Starting 10/09/24 1800
New Regimen Predicts: Trough
Patient Renal Function stable at SCr 0.4, CrCl 77, and was on 750mg Q12H which had a subtherapeutic peak on 3/7 PM and no trough 3/8AM, increased to 1000mg Q12H 10/08 1800, 3/9 AM trough level was 10.4 but was drawn ~1.5hr prior to 0600 dose. Increase
to 1250mg Q12H starting 10/09 1799 with a trough 10/10 0530 to assess dose adjustment.
- Monitoring Plan
Trough Level: Level 10/10/24 0530
- Follow Up
Pharmacy will continue to follow.
Vancomycin Follow UP
- -
Patient Age: 69
Patient Sex: Female
Vancomycin Day #: 6
Indication: Pulmonary/Respiratory
Requesting Provider: Dr. Lee
Pertinent Antimicrobial Allergies:
NKDA
Height / Weight:
Height 5 ft 4 in
Actual Weight 57.9 kg
- Vital Signs / Lab Results
Temp Pulse Resp BP Pulse Ox
100.6 F H 68 26 107/66 93
10/09/24 07:00 10/09/24 07:30 10/09/24 07:30 10/09/24 00:00 10/09/24 07:30
Lab Results - Hematology
10/07/24 10/08/24 10/09/24
03: 05:32 04:15
WBC 15.5 H 16.0 H 25.0 H
Lab Results - Chemistry
10/07/24 10/08/24 10/09/24
: 05:32 04:15
BUN 14 12 9
Creatinine 0.4 L 0.4 L 0.4 L
Estimated Creat Clear 77 77 77
Microbiology Results
10/03/24 18:33 Body Fluid Culture - Final
Pleural Fluid No Growth After 72 Hours
Gram Stain - Final
Therapeutic Drug Monitoring
Vancomycin Peak 15.1 ug/ml (18-26) L 10/07/24 21:33
Vancomycin Trough 10.2 ug/ml (5-20) 10/09/24 04:15
[2024-10-09 08:00] VITALS: BP 95/60
--- NOTE | 2024-10-09 08:00 | PTCARENOTE ---
Pt rec'd from night RN intubated and sedated; fent, dex and levo gtts infusing per orders via [facility]UE PICC, pt follows some commands, 7.5 ETT 23 at the lip, vent settings as documented, sat 88-90%, RT adjusting Fi02, lung sounds very coarse with scatt
rhonchi, RR tachy 20s-30s, no BM, hypo BS, TFs running at goal, leakage noted in connection as prior. León in place for critical I+Os. Plate Grainer Apprentice reviewed imaging from CT scan and discussing plan of care with family.
[2024-10-09 08:10] LABS: % Basophils 0.3 % (0-2); % Eosinophils 2.2 % (0-6); % Immature Granulocytes 2.6 % (0-0.5); % Lymphocytes 4.2 % (20.5-51.1); % Monocytes 8.1 % (1.7-9.3); % Neutrophils 82.6 % (42.2-75.2); Absolute Basophils 0.1 10^3/uL (0-0.2); Absolute Eosinophils 0.6 10^3/uL (0-0.7); Absolute Immature Granulocytes 0.7 10^3/uL (0-0.05); Absolute Lymphocytes 1.1 10^3/uL (1.2-3.4); Absolute Neutrophils 20.7 10^3/uL (1.4-6.5); Nucleated Red Blood Cells % 0 %
[2024-10-09] MEDS: MAGNESIUM SULFATE 102 GRAMS IV (08:44)
[2024-10-09] MEDS: ELIQUIS 5 MG TUBE ×2 (08:45→19:12)
[2024-10-09] MEDS: MIRALAX 17 GRAMS TUBE (08:45)
[2024-10-09] MEDS: PROTONIX IV 40 MG IV (08:45)
[2024-10-09] MEDS: VISBIOME 2 CAP TUBE (08:45)
[2024-10-09] MEDS: NSS (PRESERVATIVE FREE) 10 ML IV (08:45)
[2024-10-09] MEDS: ProAmatine 5 MG TUBE ×3 (08:54→18:01)
[2024-10-09 09:14] VITALS: BP 85/55
--- NOTE | 2024-10-09 10:44 | W.PN.ID1 ---
Date of Service
Date of Service: October 09, 2024
Today's Communication
Continue broad spectrum antibiotics.
Assessment / Plan
Strep Pneumoniae Pneumonia - necrotizing
Secondary health care acquired pneumonia due to Pseudomonas
Influenza A - likely resolved
Empyema of the right lung - resolving
Bacteremia due to Strep Pneumoniae - transient
Acute hypoxemic respiratory failure, VDRF
Bilateral PTX -> chest tubes
Shock - remains on 1 pressor
Elevated core temperature
Leukocytosis - trending up
- 09/23 blood cultures S Pneumoniae - intermediate to levofloxacin; sensitive to penicillin
- 09/23 sputum culture with few Pseudomonas
- subtyping for flu A - negative amanda flu
- L pneumothorax 09/29; chest tube management per pulmonary
- R pyopneumothorax 10/03; pigtail placed, evaluated by CT surgery Dr Ny 10/04 - not currently a surgical candidate
- 10/03 body fluid culture - no growth to date
- 10/04 tracheal aspirate - negative
Elevated core temps and rising wbc
- Repeat blood cx's neg to date
- Repeat COIVD negative
- 10/08 Pulm s/p bronch/lavage copious secretions. Sputum cx pending
- Elevated core temps probably due to Precedex - initiated 10/06 with rise in temps since 10/07
- Follow wbc
- c/w zosyn day 16 - anticipate a long course of IV therapy- From 09/05 likely for 4-6 weeks
- c/w vancomycin, day 5- note clinical improvement since starting
- c/w micafungin day 6
- Patient has previous completed a 10-day course of Tamiflu 10/02
- patient is remains critically ill with respiratory failure. Prognosis guarded.
Chief Complaint
-: Pneumonia and Other (S pneumo pneumonia, Pseudomonas pneumonia; empyema)
Subjective / Review of Systems
Remains critically ill on vent.
Vital Signs / Physical Exam
Vital Signs
Vital Signs
Temp Pulse Resp BP Pulse Ox
100.6 F H 78 22 99/47 90
10/09/24 07:00 10/09/24 08:54 10/09/24 07:35 10/09/24 08:54 10/09/24 08:00
Physical Exam
Constitutional: Acutely Ill
Eyes: Sclera Anicteric
Cardiovascular: Regular Rate and S1/S2
Pulmonary: Coarse and Other (bilateral chest tubes in place)
Gastrointestinal: Soft, Non Tender and Non Distended
Genito-Urinary: León and Clear Urine
Extremities: Edema
Objective Data
Lab Data
Lab Results
10/09/24 04:15
10/09/24 04:15
PT 18.9 Sec (11.4-14.6) H 10/09/24 04:15
INR 1.56 10/09/24 04:15
APTT 35.3 Sec (23.4-35.0) H 10/01/24 03:25
Estimated Creat Clear 77 ml/min 10/09/24 04:15
Lactic Acid Cancelled 09/22/24 22:31
Total Bilirubin 0.7 mg/dl (0.2-1.3) 10/06/24 03:15
AST 30 U/L (14-36) 10/06/24 03:15
ALT 24 U/L (0-35) 10/06/24 03:15
Alkaline Phosphatase 142 U/L (38-126) H 10/06/24 03:15
Most recent labs reviewed.
Micro Results:
10/08/24 08:20 Blood Culture - Preliminary
Blood/Venous No Growth in 24 hours- Final report to follow
10/08/24 17:29 Respiratory Culture - Pending
Bronch Right Middle Lobe Gram Stain - Pending
10/03/24 18:33 Body Fluid Culture - Final
Pleural Fluid No Growth After 72 Hours
Gram Stain - Final
10/04/24 13:23 Respiratory Culture - Final
Tracheal Aspirate Binta albicans
Gram Stain - Final
09/22/24 10:33 Blood Culture - Final
Blood/Venous Streptococcus pneumoniae
Gram Stain - Final
09/28/24 18:31 C. difficile GDH Antigen & Toxins - Final
Feces/Stool Negative for toxigenic C.difficile
09/24/24 03:40 Blood Culture - Final
Blood/Venous No Growth - Final Report
09/24/24 03:30 Blood Culture - Final
Blood/Venous No Growth - Final Report
09/23/24 16:43 Blood Culture - Final
Blood/Venous No Growth - Final Report
09/23/24 13:35 Blood Culture - Final
Blood/Venous No Growth - Final Report
09/23/24 22:22 Respiratory Culture - Final
Sputum Pseudomonas aeruginosa
Binta albicans
Gram Stain - Final
09/22/24 12:38 Blood Culture - Final
Blood/Venous Streptococcus pneumoniae
Gram Stain - Final
09/22/24 22:22 Legionella Urinary Antigen - Final
Urine Negative for Legionella pneumophila Serogroup 1 antigen.
A negative result does not rule out the possiblity of
Legionella infection due to other serogroups or species of
Legionella. Clinical correlation is recommended.
Streptococcus pneumoniae Antigen (M - Final
Positive for Strep pneumo Ag
09/22/24 10:33 Influenza Types A & B (EUN) - Final
Nasal Swab Influenza A Positive, NAAT
10/08/24 CXR: The small left-sided pneumothorax has slightly increased in size from prior. Stable appearance of the right-sided hydropneumothorax. Extensive bilateral mid and lower lung predominant opacities which are unchanged from prior and
consistent with known multifocal pneumonia.
--- NOTE | 2024-10-09 11:37 | W.PN.HOSP.TC ---
Today's Communication/Plan
-
continue ventilator support
Assessment / Plan
Assessment / Plan
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
# Acute hypoxic respiratory failure likely secondary to influenza, complicated by severe bilateral pneumonia secondary to Pseudomonas plus strep pneumo
# Spontaneous left-sided pneumothorax
-Duoneb R QID and PRN switched to Xopenex d/t tachycardia and cont with PRN for now.
-VEST therapy DCed, Incentive Spirometry
-Intubated FiO2 65%/AC20/TV300/PEEP3
-CT chest appreciated multilobar pna severe in RLL underlying mass not excluded (follow up CT after treatment recommended relayed to patient and patient spouse)
-Repeat chest x-ray earlier 10/06: 1. No new abnormalities appreciated.
2. Lucency at each lung apex suggestive of small biapical pneumothoraces, unchanged or slightly decreased in size compared to prior chest x-ray.
3. Extensive alveolar and interstitial infiltrates bilaterally, which may represent pneumonia, interstitial pneumonitis, and/or underlying interstitial fibrosis. Neoplasm also remains in the differential diagnosis.
4. Small right pleural effusion is suspected, unchanged.
-Was started on IV steroids Decadron 4 mg every 8-since NY'ed on 10/03.
-Concern for ARDS as with persistent severe hypoxemia.
-Will try to avoid positive balance and try to keep it on the stock drier tender side.
-Status post intubation on 10/04/24 and now on mechanical ventilation. Continue with sedation.
CXR 10/08: Stable appearance of the support lines and tubes.
The small left-sided pneumothorax has slightly increased in size from prior. Stable appearance of the right-sided hydropneumothorax
. Extensive bilateral mid and lower lung predominant opacities which are unchanged from prior and consistent with known multifocal pneumonia.
#Septic Shock elevated (tachycardia, tachypnea) lactate, hypotension requiring pressor support
remains on Levophed now at 5 mcg.kg/min
#Fever cough/generalized weakness likely from flu/polymicrobial pneumonia with Necrotizing strep pneumonia and Pseudomonas pneumonia
#Empyema
#Strep bacteremia due to pneumonia
#Sinus tachycardia likely 2/2 severe sepsis PNA
-NG feed nutritional support
-Blood cultures positive for Strep pneumonia, follow up repeat blood cx's NGTD
-Sputum Cx pos for Pseudomonas and binta albicans
-ID eval appreciated ceftriaxone discontinued in favor of Zosyn
-completed Tamiflu 10 day course,
-Status post CT chest with necrotizing pneumonia patient also started on antifungal with micafungin and vancomycin.
-On 09/22 admission blood cx + Strep Pneumonia
Influenza A +
Legionella Urine At neg
On 09/23 Respiratory Cx +Pseudomonas
+Binta albicans
-Patient was evaluated by CT surgery Dr. Ny on 10/04 and patient deemed not a surgical candidate
-In the long run patient will require long course of antibiotics of probably 6 weeks
# Spontaneous left-sided pneumothorax
Noted on chest x-ray on 09/29/2024
Status post emergent chest tube placement by [facility]
Status post second 14 Macanese chest tube placement by skip tracer post intubation for expanding pneumothorax on 10/04/2024
Daily chest x-ray. Will monitor for now.
# Right-sided Pyopneumothorax
Status post emergent chest tube placed by skip tracer on 10/03/2024
Fluid cultures and other studies sent
Will follow-up on the results
Status post emergent upsizing of right-sided chest tube by [facility] on 10/04/24
As mentioned above was evaluated by CT surgery and not deemed to be surgical candidate
#Hypotension post intubation
on levophed
wean pressors as tolerated
# Atrial fibrillation/atrial flutter rapid ventricular response
was started on Cardizem infusion, since stopped
Blood pressure soft and thus unable to tolerate Cardizem and thus plan was to switch to amiodarone gtt, which in turn was stopped due to concern for Amio toxicity. As per cardio
Anticoagulation with Eliquis
Echocardiogram with EF of 60 to 65%. Mild to moderate mitral regurgitation. Mildly elevated PASP with PASP of 38 mmHg.
TSH wnl
Status post conversion to normal sinus rhythm.
Currently on Eliquis
Mag 1.9
#Anemia
likely of chronic disease
no active luminal bleeding noted
Start patient on IV Venofer. B12 folate normal
Heme test stools
Transfuse for hemoglobin less than 7.
Hgb 9.1
will add prophylactic Protonix
#Loose bowel movements
Likely due to antibiotic associated
C. difficile negative
Imodium if needed
Resolved.
# Anxiety could be situational
Ativan as needed
# Hyponatremia/metabolic acidosis /acute kidney injury likely hypovolemic
-resolved
-IVF completed
#Hypokalemia
10/09 3.9 resolved
#Mild Hypophosphatemia
monitor and replete as necessary
Underweight/Cachexic
severe temporal muscle wasting
nutrition on board
now on NG feeding with Osmolite at 30 cc/hr
constipation
MOM ordered, may need enema
# DVT prophylaxis
-Eliquis
# CODE STATUS
-Full code
Reviewed extensively with son, Jonathan and pt brother Sung at bedside 10/09
complex situation
Anticipated Discharge: > 48 hours
Subjective/Interval History
-
Date of Service: October 09, 2024
Remains VDRF
Objective Data
-
Labs:
Laboratory Results
10/09/24
04:15
WBC 25.0 H
Hgb 9.1 L
Hct 27.2 L
Plt Count 602 H
PT 18.9 H
INR 1.56
HCO3 28.4 H
Sodium 133 L
Potassium 3.9
Chloride 98
Carbon Dioxide 30
BUN 9
Creatinine 0.4 L
Glucose 77
Calcium 7.4 L
Vital Signs:
Vital Signs
Temp Pulse Resp BP Pulse Ox
100.6 F H 72 20 85/55 91
10/09/24 07:00 10/09/24 11:08 10/09/24 11:08 10/09/24 09:14 10/09/24 11:18
I&O
10/08/24 10/09/24 10/10/24
05:59 06:59 06:59
Intake Total 312.2 / 312.2
Output Total 325 / 325
Balance -12.8 / -12.8
Review of Systems
-
Unable to obtain full review of systems at this time due to: Patient Intubation
History Source: Family (reviewed with brother Sung and son Jonathan) and Coordinated Provider
Constitutional: Reports Fever (100.6-->102.1)
Abdomen/GI: Reports Constipated (reviewed with nurse to give MOM to start if no BM)
Physical Exam
-
General: Well Developed, Intubated, Appears Chronically Ill and Cachectic
HEENT: Normocephalic and Atraumatic
Respiratory: Wheezes, Rhonchi and Chest Tubes (bilateral chest tubes)
Cardiac: Regular Rhythm and S1/S2
GI: Soft, Nondistended and Normal Bowel Sounds
Musculoskeletal: No Clubbing, No Cyanosis and No Edema
Neuro: Negative Awake
[2024-10-09] MEDS: MYCAMINE 105 MG IV (11:57)
[2024-10-09] MEDS: MILK OF MAGNESIA 30 ML PO (11:58)
[2024-10-09] MEDS: TYLENOL ORAL SOLUTION 650 MG TUBE ×2 (11:58→19:11)
[2024-10-09] MEDS: LEVOPHED 258 MG IV (12:06)
[2024-10-09 13:34] VITALS: BP_SYST 51
[2024-10-09 16:00] VITALS: BP 109/67
--- NOTE | 2024-10-09 16:40 | PTCARENOTE ---
Pt reassessed, see documentation. Right radial Ludy leveled and zeroed at beginning of shift, Following arterial MAPs and titrating levo per orders -over this shift, pt is requiring increased pressor support, see flowsheet. Continues with RASS -1,
able to gesture appropriately and follows commands. Q2T maintained as pt tolerates, CHG and carr care, Q4 oral care provided. Linens changed. Family discussing GOC with junior art director, will think overnight and review with care team tomorrow to assist
in decision making. Emotional support provided.
--- NOTE | 2024-10-09 16:53 | PTCARENOTE ---
Milk of Mag was given this afternoon for no BM, continuing with bowel regimen PRN meds as ordered. See MAR.
[2024-10-09] MEDS: VANCOCIN 275 MG IV (18:33)
[2024-10-09] MEDS: COLACE LIQUID 100 MG TUBE (19:12)
[2024-10-09] MEDS: SENNA SYRUP 8.8 MG TUBE (19:12)
[2024-10-09] MEDS: NSS (PRESERVATIVE FREE) 0.25 ML IV (20:21)
--- NOTE | 2024-10-09 20:32 | PTCARENOTE ---
Received pt intubated and sedated. On precedex 1.5mcg, fentanyl 125mcg. Arousable to verbal. When awoken, pt opening eyes to command, tracking, nodding head at times but not consistently. Required PRN ativan after repositioning in bed and
retaping/moving ETT. SR on tele, HR 70s-80s. On levophed to maintain MAP>65- see worklist. R Radial A line transduced and zeroed. +1 LE edema. Febrile 101.3 -tylenol given. #7.5 ETT @21cm- moved to the right. Tolerating APV 18/300/+3/45%. Spo2 95%.
Lungs with rhonchi, exp wheezing and crackles throughout. L chest tube to -20cm suction. + air leak. Straw output. No creptitus. R chest tube to -20cm suction. No air leak. Straw output. No crepitus. Macular rash noted on back and wrapping around
B/L flanks. FAMILY HEALTH NURSE PRACTITIONER aware and assessed at bedside. Aquaphor ordered. Will monitor closely. Dressings c/d/i. Hypoactive bowel sounds. OG tube with osmo @40ml/hr, 25ml/hr h20 flush. No BM in multiple days - senna and colace given. Temp sensing carr
draining yellow urine. R DL PICC with dex, fent, double concentrated levo. Turning q2. Mouth care provided.
--- NOTE | 2024-10-09 23:28 | PTCARENOTE ---
Pt. reassessed. Required fio2 to be increased to 55% due to sats in mid 80s. Now 92-95%. Otherwise, no changes.
[2024-10-10] VITALS (7 sets, daily range): BP systolic 80–107; BP diastolic 49–72; BMI 21.4
[2024-10-10] MEDS: SUBLIMAZE 50 MCG IV ×3 (01:43→08:57)
[2024-10-10] MEDS: HYDROPHOR 1 APPLIC TOPICAL (01:43)
[2024-10-10] MEDS: PRECEDEX 100 IV ×3 (03:06→13:33)
[2024-10-10] MEDS: MILK OF MAGNESIA 30 ML PO (03:06)
[2024-10-10 03:27] LABS: B.E. 4.3 mmol/L; HCO3 29.2 mmol/L (21-28); O2 Saturation % 96.8 % (94-98); PCO2 44 mmHg (32-35); PO2 71 mmHg (83-108); pH 7.43 (7.35-7.45)
[2024-10-10 03:42] LABS: ALT (SGPT) 25 U/L (0-35); AST (SGOT) 26 U/L (14-36); Albumin 1.9 g/dl (3.5-5.0); Alkaline Phosphatase 195 U/L (38-126); Blood Urea Nitrogen 10 mg/dl (7-17); Calcium 7.2 mg/dl (8.4-10.2); Carbon Dioxide 29 mmol/L (22-30); Chloride 101 mmol/L (98-107); Estimated Creatinine Clearance 77 ml/min; Glucose 100 mg/dl (70-99); Hematocrit 26.9 % (37.0-47.0); Hemoglobin 8.8 g/dL (12.0-16.0); Mean Corp Hgb Conc. 32.7 g/dL (33.0-37.0); Mean Corpuscular Hgb 29.5 pg (27.0-31.0); Mean Corpuscular Volume 90.3 fL (81.0-99.0); Mean Platelet Volume 9.1 fL (7.4-10.4); Platelet Count 528 10^3/uL (130-400); Red Blood Cell Count 2.98 10^6/uL (4.20-5.40); Red Cell Dist. Width 15.9 % (11.5-14.5); Sodium 134 mmol/L (135-145); Total Bilirubin 0.4 mg/dl (0.2-1.3); Total Protein 4.9 g/dl (6.3-8.2); Triglycerides 115 mg/dl (10-149); White Blood Cell Count 25.8 10^3/uL (4.8-10.8); eGFR > 60.00
[2024-10-10] MEDS: TYLENOL ORAL SOLUTION 650 MG TUBE (03:58)
[2024-10-10] MEDS: SUBLIMAZE 100 IV ×3 (03:59→19:58)
--- NOTE | 2024-10-10 04:02 | PTCARENOTE ---
Temp 101.6 again. Tylenol given.
L chest tube pleurevac full - changed, connected to -20cm suction.
Attempting to wean levophed - currently at 5mcg.
[2024-10-10] MEDS: ZOSYN 100 IV ×2 (05:34→12:20)
[2024-10-10] MEDS: NSS (PRESERVATIVE FREE) 0.25 ML IV (05:35)
[2024-10-10] MEDS: ATIVAN 0.5 MG IV (05:35)
[2024-10-10 06:33] LABS: Vancomycin Trough 11.2 ug/ml (5-20)
[2024-10-10] MEDS: VANCOCIN 275 MG IV ×2 (06:37→17:52)
[2024-10-10] MEDS: SODIUM CHLORIDE 3% FOR INHALATION 1 VIAL INH ×2 (07:24→19:46)
[2024-10-10] MEDS: XOPENEX 1.25 MG INHALANT SOLUTION INH ×4 (07:24→19:46)
[2024-10-10 07:28] LABS: % Basophils 0.2 % (0-2); % Eosinophils 2.2 % (0-6); % Lymphocytes 3.3 % (20.5-51.1); % Monocytes 8.3 % (1.7-9.3); Absolute Basophils 0.1 10^3/uL (0-0.2); Absolute Eosinophils 0.6 10^3/uL (0-0.7); Absolute Immature Granulocytes 0.5 10^3/uL (0-0.05); Absolute Lymphocytes 0.9 10^3/uL (1.2-3.4); Absolute Monocytes 2.1 10^3/uL (0.1-0.6); Absolute Neutrophils 21.7 10^3/uL (1.4-6.5); Nucleated Red Blood Cells % 0 %
[2024-10-10] MEDS: NSS (PRESERVATIVE FREE) 10 ML IV (07:28)
[2024-10-10] MEDS: ProAmatine 5 MG TUBE ×3 (07:28→17:53)
[2024-10-10] MEDS: MIRALAX 17 GRAMS TUBE ×2 (07:28→20:37)
[2024-10-10] MEDS: PROTONIX IV 40 MG IV (07:28)
[2024-10-10] MEDS: VISBIOME 2 CAP TUBE (07:29)
[2024-10-10] MEDS: ELIQUIS 5 MG TUBE ×2 (07:29→20:37)
--- NOTE | 2024-10-10 08:00 | PTCARENOTE ---
Received pt @ change of shift intubated/sedated w b/l soft limb/4rail restraints in place- see flow sheet. Pt. drowsy, awakens to verbal stim; anx/restless when awake; int follows commands. CPOT-4, medicated w prn fent bolus- see MAR. HENDRICKSON;
generalized weakness. SR on monitor. +2 anasarca. SpO2 92% on vent settings APV18/300/.55/+3. Suctioned for small amt of thick/hunt secretion from ett; mod-lg amt of oral secretion; mouth care provided. Auscultated coarse/scatted rhonchi throughout
lung chan.#7.5 ett @ 21 lip, moved to left side. Noted tachypnea at time w rates into 30's. L chest tube to -20cm suction; + air leak; Straw output; No creptitus. R chest tube to -20cm suction; no air leak; ser/sang output; no crepitus.
Hypoactive bowel sounds. OG tube with osmo @40ml/hr, 25ml/hr h20 flush; 200mL residual. No BM in multiple days. Gastric content leakage from valve; resolved w trouble shooting. Temp sensing carr draining yellow urine. R DL PICC with dex, fent,
double concentrated levo- see flow sheets. Repositioned per protocol. Safe environment maintained.
--- NOTE | 2024-10-10 08:16 | W.PN.INTV ---
Today's Communication / Plan
Recommendations
Mechanical ventilation with low PEEP strategy and high FiO2 given bilateral pneumothoraces
Bilateral chest tubes on -20 cmH2O suction
Daily CXR
Start vasopressin
Abx per ID
Try to wean down on Precedex given suspected drug fever � starting Seroquel today; trend QTc
Follow-up bronchoscopy BAL culture (shows NGTD so far)
Maintain MAP >65
Guarded prognosis
Assessment
-
69-year-old woman without significant past medical history was admitted to the hospital with flulike symptoms, shortness of breath. Found to be hypoxemic, septic with bilateral infiltrates on x-ray. Requiring up to 6 L supplemental oxygen. Found
to be flu positive, complicated by strep pneumo bacteremia, along with Pseudomonas in the sputum with Binta. We were consulted on 09/26/2024 due to worsening oxygenation and possible pulmonary mass.
Patient had positive blood cultures with strep pneumo on 09/22. Bacteremia has since cleared. Patient continues to be on Zosyn. Stay was further complicated by a spontaneous left-sided pneumothorax requiring chest tube placement 09/29.
Unfortunately, hypoxemic respiratory failure worsened and she was transferred to the ICU on 09/30/2024 for closer monitoring due to requiring 100%% FiO2 on high flow NC. Worsening right lung opacity noted on CT of the x-rays. 10/03, bedside POCUS
confirmed a loculated pleural effusion. A CT scan was performed which was suggestive of pyopneumothorax. A bedside chest tube on the right side was placed with slight improvement in the loculated effusion and fluid suggestive of empyema with LDH
more than 9000.
Interval Hx:
10/04. Patient noted to have increasing respiratory distress with gradually declining oxygen saturation despite high flow nasal cannula and nonrebreather. Patient was intubated and placed on mechanical ventilation.
10/05, patient had expansion of pneumothorax postintubation and a bedside left sided chest tube was placed. Patient required another chest tube on the right side due to expanding pneumothorax later in the day.
Assessment and plan
#1. Acute hypoxemic respiratory failure due to bilateral Necrotizing pneumonia-influenza A+/bacterial superinfection with Pseudomonas aeruginosa + strep pneumonia c/b Streptococcus pneumonia bacteremia.
-Respiratory status worsened requiring intubation on 10/04
-Continue low PEEP, low tidal volume strategy due to help avoid worsening pneumothoraces bilaterally
-Maintain plateau pressure <30
-In the setting of bilateral pneumothoraces, keep FiO2 at 100% to help adsorb the PTX
-Lightly sedate with goal RASS 0 to -2
-Continue Xopenex. Reported intolerance to Atrovent
-Patient previously was on Decadron until 10/03/2024 --> in the setting of severe CAP, start solucortef 50mg IV q6hr
-Completed Tamiflu: 09/22 - 10/02/2024
-Continue 3% nebulized twice a day for previous thick tenacious secretions --> ETT secretions have no improved
-s/p BAL 10/08 --> Cx shows NGTD
#2. 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
-Rapid expansion of left-sided pneumothorax postintubation. Emergent placement of second 14 Moroccan chest tube on the left side 10/04. Patient already had an anterior 8 [place]oc[place] chest tube in place but was not draining any air.
-Significant improvement of pneumothorax post chest tube placement
- Continue bilateral chest tubes and keep to negative suction at -[id number]; monitor air leak severities --> with persistent air leak past day 5 since most recent chest tube placement, there is concern for alveolar pleural or bronchopleural fistula
considering underlying necrotizing pneumonia. Continue daily chest x-ray.
-CT surgery, Dr. Ny, evaluated patient 10/04, not felt to be a surgical candidate. In view of persistent air leak, might need to reconsider CT surgery consult if she improves
#3. Right-sided prior pneumothorax with loculated effusion/empyema.
-Continue IV antibiotics, pleural fluid culture negative
-Right-sided 8 Fr chest tube placed 10/03 for pyo-pneumothorax. Pleural fluid LDH more than 9000 highly suggestive of empyema
-Recurrence of pneumothorax despite small bore chest tube on 10/04, s/p placement of 16 Fr chest tube by IR with resolution of pneumothorax on 10/04 overnight. (Suspect related to displacement 8 Moroccan chest tube as patient developed desaturation
after changing position)
-Post chest tube chest x-ray seems to have well-expanded lung --> hence lytics were not given
-Severe necrotizing pneumonia with guarded prognosis
-Patient not felt to be a surgical candidate per CT surgery evaluation (10/04)
#4. Septic shock -
-Currently on levo; add vasopressin
-Currently on vancomycin, Zosyn and micafungin per ID
#5. Acute kidney injury - resolved post IV fluid
-Daily labs
-Tolerated Lasix 1 dose well on 10/07
-Monitor strict I/O
#6. Atrial fibrillation/flutter with rapid ventricular response in the setting of acute illness 09/26/2024 --> now in NSR
-Suspect this is in the setting of acute illness, normal sinus rhythm now
-Cardiology service on case, currently on Eliquis 5 mg twice daily
ECHO 09/29/2024: Normal biventricular size and systolic function without regional wall motion abnormality. Estimated LVEF 60-65%. Mild/moderate mitral regurgitation. Mild tricuspid regurgitation. Mildly elevated PASP. Estimated pulmonary artery
pressure of 38 mmHg assuming a right atrial pressure of 3 mmHg.
#7. Fevers
-Suspect to be related to precedex
-Will start seroquel in an attempt to wean down on precedex
-Monitor QTc
Nutrition: Tube feeds now on hold as of 10/10 given bilious output from NGT this AM; NGT now on LIWS
Conditions present prior admission:
None
Does not follow-up with primary care
Does not take any medications
Non-smoker
DVT prophylaxis: Eliquis
GI Prophylaxis: PPI
I had a conversation with the patient's and son today at bedside. They are conflicted as the patient has been getting weaker prior to this admission, and they are afraid that the patient's quality of life will be poor if they pursue a
tracheostomy. They are not ready yet to transition to comfort care measures. All questions were answered.

Critical care statement: A total of 43 minutes of critical care time was provided for this patient today. This includes management of unstable vital signs, evaluation of the patient at bedside, reviewing the patient's pertinent medical records
including radiographs, microbiology, laboratory evaluations, and discussion with primary team, consultants, pharmacy, nutrition, physical therapy, case management, charge nurse, critical care nursing, and respiratory therapy.
Subjective Dataa
Subjective Data
Date of Service:
Date of Service: October 10, 2024
Chief Complaint: [place] Follow Up
Subjective:
Patient seen and evaluated this morning. Remains intubated on AC/CMV at 18/300/100%/3 with PIP 11 cmH2O, VTe 332mL and breathing at 23 breaths/min. Left-sided chest tube with intermittent level 1 airleak, no airleak on right side chest tube. CXR
this morning shows stable bilateral pneumothoraces. Currently sedated on fentanyl drip at 150 mcg/hr, Precedex at 1.5 mcg/kg/hr. Bilious output seen this AM from NGT. Minimal ETT secretions. Remains febrile with temperature this AM 101.9 �F. Had
a loose, brown BM this AM. Currently on Levophed at 8mcg/min. BP via A line 104/49, and SpO2 100%, HR 77. This AM she was restless and desaturated while on FiO2 55% up until that point, and FiO2 was raised to 100%.
Review of Systems
General: Unobtainable - Sedation (Intubated)
Objective Data
Data Reviewed
Vital Signs / I&O / Oxygen:
Vital Signs
Temp Pulse Resp BP Pulse Ox
101 F H 70 19 102/63 92
10/10/24 07:37 10/10/24 07:30 10/10/24 07:30 10/10/24 00:00 10/10/24 08:41
Intake and Output
10/09/24 10/10/24 10/11/24
06:59 06:59 06:59
Intake Total 2492.2 / 2601.9 219.4 / 219.4
Output Total 1820 / 1920 200 / 200
Balance 672.2 / 681.9 19.4 / 19.4
SaO2 [APV] 92
SaO2 [A/C] 97
SaO2 92
Nasal Cannula flow liters per 60
minute
Physical Exam
General: Respiratory Distress (n), Comfortable, Chills (negative), Sweats (negative) and Other (Intubated/sedated)
HEENT: Normocephalic, Anicteric and Other (ETT in place)
Cardiovascular: S1-S2 and Peripheral Edema (Trace lower extremity edema bilaterally)
Respiratory: Wheeze (negative), Crackles (Bilaterally), Rhonchi (Bilaterally), ET Tube (Mechanical breath sounds heard bilaterally) and Chest Tube (Bilateral chest tube in place, intermittent level 1 airleak on the right side, no air leak on the
left side.)
GI: Soft, Non Distended, Non Tender and Normal Bowel Sounds
Neurology: Tremors (negative) and Other (Sedated)
Skin: Warm, Dry, Cyanosis (negative) and Jaundice (negative)
Labs/Micro/Reports
Lab Data
10/10/24 03:11
10/10/24 03:11
Laboratory Results
10/10/24
03:11
pH 7.43
pCO2 44 H
pO2 71 L
HCO3 29.2 H
O2 Delivery Level
Microbiology
10/08/24 08:20 Blood/Venous Blood Culture - Preliminary
No Growth in 48 hours- Final report to follow
10/08/24 17:29 Bronch Right Middle Lobe Gram Stain - Preliminary
10/03/24 18:33 Pleural Fluid Body Fluid Culture - Final
No Growth After 72 Hours
10/03/24 18:33 Pleural Fluid Gram Stain - Final
--- NOTE | 2024-10-10 08:32 | PHA.VAN.FU ---
Vancomycin Assessment / Plan
- Assessment
Renal Function: Stable
WBC's are: Stable
In the past 24 hrs, patient has been: Febrile
Concomitant Antimicrobials: piperacillin/tazobactam, micafungin
- Assessment - Trough Based Monitoring
Trough Value: 11.2
Level Comments: drawn ~11H after 1st dose of 1250mg
- Dosing Plan
Continue: Vanc 1250mg Q12H
- Monitoring Plan
Peak Level: 10/10 21:30
Trough Level: 10/11 05:30
Monitoring Comments: levels to be drawn after 3rd dose of new regimen
- Follow Up
Pharmacy will continue to follow.
Vancomycin Follow UP
- -
Patient Age: 69
Patient Sex: Female
Vancomycin Day #: 7
Indication: Pulmonary/Respiratory
Requesting Provider: Dr. Lee
Pertinent Antimicrobial Allergies:
NKDA
Height / Weight:
Height 5 ft 4 in
Actual Weight 56.5 kg
- Vital Signs / Lab Results
Temp Pulse Resp BP Pulse Ox
101 F H 70 19 102/63 97
10/10/24 07:37 10/10/24 07:30 10/10/24 07:30 10/10/24 00:00 10/10/24 07:30
Lab Results - Hematology
10/08/24 10/09/24 10/10/24
05:32 04:15 03:11
WBC 16.0 H 25.0 H 25.8 H
Lab Results - Chemistry
10/08/24 10/09/24 10/10/24
05:32 04:15 03:11
BUN 12 9 10
Creatinine 0.4 L 0.4 L 0.4 L
Estimated Creat Clear 77 77 77
Albumin 1.9 L
Microbiology Results
10/08/24 08:20 Blood Culture - Preliminary
Blood/Venous No Growth in 48 hours- Final report to follow
10/08/24 17:29 Gram Stain - Preliminary
Bronch Right Middle Lobe
Therapeutic Drug Monitoring
Vancomycin Peak 15.1 ug/ml (18-26) L 10/07/24 21:33
Vancomycin Trough 11.2 ug/ml (5-20) 10/10/24 05:32
--- NOTE | 2024-10-10 09:03 | W.PN.ID1 ---
Date of Service
Date of Service: October 10, 2024
Today's Communication
- given rash transitioned zosyn to meropenem - day 17 of therapy - anticipate a long course of IV therapy- From 3 likely for 4-6 weeks
- c/w vancomycin, day 6- note clinical improvement since starting
- c/w micafungin day 7
- Patient has previous completed a 10-day course of Tamiflu 10/02
- patient is remains critically ill with respiratory failure. Prognosis guarded with interval progression
Assessment / Plan
Strep Pneumoniae Pneumonia - necrotizing
Secondary health care acquired pneumonia due to Pseudomonas
Influenza A - likely resolved
Empyema of the right lung - resolving
Bacteremia due to Strep Pneumoniae - transient
Acute hypoxemic respiratory failure, VDRF
Bilateral PTX -> chest tubes
Shock - remains on 1 pressor
Elevated core temperature
Leukocytosis - trending up
- 09/23 blood cultures S Pneumoniae
- 09/23 sputum culture with few Pseudomonas
- 10/04 sputum c albicans
- subtyping for flu A - negative amanda flu
- L pneumothorax 09/29; chest tube management per pulmonary
- R pyopneumothorax 10/03; pigtail placed, evaluated by CT surgery Dr Ny 10/04 - not a surgical candidate
- 10/03 body fluid culture -finalized negative
Elevated core temps and rising wbc
- Repeat blood cx's neg to date
- Repeat COIVD negative
- 10/08 Pulm s/p bronch/lavage copious secretions. Sputum cx ususal resp paresh
- Elevated core temps probably due to Precedex - initiated 10/06 with rise in temps since 10/07
- Follow wbc
- given rash transitioned zosyn to meropenem - day 17 of therapy - anticipate a long course of IV therapy- From 23 likely for 4-6 weeks
- c/w vancomycin, day 6- note clinical improvement since starting
- c/w micafungin day 7
- Patient has previous completed a 10-day course of Tamiflu /
- patient is remains critically ill with respiratory failure. Prognosis guarded.
Chief Complaint
-: Pneumonia and Other (S pneumo pneumonia, Pseudomonas pneumonia; empyema)
Subjective / Review of Systems
now with fevers tmax 102.1 via core route
increased pressors requirements now on 8 mcg/min of norepi
increased FiO2 requirements overnight now on 55%
L chest airleak persists
macular rash on the back and flanks
Vital Signs / Physical Exam
Vital Signs
Vital Signs
Temp Pulse Resp BP Pulse Ox
101 F H 82 35 93/54 94
10/10/24 07:37 10/10/24 09:00 10/10/24 09:00 10/10/24 08:00 10/10/24 09:00
Physical Exam
Constitutional: Acutely Ill
Cardiovascular: Regular Rate and S1/S2; Negative Murmur or Rub
Pulmonary: Clear and Symmetric; Negative Wheezes or Rales
Gastrointestinal: Soft, Non Tender, Non Distended and Normal Bowel Sounds
Skin: Warm, Dry and Rash (macular blanching rash on the back and flank); Negative Jaundice
Neurological: Negative Awake
Objective Data
Lab Data
Lab Results
10/10/24 03:11
10/10/24 03:11
PT 18.9 Sec (11.4-14.6) H 10/09/24 04:15
INR 1.56 10/09/24 04:15
APTT 35.3 Sec (23.4-35.0) H 10/01/24 03:25
Estimated Creat Clear 77 ml/min 10/10/24 03:11
Lactic Acid Cancelled 09/22/24 22:31
Total Bilirubin 0.4 mg/dl (0.2-1.3) 10/10/24 03:11
AST 26 U/L (14-36) 10/10/24 03:11
ALT 25 U/L (0-35) 10/10/24 03:11
Alkaline Phosphatase 195 U/L (38-126) H 10/10/24 03:11
Most recent labs reviewed.
Chest X-Ray: Image Reviewed and Report Reviewed
Micro Results:
10/08/24 08:20 Blood Culture - Preliminary
Blood/Venous No Growth in 48 hours- Final report to follow
10/08/24 17:29 Respiratory Culture - Pending
Bronch Right Middle Lobe Gram Stain - Preliminary
10/03/24 18:33 Body Fluid Culture - Final
Pleural Fluid No Growth After 72 Hours
Gram Stain - Final
10/04/24 13:23 Respiratory Culture - Final
Tracheal Aspirate Binta albicans
Gram Stain - Final
09/22/24 10:33 Blood Culture - Final
Blood/Venous Streptococcus pneumoniae
Gram Stain - Final
09/28/24 18:31 C. difficile GDH Antigen & Toxins - Final
Feces/Stool Negative for toxigenic C.difficile
09/24/24 03:40 Blood Culture - Final
Blood/Venous No Growth - Final Report
09/24/24 03:30 Blood Culture - Final
Blood/Venous No Growth - Final Report
09/23/24 16:43 Blood Culture - Final
Blood/Venous No Growth - Final Report
09/23/24 13:35 Blood Culture - Final
Blood/Venous No Growth - Final Report
09/23/24 22:22 Respiratory Culture - Final
Sputum Pseudomonas aeruginosa
Binta albicans
Gram Stain - Final
09/22/24 12:38 Blood Culture - Final
Blood/Venous Streptococcus pneumoniae
Gram Stain - Final
09/22/24 22:22 Legionella Urinary Antigen - Final
Urine Negative for Legionella pneumophila Serogroup 1 antigen.
A negative result does not rule out the possiblity of
Legionella infection due to other serogroups or species of
Legionella. Clinical correlation is recommended.
Streptococcus pneumoniae Antigen (M - Final
Positive for Strep pneumo Ag
09/22/24 10:33 Influenza Types A & B (EUN) - Final
Nasal Swab Influenza A Positive, NAAT
10/08/24 CXR: The small left-sided pneumothorax has slightly increased in size from prior. Stable appearance of the right-sided hydropneumothorax. Extensive bilateral mid and lower lung predominant opacities which are unchanged from prior and
consistent with known multifocal pneumonia.
[2024-10-10] MEDS: VERSED 2 MG IV (09:31)
[2024-10-10] MEDS: LEVOPHED 258 MG IV ×2 (10:14→17:53)
[2024-10-10] MEDS: SEROQUEL 50 MG TUBE (10:49)
[2024-10-10] MEDS: OFIRMEV 100 IV (10:49)
--- NOTE | 2024-10-10 11:00 | PTCARENOTE ---
Increased restlessness/agitation/vent desynchrony despite mx fent bolus' and gtt increase- see flow sheet. Pt. not due for prn anti-anxiety. Dr. Apple made aware and further orders received for 1x IV versed- see MAR. Agitation/vent desynchrony
improved s/p Versed. Gastric content leaking lg amts of green bile from valve attached to OG tube again. Dr apple to beside aware, further orders received to place OG tube to LIS. OG put out approx 600mL of initial green gastric content; TF off
@ this time, remains on LIS. Complete hygiene provided and pt. repositioned per protocol.
--- NOTE | 2024-10-10 12:31 | W.PN.PAL2 ---
Today's Communication
-
Palliative care follow up note. Patient remains in ICU, intubated, sedated, on pressors. critically ill. Intubated 3/
Family not present at time of visit. call placed.
Objective Data
-
Objective Data:
Vital Signs
Temp Pulse Resp BP Pulse Ox
101.6 F H 81 22 105/47 100
10/10/24 11:30 10/10/24 12:20 10/10/24 11:19 10/10/24 12:20 10/10/24 11:19
Laboratory Results
10/10/24 03:11
10/10/24 03:11
PT 18.9 Sec (11.4-14.6) H 10/09/24 04:15
INR 1.56 10/09/24 04:15
APTT 35.3 Sec (23.4-35.0) H 10/01/24 03:25
Total Protein 4.9 g/dl (6.3-8.2) L 10/10/24 03:11
Albumin 1.9 g/dl (3.5-5.0) L 10/10/24 03:11
Palliative Performance Scale
Palliative Performance Scale:
PPS Level Ambulation Activity & Evidence of Disease Self Care Intake Conscious Level
100% Full Normal Activity & Work; Full Intake Full
No Evidence of Disease
90% Full Normal Activity & Work; Full Normal Full
Some Evidence of Disease
80% Full Normal Activity with Effort Full Normal or Full
Some Evidence of Disease Reduced
70% Reduced Unable Normal Job/Work Full Normal or Full
Significant Disease Reduced
60% Reduced Unable Hobby/Housework Occasional Normal or Full or Confusion
Significant Disease Assistance Reduced
50% Mainly Sit/Lie Unable to do Any Work Considerable Normal or Full or Confusion
Extensive Disease Assistance Req'd Reduced
40% Mainly in Bed Unable to do Most Activity Mainly Assistance Normal or Full or Drowsy;
Extensive Disease Reduced +/- Confusion
30% Totally Bed Unable to do Any Activity Total Care Normal or Full or Drowsy;
Bound Extensive Disease Reduced +/- Confusion
20% Totally Bed Bound Unable to do Any Activity Total Care Minimal to Full or Drowsy;
Extensive Disease Sips +/- Confusion
10% Totally Bed Bound Unable to do Any Activity Total Care Mouth Care Drowsy or Coma;
Extensive Disease Only +/- Confusion
0%
PPS Score Level:
[2024-10-10] MEDS: MYCAMINE 105 MG IV (13:23)
--- NOTE | 2024-10-10 13:38 | W.PN.HOSP.TC ---
Addendum entered and electronically signed by Stefan Madrid MD 10/10/24 14:19:
General: no acute distress, chronically ill-appearing, sedated
HEENT: NormoCephalic, Moist mucous membranes and Atraumatic
Respiratory: Rhonchi and Crackles, ETT noted . b/l chest tube noted.
Cardiac: S1/S2, regularly regular,
GI: Soft, Non Tender, Non Distended and Normal Bowel Sounds;
Musculoskeletal: trace BL LE edema
Skin: No Rash
Neuro:sedated
Original Note:
Today's Communication/Plan
-
Continue with broad-spectrum antibiotics and antifungal
Plan to wean down Precedex
Trend labs
Monitor chest tube output
Prognosis remains guarded
Assessment / Plan
Assessment / Plan
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
# Acute hypoxic respiratory failure likely secondary to influenza, complicated by severe bilateral pneumonia secondary to Pseudomonas plus strep pneumo
# Spontaneous left-sided pneumothorax
-Currently on Xopenex and sodium chloride nebulizing
-CT chest appreciated multilobar pna severe in RLL underlying mass not excluded (follow up CT after treatment recommended relayed to patient and patient spouse)
-Was started on IV steroids Decadron 4 mg every 8-since AL'ed on 10/03.
-Concern for ARDS as with persistent severe hypoxemia.
-Will try to avoid positive balance and try to keep it on the drier tender naphthalene side.
-Status post intubation on 10/04/24 and now on mechanical ventilation. Continue with sedation. Currently on 100% FiO2.
#Septic Shock elevated (tachycardia, tachypnea) lactate, hypotension requiring pressor support
#Fever cough/generalized weakness likely from Influenza A /polymicrobial pneumonia with Necrotizing strep pneumonia and Pseudomonas pneumonia
#Empyema
#Strep bacteremia due to pneumonia
#Sinus tachycardia likely 2/2 severe sepsis PNA
-Blood cultures positive for Strep pneumonia, follow up repeat blood cx's NGTD
-Sputum Cx pos for Pseudomonas and binta albicans
-completed Tamiflu 10 day course,
-Status post CT chest with necrotizing pneumonia patient also started on antifungal with micafungin and vancomycin.
-Zosyn was transitioned to meropenem
Legionella Urine At neg
Respiratory Cx +Pseudomonas +Binta albicans
-Patient was evaluated by CT surgery Dr. Ny on 10/04 and patient deemed not a surgical candidate
-In the long run patient will require long course of antibiotics of probably 6 weeks
-Infectious disease following
# Spontaneous left-sided pneumothorax
Noted on chest x-ray on 09/29/2024
Status post emergent chest tube placement by [facility]
Status post second 14 Czech chest tube placement by director of physiotherapy services post intubation for expanding pneumothorax on 10/04/2024
Daily chest x-ray. Will monitor for now.
# Right-sided Pyopneumothorax
Status post emergent chest tube placed by director of physiotherapy services on 10/03/2024
Fluid cultures and other studies sent
Status post emergent upsizing of right-sided chest tube by [facility] on 10/04/24
As mentioned above was evaluated by CT surgery and not deemed to be surgical candidate
#Hypotension post intubation
on levophed
wean pressors as tolerated
# Atrial fibrillation/atrial flutter rapid ventricular response
was started on Cardizem infusion, since stopped
Blood pressure soft and thus unable to tolerate Cardizem and thus plan was to switch to amiodarone gtt, which in turn was stopped due to concern for Amio toxicity. As per cardio
Anticoagulation with Eliquis
Echocardiogram with EF of 60 to 65%. Mild to moderate mitral regurgitation. Mildly elevated PASP with PASP of 38 mmHg.
TSH wnl
Status post conversion to normal sinus rhythm.
Currently on Eliquis
#Anemia
likely of chronic disease
no active luminal bleeding noted
Start patient on IV Venofer. B12 folate normal
Heme test stools
Transfuse for hemoglobin less than 7.
Hgb 8.8
will add prophylactic Protonix
#Loose bowel movements
Likely due to antibiotic associated
C. difficile negative
Imodium if needed
Resolved.
# Anxiety could be situational
Ativan as needed
# Hyponatremia/metabolic acidosis /acute kidney injury likely hypovolemic
-resolved
-IVF completed
#Hypokalemia
3 3.9 resolved
#Mild Hypophosphatemia
monitor and replete as necessary
Underweight/Cachexic
severe temporal muscle wasting
nutrition on board
now on NG feeding with Osmolite at 30 cc/hr
constipation
MOM ordered, may need enema
# DVT prophylaxis
-Eliquis
# CODE STATUS
-Full code
GI prophylaxis PPI
Anticipated Discharge: > 48 hours
Subjective/Interval History
-
Date of Service: October 10, 2024
spiked fever earlier today
remains sedated/intubated
now increase FIO2 requirement to 100%
Objective Data
-
Labs:
Laboratory Results
10/10/24
03:11
WBC 25.8 H
Hgb 8.8 L
Hct 26.9 L
Plt Count 528 H
HCO3 29.2 H
Sodium 134 L
Potassium 4.0
Chloride 101
Carbon Dioxide 29
BUN 10
Creatinine 0.4 L
Glucose 100 H
Calcium 7.2 L
Total Bilirubin 0.4
AST 26
ALT 25
Alkaline Phosphatase 195 H
Vital Signs:
Vital Signs
Temp Pulse Resp BP Pulse Ox
101.6 F H 81 32 105/47 100
10/10/24 11:30 10/10/24 13:13 10/10/24 13:13 10/10/24 12:20 10/10/24 13:13
I&O
10/09/24 10/10/24 10/11/24
06:59 06:59 06:59
Intake Total 2492.2 / 2601.9 554.1 / 554.1
Output Total 1820 / 1920 730 / 730
Balance 672.2 / 681.9 -175.9 / -175.9
Data Reviewed
-
Total Time Spent with Patient (in minutes): 55
[2024-10-10] MEDS: PITRESSIN 100 IV (14:04)
--- NOTE | 2024-10-10 14:52 | PTCARENOTE ---
Pt. w increased pressor needs over shift thus far; vaso gtt initiated; levo gtt remains on and titrated to keep MAP >65- see flow sheet. Family @ bedside; updated by MD and RN. GOC discussions w ongoing; continue w current plan of care. Safe
environment maintained.
--- NOTE | 2024-10-10 15:34 | CM ---
CM following re: discharge planning.
Discussed in Rounds, reviewed pt's chart, met with pt. Pt's and pt's son at bedside.
Per Rounds meeting, pt remains intubated, remains critically ill with respiratory failure, prognosis remains guarded, continue supportive care.
D/C plan: uncertain at this time and will depend on pt's progress.
CM will follow with discharge plan updates as hospitalization progresses
[2024-10-10] MEDS: STERILE WATER FOR INJECTION 10 ML IV ×2 (17:53→23:30)
[2024-10-10] MEDS: MERREM 500 MG IV ×2 (17:53→23:29)
[2024-10-10] MEDS: DIPRIVAN 100 IV (20:00)
[2024-10-10] MEDS: COLACE LIQUID 100 MG TUBE (20:37)
[2024-10-10] MEDS: SENNA SYRUP 8.8 MG TUBE (20:37)
[2024-10-10 21:27] LABS: Triglycerides 136 mg/dl (10-149)
[2024-10-10 21:43] LABS: Vancomycin Peak 25.1 ug/ml (18-26)
[2024-10-10] MEDS: SEROQUEL 25 MG TUBE (23:29)
[2024-10-11] MEDS: LEVOPHED 258 MG IV ×4 (00:02→22:22)
[2024-10-11] MEDS: PITRESSIN 100 IV ×3 (00:05→22:22)
[2024-10-11] MEDS: VERSED 2 MG IV (00:08)
--- NOTE | 2024-10-11 00:52 | PTCARENOTE ---
Pt received at 19:00, initial assessment as documented. Precedex titrated off, propofol started as ordered. Opens eyes, tracks intermittently. Episode of agitation, PRN versed given. Tolerating vent settings 18/300/100%/+3. Pulse ox 100%, RR 18-22.
Breath sounds coarse w/ scattered rhonchi t/o. SR with PVCs, continues on levophed and vasopressin. No BM noted at this time, bowel reg continues. OGT to LIWS d/t increased residuals. León in place with clear yellow urine. Safe environment
maintained.
[2024-10-11] MEDS: SUBLIMAZE 100 IV ×3 (01:59→22:21)
--- NOTE | 2024-10-11 02:57 | PTCARENOTE ---
Pt with large loose/liquid brown BM, rectal trumpet now in place and draining liquid brown stool.
[2024-10-11 04:01] LABS: B.E. 3.6 mmol/L; HCO3 30.7 mmol/L (21-28); O2 Saturation % 99.6 % (94-98); PCO2 61 mmHg (32-35); PO2 138 mmHg (83-108); pH 7.31 (7.35-7.45)
[2024-10-11 04:03] LABS: Hemoglobin 7.8 g/dL (12.0-16.0); Mean Corp Hgb Conc. 31.2 g/dL (33.0-37.0); Mean Corpuscular Hgb 29.3 pg (27.0-31.0); Mean Platelet Volume 9.1 fL (7.4-10.4); Platelet Count 449 10^3/uL (130-400); Red Blood Cell Count 2.66 10^6/uL (4.20-5.40)
[2024-10-11 04:27] LABS: ALT (SGPT) 23 U/L (0-35); AST (SGOT) 26 U/L (14-36); Albumin 1.9 g/dl (3.5-5.0); Alkaline Phosphatase 177 U/L (38-126); Blood Urea Nitrogen 13 mg/dl (7-17); Calcium 7.5 mg/dl (8.4-10.2); Carbon Dioxide 31 mmol/L (22-30); Chloride 102 mmol/L (98-107); Estimated Creatinine Clearance 77 ml/min; Glucose 74 mg/dl (70-99); Magnesium 2.1 mg/dl (1.6-2.3); Phosphorus 3.6 mg/dl (2.5-4.5); Potassium 3.9 mmol/L (3.5-5.1); Sodium 137 mmol/L (135-145); Total Bilirubin 0.4 mg/dl (0.2-1.3); eGFR > 60.00
[2024-10-11 05:18] VITALS: BP 132/68
[2024-10-11 05:29] VITALS: BMI 20.9
[2024-10-11] MEDS: MERREM 500 MG IV ×3 (05:36→17:37)
[2024-10-11] MEDS: STERILE WATER FOR INJECTION 10 ML IV ×3 (05:36→17:37)
[2024-10-11 06:20] LABS: Vancomycin Trough 12.5 ug/ml (5-20)
[2024-10-11] MEDS: VANCOCIN 275 MG IV ×2 (06:34→17:36)
[2024-10-11] MEDS: XOPENEX 1.25 MG INHALANT SOLUTION INH ×3 (07:30→19:30)
[2024-10-11] MEDS: SODIUM CHLORIDE 3% FOR INHALATION 1 VIAL INH (07:30)
[2024-10-11] MEDS: VISBIOME 2 CAP TUBE (07:55)
[2024-10-11] MEDS: SEROQUEL 50 MG TUBE (07:55)
[2024-10-11] MEDS: ELIQUIS 5 MG TUBE ×2 (07:55→21:02)
[2024-10-11] MEDS: SENNA SYRUP TUBE (07:56)
[2024-10-11] MEDS: PROTONIX IV 40 MG IV (07:56)
[2024-10-11] MEDS: MIRALAX TUBE (07:56)
[2024-10-11] MEDS: COLACE LIQUID TUBE (07:56)
[2024-10-11] MEDS: ProAmatine 5 MG TUBE ×3 (07:56→17:37)
[2024-10-11] MEDS: NSS (PRESERVATIVE FREE) 10 ML IV (07:56)
[2024-10-11 08:00] VITALS: BP 105/59
--- NOTE | 2024-10-11 08:20 | W.PN.INTV ---
Today's Communication / Plan
Recommendations
Mechanical ventilation with low PEEP strategy and high FiO2 given bilateral pneumothoraces
Bilateral chest tubes --> lower suction to -10 cmH2O suction bilaterally
Daily CXR
Continue vasopressin + levophed
Continue hydrocortisone (started 10/10) due to severe CAP
Abx per ID
Try to wean down on fentanyl gtt; started Seroquel on 10/10 + trend QTc
Start oxycodone q6hr in an attempt to wean down on fentanyl gtt
Follow-up bronchoscopy BAL culture (grew Binta albicans - she is already on micafungin per ID)
Maintain MAP >65
Guarded prognosis
Assessment
-
69-year-old woman without significant past medical history was admitted to the hospital with flulike symptoms, shortness of breath. Found to be hypoxemic, septic with bilateral infiltrates on x-ray. Requiring up to 6 L supplemental oxygen. Found
to be flu positive, complicated by strep pneumo bacteremia, along with Pseudomonas in the sputum with Binta. We were consulted on 09/26/2024 due to worsening oxygenation and possible pulmonary mass.
Patient had positive blood cultures with strep pneumo on 09/22. Bacteremia has since cleared. Patient continues to be on Zosyn. Stay was further complicated by a spontaneous left-sided pneumothorax requiring chest tube placement 09/29.
Unfortunately, hypoxemic respiratory failure worsened and she was transferred to the ICU on 09/30/2024 for closer monitoring due to requiring 100%% FiO2 on high flow NC. Worsening right lung opacity noted on CT of the x-rays. 10/03, bedside POCUS
confirmed a loculated pleural effusion. A CT scan was performed which was suggestive of pyopneumothorax. A bedside chest tube on the right side was placed with slight improvement in the loculated effusion and fluid suggestive of empyema with LDH
more than 9000.
Brief interval Hx:
10/04. Patient noted to have increasing respiratory distress with gradually declining oxygen saturation despite high flow nasal cannula and nonrebreather. Patient was intubated and placed on mechanical ventilation.
10/05, patient had expansion of pneumothorax postintubation and a bedside left sided chest tube was placed. Patient required another chest tube on the right side due to expanding pneumothorax later in the day.
Assessment and plan
#1. Acute hypoxemic respiratory failure due to bilateral Necrotizing pneumonia-influenza A+/bacterial superinfection with Pseudomonas aeruginosa + Strep pneumonia c/b Streptococcus pneumonia bacteremia; Binta albicans seen on multiple cultures
including sputum culture, tracheal aspirate as well as BAL from RML
-Respiratory status worsened requiring intubation on 10/04
-Continue low PEEP, low tidal volume strategy due to help avoid worsening pneumothoraces bilaterally
-Maintain plateau pressure <30
-In the setting of bilateral pneumothoraces, keep FiO2 at 100% to help adsorb the PTX
-Lightly sedate with goal RASS 0 to -2 --> wean down on fentanyl gtt --> add q6hr oxycodone to assist with this
-Continue Xopenex. Reported intolerance to Atrovent
-Patient previously was on Decadron until 10/03/2024 --> in the setting of severe CAP, started solucortef 50mg IV q6hr on 10/10
-Completed Tamiflu: 09/22 - 10/02/2024
-Given little ETT secretions, will stop nebulized 3% NS
-s/p BAL 10/08 --> Cx shows NGTD
#2. 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
-Rapid expansion of left-sided pneumothorax postintubation. Emergent placement of second 14 Persian chest tube on the left side 10/04. Patient already had an anterior [address] chest tube in place but was not draining any air.
-Significant improvement of pneumothorax post chest tube placement
- Continue bilateral chest tubes and lower suction to -[id number]; monitor air leak severities (present on both chest tubes with level 1, more persistent on left-side) --> with persistent air leak past day 5 since most recent chest tube placement,
there is concern for alveolar-pleural fistula, possibly bronchopleural fistula considering underlying necrotizing pneumonia. Continue daily chest x-ray.
-CT surgery, Dr. Ny, evaluated patient 10/04, not felt to be a surgical candidate. In view of persistent air leak, might need to reconsider CT surgery consult if she improves
#3. Right-sided prior pneumothorax with loculated effusion/empyema.
-Continue IV antibiotics, pleural fluid culture negative
-Right-sided 8 Fr chest tube placed 10/03 for pyo-pneumothorax. Pleural fluid LDH more than 9000 highly suggestive of empyema
-Recurrence of pneumothorax despite small bore chest tube on 10/04, s/p placement of 16 Fr chest tube by IR with resolution of pneumothorax on 10/04 overnight. (Suspect related to displacement 8 Persian chest tube as patient developed desaturation
after changing position)
-Post chest tube chest x-ray seems to have well-expanded lung --> hence lytics were not given
-Severe necrotizing pneumonia with guarded prognosis
-Patient not felt to be a surgical candidate per CT surgery evaluation (10/04)
#4. Septic shock -
-Currently on levo + vasopressin
-Currently on vancomycin, meropenem s/p Zosyn and micafungin per ID
#5. Acute kidney injury - resolved post IV fluid
-Daily labs
-Tolerated Lasix 1 dose well on 10/07
-Monitor strict I/O
#6. Atrial fibrillation/flutter with rapid ventricular response in the setting of acute illness 09/26/2024 --> now in NSR
-Suspect this is in the setting of acute illness, normal sinus rhythm now
-Cardiology service on case, currently on Eliquis 5 mg BID
ECHO 09/29/2024: Normal biventricular size and systolic function without regional wall motion abnormality. Estimated LVEF 60-65%. Mild/moderate mitral regurgitation. Mild tricuspid regurgitation. Mildly elevated PASP. Estimated pulmonary artery
pressure of 38 mmHg assuming a right atrial pressure of 3 mmHg.
#7. Fevers
-Suspect to be related to precedex --> now resolved as of the afternoon of 10/10 after Precedex was weaned down
-Continue Seroquel and monitor QTc
Nutrition: Clamping trial today on the OGT and if she tolerates this, then resume tube feeds at 20 cc/hr
Conditions present prior admission:
None
Does not follow-up with primary care
Does not take any medications
Non-smoker
DVT prophylaxis: Eliquis
GI Prophylaxis: PPI
[facility] discussion with Dr. Alfredo on 10/10/2024: I had a conversation with the patient's and son as well as several other family members - I showed them all her multiple CT Chest imaging studies that she has had, and explained it in layman's
terms. They are conflicted as the patient has been getting weaker and more frail prior to this admission, and they are afraid that the patient's quality of life will be poor if they pursue a tracheostomy. They are not ready yet to transition to
comfort care measures. They at least 1 to give her the rest of this week to make a decision on her management. On 10/10, they did make her DNR but okay to continue with mechanical ventilation. All questions were answered.

Critical care statement: A total of 38 minutes of critical care time was provided for this patient today. This includes management of unstable vital signs, evaluation of the patient at bedside, reviewing the patient's pertinent medical records
including radiographs, microbiology, laboratory evaluations, and discussion with primary team, consultants, pharmacy, nutrition, physical therapy, case management, charge nurse, critical care nursing, and respiratory therapy.
Subjective Dataa
Subjective Data
Date of Service:
Date of Service: October 11, 2024
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
Subjective:
Patient was seen this morning. 600 cc output from OGT overnight as well as 600 cc from rectal trumpet. Fentanyl at 150mcg/hr this morning and propofol at 15mcg/kg/min. Also BP supported with Levophed at 28mcg/min + vasopressin at 0.03 units/min.
Heart rate this morning is 97, BP via A-line: 132/51, BP via NIBP: 115/59 and saturating 100% on AC/CMV at 18/300/3/100%. PIP is 32 cmH2O, VTe 327 cc and breathing at 19 breaths/min. She awakens when interacted with but not following commands,
likely due to sedation. Spoke with the , Quinn, at bedside and answered all of his questions. Right-sided chest tube has occasional level 1 airleak, and left-sided chest tube has a more persistent level 1 airleak, worsens during breath
delivery on the vent.
Review of Systems
General: Unobtainable - Sedation (Intubated)
Objective Data
Data Reviewed
Vital Signs / I&O / Oxygen:
Vital Signs
Temp Pulse Resp BP Pulse Ox
99.0 F 88 19 102/63 100
10/11/24 07:37 10/11/24 07:31 10/11/24 07:31 10/10/24 16:00 10/11/24 07:31
Intake and Output
10/10/24 10/11/24 10/12/24
06:59 06:59 06:59
Intake Total 2492.2 / 2601.9 1982.9 / 2049.5 408.2 / 408.2
Output Total 1820 / 1920 3639 / 3639 500 / 500
Balance 672.2 / 681.9 -1656.1 / -1589.5 -91.8 / -91.8
SaO2 [APV] 100
SaO2 [A/C] 97
SaO2 100
Nasal Cannula flow liters per 60
minute
Physical Exam
General: Respiratory Distress (n), Comfortable, Chills (negative), Sweats (negative) and Other (Intubated/sedated)
HEENT: Normocephalic, Anicteric and Other (ETT in place)
Cardiovascular: S1-S2 and Peripheral Edema (negative)
Respiratory: Wheeze (Bilaterally upon expiration), Crackles (Bilaterally), Rhonchi (Bilaterally), Accessory Resp Muscle Use (negative), ET Tube (Mechanical breath sounds heard bilaterally) and Chest Tube (Bilateral chest tube in place, intermittent
level 1 airleak on the right side, no air leak on the left side.)
GI: Soft, Non Distended, Non Tender and Normal Bowel Sounds
Neurology: Tremors (negative) and Other (Sedated - awakens to verbal stimuli but not following commands)
Skin: Warm, Dry, Cyanosis (negative) and Jaundice (negative)
Labs/Micro/Reports
Lab Data
10/11/24 03:53
10/11/24 03:53
Laboratory Results
10/11/24
03:53
pH 7.31 L
pCO2 61 H
pO2 138 H
HCO3 30.7 H
O2 Delivery Level
Microbiology
10/08/24 17:29 Bronch Right Middle Lobe Respiratory Culture - Preliminary
Usual Respiratory Laura
10/08/24 17:29 Bronch Right Middle Lobe Gram Stain - Preliminary
10/08/24 08:20 Blood/Venous Blood Culture - Preliminary
No Growth in 48 hours- Final report to follow
--- NOTE | 2024-10-11 09:11 | PHA.VAN.FU ---
Vancomycin Assessment / Plan
- Assessment
Renal Function: Stable
WBC's are: Trending Up
Concomitant Antimicrobials: meropenem, micafungin
- Assessment - Therapeutic Drug Monitoring
Extrapolated Cmax (mcg/mL): 28.8
Peak level was drawn: Appropriately (drawn ~1.7H after end of previous infusion)
Extrapolated Cmin (mcg/mL): 12.2
Trough Drawn: Appropriately
Levels were drawn: At steady state (levels drawn after 3rd dose of new regimen)
Calculated AUC (mcg*h/mL): 467
Calculated ke: 0.0815
Calculated half life (H): 8.5
Calculated Vd (L): 65.6 (~1.2 L/kg)
Calculated Vanc CL (ml/min): 89
- Dosing Plan
Continue: Vanc 1250mg Q12H
- Monitoring Plan
Level(s) appropriate: Recheck trough at minimum of weekly intervals, Repeat sooner for changes in renal function or clinical status
Next Level Due (Date): ~10/18
- Follow Up
Pharmacy will continue to follow.
Vancomycin Follow UP
- -
Patient Age: 69
Patient Sex: Female
Vancomycin Day #: 8
Indication: Pulmonary/Respiratory
Requesting Provider: Dr. Lee
Pertinent Antimicrobial Allergies:
NKDA
Height / Weight:
Height 5 ft 4 in
Actual Weight 55.2 kg
- Vital Signs / Lab Results
Temp Pulse Resp BP Pulse Ox
99.0 F 88 19 102/63 100
10/11/24 07:37 10/11/24 07:31 10/11/24 07:31 10/10/24 16:00 10/11/24 07:31
Lab Results - Hematology
10/09/24 10/10/24 10/11/24
04:15 03:11 03:53
WBC 25.0 H 25.8 H 29.0 H
Lab Results - Chemistry
10/09/24 10/10/24 10/11/24
04:15 03:11 03:53
BUN 9 10 13
Creatinine 0.4 L 0.4 L 0.4 L
Estimated Creat Clear 77 77 77
Albumin 1.9 L 1.9 L
Microbiology Results
10/08/24 08:20 Blood Culture - Preliminary
Blood/Venous No Growth in 72 hours- Final report to follow
10/08/24 17:29 Respiratory Culture - Preliminary
Bronch Right Middle Lobe Usual Respiratory Laura
Gram Stain - Preliminary
Therapeutic Drug Monitoring
Vancomycin Peak 25.1 ug/ml (18-26) 10/10/24 21:02
Vancomycin Trough 12.5 ug/ml (5-20) 10/11/24 05:35
--- NOTE | 2024-10-11 09:15 | W.PN.ID1 ---
Date of Service
Date of Service: October 11, 2024
Today's Communication
- c/w meropenem - day 18 of therapy - anticipate a long course of IV therapy- From 2/3 likely for 4-6 weeks
- c/w vancomycin, day 7
- c/w micafungin day 8
- patient is remains critically ill with respiratory failure. Prognosis guarded - there is interval worsening
Assessment / Plan
Strep Pneumoniae Pneumonia - necrotizing
Secondary health care acquired pneumonia due to Pseudomonas
Influenza A - resolved
completed a 10-day course of Tamiflu 10/02
Empyema of the right lung - resolving
Bacteremia due to Strep Pneumoniae - transient
Acute hypoxemic respiratory failure, VDRF
Bilateral PTX -> chest tubes
Shock - remains on 1 pressor
Elevated core temperature
Leukocytosis - trending up
- started on bowel regimen - now with liquid stool as expected
- c/w meropenem - day 18 of therapy - anticipate a long course of IV therapy- From 2/3 likely for 4-6 weeks
- c/w vancomycin, day 7
- c/w micafungin day 8
- patient is remains critically ill with respiratory failure. Prognosis guarded - there is interval worsening
Chief Complaint
-: Pneumonia and Other (S pneumo pneumonia, Pseudomonas pneumonia; empyema)
Subjective / Review of Systems
fever curve may be improving
markedly increased pressor requirements
started on bowel regimen - now with liquid stool as expected
bilious output from NGT ongoing yesterday
Vital Signs / Physical Exam
Vital Signs
Vital Signs
Temp Pulse Resp BP Pulse Ox
99.0 F 88 19 102/63 100
10/11/24 07:37 10/11/24 07:31 10/11/24 07:31 10/10/24 16:00 10/11/24 07:31
Physical Exam
Constitutional: Acutely Ill and Chronically Ill
Cardiovascular: Regular Rate and S1/S2; Negative Murmur or Rub
Pulmonary: Clear and Symmetric; Negative Wheezes or Rales
Gastrointestinal: Soft, Non Tender, Non Distended and Normal Bowel Sounds
Skin: Warm and Dry; Negative Rash or Jaundice
Objective Data
Lab Data
Lab Results
10/11/24 03:53
10/11/24 03:53
PT 18.9 Sec (11.4-14.6) H 10/09/24 04:15
INR 1.56 10/09/24 04:15
APTT 35.3 Sec (23.4-35.0) H 10/01/24 03:25
Estimated Creat Clear 77 ml/min 10/11/24 03:53
Lactic Acid Cancelled 09/22/24 22:31
Total Bilirubin 0.4 mg/dl (0.2-1.3) 10/11/24 03:53
AST 26 U/L (14-36) 10/11/24 03:53
ALT 23 U/L (0-35) 10/11/24 03:53
Alkaline Phosphatase 177 U/L (38-126) H 10/11/24 03:53
Most recent labs reviewed.
Micro Results:
10/08/24 08:20 Blood Culture - Preliminary
Blood/Venous No Growth in 72 hours- Final report to follow
10/08/24 17:29 Respiratory Culture - Preliminary
Bronch Right Middle Lobe Usual Respiratory Laura
Gram Stain - Preliminary
10/03/24 18:33 Body Fluid Culture - Final
Pleural Fluid No Growth After 72 Hours
Gram Stain - Final
10/04/24 13:23 Respiratory Culture - Final
Tracheal Aspirate Binta albicans
Gram Stain - Final
09/22/24 10:33 Blood Culture - Final
Blood/Venous Streptococcus pneumoniae
Gram Stain - Final
09/28/24 18:31 C. difficile GDH Antigen & Toxins - Final
Feces/Stool Negative for toxigenic C.difficile
09/24/24 03:40 Blood Culture - Final
Blood/Venous No Growth - Final Report
09/24/24 03:30 Blood Culture - Final
Blood/Venous No Growth - Final Report
09/23/24 16:43 Blood Culture - Final
Blood/Venous No Growth - Final Report
09/23/24 13:35 Blood Culture - Final
Blood/Venous No Growth - Final Report
09/23/24 22:22 Respiratory Culture - Final
Sputum Pseudomonas aeruginosa
Binta albicans
Gram Stain - Final
09/22/24 12:38 Blood Culture - Final
Blood/Venous Streptococcus pneumoniae
Gram Stain - Final
09/22/24 22:22 Legionella Urinary Antigen - Final
Urine Negative for Legionella pneumophila Serogroup 1 antigen.
A negative result does not rule out the possiblity of
Legionella infection due to other serogroups or species of
Legionella. Clinical correlation is recommended.
Streptococcus pneumoniae Antigen (M - Final
Positive for Strep pneumo Ag
09/22/24 10:33 Influenza Types A & B (EUN) - Final
Nasal Swab Influenza A Positive, NAAT
10/08/24 CXR: The small left-sided pneumothorax has slightly increased in size from prior. Stable appearance of the right-sided hydropneumothorax. Extensive bilateral mid and lower lung predominant opacities which are unchanged from prior and
consistent with known multifocal pneumonia.
--- NOTE | 2024-10-11 09:48 | W.PN.PAL2 ---
Today's Communication
-
Palliative Care Note
Patient remains critically ill in the ICU, intubated, sedated, on pressors.
Case reviewed with ICU attending. Code status was changed to limited DNR yesterday evening
Spoke with spouse over the phone. He is aware of patient's condition, at this time will see how she does over the next few days, not ready to consider hospice transition.
Total floor time 25 mins
Objective Data
-
Objective Data:
Vital Signs
Temp Pulse Resp BP Pulse Ox
99.0 F 88 19 102/63 100
10/11/24 07:37 10/11/24 07:31 10/11/24 07:31 10/10/24 16:00 10/11/24 07:31
Laboratory Results
10/11/24 03:53
10/11/24 03:53
PT 18.9 Sec (11.4-14.6) H 10/09/24 04:15
INR 1.56 10/09/24 04:15
APTT 35.3 Sec (23.4-35.0) H 10/01/24 03:25
Total Protein 5.0 g/dl (6.3-8.2) L 10/11/24 03:53
Albumin 1.9 g/dl (3.5-5.0) L 10/11/24 03:53
Palliative Performance Scale
Palliative Performance Scale:
PPS Level Ambulation Activity & Evidence of Disease Self Care Intake Conscious Level
100% Full Normal Activity & Work; Full Intake Full
No Evidence of Disease
90% Full Normal Activity & Work; Full Normal Full
Some Evidence of Disease
80% Full Normal Activity with Effort Full Normal or Full
Some Evidence of Disease Reduced
70% Reduced Unable Normal Job/Work Full Normal or Full
Significant Disease Reduced
60% Reduced Unable Hobby/Housework Occasional Normal or Full or Confusion
Significant Disease Assistance Reduced
50% Mainly Sit/Lie Unable to do Any Work Considerable Normal or Full or Confusion
Extensive Disease Assistance Req'd Reduced
40% Mainly in Bed Unable to do Most Activity Mainly Assistance Normal or Full or Drowsy;
Extensive Disease Reduced +/- Confusion
30% Totally Bed Unable to do Any Activity Total Care Normal or Full or Drowsy;
Bound Extensive Disease Reduced +/- Confusion
20% Totally Bed Bound Unable to do Any Activity Total Care Minimal to Full or Drowsy;
Extensive Disease Sips +/- Confusion
10% Totally Bed Bound Unable to do Any Activity Total Care Mouth Care Drowsy or Coma;
Extensive Disease Only +/- Confusion
0%
PPS Score Level:
[2024-10-11] MEDS: DIPRIVAN 100 IV (10:40)
--- NOTE | 2024-10-11 11:41 | W.PN.HOSP.TC ---
Today's Communication/Plan
-
Cont with tube feeding
bronch culture showing binta
IV abx and IV antifungal
pain control
Assessment / Plan
Assessment / Plan
General: no acute distress, chronically ill-appearing, sedated
HEENT: NormoCephalic, Moist mucous membranes and Atraumatic
Respiratory: Rhonchi and Crackles, ETT noted. b/l chest tube noted.
Cardiac: S1/S2, regularly regular,
GI: Soft, Non Tender, Non Distended and Normal Bowel Sounds;
Musculoskeletal: trace BL LE edema
Skin: No Rash
Neuro:sedated
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
# Acute hypoxic respiratory failure likely secondary to influenza, complicated by severe bilateral pneumonia secondary to Pseudomonas plus strep pneumo
# Spontaneous left-sided pneumothorax
-Currently on Xopenex and sodium chloride nebulizer
-CT chest appreciated multilobar pna severe in RLL underlying mass not excluded (follow up CT after treatment recommended relayed to patient and patient spouse)
-Was started on IV steroids Decadron 4 mg every 8-since ID'ed on 10/03.
-Concern for ARDS as with persistent severe hypoxemia.
-Will try to avoid positive balance and try to keep it on the supervisor correspondence section side.
-Status post intubation on 10/04/24 and now on mechanical ventilation. Continue with sedation. Currently on 100% FiO2.
#Septic Shock elevated (tachycardia, tachypnea) lactate, hypotension requiring pressor support
#Fever cough/generalized weakness likely from Influenza A /polymicrobial pneumonia with Necrotizing strep pneumonia and Pseudomonas pneumonia
#Empyema
#Strep bacteremia due to pneumonia
#Sinus tachycardia likely 2/2 severe sepsis PNA
-Blood cultures positive for Strep pneumonia, follow up repeat blood cx's NGTD
-Sputum Cx pos for Pseudomonas and binta albicans
-completed Tamiflu 10 day course,
-Status post CT chest with necrotizing pneumonia patient also started on antifungal with micafungin and vancomycin.
-Zosyn was transitioned to meropenem
Legionella Urine At neg
-Respiratory Cx +Pseudomonas +Binta albicans
-Patient was evaluated by CT surgery Dr. Ny on 10/04 and patient deemed not a surgical candidate
-In the long run patient will require long course of antibiotics of probably 6 weeks
-Infectious disease following
# Spontaneous left-sided pneumothorax
Noted on chest x-ray on 09/29/2024
Status post emergent chest tube placement by [facility]
Status post second 14 Latvian chest tube placement by special forces officer post intubation for expanding pneumothorax on 10/04/2024
Daily chest x-ray. Will monitor for now.
# Right-sided Pyopneumothorax
Status post emergent chest tube placed by special forces officer on 10/03/2024
Fluid cultures and other studies sent
Status post emergent upsizing of right-sided chest tube by [facility] on 10/04/24
As mentioned above was evaluated by CT surgery and not deemed to be surgical candidate
Pain control as with b/i chest tube.
#Hypotension post intubation
on levophed
wean pressors as tolerated
# Atrial fibrillation/atrial flutter rapid ventricular response
was started on Cardizem infusion, since stopped
Blood pressure soft and thus unable to tolerate Cardizem and thus plan was to switch to amiodarone gtt, which in turn was stopped due to concern for Amio toxicity. As per cardio
Anticoagulation with Eliquis
Echocardiogram with EF of 60 to 65%. Mild to moderate mitral regurgitation. Mildly elevated PASP with PASP of 38 mmHg.
TSH wnl
Status post conversion to normal sinus rhythm.
Currently on Eliquis
#Anemia
likely of chronic disease
no active luminal bleeding noted
Start patient on IV Venofer. B12 folate normal
Heme test stools
Transfuse for hemoglobin less than 7.
Hgb 8.8
will add prophylactic Protonix
#Loose bowel movements
Likely due to antibiotic associated
C. difficile negative
Imodium if needed
Resolved.
# Anxiety could be situational
Ativan as needed
# Hyponatremia/metabolic acidosis /acute kidney injury likely hypovolemic
-resolved
-IVF completed
#Hypokalemia
#Mild Hypophosphatemia
monitor and replete as necessary
Underweight/Cachexic
severe temporal muscle wasting
nutrition on board
cont w/ Tube feeding. Goal rate of 40cc/hr with 1 pack prosource
# DVT prophylaxis -Eliquis
# CODE STATUS-limited DNR
GI prophylaxis PPI
d/w with special forces officer
Anticipated Discharge: > 48 hours
Subjective/Interval History
-
Date of Service: October 11, 2024
Remains intubated and sedated
Remains on tube feeding
Afebrile
Objective Data
-
Labs:
Laboratory Results
10/11/24
03:53
WBC 29.0 H
Hgb 7.8 L
Hct 25.0 L
Plt Count 449 H
HCO3 30.7 H
Sodium 137
Potassium 3.9
Chloride 102
Carbon Dioxide 31 H
BUN 13
Creatinine 0.4 L
Glucose 74
Calcium 7.5 L
Total Bilirubin 0.4
AST 26
ALT 23
Alkaline Phosphatase 177 H
Vital Signs:
Vital Signs
Temp Pulse Resp BP Pulse Ox
99.9 F 88 19 102/63 100
10/11/24 11:40 10/11/24 07:31 10/11/24 07:31 10/10/24 16:00 10/11/24 07:31
I&O
10/10/24 10/11/24 10/12/24
06:59 06:59 06:59
Intake Total 2492.2 / 2601.9 1982.9 / 2049.5 598.0 / 598.0
Output Total 1820 / 1920 3639 / 3639 800 / 800
Balance 672.2 / 681.9 -1656.1 / -1589.5 -202.0 / -202.0
Data Reviewed
-
Total Time Spent with Patient (in minutes): 55
--- NOTE | 2024-10-11 12:00 | PTCARENOTE ---
Weaning Fentanyl. Remains on Propofol, Levophed and Vasopressin. BP via A-line. B/L chest tubes to wall suction: left -10cm H2O, right -20cm H2O. Scant white secretions via ETT. OG clamped. No residual after 4hr. Will restart tube feed when
arrive from dietary. Clear yellow urine via carr. All other assessments unchanged.
[2024-10-11] MEDS: ROXICODONE ORAL SOLUTION 5 MG TUBE ×2 (12:05→17:37)
[2024-10-11] MEDS: MYCAMINE 105 MG IV (12:06)
[2024-10-11 16:00] VITALS: BP 101/54
--- NOTE | 2024-10-11 16:00 | PTCARENOTE ---
Weaning sedation. Tubes restarted. All other assessments unchanged.
[2024-10-11] MEDS: FLEXBUMIN 100 IV ×2 (17:38→19:28)
[2024-10-11] MEDS: SEROQUEL 25 MG TUBE (21:02)
[2024-10-11] MEDS: SUBLIMAZE 50 MCG IV (21:10)
--- NOTE | 2024-10-11 21:59 | PTCARENOTE ---
Pt received at 19:00, family at bedside. Pt remains intubated and sedated on fentanyl and propofol. Opens eyes, not following commands. Increased restlessness, CPOT = 5, and vent dyssynchrony approximately 21:00, PRN fentanyl bolus given and gtt
titrated as ordered. # 7.5 ETT, 21 @ the lip, repositioned from L to C. 18/300/100%/+5. Pulse ox 100%, RR 18-22, peak pressures 24-30. B/L CT, -10 suction. Breath sounds coarse, scattered rhonchi t/o. OGT in place, TF infusing, tolerating-residual =
50ml thin hunt. León in place, yellow/michelle urine. Safe environment maintained, repositioned.
[2024-10-12] VITALS: BP 112/61
[2024-10-12] MEDS: ROXICODONE ORAL SOLUTION 5 MG TUBE ×2 (00:22→05:32)
[2024-10-12] MEDS: MERREM 500 MG IV ×4 (00:22→17:47)
[2024-10-12] MEDS: STERILE WATER FOR INJECTION 10 ML IV ×4 (00:22→17:47)
[2024-10-12] MEDS: SUBLIMAZE 50 MCG IV ×2 (00:43→11:36)
--- NOTE | 2024-10-12 01:09 | PTCARENOTE ---
150ml hunt thin residual, reinstilled. Episode of agitation and ventilator dyssynchrony, fentanyl bolus given and effective. Otherwise assessment unchanged.
[2024-10-12 04:50] LABS: B.E. 2.7 mmol/L; HCO3 29.8 mmol/L (21-28); O2 Saturation % 99.5 % (94-98); PCO2 62 mmHg (32-35); PO2 166 mmHg (83-108); pH 7.29 (7.35-7.45)
[2024-10-12] MEDS: DIPRIVAN 100 IV (04:54)
[2024-10-12 04:58] LABS: O2 Therapy 100%
[2024-10-12 05:09] LABS: Hematocrit 22.1 % (37.0-47.0); Hemoglobin 6.7 g/dL (12.0-16.0); Mean Corp Hgb Conc. 30.3 g/dL (33.0-37.0); Mean Corpuscular Hgb 29.5 pg (27.0-31.0); Mean Corpuscular Volume 97.4 fL (81.0-99.0); Mean Platelet Volume 9.2 fL (7.4-10.4); Platelet Count 421 10^3/uL (130-400); Red Blood Cell Count 2.27 10^6/uL (4.20-5.40); Red Cell Dist. Width 15.9 % (11.5-14.5); White Blood Cell Count 20.9 10^3/uL (4.8-10.8)
[2024-10-12] MEDS: VERSED 2 MG IV (05:11)
--- NOTE | 2024-10-12 05:27 | W.PN.UPDATE ---
Update Note
Progress Note Update
Patient lab results, hemaglobin 6.7, will repeat H&H but also obtain type and screen. Consent obtained from patient's Rashaun Yeboah, over the telephone, witnessed by RN. All questions answered and risk/benefits explained.
[2024-10-12 05:29] LABS: ALT (SGPT) 19 U/L (0-35); AST (SGOT) 24 U/L (14-36); Albumin 2.6 g/dl (3.5-5.0); Alkaline Phosphatase 254 U/L (38-126); Blood Urea Nitrogen 18 mg/dl (7-17); Carbon Dioxide 30 mmol/L (22-30); Chloride 101 mmol/L (98-107); Estimated Creatinine Clearance 77 ml/min; Glucose 103 mg/dl (70-99); Magnesium 2.2 mg/dl (1.6-2.3); Phosphorus 2.9 mg/dl (2.5-4.5); Potassium 3.5 mmol/L (3.5-5.1); Sodium 138 mmol/L (135-145); Total Bilirubin 0.8 mg/dl (0.2-1.3); Total Protein 5.8 g/dl (6.3-8.2); eGFR > 60.00
[2024-10-12 05:31] LABS: NT-proBNP 2770 pg/ml
[2024-10-12] MEDS: VANCOCIN 275 MG IV ×2 (05:32→17:47)
[2024-10-12 05:39] LABS: Hematocrit 20.5 % (37.0-47.0); Hemoglobin 6.5 g/dL (12.0-16.0)
[2024-10-12 06:00] VITALS: BMI 21.5
[2024-10-12] MEDS: LEVOPHED 258 MG IV (07:34)
[2024-10-12 08:02] VITALS: BP 130/56
[2024-10-12] MEDS: XOPENEX 1.25 MG INHALANT SOLUTION INH ×3 (08:02→19:09)
[2024-10-12] MEDS: ELIQUIS 5 MG TUBE ×2 (08:12→20:39)
[2024-10-12] MEDS: NSS (PRESERVATIVE FREE) 10 ML IV (08:13)
[2024-10-12] MEDS: VISBIOME 2 CAP TUBE (08:13)
[2024-10-12] MEDS: ProAmatine 5 MG TUBE ×2 (08:13→17:47)
[2024-10-12] MEDS: PROTONIX IV 40 MG IV (08:13)
[2024-10-12] MEDS: REFRESH EYE DROPS (PF) 1 DROPS OPHTH (08:13)
[2024-10-12] MEDS: SEROQUEL 50 MG TUBE (08:14)
--- NOTE | 2024-10-12 08:17 | W.PN.INTV ---
Today's Communication / Plan
Recommendations
Mechanical ventilation with low PEEP strategy and high FiO2 given bilateral pneumothoraces
Bilateral chest tubes --> changed to continuous waterseal today and recheck CXR later this afternoon to assure that the pneumothoraces are stable
Daily CXR
Continue vasopressin + levophed --> wean to off if possible; continue midodrine
Continue hydrocortisone (started 10/10) due to severe CAP
Abx per ID
Try to wean down on fentanyl gtt; started Seroquel on 10/10 + trend QTc
Rasie oxycodone from 5mg to 10mg q6hr in an attempt to wean down on fentanyl gtt; once off fentanyl drip then would wean off propofol drip
Follow-up bronchoscopy BAL culture (grew Binta albicans - she is already on micafungin per ID)
Maintain MAP >65
Guarded prognosis --> family is thinking about withdrawing care this Thursday unless she makes any significant improvement by then; palliative care following and assistance appreciated
Assessment
-
69-year-old woman without significant past medical history was admitted to the hospital with flulike symptoms, shortness of breath. Found to be hypoxemic, septic with bilateral infiltrates on x-ray. Requiring up to 6 L supplemental oxygen. Found
to be flu positive, complicated by strep pneumo bacteremia, along with Pseudomonas in the sputum with Binta. We were consulted on 09/26/2024 due to worsening oxygenation and possible pulmonary mass.
Patient had positive blood cultures with strep pneumo on 09/22. Bacteremia has since cleared. Patient continues to be on Zosyn. Stay was further complicated by a spontaneous left-sided pneumothorax requiring chest tube placement 09/29.
Unfortunately, hypoxemic respiratory failure worsened and she was transferred to the ICU on 09/30/2024 for closer monitoring due to requiring 100%% FiO2 on high flow NC. Worsening right lung opacity noted on CT of the x-rays. 10/03, bedside POCUS
confirmed a loculated pleural effusion. A CT scan was performed which was suggestive of pyopneumothorax. A bedside chest tube on the right side was placed with slight improvement in the loculated effusion and fluid suggestive of empyema with LDH
more than 9000.
Brief interval Hx:
10/04. Patient noted to have increasing respiratory distress with gradually declining oxygen saturation despite high flow nasal cannula and nonrebreather. Patient was intubated and placed on mechanical ventilation.
10/05, patient had expansion of pneumothorax postintubation and a bedside left sided chest tube was placed. Patient required another chest tube on the right side due to expanding pneumothorax later in the day.
Assessment and plan
#1. Acute hypoxemic respiratory failure due to bilateral Necrotizing pneumonia-influenza A+/bacterial superinfection with Pseudomonas aeruginosa + Strep pneumonia c/b Streptococcus pneumonia bacteremia; Binta albicans seen on multiple cultures
including sputum culture, tracheal aspirate as well as BAL from RML
-Respiratory status worsened requiring intubation on 10/04
-Continue low PEEP, low tidal volume strategy due to help avoid worsening pneumothoraces bilaterally
-Maintain plateau pressure <30
-In the setting of bilateral pneumothoraces, keep FiO2 at 100% to help adsorb the PTX
-Lightly sedate with goal RASS 0 to -2 --> wean down on fentanyl gtt --> on 10/11 I added q6hr oxycodone to assist with this --> raise dose today to 10mg as it is helping reduce fent dose
-Continue Xopenex. Reported intolerance to Atrovent
-Patient previously was on Decadron until 10/03/2024 --> in the setting of severe CAP, started solucortef 50mg IV q6hr on 10/10
-Completed Tamiflu: 09/22 - 10/02/2024
-Given little ETT secretions, stopped nebulized 3% NS on 10/11
-s/p BAL 10/08 --> Cx shows Binta albicans --> she is already on micafungin
#2. 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
-Rapid expansion of left-sided pneumothorax postintubation. Emergent placement of second 14 British chest tube on the left side 10/04. Patient already had an anterior [address] in place but was not draining any air.
-Significant improvement of pneumothorax post chest tube placement
- Continue bilateral chest tubes and change to water seal today (10/12) --> we did lower suction to -[id number] on 10/11; monitor air leak severities (present on left sided chest tube but only at end of breath delivery on the vent); with persistent air
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 Continue daily chest x-ray.
-CT surgery, Dr. Ny, evaluated patient 10/04, not felt to be a surgical candidate. In view of persistent air leak, might need to reconsider CT surgery consult if she improves
#3. Right-sided prior pneumothorax with loculated effusion/empyema.
-Continue IV antibiotics, pleural fluid culture negative
-Right-sided 8 Fr chest tube placed 10/03 for pyo-pneumothorax. Pleural fluid LDH more than 9000 highly suggestive of empyema
-Recurrence of pneumothorax despite small bore chest tube on 10/04, s/p placement of 16 Fr chest tube by IR with resolution of pneumothorax on 10/04 overnight. (Suspect related to displacement 8 British chest tube as patient developed desaturation
after changing position)
-Post chest tube chest x-ray seems to have well-expanded lung --> hence lytics were not given
-Severe necrotizing pneumonia with guarded prognosis
-Patient not felt to be a surgical candidate per CT surgery evaluation (10/04)
#4. Septic shock -
-Currently on levo + vasopressin
-Currently on vancomycin, meropenem s/p Zosyn and micafungin per ID
#5. Acute kidney injury - resolved post IV fluid
-Daily labs
-Tolerated Lasix 1 dose well on 10/07
-Monitor strict I/O
#6. Atrial fibrillation/flutter with rapid ventricular response in the setting of acute illness 09/26/2024 --> now in NSR
-Suspect this is in the setting of acute illness, normal sinus rhythm now
-Cardiology service on case, currently on Eliquis 5 mg BID
ECHO 09/29/2024: Normal biventricular size and systolic function without regional wall motion abnormality. Estimated LVEF 60-65%. Mild/moderate mitral regurgitation. Mild tricuspid regurgitation. Mildly elevated PASP. Estimated pulmonary artery
pressure of 38 mmHg assuming a right atrial pressure of 3 mmHg.
#7. Fevers
-Suspect to be related to precedex --> now resolved as of the afternoon of 10/10 after Precedex was weaned down
-Continue Seroquel and monitor QTc
#8. Suspected pulmonary edema
-In the setting of bilateral rales and lower extremity +2 edema, I will start her on Lasix 40 mg IV daily
-Check/trend BNP
-Echo last performed on 09/29/2024 showing normal biventricular systolic function with mild�moderate MR and mild pulmonary hypertension with PASP 38 mmHg
Nutrition: Clamping trial performed on 10/11 and she did well --> tube feeds resumed on 10/11 at 20cc/hr and tolerated this well; ok to raise to goal today
Conditions present prior admission:
None
Does not follow-up with primary care
Does not take any medications
Non-smoker
DVT prophylaxis: Eliquis
GI Prophylaxis: PPI
[facility] discussion with Dr. Alfredo on 10/10/2024: I had a conversation with the patient's and son as well as several other family members - I showed them all her multiple CT Chest imaging studies that she has had, and explained it in layman's
terms. They are conflicted as the patient has been getting weaker and more frail prior to this admission, and they are afraid that the patient's quality of life will be poor if they pursue a tracheostomy. They are not ready yet to transition to
comfort care measures. They at least 1 to give her the rest of this week to make a decision on her management. On 10/10, they did make her DNR but okay to continue with mechanical ventilation. All questions were answered.
-I had a another goals of care discussion with the , Rashaun, today. He has spoken to his kids multiple times. He is thinking about withdrawing care this Thursday if patient does not show any significant improvement by then. He is not
interested in pursuing tracheostomy at this time as him and his family do not think that Briana would have wanted that.
Code status: DNR, but ok to continue mechanical ventilation
Continue ICU level care for this critically ill patient

Critical care statement: A total of 41 minutes of critical care time was provided for this patient today. This includes management of unstable vital signs, evaluation of the patient at bedside, reviewing the patient's pertinent medical records
including radiographs, microbiology, laboratory evaluations, and discussion with primary team, consultants, pharmacy, nutrition, physical therapy, case management, charge nurse, critical care nursing, and respiratory therapy.
Subjective Dataa
Subjective Data
Date of Service:
Date of Service: October 12, 2024
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
Subjective:
Patient seen and evaluated this morning. Current heart rate 81, BP 160/63 (NIBP), on Levophed at 10mcg/min, A-line reading 119/52 and saturating 99% on AC/CMV at 18/300/3/100% with PIP [id number], VTe 397cc and breathing at 18 breaths/minute. FMS
shows loose brown stool in bag. She has scanty ETT secretions. Right-sided chest tube with no airleak this morning and left-sided chest tube with occasional level 1 airleak mainly during the end of inspiration. I spoke with her , Quinn,
present at bedside and answered all of his questions.
Review of Systems
General: Unobtainable - Sedation (Intubated)
Objective Data
Data Reviewed
Vital Signs / I&O / Oxygen:
Vital Signs
Temp Pulse Resp BP Pulse Ox
98.9 F 86 18 139/58 100
10/12/24 08:20 10/12/24 09:00 10/12/24 09:00 10/12/24 08:20 10/12/24 09:00
Intake and Output
10/11/24 10/12/24 10/13/24
06:59 06:59 06:59
Intake Total 1982.9 / 2049.5 3144.4 / 3235.6 178.6 / 178.6
Output Total 3639 / 3639 2320 / 2365 85 / 85
Balance -1656.1 / -1589.5 824.4 / 870.6 93.6 / 93.6
SaO2 [APV] 100
SaO2 [A/C] 97
SaO2 100
Nasal Cannula flow liters per 60
minute
Physical Exam
General: Respiratory Distress (n), Comfortable, Chills (negative), Sweats (negative) and Other (Intubated/sedated)
HEENT: Normocephalic, Anicteric and Other (ETT in place)
Cardiovascular: S1-S2 and Peripheral Edema (+2 lower extremity pitting edema bilaterally)
Respiratory: Wheeze (negative), Crackles (Bilaterally), Rhonchi (Bilaterally), Accessory Resp Muscle Use (negative), ET Tube (Mechanical breath sounds heard bilaterally) and Chest Tube (Bilateral chest tube in place, intermittent level 1 airleak on
the right side, no air leak on the left side.)
GI: Soft, Non Distended, Non Tender and Normal Bowel Sounds
Neurology: Tremors (negative) and Other (Sedated - awakens to verbal stimuli but not following commands)
Skin: Warm, Dry, Cyanosis (negative) and Jaundice (negative)
Labs/Micro/Reports
Lab Data
10/12/24 05:21
10/12/24 04:42
Laboratory Results
10/12/24
04:42
pH 7.29 L
pCO2 62 H
pO2 166 H
HCO3 29.8 H
O2 Delivery Level 100%
Microbiology
10/08/24 08:20 Blood/Venous Blood Culture - Preliminary
No Growth in 4 days- Final report to follow
10/08/24 17:29 Bronch Right Middle Lobe Respiratory Culture - Final
Binta albicans
10/08/24 17:29 Bronch Right Middle Lobe Gram Stain - Final
[2024-10-12 08:20] VITALS: BP 139/58
--- NOTE | 2024-10-12 08:30 | PTCARENOTE ---
Rec'd care of patient at 0700. Patient intubated/sedated. Pupils equal and reactive; +2mm. Does not follow commands. Trace movement in b/l hands. NSR on tele. +2 anasarca. Palpable pulses. #7.5 ett, 22cm @ the lip. Vent settings: APV 18/300/3/100%.
Pulse ox 100%. Lung sounds scattered rhonchi/coarse throughout. Crackles throughout right lung. Left lateral and right posterior chest tubes to suction. +BS. OGT with TFs running @ 20 mL/hr. Rectal trumpet in place for liquid stool. Mau for
critical I/O. Yellow/cloudy. Fent/Prop/Levo/Vaso infusing through RDL PICC. Weaning Levo for MAP>65. Right radial kevin leveled and zeroed. 1 unit PRBCs transfusing for Hgb 6.5, Hct 20.5. No s/s bleeding. See worklist for full assessment and care.
--- NOTE | 2024-10-12 09:06 | PHA.VAN.FU ---
Vancomycin Assessment / Plan
- Assessment
Renal Function: Stable
WBC's are: Trending Down
In the past 24 hrs, patient has been: Afebrile
Concomitant Antimicrobials: meropenem, micafungin
- Dosing Plan
Continue: Vanc 1250mg Q12H
- Monitoring Plan
Level(s) appropriate: Recheck trough at minimum of weekly intervals, Repeat sooner for changes in renal function or clinical status
Next Level Due (Date): ~10/18
- Follow Up
Pharmacy will continue to follow.
Vancomycin Follow UP
- -
Patient Age: 69
Patient Sex: Female
Vancomycin Day #: 9
Indication: Pulmonary/Respiratory
Requesting Provider: Dr. Lee
Pertinent Antimicrobial Allergies:
NKDA
Height / Weight:
Height 5 ft 4 in
Actual Weight 56.7 kg
- Vital Signs / Lab Results
Temp Pulse Resp BP Pulse Ox
98.9 F 86 18 139/58 100
10/12/24 08:20 10/12/24 09:00 10/12/24 09:00 10/12/24 08:20 10/12/24 09:00
Lab Results - Hematology
10/10/24 10/11/24 10/12/24
03:11 03:53 04:42
WBC 25.8 H 29.0 H 20.9 H
Lab Results - Chemistry
10/10/24 10/11/24 10/12/24
03:11 03:53 04:42
BUN 10 13 18 H
Creatinine 0.4 L 0.4 L 0.4 L
Estimated Creat Clear 77 77 77
Albumin 1.9 L 1.9 L 2.6 L
Microbiology Results
10/08/24 08:20 Blood Culture - Preliminary
Blood/Venous No Growth in 4 days- Final report to follow
10/08/24 17:29 Respiratory Culture - Final
Bronch Right Middle Lobe Binta albicans
Gram Stain - Final
Therapeutic Drug Monitoring
Vancomycin Peak 25.1 ug/ml (18-26) 10/10/24 21:02
Vancomycin Trough 12.5 ug/ml (5-20) 10/11/24 05:35
--- NOTE | 2024-10-12 09:19 | W.PN.ID1 ---
Date of Service
Date of Service: October 12, 2024
Today's Communication
- c/w meropenem - day 19 of therapy - anticipate a long course of IV therapy- From 2/3 likely for 4-6 weeks
- c/w vancomycin, day 8
- c/w micafungin day 9
- patient is remains critically ill with respiratory failure. Prognosis guarded
Assessment / Plan
Strep Pneumoniae Pneumonia - necrotizing
Secondary health care acquired pneumonia due to Pseudomonas
Influenza A - resolved
completed a 10-day course of Tamiflu 10/02
Empyema of the right lung - resolving
Bacteremia due to Strep Pneumoniae - transient
Acute hypoxemic respiratory failure, VDRF
Bilateral PTX -> chest tubes
Shock - remains on 1 pressor
Elevated core temperature
Leukocytosis - trending up
- c/w meropenem - day 19 of therapy - anticipate a long course of IV therapy- From 2/3 likely for 4-6 weeks
- c/w vancomycin, day 8
- c/w micafungin day 9
- patient is remains critically ill with respiratory failure. Prognosis guarded
Chief Complaint
-: Pneumonia and Other (S pneumo pneumonia, Pseudomonas pneumonia; empyema)
Subjective / Review of Systems
fever has resolved
remains on significant pressors though at a lower level than previous
note code status of limited DNR
Vital Signs / Physical Exam
Vital Signs
Vital Signs
Temp Pulse Resp BP Pulse Ox
98.9 F 86 18 139/58 100
10/12/24 08:20 10/12/24 09:00 10/12/24 09:00 10/12/24 08:20 10/12/24 09:00
Physical Exam
Constitutional: Acutely Ill and Chronically Ill
Cardiovascular: Regular Rate and S1/S2; Negative Murmur or Rub
Pulmonary: Clear and Symmetric; Negative Wheezes or Rales
Gastrointestinal: Soft, Non Tender, Non Distended and Normal Bowel Sounds
Skin: Warm and Dry; Negative Rash or Jaundice
Objective Data
Lab Data
Lab Results
10/12/24 05:21
10/12/24 04:42
PT 18.9 Sec (11.4-14.6) H 10/09/24 04:15
INR 1.56 10/09/24 04:15
APTT 35.3 Sec (23.4-35.0) H 10/01/24 03:25
Estimated Creat Clear 77 ml/min 10/12/24 04:42
Lactic Acid Cancelled 09/22/24 22:31
Total Bilirubin 0.8 mg/dl (0.2-1.3) 10/12/24 04:42
AST 24 U/L (14-36) 10/12/24 04:42
ALT 19 U/L (0-35) 10/12/24 04:42
Alkaline Phosphatase 254 U/L (38-126) H 10/12/24 04:42
Most recent labs reviewed.
Micro Results:
10/08/24 08:20 Blood Culture - Preliminary
Blood/Venous No Growth in 4 days- Final report to follow
10/08/24 17:29 Respiratory Culture - Final
Bronch Right Middle Lobe Binta albicans
Gram Stain - Final
10/03/24 18:33 Body Fluid Culture - Final
Pleural Fluid No Growth After 72 Hours
Gram Stain - Final
10/04/24 13:23 Respiratory Culture - Final
Tracheal Aspirate Binta albicans
Gram Stain - Final
09/22/24 10:33 Blood Culture - Final
Blood/Venous Streptococcus pneumoniae
Gram Stain - Final
09/28/24 18:31 C. difficile GDH Antigen & Toxins - Final
Feces/Stool Negative for toxigenic C.difficile
09/24/24 03:40 Blood Culture - Final
Blood/Venous No Growth - Final Report
09/24/24 03:30 Blood Culture - Final
Blood/Venous No Growth - Final Report
09/23/24 16:43 Blood Culture - Final
Blood/Venous No Growth - Final Report
09/23/24 13:35 Blood Culture - Final
Blood/Venous No Growth - Final Report
09/23/24 22:22 Respiratory Culture - Final
Sputum Pseudomonas aeruginosa
Binta albicans
Gram Stain - Final
09/22/24 12:38 Blood Culture - Final
Blood/Venous Streptococcus pneumoniae
Gram Stain - Final
09/22/24 22:22 Legionella Urinary Antigen - Final
Urine Negative for Legionella pneumophila Serogroup 1 antigen.
A negative result does not rule out the possiblity of
Legionella infection due to other serogroups or species of
Legionella. Clinical correlation is recommended.
Streptococcus pneumoniae Antigen (M - Final
Positive for Strep pneumo Ag
09/22/24 10:33 Influenza Types A & B (EUN) - Final
Nasal Swab Influenza A Positive, NAAT
10/08/24 CXR: The small left-sided pneumothorax has slightly increased in size from prior. Stable appearance of the right-sided hydropneumothorax. Extensive bilateral mid and lower lung predominant opacities which are unchanged from prior and
consistent with known multifocal pneumonia.
Care Review
Plan reviewed with: Physician (Dr Alfredo - history)
[2024-10-12] MEDS: PITRESSIN 100 IV (09:44)
[2024-10-12] MEDS: KCL ELIXIR 40 MEQ TUBE (10:45)
[2024-10-12 10:47] VITALS: BP 128/54
--- NOTE | 2024-10-12 11:22 | W.PN.HOSP.TC ---
Today's Communication/Plan
-
Wean oxygen as tolerated
On 2 pressors wean as tolerated
Receiving PRBC
Continue with broad-spectrum antibiotics and antifungal
Prognosis remains guarded
Critically ill
Assessment / Plan
Assessment / Plan
General: no acute distress, chronically ill-appearing, sedated
HEENT: NormoCephalic, Moist mucous membranes and Atraumatic
Respiratory: Rhonchi and Crackles, ETT noted. b/l chest tube noted.
Cardiac: S1/S2, regularly regular,
GI: Soft, Non Tender, Non Distended and Normal Bowel Sounds;
Musculoskeletal: trace BL LE edema
Skin: No Rash
Neuro:sedated
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
# Acute hypoxic respiratory failure Due to bilateral necrotizing pneumonia likely secondary to influenza, complicated by severe bilateral pneumonia secondary to Pseudomonas plus strep pneumo, Binta albicans
# Spontaneous left-sided pneumothorax
-Currently on Xopenex and sodium chloride nebulizer
-CT chest appreciated multilobar pna severe in RLL underlying mass not excluded (follow up CT after treatment recommended relayed to patient and patient spouse)
-Was started on IV steroids Decadron 4 mg every 8-since GA'ed on 10/03.
-Possible ARDS as with persistent severe hypoxemia.
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
-Status post intubation on 10/04/24 and now on mechanical ventilation. Continue with sedation. Currently on 100% FiO2.
#Septic Shock elevated (tachycardia, tachypnea) lactate, hypotension requiring pressor support
#Fever cough/generalized weakness likely from Influenza A /polymicrobial pneumonia with Necrotizing strep pneumonia and Pseudomonas pneumonia
#Empyema
#Strep bacteremia due to pneumonia
#Sinus tachycardia likely 2/2 severe sepsis PNA
-Blood cultures positive for Strep pneumonia, follow up repeat blood cx's NGTD
-Sputum Cx pos for Pseudomonas and binta albicans
-completed Tamiflu 10 day course,
-Status post CT chest with necrotizing pneumonia patient also started on antifungal with micafungin and vancomycin.
-Zosyn was transitioned to meropenem
Legionella Urine At neg
-Respiratory Cx +Pseudomonas +Binta albicans
-Patient was evaluated by CT surgery Dr. Ny on 10/04 and patient deemed not a surgical candidate
-In the long run patient will require long course of antibiotics of probably 6 weeks
-on levophed and vasopressin. wean pressors as tolerated
-Infectious disease following
# Spontaneous left-sided pneumothorax
Noted on chest x-ray on 09/29/2024
Status post emergent chest tube placement by [facility]
Status post second 14 [place] chest tube placement by financial coordinator post intubation for expanding pneumothorax on 10/04/2024
Daily chest x-ray. Will monitor for now.
# Right-sided Pyopneumothorax with loculated effusion/empyema
Status post emergent chest tube placed by financial coordinator on 10/03/2024
Fluid cultures and other studies sent
Status post emergent upsizing of right-sided chest tube by [facility] on 10/04/24
As mentioned above was evaluated by CT surgery and not deemed to be surgical candidate
Pain control as with b/i chest tube.
# Atrial fibrillation/atrial flutter rapid ventricular response
was started on Cardizem infusion, since stopped
Blood pressure soft and thus unable to tolerate Cardizem and thus plan was to switch to amiodarone gtt, which in turn was stopped due to concern for Amio toxicity. As per cardio
Anticoagulation with Eliquis
Echocardiogram with EF of 60 to 65%. Mild to moderate mitral regurgitation. Mildly elevated PASP with PASP of 38 mmHg.
TSH wnl
Status post conversion to normal sinus rhythm.
Currently on Eliquis
# Fevers likely secondary to Precedex
Resolved after discontinuation of medication.
#Anemia
likely of chronic disease
no active luminal bleeding noted
Start patient on IV Venofer. B12 folate normal
Heme test stools
Hemoglobin down trended 6.5. Receiving 1 unit of PRBC.
#Loose bowel movements
Likely due to antibiotic associated
C. difficile negative
Imodium if needed
Resolved.
# Anxiety could be situational
Ativan as needed
# Hyponatremia/metabolic acidosis /acute kidney injury likely hypovolemic
-resolved
-IVF completed
#Hypokalemia
#Mild Hypophosphatemia
monitor and replete as necessary
Underweight/Cachexic
severe temporal muscle wasting
nutrition on board
cont w/ Tube feeding. Goal rate of 40cc/hr with 1 pack prosource
# DVT prophylaxis -Eliquis
# CODE STATUS-limited DNR
GI prophylaxis PPI
Anticipated Discharge: > 48 hours
Subjective/Interval History
-
Date of Service: October 12, 2024
Remains intubated and sedated
On tube feeding
Remains on 2 pressors
Receiving blood transfusion
Objective Data
-
Labs:
Laboratory Results
10/12/24 10/12/24 10/12/24
04:42 05:21 12:30
WBC 20.9 H Pending
Hgb 6.7 L* 6.5 L* Pending
Hct 22.1 L 20.5 L* Pending
Plt Count 421 H Pending
HCO3 29.8 H
Sodium 138
Potassium 3.5
Chloride 101
Carbon Dioxide 30
BUN 18 H
Creatinine 0.4 L
Glucose 103 H
Calcium 8.0 L
Total Bilirubin 0.8
AST 24
ALT 19
Alkaline Phosphatase 254 H
Vital Signs:
Vital Signs
Temp Pulse Resp BP Pulse Ox
99.0 F 81 19 128/54 100
10/12/24 10:47 10/12/24 10:47 10/12/24 10:47 10/12/24 10:47 10/12/24 10:47
I&O
10/11/24 10/12/24 10/13/24
06:59 06:59 06:59
Intake Total 1982.9 / 2049.5 3144.4 / 3235.6 671.0 / 671.0
Output Total 3639 / 3639 2320 / 2365 150 / 150
Balance -1656.1 / -1589.5 824.4 / 870.6 521.0 / 521.0
Data Reviewed
-
Total Time Spent with Patient (in minutes): 55
[2024-10-12] MEDS: ROXICODONE ORAL SOLUTION 10 MG TUBE ×2 (11:54→17:46)
[2024-10-12] MEDS: MYCAMINE 105 MG IV (11:55)
--- NOTE | 2024-10-12 13:00 | PTCARENOTE ---
No major changes in assessment. Fentanyl and Propofol gtts weaned for SAT. Weaning Levophed per protocol. VSS. Consumer Experience Consultant at bedside to place b/l chest tubes to water seal. Repeat cxr ordered for 1600.
[2024-10-12 13:11] LABS: Hematocrit 25.4 % (37.0-47.0); Hemoglobin 8.1 g/dL (12.0-16.0); Mean Corp Hgb Conc. 31.9 g/dL (33.0-37.0); Mean Corpuscular Volume 94.1 fL (81.0-99.0); Mean Platelet Volume 9.3 fL (7.4-10.4); Platelet Count 413 10^3/uL (130-400); Red Cell Dist. Width 15.9 % (11.5-14.5); Reticulocyte Count 3.1 % (0.4-2.8); White Blood Cell Count 22.4 10^3/uL (4.8-10.8)
[2024-10-12] MEDS: ProAmatine TUBE (13:30)
--- NOTE | 2024-10-12 13:51 | CM ---
CM following re: discharge planning.
Discussed in Rounds, reviewed pt's chart, met with pt. Pt's at bedside.
Per Rounds meeting, pt remains intubated, remains critically ill with respiratory failure, prognosis remains guarded, continue supportive care.
D/C plan: uncertain at this time and will depend on pt's progress.
CM will follow with discharge plan updates as hospitalization progresses
[2024-10-12] MEDS: LASIX 40 MG IV (14:13)
--- NOTE | 2024-10-12 14:30 | PTCARENOTE ---
Levophed titrated to off at 1324. Vaso off at 1400. Vitals stable. 1300 dose of Midodrine held for elevated bp. Proprofol gtt off at 1415.
[2024-10-12 16:00] VITALS: BP 125/61
--- NOTE | 2024-10-12 16:45 | PTCARENOTE ---
Mentation slightly improved off Propofol. Patient opening eyes and making eye contact with staff. Still does not follow commands. Lung sounds coarse/rhonchi throughout. Urine output improved s/p administration of 40mg IV Lasix. Music Autographer at
bedside to read CXR. Right chest tube placed back to wall suction, -20. Repeat CXR ordered for 2100. No other changes.
[2024-10-12] MEDS: SEROQUEL 25 MG TUBE (20:39)
[2024-10-13] VITALS: BP 117/67
[2024-10-13] MEDS: TYLENOL ORAL SOLUTION 650 MG TUBE (00:07)
[2024-10-13] MEDS: STERILE WATER FOR INJECTION 10 ML IV ×4 (00:07→17:42)
[2024-10-13] MEDS: MERREM 500 MG IV ×4 (00:07→17:42)
[2024-10-13] MEDS: ROXICODONE ORAL SOLUTION 10 MG TUBE ×4 (00:08→17:42)
--- NOTE | 2024-10-13 01:36 | PTCARENOTE ---
Pt received at 19:00, intubtated, sedation off. Pt lethargic, opens eyes, appears to track, does not follow commands. #7.5 ETT, 21cm at the lip. Repositioned ETT from L to C, suctions for small amount of thick hunt secretions via ETT & moderate
amount of clear oral secretions. Breath sounds coarse/scattered rhonchi t/o. R CT to suction -20, L CT to waterseal. SR-Sinus tach 80s-low 100s. Palpable pulses, +2 genearlized edema. OGT in place, TF now at goal. Residuals 125-275mls. RT in place,
small amount of liquid stool noted, no leaking at this time. León in place, cloudy yellow/michelle urine. Safe environment maintained, pt repositioned.
[2024-10-13] MEDS: VERSED 1 MG IV (03:28)
[2024-10-13 04:28] LABS: B.E. 8.8 mmol/L; HCO3 35.3 mmol/L (21-28); PCO2 61 mmHg (32-35); PO2 162 mmHg (83-108); pH 7.37 (7.35-7.45)
[2024-10-13 04:30] LABS: O2 Therapy VENT
[2024-10-13 04:49] LABS: Hematocrit 25.2 % (37.0-47.0); Hemoglobin 7.8 g/dL (12.0-16.0); Mean Corpuscular Hgb 29.4 pg (27.0-31.0); Mean Corpuscular Volume 95.1 fL (81.0-99.0); Mean Platelet Volume 9.1 fL (7.4-10.4); Platelet Count 377 10^3/uL (130-400); Red Blood Cell Count 2.65 10^6/uL (4.20-5.40); Red Cell Dist. Width 15.9 % (11.5-14.5); White Blood Cell Count 26.2 10^3/uL (4.8-10.8)
[2024-10-13 04:59] LABS: Blood Urea Nitrogen 17 mg/dl (7-17); Carbon Dioxide 37 mmol/L (22-30); Chloride 97 mmol/L (98-107); Estimated Creatinine Clearance 77 ml/min; Glucose 133 mg/dl (70-99); Magnesium 2.1 mg/dl (1.6-2.3); Potassium 3.7 mmol/L (3.5-5.1); Sodium 136 mmol/L (135-145); Triglycerides 125 mg/dl (10-149); eGFR > 60.00
[2024-10-13 06:00] VITALS: BMI 21.7
[2024-10-13] MEDS: VANCOCIN 275 MG IV ×2 (07:17→17:42)
--- NOTE | 2024-10-13 07:43 | PTCARENOTE ---
Pt with episode of restlessnes, ,moving legs off pillow, fighting vent. At this time, pt nodding head yes and no appropropriately. No further episode of agitation and intermittently tracking, no further nodding appropriately, not following commands.
Pt given PRN versed once, effective, pt remained alert, but calm following dose.
[2024-10-13] MEDS: XOPENEX 1.25 MG INHALANT SOLUTION INH ×4 (07:46→19:37)
--- NOTE | 2024-10-13 08:10 | W.PN.INTV ---
Today's Communication / Plan
Recommendations
Mechanical ventilation with low PEEP strategy and high FiO2 given bilateral pneumothoraces
Bilateral chest tubes --> changed to continuous waterseal on 10/12, however placed back onto suction today due to worsening size of bilateral pneumothoraces
Daily CXR
Continue midodrine
Continue hydrocortisone (started 10/13) due to severe CAP
Abx per ID
Started Seroquel on 10/10 + trend QTc; minimize sedating drips if possible; was off all sedating drips as of this morning (10/13)
Follow-up bronchoscopy BAL culture (grew Binta albicans - she is already on micafungin per ID)
Maintain MAP >65
Guarded prognosis --> family is thinking about withdrawing care tomorrow or Thursday unless she makes any significant improvement by then; palliative care following and assistance appreciated
Assessment
-
69-year-old woman without significant past medical history was admitted to the hospital with flulike symptoms, shortness of breath. Found to be hypoxemic, septic with bilateral infiltrates on x-ray. Requiring up to 6 L supplemental oxygen. Found
to be flu positive, complicated by strep pneumo bacteremia, along with Pseudomonas in the sputum with Binta. We were consulted on 09/26/2024 due to worsening oxygenation and possible pulmonary mass.
Patient had positive blood cultures with strep pneumo on 09/22. Bacteremia has since cleared. Patient continues to be on Zosyn. Stay was further complicated by a spontaneous left-sided pneumothorax requiring chest tube placement 09/29.
Unfortunately, hypoxemic respiratory failure worsened and she was transferred to the ICU on 09/30/2024 for closer monitoring due to requiring 100%% FiO2 on high flow NC. Worsening right lung opacity noted on CT of the x-rays. 10/03, bedside POCUS
confirmed a loculated pleural effusion. A CT scan was performed which was suggestive of pyopneumothorax. A bedside chest tube on the right side was placed with slight improvement in the loculated effusion and fluid suggestive of empyema with LDH
more than 9000.
Brief interval Hx:
10/04. Patient noted to have increasing respiratory distress with gradually declining oxygen saturation despite high flow nasal cannula and nonrebreather. Patient was intubated and placed on mechanical ventilation.
10/05, patient had expansion of pneumothorax postintubation and a bedside left sided chest tube was placed. Patient required another chest tube on the right side due to expanding pneumothorax later in the day.
Assessment and plan
#1. Acute hypoxemic respiratory failure due to bilateral Necrotizing pneumonia-influenza A+/bacterial superinfection with Pseudomonas aeruginosa + Strep pneumonia c/b Streptococcus pneumonia bacteremia; Binta albicans seen on multiple cultures
including sputum culture, tracheal aspirate as well as BAL from L
-Respiratory status worsened requiring intubation on 10/04
-Continue low PEEP, low tidal volume strategy due to help avoid worsening pneumothoraces bilaterally
-Maintain plateau pressure <30
-In the setting of bilateral pneumothoraces, keep FiO2 at 100% to help adsorb the PTX and keep PEEP low at 3
-Lightly sedate with goal RASS 0 to -2 --> weaned off all sedation as of 10/12 --> continue with scheduled oxy and seroquel with prn fentanyl
-Continue Xopenex. Reported intolerance to Atrovent
-Patient previously was on Decadron until 10/03/2024 --> in the setting of severe CAP, started solucortef 50mg IV q6hr on 10/13
-Completed Tamiflu: 09/22 - 10/02/2024
-Given little ETT secretions, stopped nebulized 3% NS on 10/11
-s/p BAL 10/08 --> Cx shows Binta albicans --> she is already on micafungin
#2. 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
-Rapid expansion of left-sided pneumothorax postintubation. Emergent placement of second 14 [place] chest tube on the left side 10/04. Patient already had an anterior 8 [place] chest tube in place but was not draining any air.
-Significant improvement of pneumothorax post chest tube placement
-Continue bilateral chest tubes and changed to water seal today (10/12) --> unfortunately today, chest tubes need to be placed back onto suction given worsening pneumothoraces bilaterally; monitor air leak severities; with persistent air leak past
day 5 since most recent chest tube placement, there is concern for alveolar-pleural fistula, possibly bronchopleural fistula considering underlying necrotizing pneumonia. Continue daily chest x-ray.
-CT surgery, Dr. Ny, evaluated patient 10/04, not felt to be a surgical candidate. In view of persistent air leak, might need to reconsider CT surgery consult if she improves
#3. Right-sided prior pneumothorax with loculated effusion/empyema.
-Continue IV antibiotics, pleural fluid culture negative
-Right-sided 8 Fr chest tube placed 10/03 for pyo-pneumothorax. Pleural fluid LDH more than 9000 highly suggestive of empyema
-Recurrence of pneumothorax despite small bore chest tube on 10/04, s/p placement of 16 Fr chest tube by IR with resolution of pneumothorax on 10/04 overnight. (Suspect related to displacement 8 [place]an chest tube as patient developed desaturation
after changing position)
-Post chest tube chest x-ray seems to have well-expanded lung --> hence lytics were not given
-Severe necrotizing pneumonia with guarded prognosis
-Patient not felt to be a surgical candidate per CT surgery evaluation (10/04)
#4. Septic shock -
-Currently off all pressors as of AM of 10/13
-Currently on vancomycin, meropenem s/p Zosyn and micafungin per ID
#5. Acute kidney injury - resolved post IV fluid
-Daily labs
-Tolerated Lasix 1 dose well on 10/07
-Monitor strict I/O
#6. Atrial fibrillation/flutter with rapid ventricular response in the setting of acute illness 09/26/2024 --> now in NSR
-Suspect this is in the setting of acute illness, normal sinus rhythm now
-Cardiology service on case, currently on Eliquis 5 mg BID
ECHO 09/29/2024: Normal biventricular size and systolic function without regional wall motion abnormality. Estimated LVEF 60-65%. Mild/moderate mitral regurgitation. Mild tricuspid regurgitation. Mildly elevated PASP. Estimated pulmonary artery
pressure of 38 mmHg assuming a right atrial pressure of 3 mmHg.
#7. Fevers
-Suspect to be related to precedex --> now resolved as of the afternoon of 10/10 after Precedex was weaned down
-Continue Seroquel and monitor QTc
#8. Suspected pulmonary edema
-In the setting of bilateral rales and lower extremity +1 to +2 edema, I started her on Lasix 40 mg IV daily on 10/12
-Trend BNP
-Echo last performed on 09/29/2024 showing normal biventricular systolic function with mild�moderate MR and mild pulmonary hypertension with PASP 38 mmHg
Nutrition: Clamping trial performed on 10/11 and she did well --> tube feeds resumed on 10/11 at 20cc/hr and tolerated this well; now raised to goal
Conditions present prior admission:
None
Does not follow-up with primary care
Does not take any medications
Non-smoker
DVT prophylaxis: Eliquis
GI Prophylaxis: PPI
[facility] discussion with Dr. Alfredo on 10/10/2024: I had a conversation with the patient's and son as well as several other family members - I showed them all her multiple CT Chest imaging studies that she has had, and explained it in layman's
terms. They are conflicted as the patient has been getting weaker and more frail prior to this admission, and they are afraid that the patient's quality of life will be poor if they pursue a tracheostomy. They are not ready yet to transition to
comfort care measures. They at least 1 to give her the rest of this week to make a decision on her management. On 10/10, they did make her DNR but okay to continue with mechanical ventilation. All questions were answered.
-I had a another goals of care discussion with the , Rashaun, today. He has spoken to his kids multiple times. He is thinking about withdrawing care this Thursday if patient does not show any significant improvement by then. He is not
interested in pursuing tracheostomy at this time as him and his family do not think that Briana would have wanted that.
Code status: DNR, but ok to continue mechanical ventilation
Continue ICU level care for this critically ill patient

Critical care statement: A total of 37 minutes of critical care time was provided for this patient today. This includes management of unstable vital signs, evaluation of the patient at bedside, reviewing the patient's pertinent medical records
including radiographs, microbiology, laboratory evaluations, and discussion with primary team, consultants, pharmacy, nutrition, physical therapy, case management, charge nurse, critical care nursing, and respiratory therapy.
Subjective Dataa
Subjective Data
Date of Service:
Date of Service: October 13, 2024
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
Subjective:
Patient seen and evaluated this AM. She is much more awake today. Off all pressors as of yesterday and also off of all sedation since yesterday. HR 99, SpO2 91%, BP 152/66 (NIBP) and BP via A-line 125/55. ETT secretions are minimal and thick. On
AC/CMV 18/300/3/100% with PIP [id number], VTe 313mL and breathing at 28 breaths/min. at bedside and I answered all of his questions.
Review of Systems
General: Other (Unobtainable - intubated)
Objective Data
Data Reviewed
Vital Signs / I&O / Oxygen:
Vital Signs
Temp Pulse Resp BP Pulse Ox
98.5 F 101 25 137/58 97
10/13/24 08:00 10/13/24 09:00 10/13/24 09:00 10/13/24 08:38 10/13/24 09:00
Intake and Output
10/12/24 10/13/24 10/14/24
06:59 06:59 06:59
Intake Total 3144.4 / 3235.6 2424.9 / 2759.9 565 / 565
Output Total 2320 / 2365 2800 / 2850 130 / 130
Balance 824.4 / 870.6 -375.1 / -90.1 435 / 435
SaO2 [APV] 96
SaO2 [A/C] 97
SaO2 97
Nasal Cannula flow liters per 60
minute
Physical Exam
General: Respiratory Distress (n), Comfortable, Chills (negative), Sweats (negative) and Other (Intubated)
HEENT: Normocephalic, Anicteric and Other (ETT in place)
Cardiovascular: S1-S2 and Peripheral Edema (+1 lower extremity pitting edema bilaterally)
Respiratory: Wheeze (negative), Crackles (Bilaterally), Rhonchi (Bilaterally), Accessory Resp Muscle Use (negative), ET Tube (Mechanical breath sounds heard bilaterally) and Chest Tube (Bilateral chest tube in place, intermittent level 1 airleak on
the left side, no air leak on the right side.)
GI: Soft, Non Distended, Non Tender and Normal Bowel Sounds
Neurology: Tremors (negative), Lethargic (Easily arousable to voice) and Other (following commands)
Skin: Warm, Dry, Cyanosis (negative) and Jaundice (negative)
Labs/Micro/Reports
Lab Data
10/13/24 04:19
10/13/24 04:19
Laboratory Results
10/13/24
04:19
pH 7.37
pCO2 61 H
pO2 162 H
HCO3 35.3 H
O2 Delivery Level Vent
Microbiology
10/08/24 08:20 Blood/Venous Blood Culture - Final
No Growth - Final Report
10/08/24 17:29 Bronch Right Middle Lobe Respiratory Culture - Final
Binta albicans
10/08/24 17:29 Bronch Right Middle Lobe Gram Stain - Final
--- NOTE | 2024-10-13 08:30 | PTCARENOTE ---
Rec'd care of patient at 0700. Patient alert. PERRLA, +2mm. Nodding head appropriately. Following simple commands. Moving b/l UE. Trace movement in left foot upon request. Right foot drop present at baseline. Anxious at times. Reassurance provided.
NSR on tele. +2 anasarca. Palpable pulses. #7.5 ett, positioned 22cm @ the lip. APV 18/300/3/100%. Lung sounds coarse with scattered rhonchi throughout. Crackles auscultated anteriorly on the right and posteriorly throughout left lung. Moist,
productive cough. Small amount of secretions suctioned from ett. Left lateral chest tube to waterseal. +1 air leak. Right posterior chest tube to suction, -20. B/l ct negative for crepitus. +BS. OGT with TFs at goal. Rectal trumpet in place for
loose stools. León maintained for critical I/O. Yellow, cloudy. Output 50 cc/hr. Right dual lumen PICC and LFA INT capped. Right radial kevin leveled and zeroed. Repositioned for comfort. Protective foam on sacrum changed.
[2024-10-13] MEDS: ELIQUIS 5 MG TUBE ×2 (08:37→21:34)
[2024-10-13] MEDS: VISBIOME 2 CAP TUBE (08:37)
[2024-10-13] MEDS: PROTONIX IV 40 MG IV (08:38)
[2024-10-13] MEDS: LASIX 40 MG IV (08:38)
[2024-10-13] MEDS: NSS (PRESERVATIVE FREE) 10 ML IV (08:38)
[2024-10-13] MEDS: ProAmatine 5 MG TUBE ×3 (08:38→17:43)
[2024-10-13] MEDS: SEROQUEL 50 MG TUBE (08:38)
--- NOTE | 2024-10-13 09:12 | PHA.VAN.FU ---
Vancomycin Assessment / Plan
- Assessment
Renal Function: Stable
WBC's are: Trending Up
In the past 24 hrs, patient has been: Afebrile
Concomitant Antimicrobials: meropenem, micafungin
- Dosing Plan
Continue: Vanc 1250mg Q12H
- Monitoring Plan
Level(s) appropriate: Recheck trough at minimum of weekly intervals, Repeat sooner for changes in renal function or clinical status
Next Level Due (Date): ~10/18
- Follow Up
Pharmacy will continue to follow.
Vancomycin Follow UP
- -
Patient Age: 69
Patient Sex: Female
Vancomycin Day #: 10
Indication: Pulmonary/Respiratory
Requesting Provider: Dr. Lee
Pertinent Antimicrobial Allergies:
NKDA
Height / Weight:
Height 5 ft 4 in
Actual Weight 57.3 kg
- Vital Signs / Lab Results
Temp Pulse Resp BP Pulse Ox
98.5 F 101 25 137/58 97
10/13/24 08:00 10/13/24 09:00 10/13/24 09:00 10/13/24 08:38 10/13/24 09:00
Lab Results - Hematology
10/11/24 10/12/24 10/12/24
03:53 04:42 12:32
WBC 29.0 H 20.9 H 22.4 H
10/13/24
04:19
WBC 26.2 H
Lab Results - Chemistry
10/11/24 10/12/24 10/13/24
03:53 04:42 04:19
BUN 13 18 H 17
Creatinine 0.4 L 0.4 L 0.4 L
Estimated Creat Clear 77 77 77
Albumin 1.9 L 2.6 L
Microbiology Results
10/08/24 08:20 Blood Culture - Final
Blood/Venous No Growth - Final Report
10/08/24 17:29 Respiratory Culture - Final
Bronch Right Middle Lobe Binta albicans
Gram Stain - Final
Therapeutic Drug Monitoring
Vancomycin Peak 25.1 ug/ml (18-26) 10/10/24 21:02
Vancomycin Trough 12.5 ug/ml (5-20) 10/11/24 05:35
--- NOTE | 2024-10-13 09:14 | W.PN.ID1 ---
Date of Service
Date of Service: October 13, 2024
Today's Communication
- c/w meropenem - day 20 of therapy - anticipate a long course of IV therapy- From 2/3 likely for 4-6 weeks
- c/w vancomycin, day 9
- c/w micafungin day 10
- patient is remains critically ill with respiratory failure. Prognosis guarded
Assessment / Plan
Strep Pneumoniae Pneumonia - necrotizing
Secondary health care acquired pneumonia due to Pseudomonas
Influenza A - resolved
completed a 10-day course of Tamiflu 10/02
Empyema of the right lung - resolving
Bacteremia due to Strep Pneumoniae - transient
Acute hypoxemic respiratory failure, VDRF
Bilateral PTX -> chest tubes
Shock - remains on 1 pressor
Elevated core temperature
Leukocytosis - trending up
- c/w meropenem - day 20 of therapy - anticipate a long course of IV therapy- From 2/3 likely for 4-6 weeks
- c/w vancomycin, day 9
- c/w micafungin day 10
- patient is remains critically ill with respiratory failure. Prognosis guarded
Chief Complaint
-: Other (S pneumo pneumonia, Pseudomonas pneumonia; empyema)
Subjective / Review of Systems
afebrile
back on pressors this afternoon
remains on 100% fio2
Vital Signs / Physical Exam
Vital Signs
Vital Signs
Temp Pulse Resp BP Pulse Ox
98.5 F 101 25 137/58 97
10/13/24 08:00 10/13/24 09:00 10/13/24 09:00 10/13/24 08:38 10/13/24 09:00
Physical Exam
Constitutional: Non-toxic
Cardiovascular: Regular Rate and S1/S2; Negative Murmur or Rub
Pulmonary: Clear and Symmetric; Negative Wheezes or Rales
Gastrointestinal: Soft, Non Tender, Non Distended and Normal Bowel Sounds
Skin: Warm and Dry; Negative Rash or Jaundice
Objective Data
Lab Data
Lab Results
10/13/24 04:19
10/13/24 04:19
PT 18.9 Sec (11.4-14.6) H 10/09/24 04:15
INR 1.56 10/09/24 04:15
APTT 35.3 Sec (23.4-35.0) H 10/01/24 03:25
Estimated Creat Clear 77 ml/min 10/13/24 04:19
Lactic Acid Cancelled 09/22/24 22:31
Total Bilirubin 0.8 mg/dl (0.2-1.3) 10/12/24 04:42
AST 24 U/L (14-36) 10/12/24 04:42
ALT 19 U/L (0-35) 10/12/24 04:42
Alkaline Phosphatase 254 U/L (38-126) H 10/12/24 04:42
Most recent labs reviewed.
Micro Results:
10/08/24 08:20 Blood Culture - Final
Blood/Venous No Growth - Final Report
10/08/24 17:29 Respiratory Culture - Final
Bronch Right Middle Lobe Binta albicans
Gram Stain - Final
10/03/24 18:33 Body Fluid Culture - Final
Pleural Fluid No Growth After 72 Hours
Gram Stain - Final
10/04/24 13:23 Respiratory Culture - Final
Tracheal Aspirate Binta albicans
Gram Stain - Final
09/22/24 10:33 Blood Culture - Final
Blood/Venous Streptococcus pneumoniae
Gram Stain - Final
09/28/24 18:31 C. difficile GDH Antigen & Toxins - Final
Feces/Stool Negative for toxigenic C.difficile
09/24/24 03:40 Blood Culture - Final
Blood/Venous No Growth - Final Report
09/24/24 03:30 Blood Culture - Final
Blood/Venous No Growth - Final Report
09/23/24 16:43 Blood Culture - Final
Blood/Venous No Growth - Final Report
09/23/24 13:35 Blood Culture - Final
Blood/Venous No Growth - Final Report
09/23/24 22:22 Respiratory Culture - Final
Sputum Pseudomonas aeruginosa
Binta albicans
Gram Stain - Final
09/22/24 12:38 Blood Culture - Final
Blood/Venous Streptococcus pneumoniae
Gram Stain - Final
09/22/24 22:22 Legionella Urinary Antigen - Final
Urine Negative for Legionella pneumophila Serogroup 1 antigen.
A negative result does not rule out the possiblity of
Legionella infection due to other serogroups or species of
Legionella. Clinical correlation is recommended.
Streptococcus pneumoniae Antigen (M - Final
Positive for Strep pneumo Ag
09/22/24 10:33 Influenza Types A & B (EUN) - Final
Nasal Swab Influenza A Positive, NAAT
10/08/24 CXR: The small left-sided pneumothorax has slightly increased in size from prior. Stable appearance of the right-sided hydropneumothorax. Extensive bilateral mid and lower lung predominant opacities which are unchanged from prior and
consistent with known multifocal pneumonia.
--- NOTE | 2024-10-13 10:17 | W.PN.PAL2 ---
Today's Communication
-
Palliative care update
Patient seen, more alert today. off heavy sedation, off pressors. remains on vent. 100%, peep 3. unclear how patient will tolerate weaning of the vent trials, given underlining weakness prior to hospitalization.
Spoke with ICU attending. spoke with spouse: continue to take one day at a time, confirmed no plan for tracheostomy at this time.
provided support to family
Total floor time 25 mins
Objective Data
-
Objective Data:
Vital Signs
Temp Pulse Resp BP Pulse Ox
98.5 F 101 25 137/58 97
10/13/24 08:00 10/13/24 09:00 10/13/24 09:00 10/13/24 08:38 10/13/24 09:00
Laboratory Results
10/13/24 04:19
10/13/24 04:19
PT 18.9 Sec (11.4-14.6) H 10/09/24 04:15
INR 1.56 10/09/24 04:15
APTT 35.3 Sec (23.4-35.0) H 10/01/24 03:25
Total Protein 5.8 g/dl (6.3-8.2) L 10/12/24 04:42
Albumin 2.6 g/dl (3.5-5.0) L 10/12/24 04:42
Palliative Performance Scale
Palliative Performance Scale:
PPS Level Ambulation Activity & Evidence of Disease Self Care Intake Conscious Level
100% Full Normal Activity & Work; Full Intake Full
No Evidence of Disease
90% Full Normal Activity & Work; Full Normal Full
Some Evidence of Disease
80% Full Normal Activity with Effort Full Normal or Full
Some Evidence of Disease Reduced
70% Reduced Unable Normal Job/Work Full Normal or Full
Significant Disease Reduced
60% Reduced Unable Hobby/Housework Occasional Normal or Full or Confusion
Significant Disease Assistance Reduced
50% Mainly Sit/Lie Unable to do Any Work Considerable Normal or Full or Confusion
Extensive Disease Assistance Req'd Reduced
40% Mainly in Bed Unable to do Most Activity Mainly Assistance Normal or Full or Drowsy;
Extensive Disease Reduced +/- Confusion
30% Totally Bed Unable to do Any Activity Total Care Normal or Full or Drowsy;
Bound Extensive Disease Reduced +/- Confusion
20% Totally Bed Bound Unable to do Any Activity Total Care Minimal to Full or Drowsy;
Extensive Disease Sips +/- Confusion
10% Totally Bed Bound Unable to do Any Activity Total Care Mouth Care Drowsy or Coma;
Extensive Disease Only +/- Confusion
0%
PPS Score Level:
--- NOTE | 2024-10-13 10:49 | W.PN.HOSP.TC ---
Today's Communication/Plan
-
Continuing broad-spectrum antibiotics and antifungal
On IV steroid
Continue with IV Lasix
Sedation weaning
Assessment / Plan
Assessment / Plan
General: no acute distress, chronically ill-appearing, sedated
HEENT: NormoCephalic, Moist mucous membranes and Atraumatic
Respiratory: Rhonchi and Crackles, ETT noted. b/l chest tube noted.
Cardiac: S1/S2, regularly regular,
GI: Soft, Non Tender, Non Distended and Normal Bowel Sounds;
Musculoskeletal: trace BL LE edema
Skin: No Rash
Neuro:sedated
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
# Acute hypoxic respiratory failure Due to bilateral necrotizing pneumonia likely secondary to influenza, complicated by severe bilateral pneumonia secondary to Pseudomonas plus strep pneumo, Binta albicans
# Spontaneous left-sided pneumothorax
-Currently on Xopenex and sodium chloride nebulizer
-CT chest appreciated multilobar pna severe in RLL underlying mass not excluded (follow up CT after treatment recommended relayed to patient and patient spouse)
-Was started on IV steroids Decadron 4 mg every 8-since NJ'ed on 10/03.
-Possible ARDS as with persistent severe hypoxemia. Agree with hydrocortisone for now
-Will try to avoid positive balance and try to keep it on the belt conveyor drier side. Agree with 40 mg of IV Lasix daily. Monitor creatinine closely.
-Status post intubation on 10/04/24 and now on mechanical ventilation. Continue with sedation. Currently on 100% FiO2.
#Septic Shock elevated (tachycardia, tachypnea) lactate, hypotension requiring pressor support
#Fever cough/generalized weakness likely from Influenza A /polymicrobial pneumonia with Necrotizing strep pneumonia and Pseudomonas pneumonia
#Empyema
#Strep bacteremia due to pneumonia
#Sinus tachycardia likely 2/2 severe sepsis PNA
-Blood cultures positive for Strep pneumonia, follow up repeat blood cx's NGTD
-Sputum Cx pos for Pseudomonas and binta albicans
-completed Tamiflu 10 day course,
-Status post CT chest with necrotizing pneumonia patient also started on antifungal with micafungin and vancomycin.
-Zosyn was transitioned to meropenem
Legionella Urine At neg
-Respiratory Cx +Pseudomonas +Binta albicans
-Patient was evaluated by CT surgery Dr. Ny on 10/04 and patient deemed not a surgical candidate
-In the long run patient will require long course of antibiotics of probably 6 weeks
-on levophed. wean pressors as tolerated
-Infectious disease following
# Spontaneous left-sided pneumothorax
Noted on chest x-ray on 09/29/2024
Status post emergent chest tube placement by [facility]
Status post second 14 Lao chest tube placement by metalizing supervisor post intubation for expanding pneumothorax on 10/04/2024
Daily chest x-ray. Will monitor for now.
# Right-sided Pyopneumothorax with loculated effusion/empyema
Status post emergent chest tube placed by metalizing supervisor on 10/03/2024
Fluid cultures and other studies sent
Status post emergent upsizing of right-sided chest tube by [facility] on 10/04/24
As mentioned above was evaluated by CT surgery and not deemed to be surgical candidate
Pain control as with b/i chest tube.
# Atrial fibrillation/atrial flutter rapid ventricular response
was started on Cardizem infusion, since stopped
Blood pressure soft and thus unable to tolerate Cardizem and thus plan was to switch to amiodarone gtt, which in turn was stopped due to concern for Amio toxicity. As per cardio
Anticoagulation with Eliquis
Echocardiogram with EF of 60 to 65%. Mild to moderate mitral regurgitation. Mildly elevated PASP with PASP of 38 mmHg.
TSH wnl
Status post conversion to normal sinus rhythm.
Currently on Eliquis
# Fevers likely secondary to Precedex
Resolved after discontinuation of medication.
#Anemia
likely of chronic disease
no active luminal bleeding noted
Start patient on IV Venofer. B12 folate normal
Heme test stools
Status post 1 unit PRBC. Hemoglobin is 7.8 this morning.
#Loose bowel movements
Likely due to antibiotic associated
C. difficile negative
Imodium if needed
Resolved.
# Anxiety could be situational
Ativan as needed
# Hyponatremia/metabolic acidosis /acute kidney injury likely hypovolemic
-resolved
-IVF completed
#Hypokalemia
#Mild Hypophosphatemia
monitor and replete as necessary
Underweight/Cachexic
severe temporal muscle wasting
nutrition on board
cont w/ Tube feeding. Goal rate of 40cc/hr with 1 pack prosource
# DVT prophylaxis -Eliquis
# CODE STATUS-limited DNR
GI prophylaxis PPI
Anticipated Discharge: > 48 hours
Subjective/Interval History
-
Date of Service: October 13, 2024
Remains intubated
Remains on low-dose Levophed. Off vasopressin.
Sedation weaning ongoing
Objective Data
-
Labs:
Laboratory Results
10/13/24
04:19
WBC 26.2 H
Hgb 7.8 L
Hct 25.2 L
Plt Count 377
HCO3 35.3 H
Sodium 136
Potassium 3.7
Chloride 97 L
Carbon Dioxide 37 H
BUN 17
Creatinine 0.4 L
Glucose 133 H
Calcium 8.0 L
Vital Signs:
Vital Signs
Temp Pulse Resp BP Pulse Ox
98.5 F 95 24 137/58 91
10/13/24 08:00 10/13/24 10:30 10/13/24 10:30 10/13/24 08:38 10/13/24 10:30
I&O
10/12/24 10/13/24 10/14/24
06:59 06:59 06:59
Intake Total 3144.4 / 3235.6 2424.9 / 2759.9 630 / 630
Output Total 2320 / 2365 2800 / 2850 1005 / 1005
Balance 824.4 / 870.6 -375.1 / -90.1 -375 / -375
--- NOTE | 2024-10-13 12:10 | PTCARENOTE ---
1210- patient placed on SBT by RT. 12/05 100%.
[2024-10-13] MEDS: MYCAMINE 105 MG IV (12:12)
[2024-10-13] MEDS: SOLU-CORTEF 50 MG IV ×2 (12:13→17:42)
--- NOTE | 2024-10-13 12:13 | PTCARENOTE ---
Patient unable to tolerate wean. Pulse ox down to 83%. RT at bedside. Per Archery Equipment Repairer, vent settings changed to ASV.
[2024-10-13 12:17] VITALS: BP_SYST 152
[2024-10-13 12:25] VITALS: BP_SYST 152
--- NOTE | 2024-10-13 12:29 | PTCARENOTE ---
No major changes in assessment. Patient alert. More drowsy. NSR on tele. Pulse ox currently 89% on ASV vent settings. Lung sounds coarse with scattered rhonchi. Urine output improved s/p Lasix. at bedside. Updated on plan of care.
[2024-10-13] MEDS: LEVOPHED 258 MG IV (13:30)
--- NOTE | 2024-10-13 13:34 | PTCARENOTE ---
Levophed gtt reinitiated for BP 80/40's, MAP 59.
[2024-10-13] MEDS: SUBLIMAZE 50 MCG IV ×4 (14:03→21:35)
--- NOTE | 2024-10-13 14:12 | PTCARENOTE ---
Patient declining post wean. Agitated. Breathing labored. Blood pressure dropping. Dragline Engineer at bedside. Advised RN to restart Levophed and administer sedative. Levophed titrated up to 8 mcg/min. Fentanyl bolus administered. Pulse ox 87-89%.
Discussed with Dragline Engineer and RT. Patient placed back on APV settings. Pulse ox slowly up to 94%.
--- NOTE | 2024-10-13 14:51 | CM ---
shared services manager reviewed patient's chart and family getting closer to making a final decision. Patient remains on ventilator.
Plan: To follow with patient progress, and family decision on plan for patient.
--- NOTE | 2024-10-13 15:53 | PTCARENOTE ---
Patient's pulse ox dropped to 80%. Agricultural Education Instructor aware. CXR completed. Left chest tube placed back to suction, -20. Right chest tube adjusted to -40.
[2024-10-13] MEDS: DIPRIVAN 100 IV (20:01)
[2024-10-13] MEDS: SEROQUEL 25 MG TUBE (21:34)
[2024-10-13 21:38] VITALS: BP 95/45
[2024-10-14] VITALS: BP 131/68
[2024-10-14] MEDS: ROXICODONE ORAL SOLUTION 10 MG TUBE ×4 (01:12→17:13)
[2024-10-14] MEDS: MERREM 500 MG IV ×4 (01:12→17:13)
[2024-10-14] MEDS: SOLU-CORTEF 50 MG IV ×4 (01:12→17:13)
[2024-10-14] MEDS: STERILE WATER FOR INJECTION 10 ML IV ×4 (01:13→17:13)
[2024-10-14] MEDS: SUBLIMAZE 50 MCG IV ×5 (03:12→20:11)
--- NOTE | 2024-10-14 03:14 | PTCARENOTE ---
Late entry: Assumed care of pt at 1900. Pt intubated, #7.5 ETT 22cm at lip, vent settings APV CMV 18/300/100/3. SpO2 99%, SR 90s on monitor. B/L chest tubes in place, both to suction. Pt started on Propofol at around 2000, see EMAR and med titration
flowsheet. Assessment as documented in nursing shift assessment flowsheet.
Midnight: assessment unchanged from previous. Has received Fentanyl boluses x3 so far this shift for CPOT/vent dyssynchrony. Levophed restarted at 2mcg/min due to BPs in 80s and MAP <65.
[2024-10-14 05:01] VITALS: BMI 21.5
[2024-10-14 05:10] LABS: Hematocrit 24.1 % (37.0-47.0); Hemoglobin 7.8 g/dL (12.0-16.0); Mean Corp Hgb Conc. 32.4 g/dL (33.0-37.0); Mean Corpuscular Hgb 30.2 pg (27.0-31.0); Mean Corpuscular Volume 93.4 fL (81.0-99.0); Mean Platelet Volume 9.8 fL (7.4-10.4); Platelet Count 364 10^3/uL (130-400); Red Blood Cell Count 2.58 10^6/uL (4.20-5.40); Red Cell Dist. Width 15.6 % (11.5-14.5); White Blood Cell Count 31.2 10^3/uL (4.8-10.8)
[2024-10-14 05:45] LABS: Blood Urea Nitrogen 18 mg/dl (7-17); Carbon Dioxide 37 mmol/L (22-30); Chloride 94 mmol/L (98-107); Estimated Creatinine Clearance 77 ml/min; Glucose 124 mg/dl (70-99); Potassium 3.8 mmol/L (3.5-5.1); Sodium 137 mmol/L (135-145); eGFR > 60.00
[2024-10-14] MEDS: DIPRIVAN 100 IV ×2 (06:10→17:33)
[2024-10-14] MEDS: VANCOCIN 275 MG IV ×2 (06:11→17:14)
--- NOTE | 2024-10-14 06:39 | PTCARENOTE ---
0400 assessment unchanged. Remains on same vent settings. Levophed on at 2mcg/min to keep MAP >65, turned on at approx 0300 and off at 0500, now back on at 0639. Pt remains on Propofol. ETT retaped by RT. CHG cloth bath done and linens changed.
--- NOTE | 2024-10-14 07:00 | PTCARENOTE ---
report received from previous RN. walking rounds completed. Pt resting in bed, intubated and sedated. unable to follow commands at this time. vent APV 80%, rate 18, tv 300, peep 3 sat 98%. lung sounds coarse, rhonchi throughout. 7.5 ETT at 22 cm.
propofol infusing at 20 mcg/kg/min. levophed at 2 mcg/min. SR on telemetry heart rate in 80s. pulses palpable. generalized edema. OG tube with osmalite infusing at 40 ml/hr with 25 ml water flushes. rectal trumpet in place draining loose brown
stool. [place] draining clear yellow urine. Right radial arterial line intact. Right PICC line intact. R chest tube to -30 suction, left chest tube to -20 suction. see worklist for full nursing assessment and interventions. family updated on plan of
care
[2024-10-14] MEDS: XOPENEX 1.25 MG INHALANT SOLUTION INH ×2 (07:12→20:03)
[2024-10-14 08:00] VITALS: BP 95/52
--- NOTE | 2024-10-14 08:17 | W.PN.INTV ---
Today's Communication / Plan
Recommendations
Mechanical ventilation with low PEEP strategy and high FiO2 given bilateral pneumothoraces
Bilateral chest tubes --> changed to continuous waterseal on 10/12, however placed back onto suction on 10/13 due to worsening size of bilateral pneumothoraces after SBT (which she failed)
Continue midodrine
Continue hydrocortisone (started 10/13) due to severe CAP
Abx per ID
Started Seroquel on 10/10 + trend QTc; initially we want to minimize sedation however after patient failed her SBT trial on 10/13, family is leaning towards terminal extubation on 10/15 and would like to keep her comfortable till then
Follow-up bronchoscopy BAL culture (grew Binta albicans - she is already on micafungin per ID)
Maintain MAP >65
Guarded prognosis --> family likely will terminally extubate tomorrow (10/15); palliative care following and assistance appreciated
Assessment
-
69-year-old woman without significant past medical history was admitted to the hospital with flulike symptoms, shortness of breath. Found to be hypoxemic, septic with bilateral infiltrates on x-ray. Requiring up to 6 L supplemental oxygen. Found
to be flu positive, complicated by strep pneumo bacteremia, along with Pseudomonas in the sputum with Binta. We were consulted on 09/26/2024 due to worsening oxygenation and possible pulmonary mass.
Patient had positive blood cultures with strep pneumo on 09/22. Bacteremia has since cleared. Patient continues to be on Zosyn. Stay was further complicated by a spontaneous left-sided pneumothorax requiring chest tube placement 09/29.
Unfortunately, hypoxemic respiratory failure worsened and she was transferred to the ICU on 09/30/2024 for closer monitoring due to requiring 100%% FiO2 on high flow NC. Worsening right lung opacity noted on CT of the x-rays. 10/03, bedside POCUS
confirmed a loculated pleural effusion. A CT scan was performed which was suggestive of pyopneumothorax. A bedside chest tube on the right side was placed with slight improvement in the loculated effusion and fluid suggestive of empyema with LDH
more than 9000.
Brief interval Hx:
10/04. Patient noted to have increasing respiratory distress with gradually declining oxygen saturation despite high flow nasal cannula and nonrebreather. Patient was intubated and placed on mechanical ventilation.
10/05, patient had expansion of pneumothorax postintubation and a bedside left sided chest tube was placed. Patient required another chest tube on the right side due to expanding pneumothorax later in the day.
Assessment and plan
#1. Acute hypoxemic respiratory failure due to bilateral Necrotizing pneumonia-influenza A+/bacterial superinfection with Pseudomonas aeruginosa + Strep pneumonia c/b Streptococcus pneumonia bacteremia; Binta albicans seen on multiple cultures
including sputum culture, tracheal aspirate as well as BAL from L
-Respiratory status worsened requiring intubation on 10/04
-Continue low PEEP, low tidal volume strategy due to help avoid worsening pneumothoraces bilaterally
-Maintain plateau pressure <30
-In the setting of bilateral pneumothoraces, ideally want to keep FiO2 at 100% to help adsorb the PTX and keep PEEP low at 3 --> given that the pneumothoraces are stable, can start to wean down FiO2 as tolerated
-Lightly sedate with goal RASS -1 to -2 --> weaned off all sedation as of 10/12, and we tried a pressure support trial on 10/13/2024 but she failed this and due to her inspiratory effort her bilateral pneumothoraces worsened. Family just wants her to
remain comfortable for now with plans to terminally extubate on 10/15
- Continue with scheduled oxy and seroquel with prn fentanyl
-Continue Xopenex BID. Reported intolerance to Atrovent
-Patient previously was on Decadron until 10/03/2024 --> in the setting of severe CAP, started solucortef 50mg IV q6hr on 10/13
-Completed Tamiflu: 09/22 - 10/02/2024
-Given little ETT secretions, stopped nebulized 3% NS on 10/11
-s/p BAL 10/08 --> Cx shows Binta albicans --> she is already on micafungin
#2. 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
-Rapid expansion of left-sided pneumothorax postintubation. Emergent placement of second 14 Thai chest tube on the left side 10/04. Patient already had an anterior [address] in [address] but was not draining any air.
-Significant improvement of pneumothorax post chest tube placement
-Continue bilateral chest tubes and changed to water seal on 10/12 --> unfortunately on 10/13, chest tubes needed to be placed back onto suction given worsening pneumothoraces bilaterally after SBT was done --> keep on suction going forward; monitor
air leak severities; with persistent air leak past day 5 since most recent chest tube placement, there is concern for alveolar-pleural fistula, possibly bronchopleural fistula considering underlying necrotizing pneumonia. Continue daily chest
x-ray.
-CT surgery, Dr. Ny, evaluated patient 10/04, not felt to be a surgical candidate. In view of persistent air leak, might need to reconsider CT surgery consult if she improves
#3. Right-sided prior pneumothorax with loculated effusion/empyema.
-Continue IV antibiotics, pleural fluid culture negative
-Right-sided 8 Fr chest tube placed 10/03 for pyo-pneumothorax. Pleural fluid LDH more than 9000 highly suggestive of empyema
-Recurrence of pneumothorax despite small bore chest tube on 10/04, s/p placement of 16 Fr chest tube by IR with resolution of pneumothorax on 10/04 overnight. (Suspect related to displacement 8 Thai chest tube as patient developed desaturation
after changing position)
-Post chest tube chest x-ray seems to have well-expanded lung --> hence lytics were not given
-Severe necrotizing pneumonia with guarded prognosis
-Patient not a surgical candidate per CT surgery evaluation (10/04)
#4. Septic shock -
- She was off all pressors as of AM of 10/13 --> now back on levophed as of afternoon of 10/13
-Currently on vancomycin, meropenem s/p Zosyn and micafungin per ID
#5. Acute kidney injury - resolved post IV fluid
-Daily labs
-Tolerated Lasix 1 dose well on 10/07
-Monitor strict I/O
#6. Atrial fibrillation/flutter with rapid ventricular response in the setting of acute illness 09/26/2024 --> now in NSR
-Suspect this is in the setting of acute illness, normal sinus rhythm now
-Cardiology service on case, currently on Eliquis 5 mg BID
ECHO 09/29/2024: Normal biventricular size and systolic function without regional wall motion abnormality. Estimated LVEF 60-65%. Mild/moderate mitral regurgitation. Mild tricuspid regurgitation. Mildly elevated PASP. Estimated pulmonary artery
pressure of 38 mmHg assuming a right atrial pressure of 3 mmHg.
#7. Fevers
-Suspect to be related to precedex --> now resolved as of the afternoon of 10/10 after Precedex was weaned down
-Continue Seroquel and monitor QTc (535ms on 10/14/2024) --> re-check EKG tomorrow, and if QTc still >500ms then will need to lower doses of seroquel
#8. Suspected pulmonary edema
-In the setting of bilateral rales and lower extremity +1 to +2 edema, I started her on Lasix 40 mg IV daily on 10/12
-Trend BNP
-Echo last performed on 09/29/2024 showing normal biventricular systolic function with mild�moderate MR and mild pulmonary hypertension with PASP 38 mmHg
Nutrition: Clamping trial performed on 10/11 and she did well --> tube feeds resumed on 10/11 at 20cc/hr and tolerated this well; now raised to goal
Conditions present prior admission:
None
Does not follow-up with primary care
Does not take any medications
Non-smoker
DVT prophylaxis: Eliquis
GI Prophylaxis: PPI
[facility] discussion with Dr. Alfredo on 10/10/2024: I had a conversation with the patient's and son as well as several other family members - I showed them all her multiple CT Chest imaging studies that she has had, and explained it in layman's
terms. They are conflicted as the patient has been getting weaker and more frail prior to this admission, and they are afraid that the patient's quality of life will be poor if they pursue a tracheostomy. They are not ready yet to transition to
comfort care measures. They at least 1 to give her the rest of this week to make a decision on her management. On 10/10, they did make her DNR but okay to continue with mechanical ventilation. All questions were answered.
-I had a another goals of care discussion with the , Rashaun, today. He has spoken to his kids multiple times. He is thinking about withdrawing care this Thursday if patient does not show any significant improvement by then. He is not
interested in pursuing tracheostomy at this time as him and his family do not think that Briana would have wanted that.
Code status: DNR, but ok to continue mechanical ventilation
Continue ICU level care for this critically ill patient

Critical care statement: A total of 41 minutes of critical care time was provided for this patient today. This includes management of unstable vital signs, evaluation of the patient at bedside, reviewing the patient's pertinent medical records
including radiographs, microbiology, laboratory evaluations, and discussion with primary team, consultants, pharmacy, nutrition, physical therapy, case management, charge nurse, critical care nursing, and respiratory therapy.
Subjective Dataa
Subjective Data
Date of Service:
Date of Service: October 14, 2024
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
Subjective:
Patient seen and evaluated this morning. Remains intubated on CMV at 18/300/3/70% with PIP 28 cmH2O, VTe 324 cc and breathing at 21 breaths/min. She is saturating 95% with heart rate 90 and BP 114/46. She is currently on propofol at 20 mcg/kg/min
and fentanyl at 25 mcg/h. Also on Levophed at 6 mcg/min. Patient appears comfortable and does awaken to voice. Patient's bilateral chest tubes in place with right-sided chest tube on -30 cmH2O suction, left-sided chest tube on -20 cmH2O suction;
right side has an occasional air leak (level 1), and left side has a more persistent level 1 airleak. I spoke with the as well as the son and answered all their questions.
Review of Systems
General: Other (Unobtainable - intubated/sedated)
Objective Data
Data Reviewed
Vital Signs / I&O / Oxygen:
Vital Signs
Temp Pulse Resp BP Pulse Ox
98.9 F 83 19 115/51 97
10/14/24 03:21 10/14/24 09:00 10/14/24 09:00 10/14/24 08:29 10/14/24 09:00
Intake and Output
10/13/24 10/14/24 10/15/24
06:59 06:59 06:59
Intake Total 2424.9 / 2764.9 2815.3 / 2826.0 32.1 / 32.1
Output Total 2800 / 2850 2585 / 2685 600 / 600
Balance -375.1 / -85.1 230.3 / 141.0 -567.9 / -567.9
SaO2 [APV] 99
SaO2 [A/C] 97
SaO2 97
Nasal Cannula flow liters per 60
minute
Physical Exam
General: Respiratory Distress (n), Comfortable, Chills (negative), Sweats (negative) and Other (Intubated/sedated)
HEENT: Normocephalic, Anicteric and Other (ETT in place)
Cardiovascular: S1-S2 and Peripheral Edema (+1 lower extremity pitting edema bilaterally)
Respiratory: Wheeze (expiratory bilaterally), Crackles (Bilaterally), Rhonchi (Bilaterally), Accessory Resp Muscle Use (negative), Stridor (negative), ET Tube (Mechanical breath sounds heard bilaterally) and Chest Tube (Bilateral chest tube in
place, intermittent level 1 airleak on the left side, no air leak on the right side.)
GI: Soft, Non Distended, Non Tender and Normal Bowel Sounds
Neurology: Tremors (negative), Other (following commands) and Other (Sedated although arousable to voice and tactile stimulation)
Skin: Warm, Dry, Cyanosis (negative) and Jaundice (negative)
Labs/Micro/Reports
Lab Data
10/14/24 04:41
10/14/24 04:40
Microbiology
10/08/24 08:20 Blood/Venous Blood Culture - Final
No Growth - Final Report
10/08/24 17:29 Bronch Right Middle Lobe Respiratory Culture - Final
Binta albicans
10/08/24 17:29 Bronch Right Middle Lobe Gram Stain - Final
[2024-10-14] MEDS: ProAmatine 5 MG TUBE ×3 (08:28→17:13)
[2024-10-14] MEDS: ELIQUIS 5 MG TUBE ×2 (08:28→20:11)
[2024-10-14] MEDS: SEROQUEL 50 MG TUBE (08:28)
[2024-10-14] MEDS: PROTONIX IV 40 MG IV (08:29)
[2024-10-14] MEDS: NSS (PRESERVATIVE FREE) 10 ML IV (08:29)
[2024-10-14] MEDS: LASIX 40 MG IV (08:29)
[2024-10-14] MEDS: VISBIOME 2 CAP TUBE (08:29)
--- NOTE | 2024-10-14 09:53 | W.PN.ID1 ---
Date of Service
Date of Service: October 14, 2024
Today's Communication
- c/w meropenem - day 21 of therapy - anticipate a long course of IV therapy - From 2/3 likely for 4-6 weeks
- c/w vancomycin, day 10
- c/w micafungin day 11
- patient is remains critically ill with respiratory failure. Prognosis guarded
Assessment / Plan
Strep Pneumoniae Pneumonia - necrotizing
Secondary health care acquired pneumonia due to Pseudomonas
Influenza A - resolved
completed a 10-day course of Tamiflu 10/02
Empyema of the right lung - resolving
Bacteremia due to Strep Pneumoniae - transient
Acute hypoxemic respiratory failure, VDRF
Bilateral PTX -> chest tubes
Shock - remains on 1 pressor
Elevated core temperature
Leukocytosis - trending up
- c/w meropenem - day 21 of therapy - anticipate a long course of IV therapy - From 2/3 likely for 4-6 weeks
- c/w vancomycin, day 10
- c/w micafungin day 11
- patient is remains critically ill with respiratory failure. Prognosis guarded
Chief Complaint
-: Other (S pneumo pneumonia, Pseudomonas pneumonia; empyema)
Subjective / Review of Systems
remains afebrile
back on norepi at 2 mcg/min
no significant improvement
Vital Signs / Physical Exam
Vital Signs
Vital Signs
Temp Pulse Resp BP Pulse Ox
98.9 F 83 19 115/51 97
10/14/24 03:21 10/14/24 09:00 10/14/24 09:00 10/14/24 08:29 10/14/24 09:00
Physical Exam
Constitutional: Acutely Ill
Cardiovascular: Regular Rate and S1/S2; Negative Murmur or Rub
Pulmonary: Coarse and Non Labored; Negative Symmetric, Wheezes or Rales
Gastrointestinal: Soft, Non Tender, Non Distended and Normal Bowel Sounds
Skin: Warm and Dry; Negative Rash or Jaundice
Objective Data
Lab Data
Lab Results
10/14/24 04:41
10/14/24 04:40
PT 18.9 Sec (11.4-14.6) H 10/09/24 04:15
INR 1.56 10/09/24 04:15
APTT 35.3 Sec (23.4-35.0) H 10/01/24 03:25
Estimated Creat Clear 77 ml/min 10/14/24 04:40
Lactic Acid Cancelled 09/22/24 22:31
Total Bilirubin 0.8 mg/dl (0.2-1.3) 10/12/24 04:42
AST 24 U/L (14-36) 10/12/24 04:42
ALT 19 U/L (0-35) 10/12/24 04:42
Alkaline Phosphatase 254 U/L (38-126) H 10/12/24 04:42
Most recent labs reviewed.
Micro Results:
10/08/24 08:20 Blood Culture - Final
Blood/Venous No Growth - Final Report
10/08/24 17:29 Respiratory Culture - Final
Bronch Right Middle Lobe Binta albicans
Gram Stain - Final
10/03/24 18:33 Body Fluid Culture - Final
Pleural Fluid No Growth After 72 Hours
Gram Stain - Final
10/04/24 13:23 Respiratory Culture - Final
Tracheal Aspirate Binta albicans
Gram Stain - Final
09/22/24 10:33 Blood Culture - Final
Blood/Venous Streptococcus pneumoniae
Gram Stain - Final
09/28/24 18:31 C. difficile GDH Antigen & Toxins - Final
Feces/Stool Negative for toxigenic C.difficile
09/24/24 03:40 Blood Culture - Final
Blood/Venous No Growth - Final Report
09/24/24 03:30 Blood Culture - Final
Blood/Venous No Growth - Final Report
09/23/24 16:43 Blood Culture - Final
Blood/Venous No Growth - Final Report
09/23/24 13:35 Blood Culture - Final
Blood/Venous No Growth - Final Report
09/23/24 22:22 Respiratory Culture - Final
Sputum Pseudomonas aeruginosa
Binta albicans
Gram Stain - Final
09/22/24 12:38 Blood Culture - Final
Blood/Venous Streptococcus pneumoniae
Gram Stain - Final
09/22/24 22:22 Legionella Urinary Antigen - Final
Urine Negative for Legionella pneumophila Serogroup 1 antigen.
A negative result does not rule out the possiblity of
Legionella infection due to other serogroups or species of
Legionella. Clinical correlation is recommended.
Streptococcus pneumoniae Antigen (M - Final
Positive for Strep pneumo Ag
09/22/24 10:33 Influenza Types A & B (EUN) - Final
Nasal Swab Influenza A Positive, NAAT
10/08/24 CXR: The small left-sided pneumothorax has slightly increased in size from prior. Stable appearance of the right-sided hydropneumothorax. Extensive bilateral mid and lower lung predominant opacities which are unchanged from prior and
consistent with known multifocal pneumonia.
--- NOTE | 2024-10-14 10:08 | PHA.VAN.FU ---
Vancomycin Assessment / Plan
- Assessment
Renal Function: Stable
WBC's are: Trending Up
In the past 24 hrs, patient has been: Afebrile
Concomitant Antimicrobials: meropenem, micafungin
- Dosing Plan
Continue: Vanc 1250mg Q12H
- Monitoring Plan
Level(s) appropriate: Recheck trough at minimum of weekly intervals, Repeat sooner for changes in renal function or clinical status
Next Level Due (Date): ~10/18
- Follow Up
Pharmacy will continue to follow.
Vancomycin Follow UP
- -
Patient Age: 69
Patient Sex: Female
Vancomycin Day #: 11
Indication: Pulmonary/Respiratory
Requesting Provider: Dr. Lee
Pertinent Antimicrobial Allergies:
NKDA
Height / Weight:
Height 5 ft 4 in
Actual Weight 56.8 kg
- Vital Signs / Lab Results
Temp Pulse Resp BP Pulse Ox
98.9 F 83 19 115/51 97
10/14/24 03:21 10/14/24 09:00 10/14/24 09:00 10/14/24 08:29 10/14/24 09:00
Lab Results - Hematology
10/12/24 10/12/24 10/13/24
04:42 12:32 04:19
WBC 20.9 H 22.4 H 26.2 H
10/14/24
04:41
WBC 31.2 H
Lab Results - Chemistry
10/12/24 10/13/24 10/14/24
04:42 04:19 04:40
BUN 18 H 17 18 H
Creatinine 0.4 L 0.4 L 0.3 L
Estimated Creat Clear 77 77 77
Albumin 2.6 L
Microbiology Results
10/08/24 08:20 Blood Culture - Final
Blood/Venous No Growth - Final Report
Therapeutic Drug Monitoring
Vancomycin Peak 25.1 ug/ml (18-26) 10/10/24 21:02
Vancomycin Trough 12.5 ug/ml (5-20) 10/11/24 05:35
[2024-10-14] MEDS: MYCAMINE 105 MG IV (11:25)
--- NOTE | 2024-10-14 12:00 | PTCARENOTE ---
no changes in assessment noted.
--- NOTE | 2024-10-14 12:55 | W.PN.HOSP.TC ---
Today's Communication/Plan
-
Not much improvement
Prognosis remains guarded
Critically ill
Continue with antibiotics and antifungal
Continue with diuresis
Continue with IV steroids
Assessment / Plan
Assessment / Plan
General: no acute distress, chronically ill-appearing, sedated
HEENT: NormoCephalic, Moist mucous membranes and Atraumatic
Respiratory: Rhonchi and Crackles, ETT noted. b/l chest tube noted.
Cardiac: S1/S2, regularly regular,
GI: Soft, Non Tender, Non Distended and Normal Bowel Sounds;
Musculoskeletal: trace BL LE edema
Skin: No Rash
Neuro:sedated
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
# Acute hypoxic respiratory failure Due to bilateral necrotizing pneumonia likely secondary to influenza, complicated by severe bilateral pneumonia secondary to Pseudomonas plus strep pneumo, Binta albicans
# Spontaneous left-sided pneumothorax
-s/p broch lavage showed Binta
-CT chest appreciated multilobar pna severe in RLL underlying mass not excluded (follow up CT after treatment recommended relayed to patient and patient spouse)
-Was started on IV steroids Decadron 4 mg every 8-since VA'ed on 10/03.
-Possible ARDS as with persistent severe hypoxemia. Agree with hydrocortisone for now
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 Agree with 40 mg of IV Lasix daily. Monitor creatinine closely.
-Status post intubation on 10/04/24 and now on mechanical ventilation. Continue with sedation. Currently on 80% FiO2.
-Family leaning against trach and possibly leaning to withdrawal of care.
#Septic Shock elevated (tachycardia, tachypnea) lactate, hypotension requiring pressor support
#Fever cough/generalized weakness likely from Influenza A /polymicrobial pneumonia with Necrotizing strep pneumonia and Pseudomonas pneumonia
#Empyema
#Strep bacteremia due to pneumonia
#Sinus tachycardia likely 2/2 severe sepsis PNA
-Blood cultures positive for Strep pneumonia, follow up repeat blood cx's NGTD
-Sputum Cx pos for Pseudomonas and binta albicans
-completed Tamiflu 10 day course,
-Status post CT chest with necrotizing pneumonia patient also started on antifungal with micafungin and vancomycin.
-Zosyn was transitioned to meropenem
Legionella Urine At neg
-Respiratory Cx +Pseudomonas +Binta albicans
-Patient was evaluated by CT surgery Dr. Ny on 10/04 and patient deemed not a surgical candidate
-In the long run patient will require long course of antibiotics of probably 6 weeks
-on levophed. wean pressors as tolerated
-Infectious disease following
# Spontaneous left-sided pneumothorax
Noted on chest x-ray on 09/29/2024
Status post emergent chest tube placement by [facility]
Status post second 14 Salvadorean chest tube placement by community outreach coordinator post intubation for expanding pneumothorax on 10/04/2024
Daily chest x-ray. Will monitor for now. Did not do better on waterseal and back on suction
# Right-sided Pyopneumothorax with loculated effusion/empyema
Status post emergent chest tube placed by community outreach coordinator on 10/03/2024
Fluid cultures and other studies sent
Status post emergent upsizing of right-sided chest tube by [facility] on 10/04/24
As mentioned above was evaluated by CT surgery and not deemed to be surgical candidate
Pain control as with b/i chest tube. Did not do good on waterseal and back on suction
# Atrial fibrillation/atrial flutter rapid ventricular response
was started on Cardizem infusion, since stopped
Blood pressure soft and thus unable to tolerate Cardizem and thus plan was to switch to amiodarone gtt, which in turn was stopped due to concern for Amio toxicity. As per cardio
Anticoagulation with Eliquis
Echocardiogram with EF of 60 to 65%. Mild to moderate mitral regurgitation. Mildly elevated PASP with PASP of 38 mmHg.
TSH wnl
Status post conversion to normal sinus rhythm.
Currently on Eliquis
# Fevers likely secondary to Precedex
Resolved after discontinuation of medication.
#Anemia
likely of chronic disease
no active luminal bleeding noted
Start patient on IV Venofer. B12 folate normal
Heme test stools
Status post 1 unit PRBC. Hemoglobin is 7.8 this morning.
#Loose bowel movements
Likely due to antibiotic associated
C. difficile negative
Imodium if needed
Resolved.
# Anxiety could be situational
Ativan as needed
on seroquel too
# Hyponatremia/metabolic acidosis /acute kidney injury likely hypovolemic
-resolved
-IVF completed
#Hypokalemia
#Mild Hypophosphatemia
monitor and replete as necessary
Underweight/Cachexic
severe temporal muscle wasting
nutrition on board
cont w/ Tube feeding. Goal rate of 40cc/hr with 1 pack prosource
# DVT prophylaxis -Eliquis
# CODE STATUS-limited DNR
GI prophylaxis PPI
Discussed with community outreach coordinator
Discussed with patient son at bedside in detail
Anticipated Discharge: > 48 hours
Subjective/Interval History
-
Date of Service: October 14, 2024
Remains intubated
Eyes open
Bilateral pneumothorax and remains on chest tubes
Remains on Levophed
Currently on 80% FiO2
Objective Data
-
Labs:
Laboratory Results
10/14/24 10/14/24
04:40 04:41
WBC 31.2 H
Hgb 7.8 L
Hct 24.1 L
Plt Count 364
Sodium 137
Potassium 3.8
Chloride 94 L
Carbon Dioxide 37 H
BUN 18 H
Creatinine 0.3 L
Glucose 124 H
Calcium 8.0 L
Vital Signs:
Vital Signs
Temp Pulse Resp BP Pulse Ox
99.2 F 94 21 115/51 95
10/14/24 12:06 10/14/24 12:00 10/14/24 12:00 10/14/24 08:29 10/14/24 12:00
I&O
10/13/24 10/14/24 10/15/24
06:59 06:59 06:59
Intake Total 2424.9 / 2764.9 2815.3 / 2891.0 446.6 / 446.6
Output Total 2800 / 2850 2585 / 2685 1875 / 1875
Balance -375.1 / -85.1 230.3 / 206.0 -1428.4 / -1428.4
[2024-10-14] MEDS: SUBLIMAZE 100 IV (13:05)
--- NOTE | 2024-10-14 14:18 | CM ---
CM following re: discharge planning.
Discussed in Rounds, reviewed pt's chart, met with pt. Pt's and sons at bedside.
Per Rounds meeting, pt remains intubated, remains critically ill with respiratory failure, prognosis remains guarded, goals of care discussions ongoing with the family, continue supportive care.
D/C plan: uncertain at this time and will depend on pt's progress.
CM will follow with discharge plan updates as hospitalization progresses
[2024-10-14 16:00] VITALS: BP 119/60
--- NOTE | 2024-10-14 16:00 | PTCARENOTE ---
no changes in assessment noted.
--- NOTE | 2024-10-14 20:45 | PTCARENOTE ---
Assumed care of pt at 1900. Received pt intubated #7.5 ETT 22cm at lip, APV CMV 18/300/60/3. Pt on Propofol, Fentanyl, and Levophed infusions, see med titration flowsheets for full details. Right and Left chest tubes to suction, see chest tube
flowsheet for details. Pt with coarse rhonchi, expiratory and inspiratory wheezing throughout all lung chan. See nursing shift assessment flowsheet for full physical assessment details. Pt's son currently at bedside.
[2024-10-14] MEDS: SEROQUEL 25 MG TUBE (22:02)
[2024-10-14] MEDS: LEVOPHED 258 MG IV (22:02)
[2024-10-15] VITALS: BP 120/63
[2024-10-15] MEDS: MERREM 500 MG IV ×3 (00:06→12:36)
[2024-10-15] MEDS: ROXICODONE ORAL SOLUTION 10 MG TUBE ×3 (00:06→12:36)
[2024-10-15] MEDS: STERILE WATER FOR INJECTION 10 ML IV ×3 (00:06→12:36)
[2024-10-15] MEDS: SOLU-CORTEF 50 MG IV ×3 (00:06→12:36)
--- NOTE | 2024-10-15 00:36 | PTCARENOTE ---
Midnight assessment unchanged. Remains on Fentanyl, Propofol, and Levophed drips. SR with PVCs in bigeminal pattern, HR in 80s, SpO2 currently 95% on APV CMV 18/300/60/3.
[2024-10-15 04:29] LABS: B.E. 16.9 mmol/L; O2 Saturation % 99.7 % (94-98); PCO2 54 mmHg (32-35); PO2 98 mmHg (83-108)
[2024-10-15 04:33] LABS: HCO3 42.1 mmol/L (21-28)
[2024-10-15] MEDS: DIPRIVAN 100 IV (04:41)
[2024-10-15 04:56] LABS: % Basophils 0.2 % (0-2); % Immature Granulocytes 1.1 % (0-0.5); % Monocytes 2.8 % (1.7-9.3); % Neutrophils 92.9 % (42.2-75.2); Absolute Basophils 0.1 10^3/uL (0-0.2); Absolute Immature Granulocytes 0.3 10^3/uL (0-0.05); Absolute Lymphocytes 0.8 10^3/uL (1.2-3.4); Absolute Monocytes 0.7 10^3/uL (0.1-0.6); Absolute Neutrophils 23.6 10^3/uL (1.4-6.5); Hematocrit 26.3 % (37.0-47.0); Hemoglobin 8.5 g/dL (12.0-16.0); Mean Corp Hgb Conc. 32.3 g/dL (33.0-37.0); Mean Corpuscular Hgb 29.9 pg (27.0-31.0); Mean Corpuscular Volume 92.6 fL (81.0-99.0); Mean Platelet Volume 9.5 fL (7.4-10.4); Nucleated Red Blood Cells % 0 %; Platelet Count 550 10^3/uL (130-400); Red Blood Cell Count 2.84 10^6/uL (4.20-5.40); Red Cell Dist. Width 15.5 % (11.5-14.5); White Blood Cell Count 25.4 10^3/uL (4.8-10.8)
[2024-10-15] MEDS: SUBLIMAZE 50 MCG IV ×2 (05:01→08:49)
[2024-10-15 05:09] LABS: ALT (SGPT) 26 U/L (0-35); AST (SGOT) 33 U/L (14-36); Albumin 2.4 g/dl (3.5-5.0); Alkaline Phosphatase 300 U/L (38-126); Blood Urea Nitrogen 20 mg/dl (7-17); Calcium 7.9 mg/dl (8.4-10.2); Chloride 96 mmol/L (98-107); Estimated Creatinine Clearance 77 ml/min; Glucose 156 mg/dl (70-99); Magnesium 2.2 mg/dl (1.6-2.3); Phosphorus 2.4 mg/dl (2.5-4.5); Potassium 3.8 mmol/L (3.5-5.1); Sodium 140 mmol/L (135-145); Total Bilirubin 0.4 mg/dl (0.2-1.3); Total Protein 5.8 g/dl (6.3-8.2); eGFR > 60.00
[2024-10-15 05:20] LABS: Carbon Dioxide 36 mmol/L (22-30)
[2024-10-15 05:21] VITALS: BMI 21.4
--- NOTE | 2024-10-15 05:26 | PTCARENOTE ---
Assessment unchanged. Remains on same drips, Levophed weaned down to 4mcg/min at this point. Same vent settings. CHG cloth bath done and linens changed.
[2024-10-15] MEDS: SUBLIMAZE 100 IV (05:29)
[2024-10-15] MEDS: VANCOCIN 275 MG IV (05:50)
--- NOTE | 2024-10-15 07:26 | W.PN.ID1 ---
Date of Service
Date of Service: October 15, 2024
Today's Communication
- c/w meropenem - day
- c/w vancomycin, day 11
- c/w micafungin day 12
- patient is remains critically ill with respiratory failure. Prognosis guarded, would support a decision for hospice
Assessment / Plan
Strep Pneumoniae Pneumonia - necrotizing
Secondary health care acquired pneumonia due to Pseudomonas
Influenza A - resolved
completed a 10-day course of Tamiflu 10/02
Empyema of the right lung - resolving
Bacteremia due to Strep Pneumoniae - transient
Acute hypoxemic respiratory failure, VDRF
Bilateral PTX -> chest tubes
Shock - remains on 1 pressor
Elevated core temperature
Leukocytosis - trending up
- c/w meropenem - day
- c/w vancomycin, day 11
- c/w micafungin day 12
- patient is remains critically ill with respiratory failure. Prognosis guarded, would support a decision for hospice
Chief Complaint
-: Other (S pneumo pneumonia, Pseudomonas pneumonia; empyema)
Subjective / Review of Systems
afebrile
remains on pressors
no events overnight
Vital Signs / Physical Exam
Vital Signs
Vital Signs
Temp Pulse Resp BP Pulse Ox
98 F 77 19 120/63 99
10/15/24 07:16 10/15/24 06:00 10/15/24 06:00 10/15/24 00:00 10/15/24 06:00
Physical Exam
Constitutional: Acutely Ill and Chronically Ill
Cardiovascular: Regular Rate and S1/S2; Negative Murmur or Rub
Pulmonary: Wheezes, Coarse and Non Labored; Negative Symmetric or Rales
Gastrointestinal: Soft, Non Tender, Non Distended and Normal Bowel Sounds
Skin: Warm and Dry; Negative Rash or Jaundice
Neurological: Awake
Objective Data
Lab Data
Lab Results
10/15/24 04:17
10/15/24 04:17
PT 18.9 Sec (11.4-14.6) H 10/09/24 04:15
INR 1.56 10/09/24 04:15
APTT 35.3 Sec (23.4-35.0) H 10/01/24 03:25
Estimated Creat Clear 77 ml/min 10/15/24 04:17
Lactic Acid Cancelled 09/22/24 22:31
Total Bilirubin 0.4 mg/dl (0.2-1.3) 10/15/24 04:17
AST 33 U/L (14-36) 10/15/24 04:17
ALT 26 U/L (0-35) 10/15/24 04:17
Alkaline Phosphatase 300 U/L (38-126) H 10/15/24 04:17
Most recent labs reviewed.
Micro Results:
10/08/24 08:20 Blood Culture - Final
Blood/Venous No Growth - Final Report
10/08/24 17:29 Respiratory Culture - Final
Bronch Right Middle Lobe Binta albicans
Gram Stain - Final
10/03/24 18:33 Body Fluid Culture - Final
Pleural Fluid No Growth After 72 Hours
Gram Stain - Final
10/04/24 13:23 Respiratory Culture - Final
Tracheal Aspirate Binta albicans
Gram Stain - Final
09/22/24 10:33 Blood Culture - Final
Blood/Venous Streptococcus pneumoniae
Gram Stain - Final
09/28/24 18:31 C. difficile GDH Antigen & Toxins - Final
Feces/Stool Negative for toxigenic C.difficile
09/24/24 03:40 Blood Culture - Final
Blood/Venous No Growth - Final Report
09/24/24 03:30 Blood Culture - Final
Blood/Venous No Growth - Final Report
09/23/24 16:43 Blood Culture - Final
Blood/Venous No Growth - Final Report
09/23/24 13:35 Blood Culture - Final
Blood/Venous No Growth - Final Report
09/23/24 22:22 Respiratory Culture - Final
Sputum Pseudomonas aeruginosa
Binta albicans
Gram Stain - Final
09/22/24 12:38 Blood Culture - Final
Blood/Venous Streptococcus pneumoniae
Gram Stain - Final
09/22/24 22:22 Legionella Urinary Antigen - Final
Urine Negative for Legionella pneumophila Serogroup 1 antigen.
A negative result does not rule out the possiblity of
Legionella infection due to other serogroups or species of
Legionella. Clinical correlation is recommended.
Streptococcus pneumoniae Antigen (M - Final
Positive for Strep pneumo Ag
09/22/24 10:33 Influenza Types A & B (EUN) - Final
Nasal Swab Influenza A Positive, NAAT
10/08/24 CXR: The small left-sided pneumothorax has slightly increased in size from prior. Stable appearance of the right-sided hydropneumothorax. Extensive bilateral mid and lower lung predominant opacities which are unchanged from prior and
consistent with known multifocal pneumonia.
[2024-10-15] MEDS: XOPENEX 1.25 MG INHALANT SOLUTION INH (07:50)
[2024-10-15 08:00] VITALS: BP 135/76
--- NOTE | 2024-10-15 08:14 | W.PN.INTV ---
Today's Communication / Plan
Recommendations
Mechanical ventilation with low PEEP strategy and high FiO2 given bilateral pneumothoraces
Family is planning to withdraw care later today
In the meantime, continue with chest tubes and other medications, however once family ready to withdraw then we will stop all medications unless tailored for comfort
Would keep the chest tubes to suction once we transition to comfort care
Abx per ID --> she will terminally extubated today so antibiotics will stop at that time
Continue Seroquel
Follow-up bronchoscopy BAL culture (grew Binta albicans - she is already on micafungin per ID)
Maintain MAP >65
Guarded prognosis --> family will terminally extubate today in the afternoon
Assessment
-
69-year-old woman without significant past medical history was admitted to the hospital with flulike symptoms, shortness of breath. Found to be hypoxemic, septic with bilateral infiltrates on x-ray. Requiring up to 6 L supplemental oxygen. Found
to be flu positive, complicated by strep pneumo bacteremia, along with Pseudomonas in the sputum with Binta. We were consulted on 09/26/2024 due to worsening oxygenation and possible pulmonary mass.
Patient had positive blood cultures with strep pneumo on 09/22. Bacteremia has since cleared. Patient continues to be on Zosyn. Stay was further complicated by a spontaneous left-sided pneumothorax requiring chest tube placement 09/29.
Unfortunately, hypoxemic respiratory failure worsened and she was transferred to the ICU on 09/30/2024 for closer monitoring due to requiring 100%% FiO2 on high flow NC. Worsening right lung opacity noted on CT of the x-rays. 10/03, bedside POCUS
confirmed a loculated pleural effusion. A CT scan was performed which was suggestive of pyopneumothorax. A bedside chest tube on the right side was placed with slight improvement in the loculated effusion and fluid suggestive of empyema with LDH
more than 9000.
Brief interval Hx:
10/04. Patient noted to have increasing respiratory distress with gradually declining oxygen saturation despite high flow nasal cannula and nonrebreather. Patient was intubated and placed on mechanical ventilation.
10/05, patient had expansion of pneumothorax postintubation and a bedside left sided chest tube was placed. Patient required another chest tube on the right side due to expanding pneumothorax later in the day.
Assessment and plan
#1. Acute hypoxemic respiratory failure due to bilateral Necrotizing pneumonia-influenza A+/bacterial superinfection with Pseudomonas aeruginosa + Strep pneumonia c/b Streptococcus pneumonia bacteremia; Binta albicans seen on multiple cultures
including sputum culture, tracheal aspirate as well as BAL from L
-Respiratory status worsened requiring intubation on 10/04
-Continue low PEEP, low tidal volume strategy due to help avoid worsening pneumothoraces bilaterally
-Maintain plateau pressure <30
-In the setting of bilateral pneumothoraces, ideally want to keep FiO2 at 100% to help adsorb the PTX and keep PEEP low at 3 --> given that the pneumothoraces are stable, can start to wean down FiO2 as tolerated
-Lightly sedate with goal RASS -1 to -2 --> weaned off all sedation as of 10/12, and we tried a pressure support trial on 10/13/2024 but she failed this and due to her inspiratory effort her bilateral pneumothoraces worsened. Family just wants her to
remain comfortable for now with plans to terminally extubate today
-Continue with scheduled oxy and seroquel with prn fentanyl
-Continue Xopenex BID. Reported intolerance to Atrovent
-Patient previously was on Decadron until 10/03/2024 --> in the setting of severe CAP, started solucortef 50mg IV q6hr on 10/13
-Completed Tamiflu: 09/22 - 10/02/2024
-Given little ETT secretions, stopped nebulized 3% NS on 10/11
-s/p BAL 10/08 --> Cx shows Binta albicans --> she is already on micafungin
#2. 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
-Rapid expansion of left-sided pneumothorax postintubation. Emergent placement of second 14 [place] chest tube on the left side 10/04. Patient already had an anterior 8 [place] chest tube in place but was not draining any air.
-Significant improvement of pneumothorax post chest tube placement
-Continue bilateral chest tubes and changed to water seal on 10/12 --> unfortunately on 10/13, chest tubes needed to be placed back onto suction given worsening pneumothoraces bilaterally after SBT was done --> keep on suction going forward; monitor
air leak severities; with persistent air leak past day 5 since most recent chest tube placement, there is concern for alveolar-pleural fistula, possibly bronchopleural fistula considering underlying necrotizing pneumonia. She will terminally
extubated today so no additional imaging needed at this time.
-CT surgery, Dr. Ny, evaluated patient 10/04, not felt to be a surgical candidate. In view of persistent air leak, might need to reconsider CT surgery consult if she improves
#3. Right-sided prior pneumothorax with loculated effusion/empyema.
-Continue IV antibiotics, pleural fluid culture negative
-Right-sided 8 Fr chest tube placed 10/03 for pyo-pneumothorax. Pleural fluid LDH more than 9000 highly suggestive of empyema
-Recurrence of pneumothorax despite small bore chest tube on 10/04, s/p placement of 16 Fr chest tube by IR with resolution of pneumothorax on 10/04 overnight. (Suspect related to displacement 8 [place] chest tube as patient developed desaturation
after changing position)
-Post chest tube chest x-ray seems to have well-expanded lung --> hence lytics were not given
-Severe necrotizing pneumonia with guarded prognosis
-Patient not a surgical candidate per CT surgery evaluation (10/04)
#4. Septic shock -
- She was off all pressors as of AM of 10/13 --> now back on levophed as of afternoon of 10/13
-Currently on vancomycin, meropenem s/p Zosyn and micafungin per ID
#5. Acute kidney injury - resolved post IV fluid
-Daily labs
-Tolerated Lasix 1 dose well on 10/07
-Monitor strict I/O
-Continue IV Lasix (started 10/12) given volume overload
#6. Atrial fibrillation/flutter with rapid ventricular response in the setting of acute illness 09/26/2024 --> now in NSR
-Suspect this is in the setting of acute illness, normal sinus rhythm now
-Cardiology service on case, currently on Eliquis 5 mg BID
ECHO 09/29/2024: Normal biventricular size and systolic function without regional wall motion abnormality. Estimated LVEF 60-65%. Mild/moderate mitral regurgitation. Mild tricuspid regurgitation. Mildly elevated PASP. Estimated pulmonary artery
pressure of 38 mmHg assuming a right atrial pressure of 3 mmHg.
#7. Fevers
-Suspect to be related to precedex --> now resolved as of the afternoon of 10/10 after Precedex was weaned down
-Continue Seroquel and monitor QTc (535ms on 10/14/2024) --> EKG check 10/15 showing QTc 450ms --> no need to adjust seroquel at this time
#8. Acute pulmonary edema
-In the setting of bilateral rales and lower extremity +1 to +2 edema, I started her on Lasix 40 mg IV daily on 10/12
-Trend BNP
-Echo last performed on 09/29/2024 showing normal biventricular systolic function with mild�moderate MR and mild pulmonary hypertension with PASP 38 mmHg
Nutrition: Clamping trial performed on 10/11 and she did well --> tube feeds resumed on 10/11 at 20cc/hr and tolerated this well; now raised to goal --> will stop TF today once we transition to comfort
Conditions present prior admission:
None
Does not follow-up with primary care
Does not take any medications
Non-smoker
DVT prophylaxis: Eliquis
GI Prophylaxis: PPI
C discussion with Dr. Alfredo on 10/10/2024: I had a conversation with the patient's and son as well as several other family members - I showed them all her multiple CT Chest imaging studies that she has had, and explained it in layman's
terms. They are conflicted as the patient has been getting weaker and more frail prior to this admission, and they are afraid that the patient's quality of life will be poor if they pursue a tracheostomy. They are not ready yet to transition to
comfort care measures. They at least 1 to give her the rest of this week to make a decision on her management. On 10/10, they did make her DNR but okay to continue with mechanical ventilation. All questions were answered.
-I had a another goals of care discussion with the , Rashaun, today. He has spoken to his kids multiple times. He is thinking about withdrawing care this Thursday if patient does not show any significant improvement by then. He is not
interested in pursuing tracheostomy at this time as him and his family do not think that Briana would have wanted that.
Code status: DNR, but ok to continue mechanical ventilation
Continue ICU level care for this critically ill patient. Family is ready to withdraw care later this afternoon. All questions were answered and emotional support was provided.

Critical care statement: A total of 37 minutes of critical care time was provided for this patient today. This includes management of unstable vital signs, evaluation of the patient at bedside, reviewing the patient's pertinent medical records
including radiographs, microbiology, laboratory evaluations, and discussion with primary team, consultants, pharmacy, nutrition, physical therapy, case management, charge nurse, critical care nursing, and respiratory therapy.
Subjective Dataa
Subjective Data
Date of Service:
Date of Service: October 15, 2024
Chief Complaint: Efficiency Analyst Follow Up
Subjective:
Patient was seen and evaluated this morning. Currently intubated on CMV at 18/300/3/90% with PIP 20 cmH2O, VTe 302 cc and breathing at 20 breaths/min. Heart rate 87, BP via A-line 80/43, BP via NIBP: 136/77 and saturating 97%. Bilateral chest
tubes in place with right sided chest tube at -30 cmH2O with no airleak, and left-sided chest tube at -20 cmH2O also with no airleak. Currently on Levophed at 4 mcg/min, fentanyl at 125 mcg/hr and propofol at 30 mcg/kg/minute.
This morning she appeared uncomfortable with accessory muscle use and grimacing. She currently appears comfortable. Patient's son and [id number] are both at bedside, all questions were answered.
Review of Systems
General: Unobtainable - Sedation (Intubated)
Objective Data
Data Reviewed
Vital Signs / I&O / Oxygen:
Vital Signs
Temp Pulse Resp BP Pulse Ox
98 F 90 18 147/60 94
10/15/24 07:16 10/15/24 08:52 10/15/24 07:59 10/15/24 08:52 10/15/24 08:27
Intake and Output
10/14/24 10/15/24 10/16/24
06:59 06:59 06:59
Intake Total 2815.3 / 2891.0 2496.1 / 2496.1
Output Total 2585 / 2685 2960 / 2960
Balance 230.3 / 206.0 -463.9 / -463.9
SaO2 [APV] 97
SaO2 [A/C] 97
SaO2 94
Nasal Cannula flow liters per 60
minute
Physical Exam
General: Respiratory Distress (n), Chills (negative), Sweats (negative) and Other (Intubated/sedated)
HEENT: Normocephalic, Anicteric and Other (ETT in place)
Cardiovascular: S1-S2 and Peripheral Edema (+2 lower extremity pitting edema bilaterally)
Respiratory: Wheeze (Minimal during expiration bilaterally), Crackles (Bilaterally), Rhonchi (Bilaterally), Accessory Resp Muscle Use (negative), Stridor (negative), ET Tube (Mechanical breath sounds heard bilaterally) and Chest Tube (Bilateral
chest tubes in place, no air leak on the left or right side)
GI: Soft, Non Distended, Non Tender and Normal Bowel Sounds
Neurology: Tremors (negative) and Other (Sedated although arousable to voice and tactile stimulation)
Skin: Warm, Dry, Cyanosis (negative) and Jaundice (negative)
Labs/Micro/Reports
Lab Data
10/15/24 04:17
10/15/24 04:17
Laboratory Results
10/15/24
04:17
pH 7.50 H
pCO2 54 H
pO2 98
HCO3 42.1 H*
O2 Delivery Level
Microbiology
10/08/24 08:20 Blood/Venous Blood Culture - Final
No Growth - Final Report
[2024-10-15 08:30] VITALS: BP 136/77
[2024-10-15 08:38] VITALS: BP 136/77
[2024-10-15] MEDS: PROTONIX IV 40 MG IV (08:48)
[2024-10-15] MEDS: NSS (PRESERVATIVE FREE) 10 ML IV (08:49)
[2024-10-15] MEDS: VISBIOME 2 CAP TUBE (08:51)
[2024-10-15] MEDS: ProAmatine 5 MG TUBE ×2 (08:51→12:44)
[2024-10-15] MEDS: ELIQUIS 5 MG TUBE (08:52)
[2024-10-15] MEDS: LASIX 40 MG IV (08:52)
[2024-10-15] MEDS: SEROQUEL 50 MG TUBE (08:52)
--- NOTE | 2024-10-15 09:14 | PHA.VAN.FU ---
Vancomycin Assessment / Plan
- Assessment
Renal Function: Stable
WBC's are: Trending Down
In the past 24 hrs, patient has been: Afebrile
Concomitant Antimicrobials: MEROPENEM, MICAFUNGIN
- Dosing Plan
Continue: VANCO 1250 MG Q12H
- Monitoring Plan
Level(s) appropriate: Repeat sooner for changes in renal function or clinical status
Next Level Due (Date): ~10/18
- Follow Up
Pharmacy will continue to follow.
Vancomycin Follow UP
- -
Patient Age: 69
Patient Sex: Female
Vancomycin Day #: 12
Indication: Pulmonary/Respiratory
Requesting Provider: Dr. Lee
Pertinent Antimicrobial Allergies:
NKDA
Height / Weight:
Height 5 ft 4 in
Actual Weight 56.6 kg
- Vital Signs / Lab Results
Temp Pulse Resp BP Pulse Ox
98 F 90 18 147/60 94
10/15/24 07:16 10/15/24 08:52 10/15/24 07:59 10/15/24 08:52 10/15/24 08:27
Lab Results - Hematology
10/12/24 10/13/24 10/14/24
12:32 04:19 04:41
WBC 22.4 H 26.2 H 31.2 H
10/15/24
04:17
WBC 25.4 H
Lab Results - Chemistry
10/13/24 10/14/24 10/15/24
04:19 04:40 04:17
BUN 17 18 H 20 H
Creatinine 0.4 L 0.3 L 0.3 L
Estimated Creat Clear 77 77 77
Albumin 2.4 L
Microbiology Results
10/08/24 08:20 Blood Culture - Final
Blood/Venous No Growth - Final Report
Therapeutic Drug Monitoring
Vancomycin Peak 25.1 ug/ml (18-26) 10/10/24 21:02
Vancomycin Trough 12.5 ug/ml (5-20) 10/11/24 05:35
--- NOTE | 2024-10-15 09:15 | PTCARENOTE ---
Rec'd pt at 0800 resting in bed. Pt sedated on Diprivan at 20 mcg and Fentanyl at 75 mcg- on those doses pt has her eyes open- did look at stimuli when name was called and did grasp hands but otherwise follows no commands. HENDRICKSON but weakly. Bilat soft
wrist restraints on for pt safety as she does reach up at ETT. TAY -sluggish at 2 mm. Does get easily anxious with stimulation and grimaces or starts to get tachypnic. Medicated with Fentanyl 50 mcg at 0845 and gtt increased to 100 mcg. Currently
Propophol gtt increased to 30 mcg as after turning pt still anxious. Skin is pale wm and dry. Respirs are intact on the Vent. APV/CMV settings Rate 18, tv 300, peep3. Adds some additional rate when anxious but otherwise stays controlled at 18.
Suctioned for large amts of clear thick secretions orally and via ETT. #7 Ett retaped at the 23 cm kalie center of the mouth. BS throughout at very coarse rhonchi with some insp and exp wheezing. R upper post CT to -30cm suction. +1 air leak. No
crepitus. Small amt of serosang drainage. L lat CT to -20 cm suction. +1 air leak. No crepitus. Draining serous drainage. Dressings are D+I. Monitor SR. + pulses. +1 gen anasarca. VS as documented. R radial A line intact-site wnl. Zeroed and
recalibrated. Congurent with cuff BP. Waveform as documented. Site wnl. Rec'd pt on Levophed at 4 mcg- currently at 3 mcg and will titrate to keep MAP >65. Abd is round and soft with + BS. Tolerating Osmolite Tube feeds at 40 ml/hr with 25 ml/hr
flush via [place] OG tube at the 56 cm kalie. Rectal trumpet in place for loose brown stool. Thermistor carr in place for cloudy yellow urine. Lasix 40 mg IV given as ordered. All gtts infusing via R arm DL picc site wnl. Capped int intact L forearm.
Site wnl. Turned and repositioned. Skin and mouth care given. Awaiting family later today for decision on withdrawal of care.
[2024-10-15] MEDS: VERSED 2 MG IV (10:15)
[2024-10-15] MEDS: SUBLIMAZE 100 MCG IV (10:15)
--- NOTE | 2024-10-15 10:20 | PTCARENOTE ---
Pt overall more anxious, RR in the mid 20's and pt overall just seems uncomfortable. Sats keep dipping to the 85-86% range and pt has required 100% flushes several times. Dr. Alfredo in and updated. Currently FIo2 increased to 90% and pt medicated
with Fentanyl 100 mcg IV and Versed 2 mg IV. Fent Gtt increased to 125 mcg. Breath sounds are unchanged. Pt suctioned for a large amt of clear secretions
--- NOTE | 2024-10-15 11:35 | PTCARENOTE ---
Much calmer and sats better since Versed and Fentanyl and increase in Fio2 sats are 98%. Levophed increased as post sedation could not meet MAP's of 65. Currently at 6 mcg. Family at the bedside- overall plan per family in withdrawal of care once a
family is present. Dr. Alfredo in an updated on plan of care
[2024-10-15] MEDS: FLUSH (NSS) 3 FLUSH IV (12:37)
[2024-10-15] MEDS: MYCAMINE 105 MG IV (12:37)
--- NOTE | 2024-10-15 12:40 | PTCARENOTE ---
Pt overall calm and sedate. RASS -2 to -3 and CPOT is 1-2. Multiple family members at the bedside. The goal is for comfort care but waiting on a son and their tooling inspector who is due to arrive around 2. Turned and repositioned. Small amt of clear
secretions via ETT. Adding 1-3 additional breaths on the vent. VS as documented. Levophed currently at 6 mcg. Fentanyl at 125 mcg and Propophol at 30 mcg. Tolerating tube feeds. Diuresed from earlier Lasix. Support given.
[2024-10-15 12:52] VITALS: BP 94/58
--- NOTE | 2024-10-15 12:56 | W.PN.HOSP.TC ---
Addendum entered and electronically signed by Stefan Madrid MD 10/15/24 15:52:
More than 30 minutes spent in discharge including
Final examination of the patient
Summarizing hospital stay
Instructions for continuing care to all relevant caregivers
Preparation of discharge records, prescriptions, and referral forms
Total time spent (in minutes): 55
Original Note:
Today's Communication/Plan
-
Continue with aggressive measures with broad-spectrum antibiotics antifungal
Continue with ventilation and sedation
Prognosis remains poor with plan for possible transition to comfort care
Assessment / Plan
Assessment / Plan
General: chronically ill-appearing, sedated, cachetic,
HEENT: NormoCephalic, Moist mucous membranes and Atraumatic
Respiratory: Rhonchi ETT noted. b/l chest tube noted.
Cardiac: S1/S2, regularly regular,
GI: Soft, Non Tender, Non Distended and Normal Bowel Sounds;
Musculoskeletal: trace BL LE edema improved
Skin: No Rash
Neuro:sedated
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
# Acute hypoxic respiratory failure Due to bilateral necrotizing pneumonia likely secondary to influenza, complicated by severe bilateral pneumonia secondary to Pseudomonas plus strep pneumo, Binta albicans
# Spontaneous left-sided pneumothorax
-s/p broch lavage showed Binta
-CT chest appreciated multilobar pna severe in RLL underlying mass not excluded (follow up CT after treatment recommended relayed to patient and patient spouse)
-Was started on IV steroids Decadron 4 mg every 8-since OK'ed on 10/03.
-Possible ARDS as with persistent severe hypoxemia. Agree with hydrocortisone for now
-Will try to avoid positive balance and try to keep it on the rice drier side. Agree with 40 mg of IV Lasix daily. Monitor creatinine closely.
-Status post intubation on 10/04/24 and now on mechanical ventilation. Continue with sedation. Fluctuates between 60 to 80% to 100% FiO2 at times.
-Family leaning against trach and possibly leaning to withdrawal of care later today.
#Septic Shock elevated (tachycardia, tachypnea) lactate, hypotension requiring pressor support
#Fever cough/generalized weakness likely from Influenza A /polymicrobial pneumonia with Necrotizing strep pneumonia and Pseudomonas pneumonia
#Empyema
#Strep bacteremia due to pneumonia
#Sinus tachycardia likely 2/2 severe sepsis PNA
-Blood cultures positive for Strep pneumonia, follow up repeat blood cx's NGTD
-Sputum Cx pos for Pseudomonas and binta albicans
-completed Tamiflu 10 day course,
-Status post CT chest with necrotizing pneumonia patient also started on antifungal with micafungin and vancomycin.
-Zosyn was transitioned to meropenem
Legionella Urine At neg
-Respiratory Cx +Pseudomonas +Binta albicans
-Patient was evaluated by CT surgery Dr. Ny on 10/04 and patient deemed not a surgical candidate
-In the long run patient will require long course of antibiotics of probably 6 weeks
-on levophed. wean pressors as tolerated
-Infectious disease following
# Spontaneous left-sided pneumothorax
Noted on chest x-ray on 09/29/2024
Status post emergent chest tube placement by [facility]
Status post second 14 Khmer chest tube placement by fellmongery worker post intubation for expanding pneumothorax on 10/04/2024
Daily chest x-ray. Will monitor for now. Did not do better on waterseal and back on suction
# Right-sided Pyopneumothorax with loculated effusion/empyema
Status post emergent chest tube placed by fellmongery worker on 10/03/2024
Fluid cultures and other studies sent
Status post emergent upsizing of right-sided chest tube by [facility] on 10/04/24
As mentioned above was evaluated by CT surgery and not deemed to be surgical candidate
Pain control as with b/i chest tube. Did not do good on waterseal and back on suction
# Atrial fibrillation/atrial flutter rapid ventricular response
was started on Cardizem infusion, since stopped
Blood pressure soft and thus unable to tolerate Cardizem and thus plan was to switch to amiodarone gtt, which in turn was stopped due to concern for Amio toxicity. As per cardio
Anticoagulation with Eliquis
Echocardiogram with EF of 60 to 65%. Mild to moderate mitral regurgitation. Mildly elevated PASP with PASP of 38 mmHg.
TSH wnl
Status post conversion to normal sinus rhythm.
Currently on Eliquis
# Fevers likely secondary to Precedex
Resolved after discontinuation of medication.
#Anemia
likely of chronic disease
no active luminal bleeding noted
Start patient on IV Venofer. B12 folate normal
Heme test stools
Status post 1 unit PRBC. Hemoglobin is 7.8 this morning.
#Loose bowel movements
Likely due to antibiotic associated
C. difficile negative
Imodium if needed
Resolved.
# Anxiety could be situational
Ativan as needed
on seroquel too
# Hyponatremia/metabolic acidosis /acute kidney injury likely hypovolemic
-resolved
-IVF completed
#Hypokalemia
#Mild Hypophosphatemia
monitor and replete as necessary
Underweight/Cachexic
severe temporal muscle wasting
nutrition on board
cont w/ Tube feeding. Goal rate of 40cc/hr with 1 pack prosource
# DVT prophylaxis -Eliquis
# CODE STATUS-limited DNR
GI prophylaxis PPI
Discussed with fellmongery worker
Discussed with patient son at bedside in detail on 10/14/2024
Prognosis guarded as patient remains without significant improvement even with maximal medical therapy.
Anticipated Discharge: > 48 hours
Subjective/Interval History
-
Date of Service: October 15, 2024
Remains intubated and sedated
Remains on Levophed
Bilateral chest tubes with drainage
Blood pressure remains soft
Bump in leukocytosis noted
Persistently elevated FiO2 requirement on ventilation
Objective Data
-
Labs:
Laboratory Results
10/15/24
04:17
WBC 25.4 H
Hgb 8.5 L
Hct 26.3 L
Plt Count 550 H D
HCO3 42.1 H*
Sodium 140
Potassium 3.8
Chloride 96 L
Carbon Dioxide 36 H
BUN 20 H
Creatinine 0.3 L
Glucose 156 H
Calcium 7.9 L
Total Bilirubin 0.4
AST 33
ALT 26
Alkaline Phosphatase 300 H
Vital Signs:
Vital Signs
Temp Pulse Resp BP Pulse Ox
98.1 F 73 18 95/47 98
10/15/24 11:00 10/15/24 12:44 10/15/24 11:30 10/15/24 12:44 10/15/24 11:46
I&O
10/14/24 10/15/24 10/16/24
06:59 06:59 06:59
Intake Total 2815.3 / 2891.0 2496.1 / 2583.0 482.5 / 482.5
Output Total 2585 / 2685 2960 / 2960 1090 / 1090
Balance 230.3 / 206.0 -463.9 / -377.0 -607.5 / -607.5
Data Reviewed
-
Total Time Spent with Patient (in minutes): 55
--- NOTE | 2024-10-15 14:01 | W.PN.UPDATE ---
Update Note
Progress Note Update
Spoke to the family who is now all at bedside. They are ready to terminally extubate now and transition to comfort care measures. Bedside RN present with me during this conversation. Primary hospitalist made aware. Emotional support was
provided. All of the family's questions were answered.
[2024-10-15] MEDS: ATIVAN 1 MG IV (14:14)
[2024-10-15] MEDS: NSS (PRESERVATIVE FREE) 0.5 ML IV (14:14)
[2024-10-15] MEDS: DILAUDID 1 MG IV (14:15)
--- NOTE | 2024-10-15 14:30 | PTCARENOTE ---
Tube feeds off since 1300. OG tube removed with extubation
--- NOTE | 2024-10-15 14:31 | RESPNOTE ---
Patient extubated to room air, without adversity noted, family at bedside.
--- NOTE | 2024-10-15 14:35 | PTCARENOTE ---
Pts family all at the bedside along with clergy. Per family's wishes pt for comfort measures. Dr. Alfredo in to speak with family. Propophol gtt turned off at 1415. Fentanyl gtt at 125 mcg. Ativan 1 mg IV given along with Dilaudid 1 mg IV at 1415.
Pt then extubated at 1425 to RA. 1430 Levophed turned off. Family all currently at the bedside-support given-pts respirs are very shallow but appears comfortable.
[2024-10-15] MEDS: DILAUDID 0.5 MG IV (14:53)
--- NOTE | 2024-10-15 14:53 | PTCARENOTE ---
Pt with some agonal gasping respirs- Medicated with Dilaudid 0.5 mg IV. Family at bedside. Support given
--- NOTE | 2024-10-15 15:15 | PTCARENOTE ---
1508- Family at the bedside. Pt with no pulse or respirs and Workforce Planning Analyst BP per A line. Dr. Madrid updated and in to pronounce pt.
--- NOTE | 2024-10-15 15:21 | W.PN.DEATH ---
Pronouncement of
-
Called to see patient to pronounce.
No spontaneous heart tones or respirations noted.
Patient not responsive to verbal stimuli.
Patient is pronounced .
Time of : 15:08
Date of : 10/15/24
Cause of : Necrotizing pneumonia
Influenza A
Pseudomonas aeruginosa and Streptococcus pneumonia
Bilateral pneumothorax
Acute hypoxic respiratory failure
Family Notified: Yes ( at bedside )
--- NOTE | 2024-10-15 15:35 | W.DCSUMMARY ---
Discharge Summary
Discharge Data
Date of Admission: 09/22/24
Date of Discharge: 10/15/24
-
Pending Results: No
Hospital Course
69-year-old female with no significant past medical history is presenting with complaints of with 6 days of sore throat, fever, cough, congestion, loss of appetite. Patient stated hemoptysis with cough now. she WAS not eating at all for past six
days prior to arrival. Patient with prolonged hospitalization and was seen in the hospital by spectrographer, pulmonary critical care, cardiology, palliative care, infectious disease and interventional radiologist. Patient presented with shortness of
breath. Patient was found to be severely hypoxic. Patient was found to have pneumonia and was started on broad-spectrum antibiotics. Patient was also found to be in atrial fibrillation with rapid ventricular response with heart rate in 160s.
Patient initially received Cardizem however leading to hypotension. Patient was evaluated by cardiology. Cardizem infusion was started. However due to hypotension was discontinued and was started on amiodarone. Amiodarone was eventually
discontinued. Patient was sent p.o. Cardizem. IV heparin was transitioned to p.o. Eliquis. Patient converted to normal sinus rhythm with control of heart rate after prolonged period of time. Underwent echocardiogram with EF of 60 to 65%. Mild
to moderate mitral regurgitation. Mildly elevated PASP with PASP of 38 mmHg. Patient with persistent and severe hypoxemia. Patient with persistent hypoxemia and x-ray showed concern for pneumothorax. Patient was transferred to the interventional
radiology where she received left-sided chest tube for pneumothorax. Patient oxygen requirement continued to trend up and patient was transferred to the medical ICU. Initially patient was started on IV Decadron which was eventually discontinued.
Infectious disease was consulted who was managing the antibiotics. Patient blood cultures positive for Streptococcus pneumonia. Patient was also found to have Pseudomonas aeruginosa. Patient was also found to have influenza A and she completed
course of Tamiflu. Patient with worsening hypoxemia and imaging studies consistent with necrotizing pneumonia. Also concern for right-sided loculated effusion and patient underwent emergent chest tube placement by spectrographer on 10/20/2024.
Patient with persistent hypoxemia and pneumothorax & underwent upsizing of right-sided chest tube by interventional radiology on 10/04/24. Patient patient oxygen requirement continued to increase and was eventually intubated on 10/04/24. Post
intubation patient was started on sedation. Patient with persistent hypotension and required Levophed. IV Zosyn was discontinued as patient with rash and was transitioned to meropenem. Patient was also maintained on micafungin as sputum culture
also positive for candidemia. And patient was also receiving vancomycin. Patient was evaluated by CT surgery Dr. Ny and was deemed not to be a surgical candidate. Bilateral chest tubes were placed on waterseal however patient with
decompensation after spontaneous breathing trial and thus he was placed back to suction. There was concern for alveolar pleural fistula possibly bronchopleural fistula considering patient had underlying necrotizing pneumonia. Patient was
maintained with tube feeding. Patient also had LORRAINE which resolved with IV fluid. Patient with anasarca and received diuretics which lead to improvement in edema. Patient remained on persistently high FiO2 requirement on mechanical ventilation,
bilateral chest tubes remain on suction and patient without much improvement in overall prognosis. Patient family was updated throughout hospitalization. It was relayed to them that patient with significantly poor prognosis. Family opted to
change CODE STATUS and patient was terminally extubated on comfort measures. Patient on 10/15/2024 at 1508 on comfort measures. Condolences were expressed to patient at bedside.
Discharge Plan
-
Patient Disposition:
Date/Time
Date/Time: 10/15/24 15:08
Discharge Date and Time
Print Language: DANISH
--- NOTE | 2024-10-15 16:45 | PTCARENOTE ---
All Belongings sent with family. [facility] notified. Initially screened pt to be a candidate for tissue and cornea donation but then called back and said that she was not a candidate. post Mortem care completed and pt taken to the [facility].
== END 2024-10-15 17:41 | disposition expired | DRG 870 ==
LOC: ICU 12:35
PROVIDERS: Internal Medicine; Internal Medicine Critical Care Medicine; Internal Medicine Infectious Disease; Nurse Practitioner Family; Nurse Practitioner Primary Care; Physician Assistant; Radiology Diagnostic Radiology; Radiology Vascular & Interventional Radiology; Registered Nurse; ADMITTING PHYSICIAN Hospitalist; ATTENDING PHYSICIAN Hospitalist; CONSULT PHYSICIAN Internal Medicine Critical Care Medicine; CONSULT PHYSICIAN Student in an Organized Health Care Education/Training Program; EMERGENCY PHYSICIAN Emergency Medicine; OTHER PHYSICIAN Nurse Practitioner Gerontology
PROC: 02HV33Z Insertion of Infusion Device into Superior Vena Cava, Percutaneous Approach (ICD-10-PCS; 2024-09-27)
PROC: 0W9B30Z Drainage of Left Pleural Cavity with Drainage Device, Percutaneous Approach (ICD-10-PCS; 2024-09-29)
PROC: 0W9930Z Drainage of Right Pleural Cavity with Drainage Device, Percutaneous Approach (ICD-10-PCS; 2024-10-03)
PROC: 5A1955Z Respiratory Ventilation, Greater than 96 Consecutive Hours (ICD-10-PCS; 2024-10-04)
PROC: 0BH17EZ Insertion of Endotracheal Airway into Trachea, Via Natural or Artificial Opening (ICD-10-PCS; 2024-10-04)
PROC: 0WP930Z Removal of Drainage Device from Right Pleural Cavity, Percutaneous Approach (ICD-10-PCS; 2024-10-05)
PROC: 03HY32Z Insertion of Monitoring Device into Upper Artery, Percutaneous Approach (ICD-10-PCS; 2024-10-05)
PROC: 0B9C8ZX Drainage of Right Upper Lung Lobe, Via Natural or Artificial Opening Endoscopic, Diagnostic (ICD-10-PCS; 2024-10-08)
PROC: 0B9G8ZX Drainage of Left Upper Lung Lobe, Via Natural or Artificial Opening Endoscopic, Diagnostic (ICD-10-PCS; 2024-10-08)
PROC: 30233N1 Transfusion of Nonautologous Red Blood Cells into Peripheral Vein, Percutaneous Approach (ICD-10-PCS; 2024-10-12)
DX: A40.9 Streptococcal sepsis, unspecified (principal); R65.21 Severe sepsis with septic shock; J10.08 Influenza due to other identified influenza virus with other specified pneumonia; J13 Pneumonia due to Streptococcus pneumoniae; J10.01 Influenza due to other identified influenza virus with the same other identified influenza virus pneumonia; J96.01 Acute respiratory failure with hypoxia; J85.0 Gangrene and necrosis of lung; J86.9 Pyothorax without fistula; E87.1 Hypo-osmolality and hyponatremia; E87.20 Acidosis, unspecified; N17.9 Acute kidney failure, unspecified; R64 Cachexia; J91.8 Pleural effusion in other conditions classified elsewhere; I48.92 Unspecified atrial flutter; Z51.5 Encounter for palliative care; Z66 Do not resuscitate; E86.1 Hypovolemia; E86.0 Dehydration; I48.91 Unspecified atrial fibrillation; E87.6 Hypokalemia; R26.89 Other abnormalities of gait and mobility; E83.39 Other disorders of phosphorus metabolism; B37.7 Candidal sepsis; R63.6 Underweight; Q74.2 Other congenital malformations of lower limb(s), including pelvic girdle; Z11.52 Encounter for screening for COVID-19; Z68.21 Body mass index [BMI] 21.0-21.9, adult
CPT/HCPCS: 32557; 36600; 71045; 71250; 71260; 71275; 74018; 80048; 80053; 80202; 82248; 82607; 82728; 82746; 82805; 82945; 82962; 83540; 83550; 83605; 83615; 83735; 83880; 84100; 84132; 84157; 84443; 84478; 85014; 85018; 85025; 85027; 85045; 85610; 85730; 86850; 86900; 86901; 86920; 87015; 87040; 87070; 87077; 87186; 87205; 87324; 87449; 87502; 87811; 87899; 89051; 92526; 92610; 93005; 93306; 94002; 94003; 94640; 94669; 96361; 96374; 96375; 97163; 97167; 97530; 99285; C1729; C1769; J1160; J2916; J2997; P9016; P9047; Q9967